=== PATIENT | male | born 1935 | race Caucasian/White ===

== ENCOUNTER → 2023-03-21 15:40 | Outpatient (REF) | payer MEDICARE, SELFPAY | LOC: PAVMRI 15:40 | PROVIDERS: ATTENDING PHYSICIAN Family Medicine | DX: M54.41 Lumbago with sciatica, right side (principal) | CPT/HCPCS: 72148 ==

== ENCOUNTER → 2023-04-02 11:14 | Outpatient (REF) | payer MEDICARE, SELFPAY ==
[2023-04-02 11:57] LABS: % Basophils 0.5 % (0-2); % Eosinophils 6.4 % (0-6); % Immature Granulocytes 0.8 % (0-0.5); % Lymphocytes 16.5 % (20.5-51.1); % Monocytes 12.2 % (1.7-9.3); % Neutrophils 63.6 % (42.2-75.2); Absolute Eosinophils 0.3 10^3/uL (0-0.7); Absolute Lymphocytes 0.7 10^3/uL (1.2-3.4); Absolute Monocytes 0.5 10^3/uL (0.1-0.6); Absolute Neutrophils 2.5 10^3/uL (1.4-6.5); Hematocrit 33.8 % (39.0-52.0); Hemoglobin 11.3 g/dL (13.0-18.0); Mean Corp Hgb Conc. 33.4 g/dL (33.0-37.0); Mean Corpuscular Hgb 29.9 pg (27.0-31.0); Mean Corpuscular Volume 89.4 fL (80.0-94.0); Mean Platelet Volume 8.4 fL (7.4-10.4); Nucleated Red Blood Cells % 0 % (-); Platelet Count 157 10^3/uL (130-400); Red Blood Cell Count 3.78 10^6/uL (4.70-6.10); Red Cell Dist. Width 14.2 % (11.5-14.5); White Blood Cell Count 3.9 10^3/uL (4.8-10.8)
[2023-04-02 12:54] LABS: PSA, Total - Diagnostic 5.68 ng/ml (0.0-4.0)
[2023-04-02 14:26] LABS: ALT (SGPT) 13 U/L (0-50); AST (SGOT) 24 U/L (17-59); Albumin 3.9 g/dl (3.5-5.0); Alkaline Phosphatase 55 U/L (38-126); Blood Urea Nitrogen 17 mg/dl (9-20); Calcium 9.8 mg/dl (8.4-10.2); Carbon Dioxide 27 mmol/L (22-30); Chloride 102 mmol/L (98-107); Glucose 155 mg/dl (70-99); Potassium 4.4 mmol/L (3.5-5.1); Sodium 138 mmol/L (135-145); Total Bilirubin 0.6 mg/dl (0.2-1.3); Total Protein 5.9 g/dl (6.3-8.2); eGFR > 60.00
== END ==
LOC: REG 11:14
PROVIDERS: ATTENDING PHYSICIAN Internal Medicine Hematology & Oncology; FAMILY PHYSICIAN Family Medicine
DX: C61 Malignant neoplasm of prostate (principal); C79.51 Secondary malignant neoplasm of bone
CPT/HCPCS: 36415; 80053; 84153; 85025

== ENCOUNTER → 2023-04-16 13:21 | Outpatient (REF) | payer MEDICARE, SELFPAY ==
[2023-04-16 14:14] LABS: % Basophils 0.5 % (0-2); % Eosinophils 5.5 % (0-6); % Immature Granulocytes 1.2 % (0-0.5); % Lymphocytes 14.3 % (20.5-51.1); % Neutrophils 68.5 % (42.2-75.2); Absolute Eosinophils 0.2 10^3/uL (0-0.7); Absolute Immature Granulocytes 0.1 10^3/uL (0-0.05); Absolute Lymphocytes 0.6 10^3/uL (1.2-3.4); Absolute Monocytes 0.4 10^3/uL (0.1-0.6); Absolute Neutrophils 2.9 10^3/uL (1.4-6.5); Hemoglobin 11.1 g/dL (13.0-18.0); Mean Corp Hgb Conc. 33.6 g/dL (33.0-37.0); Mean Corpuscular Hgb 30.1 pg (27.0-31.0); Mean Corpuscular Volume 89.4 fL (80.0-94.0); Mean Platelet Volume 8.4 fL (7.4-10.4); Nucleated Red Blood Cells % 0 % (-); Platelet Count 183 10^3/uL (130-400); Red Blood Cell Count 3.69 10^6/uL (4.70-6.10); Red Cell Dist. Width 14.2 % (11.5-14.5); White Blood Cell Count 4.2 10^3/uL (4.8-10.8)
[2023-04-16 14:53] LABS: ALT (SGPT) 14 U/L (0-50); AST (SGOT) 24 U/L (17-59); Albumin 4.5 g/dl (3.5-5.0); Alkaline Phosphatase 64 U/L (38-126); Blood Urea Nitrogen 26 mg/dl (9-20); Calcium 9.7 mg/dl (8.4-10.2); Carbon Dioxide 26 mmol/L (22-30); Chloride 106 mmol/L (98-107); Glucose 152 mg/dl (70-99); Potassium 4.6 mmol/L (3.5-5.1); Sodium 139 mmol/L (135-145); Total Bilirubin 0.4 mg/dl (0.2-1.3); Total Protein 6.6 g/dl (6.3-8.2); eGFR > 60.00
[2023-04-16 14:57] LABS: PSA, Total - Diagnostic 4.57 ng/ml (0.0-4.0)
== END ==
LOC: RAD 13:21
PROVIDERS: ATTENDING PHYSICIAN Radiology Radiation Oncology; FAMILY PHYSICIAN Family Medicine; REFERRING PHYSICIAN Internal Medicine Hematology & Oncology
DX: C79.51 Secondary malignant neoplasm of bone (principal); C79.52 Secondary malignant neoplasm of bone marrow; C61 Malignant neoplasm of prostate
CPT/HCPCS: 36415; 72192; 80053; 84153; 85025

== ENCOUNTER → 2023-05-27 14:41 | Outpatient (REF) | payer MEDICARE, SELFPAY ==
[2023-05-27 15:16] LABS: % Basophils 0.4 % (0-2); % Eosinophils 4.6 % (0-6); % Immature Granulocytes 0.6 % (0-0.5); % Lymphocytes 14.9 % (20.5-51.1); % Monocytes 9.7 % (1.7-9.3); % Neutrophils 69.8 % (42.2-75.2); Absolute Eosinophils 0.2 10^3/uL (0-0.7); Absolute Lymphocytes 0.7 10^3/uL (1.2-3.4); Absolute Monocytes 0.5 10^3/uL (0.1-0.6); Absolute Neutrophils 3.3 10^3/uL (1.4-6.5); Hematocrit 33.2 % (39.0-52.0); Hemoglobin 11.2 g/dL (13.0-18.0); Mean Corp Hgb Conc. 33.7 g/dL (33.0-37.0); Mean Corpuscular Hgb 31.1 pg (27.0-31.0); Mean Corpuscular Volume 92.2 fL (80.0-94.0); Mean Platelet Volume 8.7 fL (7.4-10.4); Nucleated Red Blood Cells % 0 % (-); Platelet Count 181 10^3/uL (130-400); Red Cell Dist. Width 14.3 % (11.5-14.5); White Blood Cell Count 4.8 10^3/uL (4.8-10.8)
[2023-05-27 15:37] LABS: ALT (SGPT) 14 U/L (0-50); AST (SGOT) 24 U/L (17-59); Albumin 4.6 g/dl (3.5-5.0); Alkaline Phosphatase 79 U/L (38-126); Blood Urea Nitrogen 24 mg/dl (9-20); Calcium 10.4 mg/dl (8.4-10.2); Carbon Dioxide 26 mmol/L (22-30); Chloride 104 mmol/L (98-107); Glucose 131 mg/dl (70-99); Potassium 4.7 mmol/L (3.5-5.1); Sodium 138 mmol/L (135-145); Total Bilirubin 0.5 mg/dl (0.2-1.3); Total Protein 6.7 g/dl (6.3-8.2); eGFR > 60.00
[2023-05-27 16:09] LABS: PSA, Total - Diagnostic 5.41 ng/ml (0.0-4.0)
== END ==
LOC: REG 14:41
PROVIDERS: ATTENDING PHYSICIAN Internal Medicine Hematology & Oncology; FAMILY PHYSICIAN Family Medicine
DX: C61 Malignant neoplasm of prostate (principal); C79.51 Secondary malignant neoplasm of bone
CPT/HCPCS: 36415; 80053; 84153; 85025

== ENCOUNTER → 2023-07-10 11:54 | Outpatient (REF) | payer MEDICARE, SELFPAY ==
[2023-07-10 14:14] LABS: % Basophils 0.2 % (0-2); % Eosinophils 4.3 % (0-6); % Immature Granulocytes 0.7 % (0-0.5); % Lymphocytes 17.2 % (20.5-51.1); % Monocytes 9.4 % (1.7-9.3); % Neutrophils 68.2 % (42.2-75.2); Absolute Eosinophils 0.2 10^3/uL (0-0.7); Absolute Lymphocytes 0.8 10^3/uL (1.2-3.4); Absolute Monocytes 0.4 10^3/uL (0.1-0.6); Absolute Neutrophils 3.1 10^3/uL (1.4-6.5); Hematocrit 35.2 % (39.0-52.0); Hemoglobin 11.9 g/dL (13.0-18.0); Mean Corp Hgb Conc. 33.8 g/dL (33.0-37.0); Mean Corpuscular Hgb 30.5 pg (27.0-31.0); Mean Corpuscular Volume 90.3 fL (80.0-94.0); Mean Platelet Volume 8.8 fL (7.4-10.4); Nucleated Red Blood Cells % 0 % (-); Platelet Count 196 10^3/uL (130-400); Red Cell Dist. Width 14.4 % (11.5-14.5); White Blood Cell Count 4.5 10^3/uL (4.8-10.8)
[2023-07-10 16:06] LABS: ALT (SGPT) 12 U/L (0-50); AST (SGOT) 24 U/L (17-59); Albumin 4.4 g/dl (3.5-5.0); Alkaline Phosphatase 49 U/L (38-126); Blood Urea Nitrogen 18 mg/dl (9-20); Calcium 9.8 mg/dl (8.4-10.2); Carbon Dioxide 25 mmol/L (22-30); Chloride 105 mmol/L (98-107); Glucose 142 mg/dl (70-99); Potassium 4.5 mmol/L (3.5-5.1); Sodium 138 mmol/L (135-145); Total Bilirubin 0.5 mg/dl (0.2-1.3); Total Protein 6.5 g/dl (6.3-8.2); eGFR > 60.00
[2023-07-10 16:31] LABS: PSA, Total - Diagnostic 9.18 ng/ml (0.0-4.0)
== END ==
LOC: REG 11:54
PROVIDERS: ATTENDING PHYSICIAN Internal Medicine Hematology & Oncology; FAMILY PHYSICIAN Family Medicine
DX: C61 Malignant neoplasm of prostate (principal); C79.51 Secondary malignant neoplasm of bone
CPT/HCPCS: 36415; 80053; 84153; 85025

== ENCOUNTER → 2023-08-16 12:49 | Outpatient (REF) | payer MEDICARE, SELFPAY ==
[2023-08-16 14:34] LABS: ALT (SGPT) 13 U/L (0-50); AST (SGOT) 25 U/L (17-59); Albumin 4.7 g/dl (3.5-5.0); Alkaline Phosphatase 59 U/L (38-126); Blood Urea Nitrogen 23 mg/dl (9-20); Calcium 9.8 mg/dl (8.4-10.2); Carbon Dioxide 27 mmol/L (22-30); Chloride 105 mmol/L (98-107); Glucose 144 mg/dl (70-99); Potassium 4.3 mmol/L (3.5-5.1); Sodium 139 mmol/L (135-145); Total Bilirubin 0.6 mg/dl (0.2-1.3); Total Protein 6.6 g/dl (6.3-8.2); eGFR > 60.00
== END ==
LOC: REG 12:49
PROVIDERS: ATTENDING PHYSICIAN Internal Medicine Hematology & Oncology; FAMILY PHYSICIAN Family Medicine
DX: C61 Malignant neoplasm of prostate (principal); C79.51 Secondary malignant neoplasm of bone
CPT/HCPCS: 36415; 80053; 84153

== ENCOUNTER → 2023-09-16 11:09 | Outpatient (REF) | payer MEDICARE, SELFPAY ==
[2023-09-16 13:56] LABS: ALT (SGPT) 11 U/L (0-50); AST (SGOT) 24 U/L (17-59); Albumin 4.4 g/dl (3.5-5.0); Alkaline Phosphatase 55 U/L (38-126); Blood Urea Nitrogen 15 mg/dl (9-20); Calcium 9.8 mg/dl (8.4-10.2); Carbon Dioxide 26 mmol/L (22-30); Chloride 106 mmol/L (98-107); Glucose 142 mg/dl (70-99); Potassium 4.2 mmol/L (3.5-5.1); Sodium 139 mmol/L (135-145); Total Bilirubin 0.5 mg/dl (0.2-1.3); Total Protein 6.2 g/dl (6.3-8.2); eGFR > 60.00
[2023-09-18 21:36] LABS: PSA Total 16.2 ng/mL (0.0-4.0)
== END ==
LOC: REG 11:09
PROVIDERS: ATTENDING PHYSICIAN Internal Medicine Hematology & Oncology
DX: C61 Malignant neoplasm of prostate (principal); C79.51 Secondary malignant neoplasm of bone
CPT/HCPCS: 36415; 80053; 84153; 84154

== ENCOUNTER → 2023-11-05 14:59 | Outpatient (REF) | payer MEDICARE, SELFPAY ==
[2023-11-05 17:01] LABS: ALT (SGPT) 12 U/L (0-50); AST (SGOT) 21 U/L (17-59); Albumin 4.4 g/dl (3.5-5.0); Alkaline Phosphatase 71 U/L (38-126); Blood Urea Nitrogen 25 mg/dl (9-20); Calcium 10.7 mg/dl (8.4-10.2); Carbon Dioxide 28 mmol/L (22-30); Chloride 101 mmol/L (98-107); Glucose 144 mg/dl (70-99); Potassium 4.4 mmol/L (3.5-5.1); Sodium 144 mmol/L (135-145); Total Bilirubin 0.4 mg/dl (0.2-1.3); Total Protein 6.2 g/dl (6.3-8.2); eGFR > 60.00
[2023-11-08 03:35] LABS: PSA Total 25.4 ng/mL (0.0-4.0)
== END ==
LOC: REG 14:59
PROVIDERS: ATTENDING PHYSICIAN Internal Medicine Hematology & Oncology; FAMILY PHYSICIAN Family Medicine
DX: C61 Malignant neoplasm of prostate (principal); C79.51 Secondary malignant neoplasm of bone
CPT/HCPCS: 36415; 80053; 84153; 84154

== ENCOUNTER → 2023-11-07 20:06 | Outpatient (REF) | payer MEDICARE, SELFPAY | LOC: MRI 3T 20:06 | PROVIDERS: ATTENDING PHYSICIAN Radiology Radiation Oncology; FAMILY PHYSICIAN Family Medicine | DX: C79.51 Secondary malignant neoplasm of bone (principal); C79.52 Secondary malignant neoplasm of bone marrow | CPT/HCPCS: 72158 ==

== ENCOUNTER 2023-11-26 15:32 | Inpatient (IN) | payer MEDICARE, SELFPAY ==
[2023-11-26] VITALS (13 sets, daily range): BP systolic 152–175; BP diastolic 69–93; BMI 24.2; BMI 24.4
[2023-11-26 11:13] LABS: % Basophils 0.4 % (0-2); % Eosinophils 1.1 % (0-6); % Immature Granulocytes 0.7 % (0-0.5); % Lymphocytes 8.5 % (20.5-51.1); % Monocytes 11.2 % (1.7-9.3); % Neutrophils 78.1 % (42.2-75.2); Absolute Eosinophils 0.1 10^3/uL (0-0.7); Absolute Lymphocytes 0.5 10^3/uL (1.2-3.4); Absolute Monocytes 0.6 10^3/uL (0.1-0.6); Absolute Neutrophils 4.3 10^3/uL (1.4-6.5); Hematocrit 29.3 % (39.0-52.0); Hemoglobin 10.5 g/dL (13.0-18.0); Mean Corp Hgb Conc. 35.8 g/dL (33.0-37.0); Mean Corpuscular Hgb 31.5 pg (27.0-31.0); Mean Platelet Volume 9.1 fL (7.4-10.4); Nucleated Red Blood Cells % 0 % (-); Platelet Count 164 10^3/uL (130-400); Red Blood Cell Count 3.33 10^6/uL (4.70-6.10); Red Cell Dist. Width 12.9 % (11.5-14.5); White Blood Cell Count 5.6 10^3/uL (4.8-10.8)
[2023-11-26 11:28] LABS: ALT (SGPT) 15 U/L (0-50); AST (SGOT) 34 U/L (17-59); Alkaline Phosphatase 96 U/L (38-126); Blood Urea Nitrogen 35 mg/dl (9-20); Carbon Dioxide 38 mmol/L (22-30); Chloride 96 mmol/L (98-107); Estimated Creatinine Clearance 21 ml/min; Glucose 157 mg/dl (70-99); Potassium 3.1 mmol/L (3.5-5.1); Sodium 142 mmol/L (135-145); Total Bilirubin 0.6 mg/dl (0.2-1.3); eGFR 23.29
[2023-11-26 11:35] LABS: Urine Albumin Negative (Neg - Trace); Urine Bilirubin Negative (Negative); Urine Character Clear (Clear); Urine Color Yellow; Urine Glucose Negative (Negative); Urine Ketone Negative (Negative); Urine Leukocyte Negative (Negative); Urine Nitrite Negative (Negative); Urine Occult Blood 2+ (Negative); Urine Urobilinogen Negative (Neg - 1+)
[2023-11-26 11:51] LABS: Urine Red Blood Cell 30-40 /HPF (0-2); Urine White Cell 16-20 /HPF (0-5)
[2023-11-26 11:52] LABS: Urine Bacteria Moderate (Negative)
[2023-11-26 11:54] LABS: Urine Hyaline Cast 0-2 /LPF (0-2)
--- NOTE | 2023-11-26 11:54 | ED.GENMED ---
History of Present Illness
General
Chief Complaint: Change in Mental Status
Source: patient
Exam Limitations: none
Time Seen by Provider: 11/26/23 10:50
History of Present Illness
History of Present Illness:
88-year-old male presents from home with family who states the patient has not been himself over the past 2 weeks. He has been very weak and confused. Just prior to this 2 weeks he was constipated and took magnesium citrate. This helped his
constipation. However he has been disoriented and confused and very weak since then. Family notes decreased intake both solids and liquids. He has been urinating. Patient denies any headache chest pain or shortness of breath but at this time
patient is not the best historian.
Phy Exam
Physical Exam
Physical Exam:
General: Well-appearing male no acute respiratory distress
HEENT: Normocephalic mucosa dry neck is supple
Heart: Regular rate and rhythm
Lungs: Clear no wheeze
Abdomen is soft nontender nondistended no guarding rebound normal bowel
Extremities: No cyanosis or edema
Course
Orders/Labs/Results
Orders:
Orders
11/26/23 11:03
Complete Blood Count/With Diff Urgent
Comprehensive Metabolic Panel Urgent
Urinalysis Urgent
Date Specimen was Collected: 11/26/23
Time Specimen was Collected: 10:58
Urine Microscopic Urgent
Date Specimen was Collected: 11/26/23
Time Specimen was Collected: 10:58
11/26/23 11:10
CT Head W/o Iv Contrast Urgent
Comment:
Reason For Exam: confusion
CR Chest - 2 Views Urgent
Comment:
Reason For Exam: confusion
11/26/23 14:03
CefTRIAXone [Rocephin] 1,000 mg IV NOW STA
Abnormal Lab Results
11/26/23
11:03
RBC 3.33 L 10^6/uL
(4.70-6.10)
Hgb 10.5 L g/dL
(13.0-18.0)
Hct 29.3 L %
(39.0-52.0)
MCH 31.5 H pg
(27.0-31.0)
Absolute Lymphs (auto) 0.5 L 10^3/uL
(1.2-3.4)
Immature Gran % 0.7 H %
(0-0.5)
Neutrophils % 78.1 H %
(42.2-75.2)
Lymphocytes % 8.5 L %
(20.5-51.1)
Monocytes % 11.2 H %
(1.7-9.3)
Potassium 3.1 L mmol/L
(3.5-5.1)
Chloride 96 L mmol/L
(98-107)
Carbon Dioxide 38 H mmol/L
(22-30)
BUN 35 H mg/dl
(9-20)
Creatinine 2.6 H mg/dL
(0.7-1.3)
Glucose 157 H mg/dl
(70-99)
Calcium 16.7 H* mg/dl
(8.4-10.2)
Total Protein 6.0 L g/dl
(6.3-8.2)
Urine Occult Blood 2+ A
(Negative)
Urine RBC 30-40 A /HPF
(0-2)
Urine WBC 16-20 A /HPF
(0-5)
Urine Bacteria Moderate A
(Negative)
11/26/23 11:03
11/26/23 11:03
Vital Signs
Initial and Last Documented VS:
Initial Vital Signs
Temp Pulse Resp BP Pulse Ox
97.8 F 76 20 175/72 97
11/26/23 10:48 11/26/23 10:48 11/26/23 10:48 11/26/23 10:48 11/26/23 10:48
Last Documented Vital Signs
Temp Pulse Resp BP Pulse Ox
97.8 F 72 16 175/72 96
11/26/23 10:57 11/26/23 10:57 11/26/23 10:57 11/26/23 10:57 11/26/23 10:57
MDM/Problems Addressed
Differential Diagnosis Includes:
Patient with history of prostate cancer presents weak and confused for 2 weeks and getting worse. This was followed by a dose of magnesium citrate. Question electrolyte abnormality versus kidney injury versus dehydration. Will order CT of head to
evaluate for any abnormalities. Chest x-ray and urine pending as well to evaluate for infectious source of weakness. There is no unilateral finding on exam to suggest stroke
Fluids ordered
*Critical Care Note
Total Time (30-74mins, 75-104mins- exclusive of procedures): Not Applicable
Update Note
Update Note:
CT head negative. Chest x-ray shows no obvious acute finding. There is mild cardiomegaly on the x-ray. Patient found to have acute kidney injury with a creatinine of 2.6 consistent with likely prerenal source given his recent dehydration and lack
of p.o. intake. Patient also has hypercalcemia with a value of 16.7. Fluids ordered will cover for UTI with Rocephin and admit to hospital
ED Attending Note
-
Portions of this chart may have been created with voice recognition software.� Occasional wrong word or��sound alike� substitutions may have occurred due to the inherent limitations of voice recognition software.
Discharge Plan
Departure
Patient Disposition: Admit
Date of Disposition: 11/26/23
Time of Disposition: 14:18
Admit to: Telemetry
Presentation/result/management discussed w/ accepting MD/DO: Hospitalist
Discharge Problem:
Hypercalcemia, KAVEH (acute kidney injury), Acute UTI
Prescriptions:
No Action
tramadol 50 mg tablet
50 mg PO TID
meloxicam [Mobic] 15 mg Tablet
15 mg PO DAILY
tamsulosin [Flomax] 0.4 mg Capsule
0.4 mg PO DAILY
Xtandi 40 mg Capsule
160 mg PO .DAILY-ON HOLD
Patient Comments:
ON HOLD UNTIL 12/11/2023 FAMILY STATED PATIENT MIGHT DO CHEMO IN DECEMBER OF 2023
Referrals:
UNKNOWN,NO INTERVIEW [Family Provider] -
Interventions
Interventions:
*General Assessment Last Done: 11/26/23 11:25
*Neglect/Abuse Screening Last Done: 11/26/23 11:00
*ED COVID-19 Vaccine History Last Done: 11/26/23 11:23
ED- Neurological Assessment Last Done: 11/26/23 13:39
Discharge Date and Time
Print Language: SAMMARINESE
[2023-11-26 12:12] LABS: Calcium 16.7 mg/dl (8.4-10.2)
--- NOTE | 2023-11-26 14:22 | HPS.HSE ---
Family Physician
-
Family Physician: NO INTERVIEW UNKNOWN
Chief Complaint
-
confusion
History of Present Illness
88 year old with PMH for HTN, prostate ca lalito to spine presented to us with change in Mental status for past two weeks. he was treated with antibiotics for upper respiratory infection beginning of last month. patient was noted constipated
afterwards. he took mag citrate with relief in his constipation. For past 2 weeks he was noted to be confused, sleeping more than usual. He was noted declined in his oral intake. he is usually physically very active at home. History obtained from
son. Review of system limited as patient is very confused.
Upon arrival he was noted in acute kidney injury as well as hypercalcemia likely from dehydration. Patient received ceftriaxone in ER for UTI. Patient also received pamidronate for hypercalcemia. Admitting for further management
Medical History
Past Medical History
Past Medical History: Reports Other
Additional Past Medical History:
prosate ca
htn
Past Surgical History: Reports Other
Additional Past Surgical History:
left shoulder surgery
right knee surgery
appendectomy
tonsillecotm
colon resection
Social History
Tobacco: Former Smoker
Alcohol: Occasional
Drug: None
Personal:
Living: With Family
Family History
Family History: Not pertinent
Allergies / Home Medications
Allergies reflects when Allergies were last updated in [employer].
Home Medications with original date entered in [employer]
Allergy/Medication List:
Allergies
Allergy/AdvReac Type Severity Reaction Status Date / Time
Sulfa (Sulfonamide Allergy Unknown Verified 12/07/22 13:24
Antibiotics)
lisinopril Allergy Unknown Uncoded 12/07/22 13:24
Home Medications
tramadol 50 mg tablet 50 mg PO TID Pain 05/31/22
enzalutamide 40 mg capsule (Xtandi) 160 mg PO .DAILY-ON HOLD 11/26/23
meloxicam 15 mg tablet 15 mg PO DAILY 11/26/23
tamsulosin 0.4 mg capsule (Flomax) 0.4 mg PO DAILY 11/26/23
Review of Systems
-
Unable to obtain full review of systems at this time due to: Other (Confusion)
Physical Exam
Vital Signs
Vital Signs
Temp Pulse Resp BP Pulse Ox
97.8 F 72 16 175/72 96
11/26/23 10:57 11/26/23 10:57 11/26/23 10:57 11/26/23 10:57 11/26/23 10:57
Physical Exam
General: Well Developed, Well Nourished and No Apparent Distress
HEENT: NormoCephalic, Moist mucous membranes and Atraumatic
Respiratory: Clear
Cardiac: S1/S2 and Regular Rhythm; No Murmur or Rub
GI: Soft, Non Tender, Non Distended and Normal Bowel Sounds; No Organomegaly
Rectal: Deferred by Provider
Musculoskeletal: No Clubbing, No Cyanosis and No Edema
Skin: No Rash
Neuro: Nonfocal/grossly intact
Psych: Confused
Laboratory Results
-
11/26/23 11:03
11/26/23 11:03
Laboratory Results
Total Bilirubin 0.6 mg/dl (0.2-1.3) 11/26/23 11:03
AST 34 U/L (17-59) 11/26/23 11:03
ALT 15 U/L (0-50) 11/26/23 11:03
Alkaline Phosphatase 96 U/L (38-126) 11/26/23 11:03
Data Reviewed
-
CT Scan: Report Reviewed by me
Lab Data: Labs Reviewed by me
Impression/Plan
-
#metabolic encephalopathy likely from hypercalcemia
-CT head negative
-chest x ray pending
-Ceftriaxone once dose in ER
-defer abx at this time.
#acute kidney injury/ profound symptomatic hypercalcemia possible dehydration/bone lalito
#hypokalemia likely from poor oral intake
-K 3.1
-cr 2.6, calcium 16.7
-normal saline continued
-received IV pamidronate in ER
-oral kcl in ER
-Nephrology consulted
#anemia of chornic disease
-hgb stable at 10.5
-no active bleeding
-ctm
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
-follows [facility]
-supposed to get radiation therapy some time next month
-tramadol prn for pain
-hold Mobic
#BPH
-Flomax
DVT heparin sq
FULL CODE
--- NOTE | 2023-11-26 14:31 | W.CON.NEPH ---
Consultation
-
Date/Time Consultation Requested: 11/26/2023 2:30 PM
Date/Time Consultation Performed: 11/26/2023 2:30 PM
Requesting Provider:
Performing Provider: Dr. Arzola
Reason for Consultation: Acute renal failure/hypercalcemia
Medical History
-
Chief Complaint: KAVEH/Hypercalcemia
History of Present Illness:
The patient is an 88-year-old male presents from home with family who states the patient has not been himself over the past 2 weeks. He has been very weak and confused. Just prior to this 2 weeks he was constipated and took magnesium citrate.
This helped his constipation. However he has been disoriented and confused and very weak since then. Family notes decreased intake both solids and liquids. He has been urinating. Patient denies any headache chest pain or shortness of breath but
at this time patient is not the best historian. The patient does have a history of BPH and is maintained on Flomax therapy. He also has a history of prostate cancer (DX 2013) and has received prostatectomy and antihormonal therapy in the past. A
recent PET scan obtained in September 2023 revealed metastasis and the humerus femur ribs scapula clavicle sternum and spine and pelvis. medications are listed as Celebrex and tramadol for arthralgias. He does have a history of hypertension and
previously been on STONEY inhibitor .when he presented to the hospital he was in acute renal failure with a creatinine of 2.6 and profoundly hypercalcemic with a serum calcium level of 16.7.
Past Medical History
History of right septic knee joint
Prostate cancer
HTN
Social History
Tobacco: Non-Smoker
Alcohol: None
Family History
Family History: Not Pertinent
Allergies / Home Medications
Allergy/AdvReac Type Severity Reaction Status Date / Time
Sulfa (Sulfonamide Allergy Unknown Verified 12/07/22 13:24
Antibiotics)
lisinopril Allergy Unknown Uncoded 12/07/22 13:24
�Medication �Instructions �Recorded �Confirmed �Type
tramadol 50 mg tablet 50 mg PO TID Pain 05/31/22 11/26/23 History
enzalutamide 40 mg capsule (Xtandi) 160 mg PO .DAILY-ON HOLD 11/26/23 11/26/23 History
meloxicam 15 mg tablet 15 mg PO DAILY 11/26/23 11/26/23 History
tamsulosin 0.4 mg capsule (Flomax) 0.4 mg PO DAILY 11/26/23 11/26/23 History
Review of Systems
-
History Source: Patient and Family
All other systems: Negative unless noted
Abdomen/GI: Anorexia
Neurological: Weakness and Other (Mental status changes)
Physical Exam
Vital Signs
Vital Signs
Temp Pulse Resp BP Pulse Ox
97.8 F 72 16 175/72 96
11/26/23 10:57 11/26/23 10:57 11/26/23 10:57 11/26/23 10:57 11/26/23 10:57
Lab Results
11/26/23 11:03
11/26/23 11:03
WBC 5.6 10^3/uL (4.8-10.8) 11/26/23 11:03
RBC 3.33 10^6/uL (4.70-6.10) L 11/26/23 11:03
Hgb 10.5 g/dL (13.0-18.0) L 11/26/23 11:03
Hct 29.3 % (39.0-52.0) L 11/26/23 11:03
Plt Count 164 10^3/uL (130-400) 11/26/23 11:03
Sodium 142 mmol/L (135-145) 11/26/23 11:03
Potassium 3.1 mmol/L (3.5-5.1) L 11/26/23 11:03
Chloride 96 mmol/L (98-107) L 11/26/23 11:03
Carbon Dioxide 38 mmol/L (22-30) H 11/26/23 11:03
BUN 35 mg/dl (9-20) H 11/26/23 11:03
Creatinine 2.6 mg/dL (0.7-1.3) H 11/26/23 11:03
eGFR 23.29 11/26/23 11:03
Glucose 157 mg/dl (70-99) H 11/26/23 11:03
Calcium 16.7 mg/dl (8.4-10.2) H* 11/26/23 11:03
Albumin 4.0 g/dl (3.5-5.0) 11/26/23 11:03
Physical Exam
General: AOx1, Nontoxic , NAD, confused ,
HEENT: PERRL, EOMI, Anicteric, Conjunctivae Clear, Ear/Nose Intact, Hearing Normal, Oropharynx Clear/dry, Dentition Intact, Facial Symmetry, Neck Supple, Neck: Trachea Midline, No JVD and No Thyromegaly, no Bruits
Respiratory: Clear to auscultation bilaterally with normal lung exersion
Cardiac: S1/S2 and Regular Rate/Rhythm
Breast: Deferred by me
Abdomen: Soft, Nontender, Nondistended, Normal Bowel Sounds and No Hepatosplenomegaly
Rectal: Deferred by Provider
Genito-urinary: No Costovertebral Tenderness
Extremities: No Clubbing, No Cyanosis and No Edema
Skin: No Rash or open lesions
Neuro: Nonfocal/Grossly Intact, CN II-XII (Intact) and Strength (Musculoskeletal exam 5 out of 5 both upper and lower extremities), no myoclonic activity
Hematologic/Lymphatic: No Cervical Lymphadenopathy, No Submandibular Lymphadenopathy and No Supraclavicular Lymphadenopathy
Psych: Mood/afflect pleasant, Insight/judgement good and Appropriate
Vascular: plus 2 pedal and radial pulses
Data Reviewed
-
Radiology: Report Reviewed by me (PET scan showing osseous metastatic lesions from 10/04)
Labs: Labs Reviewed by me (BMP CBC urinalysis)
Old Records: Reviewed (Creatinine 0.9 calcium 10.7 from 11/05/2023 PSA 25)
Assessment/Plan
-
Impression:
Presents with mental status changes and weakness
KAVEH
Hypercalcemia
History of metastatic prostate cancer
History of hypertension
Anemia
History of right septic knee arthritis spring 2023
History of prostatectomy (PSA 25)
Plan:
KAVEH likely related to prerenal stimulus specifically from hypercalcemia
-IV fluids to be administered in 60 mg IV pamidronate directed
-Calcitonin provided
-Normal saline at 120 cc initiated
-Accurate I's and O's. Monitor urine output with postvoid bladder scan
-Urinalysis notable for 2+ blood
-Will check urine protein urine creatinine ratio urine sodium and urine creatinine
-Obtain kidney and bladder ultrasound
Hypercalcemia
-Check vitamin D level, intact PTH, PTH RP , SPEP ,upep, urine kappa lambda ratio
-Strong suspicion for underlying malignancy: Could be related to metastatic osseous lesions (although alkaline phosphatase is not elevated)
-Dysproteinemia process is in the differential given anemia and hypercalcemia but total protein levels were not elevated
[2023-11-26] MEDS: ROCEPHIN 1000 MG IV (14:32)
--- NOTE | 2023-11-26 15:06 | W.PN.UPDATE ---
Update Note
Progress Note Update
This note serves as an addendum to the H&P by sander hand JOSEFA Mile [facility]
HPI
86M Non smoker, HX metastatic prostate CA on Enzalutamide , HTN seen at ER for confusional state.
- associated . weakness and not himself for 2 weeks
- progressively worse and more confused
-he was constipated and took magnesium citrate and help relieved constipation.
- However he has been disoriented and confused and very weak since then.
- Family notes decreased intake both solids and liquids.
- He has been urinating.
ROS: Patient denies any headache chest pain or shortness of breath but at this time patient is not the best historian.
Vital Signs
Temp Pulse Resp BP Pulse Ox
97.8 F 72 16 175/72 96
11/26/23 10:57 11/26/23 10:57 11/26/23 10:57 11/26/23 10:57 11/26/23 10:57
PE
Gen: awake but not interactive ,incognizant, no cognitve speed
HEENT: dry lips, dry OM
Neck: supple
Lungs: symmetric AE
Cor: RRR S1 S2
Abdomen: soft abdomen
RESIDENTIAL CONSTRUCTION INSTRUCTOR: awake but not interactive ,incognizant
MS: no edema
Psych: not interactive ,incognizant
Laboratory Tests
07/10/23 11/05/23 11/26/23
12:13 15:22 11:03
Hgb 11.9 L 10.5 L
Potassium 4.4 3.1 L
Chloride 96 L
Carbon Dioxide 28 38 H
BUN 35 H
Creatinine 0.9 2.6 H
eGFR 23.29
Glucose 157 H
Calcium 10.7 H 16.7 H*
Albumin 4.0
CXR: report pending
HCT: No acute intracranial abnormality
EKG
AK 208
NORMAL SINUS RHYTHM WITH SINUS ARRHYTHMIA
LEFT AXIS DEVIATION
LEFT VENTRICULAR HYPERTROPHY WITH QRS WIDENING AND REPOLARIZATION ABNORMALITY
( R in aVL , Sokolow-Valente , [place] product )
ABNORMAL ECG
WHEN COMPARED WITH ECG OF 07-DEC-2022 13:26,
ST NOW DEPRESSED IN LATERAL LEADS
T WAVE INVERSION NOW EVIDENT IN ANTERIOR LEADS
NONSPECIFIC T WAVE ABNORMALITY HAS REPLACED INVERTED T WAVES IN LATERAL LEADS
Lx spine MRI ( 11/07/23)
Extensive metastatic disease throughout the lumbar spine and pelvis with likely new metastatic foci in the T12 and S3 vertebral bodies. There is increased extent of disease within the L3 vertebral body. There is no evidence of leptomeningeal disease
within the lumbar spine.
Multilevel degenerative changes with resultant multifocal spinal canal or neuroforaminal narrowing. There is a new right subarticular disc extrusion with caudal migration at the L2-L3 level with resultant increased right lateral recess narrowing and
contacting of the right transiting nerve roots. The additional degenerative changes are not significantly changed from prior with persistent severe canal stenosis at the L4-L5 level.
Last hospitalist admission: Date of Admission: 05/31/22 - Date of Discharge: 06/03/22
Principal Discharge diagnosis : Right knee effusion
Chronic Discharge diagnosis : hypertension, metastatic prostate cancer on hormonal therapy
ASSESSMENT & PLAN
Pending Rx reconciliation
Acute symptomatic profound hypercalcemia : multifactorial such metastatic spine bone dz of prostate plus dehydration
Metabolic encephalopathy due to hypercalcemia with progressive acute confusional state with weakness , anorexia
KAVEH suspect prerenal from dehydration complicated with volume contraction
Contraction alkalosis
Constipation due to hypercalcemia
- @ ER received 1 L NS then- IV NS at 120/Hrs
- Normal Alkaline Phos thus check GGT
- check iPTH, MARIANELA (SPEP)
- agree with IV pamidronate @ ER and added IM calcitonin 100 units
- Check Calcium q6H
- BMI in AM
- EKG in AM to observe AK interval ( [facility] AK interval is 208)
- Hold off Enzalutamide
- BW regime
- Renal consulted
Hypokalemia :
- PO KCL 40
DVT Px: SQH
Code: Full cod
IMU to close monitoring hypercalcemia
[2023-11-26] MEDS: AREDIA 270 MG IV (15:56)
[2023-11-26 17:02] LABS: GGTP 16 U/L (15-73)
[2023-11-26] MEDS: KCL ELIXIR 40 MEQ PO (17:10)
--- NOTE | 2023-11-26 18:44 | PTCARENOTE ---
Pt received from ED via stretcher. Placed on hard wire monitoring. Condom cath #30 applied. Skin C/D/I. Son at bedside. Report to electrical prospecting observer RN.
[2023-11-26] MEDS: NSS 1000 IV (19:38)
[2023-11-26] MEDS: CALCIMAR/CALCITONIN 400 UNITS/ 2 ML 300 UNITS IM (19:39)
[2023-11-26] MEDS: ULTRAM 50 MG PO (19:45)
[2023-11-26] MEDS: HEPARIN 5000 UNITS SC (19:46)
[2023-11-26 20:37] LABS: Blood Urea Nitrogen 37 mg/dl (9-20); Carbon Dioxide 30 mmol/L (22-30); Chloride 101 mmol/L (98-107); Estimated Creatinine Clearance 21 ml/min; Glucose 131 mg/dl (70-99); Potassium 3.5 mmol/L (3.5-5.1); Sodium 142 mmol/L (135-145); eGFR 24.41
[2023-11-26 20:47] LABS: Calcium 16.2 mg/dl (8.4-10.2)
[2023-11-26 20:49] LABS: Calcium 16.2 mg/dl (8.4-10.2); Intact PTH 9.4 pg/ml (13.6-85.8)
--- NOTE | 2023-11-26 21:53 | PTCARENOTE ---
Rec'd pt from previous RN. Pt resting in bed, disoriented, confused. Pt with one episode of small amount yellow emesis, no pills visible in emesis. Hygiene care performed. Pt removed condom cath and had episode of incontinence, this RN replaced. SR
to sinus arrhythmia on cardiac nurse. IVF running through L AC, soft arm immobilizer in place to prevent occlusion of IVF.
[2023-11-27] VITALS (14 sets, daily range): BP systolic 149–187; BP diastolic 66–92; PULSE 77; O2SAT 95; BMI 24.7
[2023-11-27] MEDS: NSS 1000 IV ×4 (04:01→21:34)
[2023-11-27 04:04] LABS: Blood Urea Nitrogen 38 mg/dl (9-20); Carbon Dioxide 29 mmol/L (22-30); Chloride 102 mmol/L (98-107); Estimated Creatinine Clearance 21 ml/min; Glucose 159 mg/dl (70-99); Potassium 3.4 mmol/L (3.5-5.1); Sodium 144 mmol/L (135-145); eGFR 24.41
--- NOTE | 2023-11-27 04:06 | DOWNTIME ---
There was a [employer] E Learning Designer Downtime on 11/27/2023 from 0100 to 11/27/2023 at 0355. Downtime documentation of patient's care, including medication administrations, has been reconciled in the electronic record per guidelines. Refer to the
patient's paper chart under the miscellaneous tab to see printed paper medication records and downtime forms.
[2023-11-27 04:16] LABS: Calcium 15.6 mg/dl (8.4-10.2)
[2023-11-27] MEDS: ULTRAM 50 MG PO (05:26)
[2023-11-27 05:38] LABS: Hematocrit 28.6 % (39.0-52.0); Hemoglobin 9.8 g/dL (13.0-18.0); Mean Corp Hgb Conc. 34.3 g/dL (33.0-37.0); Mean Corpuscular Hgb 29.4 pg (27.0-31.0); Mean Corpuscular Volume 85.9 fL (80.0-94.0); Mean Platelet Volume 8.8 fL (7.4-10.4); Platelet Count 172 10^3/uL (130-400); Red Blood Cell Count 3.33 10^6/uL (4.70-6.10); Red Cell Dist. Width 13.2 % (11.5-14.5); White Blood Cell Count 5.4 10^3/uL (4.8-10.8)
--- NOTE | 2023-11-27 07:55 | W.PN.HOSP.TC ---
Addendum entered and electronically signed by Jordan Rhoades MD 11/27/23 11:39:
I saw and evaluated the patient. I reviewed the resident�s note and agree with findings and plan as documented in the resident�s note.
Patient currently confused and unable to answer questions.
Gen: NAD, NCAT
Eyes: EOMI, PERRLA, no scleral icterus.
Neck: supple.
CV: tachy, reg rhythm with frequent premature beats, +S1/S2, no m/r/g.
Resp: CTAB, no rales, wheezes, or rhonchi.
Abd: +BS, soft, NT, ND
Skin: No rashes.
Neuro: arousable but falls back asleep quickly, CN 2-12 intact, non-focal.
Psych: calm
CT brain: No acute intracranial abnormality
Acute metabolic encephalopathy due to hypercalcemia of malignancy:
-h/o metastatic prostate CA
-s/p IV pamidronate
-increase IVFs to 200cc/hr
-renal and onc following
Original Note:
Today's Communication/Plan
-
Recheck BMP, continue IVF
Speech eval
hypercalemic labs pending
Assessment / Plan
Assessment / Plan
Impression: This is a 88 year old male with PMH of HTN and prostate cancer with mets to spine on Enzalutamide who presented to the ED with altered mental status for the past two weeks according to family. In ED, found to be hypercalcemic at 16.7.
Assessment:
HTN
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
BPH
Anemia of Chronic Disease
Plan:
#Toxic Metabolic Encephalopathy likely from hypercalcemia
-CT head 11/25: No acute intracranial abnormality.
-CXR on 11/25: Mild cardiomegaly without associated pulmonary edema
-Ceftriaxone 1x in ER
-Speech eval ordered
#KAVEH/Symptomatic hypercalcemia possible dehydration/bone mets
-hypokalemia likely from poor oral intake
-K 3.2 today, repleted
-Recheck BMP: cr increasing to 2.6, calcium decreased to 14.9
-Repeat BMP
-Continue IVF
-Received IV pamidronate in ER
-Nephrology consulted
-Hypercalemia lab workup pending (monoclonal protein, PTH, urine studies, MARIANELA/SPEP)
#Anemia of chronic disease
-Hb decreased to 9.8, monitor
#Prostate Ca metastasis to the spine
-follows [facility] with
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
- Continue tramadol prn for pain
#BPH
-Continue Flomax
DVT ppx: heparin sq
Full Code
Anticipated Discharge: > 48 hours
Subjective/Interval History
-
Date of Service: November 27, 2023
Patient is unable to answer questions or follow commands.
Objective Data
-
Labs:
Laboratory Results
11/26/23 11/26/23 11/27/23
20:05 20:05 00:54
WBC
Hgb
Hct
Plt Count
Sodium 142 144
Potassium 3.5 3.4 L
Chloride 101 102
Carbon Dioxide 30 29
BUN 37 H 38 H
Creatinine 2.5 H 2.5 H
Glucose 131 H 159 H
Calcium 16.2 H* 16.2 H* 15.6 H*
11/27/23 11/27/23
05:10 06:18
WBC 5.4
Hgb 9.8 L
Hct 28.6 L
Plt Count 172
Sodium 144 Cancelled
Potassium 3.2 L Cancelled
Chloride 103 Cancelled
Carbon Dioxide 30 Cancelled
BUN 39 H Cancelled
Creatinine 2.6 H Cancelled
Glucose 163 H Cancelled
Calcium 14.9 H* Cancelled
Vital Signs:
Vital Signs
Temp Pulse Resp BP Pulse Ox
97.9 F 75 16 158/79 93
11/27/23 04:23 11/27/23 06:00 11/27/23 06:00 11/27/23 06:00 11/26/23 22:00
I&O
11/26/23 11/27/23 11/28/23
06:59 06:59 06:59
Intake Total 1440 / 1440
Output Total 500 / 500
Balance -500 / -500 1440 / 1440
Review of Systems
-
Unable to obtain full review of systems at this time due to: Other (not oriented)
Physical Exam
-
General: No Apparent Distress
HEENT: Normocephalic
Respiratory: Clear to Auscultation
Cardiac: Regular Rhythm and S1/S2
GI: Soft, Nontender and Nondistended
Musculoskeletal: No Cyanosis and No Edema
Skin: Warm and Dry
Neuro: Awake and Alert; Negative Oriented
[2023-11-27] MEDS: KLOR-CON 40 MEQ PO (09:13)
[2023-11-27] MEDS: HEPARIN 5000 UNITS SC ×2 (09:13→19:23)
[2023-11-27] MEDS: FLOMAX 0.4 MG PO (09:13)
--- NOTE | 2023-11-27 09:45 | CON.ONC ---
Impression
Impression
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
KAVEH
Severe hypercalcemia of malignancy
TME
Plan
Plan
KAVEH likely related to hypercalcemia from known met prostate Ca
Getting NSS IV fluids + 60 mg IV pamidronate + Calcitonin.
Overall prognosis guarded but we should await improvement of TME after Tx of hypercalcemia to see if might be eligible for salvage Tx of CRPC using systemic therapy with modified Taxotere or Falguni 177.
Will follow
Patient History
History of Present Illness
CC: Confusion
HPI: 88-year-old male with Met Prostate Ca follows w Dr. Rios presents from home with family who states the patient has been very weak and confused. Most recent PSA gilbert from 3 > 25 and PET scan obtained in September 2023 revealed POD with widespread
bone metastasis. Admitted yesterday with acute renal failure with a creatinine of 2.6 and severe hypercalcemic with a serum calcium level of 16.7.
Past-Medical/Surgical History
PMH:
Met Prostate cancer
HTN
Social History
Tobacco: Non-Smoker
Alcohol: None
Family History
Family History: Not Pertinent
Allergies / Home Medications
Patient Medication
�Medication �Instructions �Recorded �Confirmed �Last Taken �Type
tramadol 50 mg tablet 50 mg PO TID Pain 05/31/22 11/26/23 11/25/23 History
enzalutamide 40 mg capsule (Xtandi) 160 mg PO .DAILY-ON HOLD 11/26/23 11/26/23 11/24/23 History
Antineoplastic Agent
meloxicam 15 mg tablet 15 mg PO DAILY Pain 11/26/23 11/26/23 11/25/23 History
tamsulosin 0.4 mg capsule (Flomax) 0.4 mg PO DAILY Urinary Issue 11/26/23 11/26/23 11/25/23 History
Active Medications
Generic Name Dose Route Start Last Admin
Trade Name Freq PRN Reason Stop Dose Admin
Acetaminophen 650 mg 11/26/23 18:18
Acetaminophen 325 Mg Tablet PO 12/24/23 18:17
Q4HPRN PRN
mild pain/ZAVALA/temp> 100.4F
Bisacodyl 10 mg 11/26/23 18:18
Bisacodyl 10 Mg Rectal Suppository RECTAL 12/24/23 18:17
[id number] PRN
constipation
Heparin Sodium 5,000 units 11/26/23 20:00 11/27/23 09:13
Heparin 5,000 Units/Ml 1 Ml Vial SC 12/24/23 19:59 5,000 units
Q12 TIARA Administration
Sodium Chloride 1,000 mls @ 200 mls/hr 11/26/23 18:18 11/27/23 04:01
Nss IV 11/27/23 12:00 1,000 mls
.Q5H TIARA Administration
Sodium Chloride 1,000 mls @ 100 mls/hr 11/27/23 12:00
Nss IV
.Q10H TIARA
Polyethylene Glycol 17 grams 11/26/23 18:18
Polyethylene Glycol Powder 17 Grams Packet PO 12/24/23 18:17
DAILYPRN PRN
constipation
Senna/Docusate Sodium 1 tablet 11/26/23 18:18
Docusate W/Senna (Heather-Colace) Tablet PO 12/24/23 18:17
BIDPRN PRN
constipation
Sodium Chloride 0 flush 11/26/23 18:00
Sodium Chloride 0.9% (Flush) Syringe IV 12/24/23 17:59
PER PROTOCOL TIARA
Tamsulosin HCl 0.4 mg 11/27/23 08:00 11/27/23 09:13
Tamsulosin 0.4 Mg Capsule PO 12/25/23 07:59 0.4 mg
DAILY TIARA Administration
Tramadol HCl 50 mg 11/26/23 18:00 11/27/23 05:26
Tramadol Hcl 50 Mg Tablet PO 12/24/23 17:59 50 mg
Q12H TIARA Administration
Physical Exam
-
General: Other (confused and mostly non verbal)
Cardiology: S1 and S2
Pulmonary: Clear
GI: Soft
Extremities: No C/C/E
Labs
Lab Results
WBC 5.4 10^3/uL (4.8-10.8) 11/27/23 05:10
RBC 3.33 10^6/uL (4.70-6.10) L 11/27/23 05:10
Hgb 9.8 g/dL (13.0-18.0) L 11/27/23 05:10
Hct 28.6 % (39.0-52.0) L 11/27/23 05:10
MCV 85.9 fL (80.0-94.0) 11/27/23 05:10
MCH 29.4 pg (27.0-31.0) 11/27/23 05:10
MCHC 34.3 g/dL (33.0-37.0) 11/27/23 05:10
RDW 13.2 % (11.5-14.5) 11/27/23 05:10
Plt Count 172 10^3/uL (130-400) 11/27/23 05:10
MPV 8.8 fL (7.4-10.4) 11/27/23 05:10
Abs Immat Gran (auto) 0.0 10^3/uL (0-0.05) 11/26/23 11:03
Absolute Neuts (auto) 4.3 10^3/uL (1.4-6.5) 11/26/23 11:03
Absolute Lymphs (auto) 0.5 10^3/uL (1.2-3.4) L 11/26/23 11:03
Absolute Monos (auto) 0.6 10^3/uL (0.1-0.6) 11/26/23 11:03
Absolute Eos (auto) 0.1 10^3/uL (0-0.7) 11/26/23 11:03
Absolute Basos (auto) 0.0 10^3/uL (0-0.2) 11/26/23 11:03
Immature Gran % 0.7 % (0-0.5) H 11/26/23 11:03
Neutrophils % 78.1 % (42.2-75.2) H 11/26/23 11:03
Lymphocytes % 8.5 % (20.5-51.1) L 11/26/23 11:03
Monocytes % 11.2 % (1.7-9.3) H 11/26/23 11:03
Eosinophils % 1.1 % (0-6) 11/26/23 11:03
Basophils % 0.4 % (0-2) 11/26/23 11:03
Creatinine Cancelled 11/27/23 06:18
Vital Signs
Vital Signs
Temp Pulse Resp BP Pulse Ox
98.2 F 75 16 158/79 93
11/27/23 07:35 11/27/23 06:00 11/27/23 06:00 11/27/23 06:00 11/26/23 22:00
--- NOTE | 2023-11-27 10:48 | W.PN.NEPH.PH ---
Today's Communication / Plan
-
IVF
Assessment/Plan
-
Impression:
Presents with mental status changes and weakness
KAVEH
Hypercalcemia
History of metastatic prostate cancer
History of hypertension
Anemia
History of right septic knee arthritis spring 2023
History of prostatectomy (PSA 25)
Plan:
continue IVF
follow BMP
no more calcitonin
no more aredia
await Calcium w/u, though likely due to HHM (Prostate CA)
hopefully MS will improve as Calcium goes < 13
-
-
Date of Service: November 27, 2023
CC / HPI / ROS
-
Chief Complaint:
hypercalcemia
History of Present Illness:
calcium down to 14.9
K low 3.2
BP stable
nonoliguric on IVF
Review of Systems:
lethargic
poorly interactive
responds to voice
Labs
-
Labs:
WBC 5.4 10^3/uL (4.8-10.8) 11/27/23 05:10
RBC 3.33 10^6/uL (4.70-6.10) L 11/27/23 05:10
Hgb 9.8 g/dL (13.0-18.0) L 11/27/23 05:10
Hct 28.6 % (39.0-52.0) L 11/27/23 05:10
Plt Count 172 10^3/uL (130-400) 11/27/23 05:10
Sodium Cancelled 11/27/23 06:18
Potassium Cancelled 11/27/23 06:18
Chloride Cancelled 11/27/23 06:18
Carbon Dioxide Cancelled 11/27/23 06:18
BUN Cancelled 11/27/23 06:18
Creatinine Cancelled 11/27/23 06:18
eGFR Cancelled 11/27/23 06:18
Glucose Cancelled 11/27/23 06:18
Calcium Cancelled 11/27/23 06:18
Albumin 4.0 g/dl (3.5-5.0) 11/26/23 11:03
Physical Exam
-
Vital Signs:
Vital Signs
Temp Pulse Resp BP Pulse Ox
98.2 F 75 16 158/79 93
11/27/23 07:35 11/27/23 06:00 11/27/23 06:00 11/27/23 06:00 11/26/23 22:00
Cardiovascular:: Regular rate and rhythm
Respiratory:: Bilateral: Coarse
Lung Excursion:: Normal
Abdomen:: Nontender and Soft
Bowel Sounds:: Normal
Extremity Edema:: None: Bilateral:
[2023-11-27 11:08] LABS: Phosphorus 4.4 mg/dl (2.5-4.5)
--- NOTE | 2023-11-27 12:25 | PTOTSP ---
Speech Therapy Dysphagia Evaluation Consult
BOILERMAKER PIPE FITTER reviewed pt's chart and discussed pt status with RN prior to evaluation. Upon BOILERMAKER PIPE FITTER arrival, pt received sleeping in bed. Pt very lethargic with brief eye opening to tactile, auditory, verbal, and visual stimulation. BOILERMAKER PIPE FITTER provided cold sensation to
pt's lips, in which he had no response to. Pt unable to maintain arousal for safe swallowing. BOILERMAKER PIPE FITTER discussed recommendations with RN and MD.
Recommend:
1. Strict NPO
2. Medications via non oral route
3. Oral care 3x daily
4. ST follow-up to assess pt's oropharyngeal swallow function.
[2023-11-27 12:43] LABS: Vitamin D, 25-OH*** 60.8 ng/mL (30-80)
[2023-11-27] MEDS: ULTRAM PO (13:20)
--- NOTE | 2023-11-27 16:17 | CM ---
CM spoke with spouse as confusion noted
Pt and spouse [place]
Pt is typically independent with his ADls
Utilizes a WW PRN, drives+
AxO 3x at baseline per spouse
No financial insecurities
Pt is under care of [facility], on oral hormone therapy and planned for 1 session of radiatio at [facility] end of month
Likely plan to start chemo after radiation per
PCP- Shukri Che
[facility]
SNF recs by therapy
Spouse deferred all dc planning to son
Call with son/Rocky
In agreement with SNF- PAC left bedside and he will review
Discharge Disposition- SNF
--- NOTE | 2023-11-27 18:17 | PTCARENOTE ---
Rec'd pt this AM. lethargic, minimally responsive, NPO per speech due to level of consciousness. restless in bed, vital signs stable.
[2023-11-27] MEDS: DILAUDID 0.5 MG IV (21:34)
[2023-11-28] VITALS (16 sets, daily range): BP systolic 143–187; BP diastolic 60–110
[2023-11-28] MEDS: APRESOLINE 10 MG IV ×3 (00:03→22:56)
[2023-11-28] MEDS: ULTRAM PO ×2 (01:05→17:10)
[2023-11-28] MEDS: NSS 1000 IV ×2 (02:47→08:18)
[2023-11-28] MEDS: DILAUDID 0.5 MG IV ×3 (04:30→23:45)
[2023-11-28 04:38] LABS: Hematocrit 27.9 % (39.0-52.0); Hemoglobin 9.6 g/dL (13.0-18.0); Mean Corp Hgb Conc. 34.4 g/dL (33.0-37.0); Mean Corpuscular Hgb 30.8 pg (27.0-31.0); Mean Corpuscular Volume 89.4 fL (80.0-94.0); Mean Platelet Volume 8.8 fL (7.4-10.4); Platelet Count 135 10^3/uL (130-400); Red Blood Cell Count 3.12 10^6/uL (4.70-6.10); Red Cell Dist. Width 13.3 % (11.5-14.5); White Blood Cell Count 6.1 10^3/uL (4.8-10.8)
--- NOTE | 2023-11-28 04:42 | PTCARENOTE ---
Patient remained lethargic overnight. Responds to pain and verbal stimuli at times. NS running at 200 ml/hr. PRN dilaudid given x2 for pain.
[2023-11-28 05:19] LABS: Blood Urea Nitrogen 41 mg/dl (9-20); Carbon Dioxide 26 mmol/L (22-30); Chloride 110 mmol/L (98-107); Estimated Creatinine Clearance 20 ml/min; Glucose 122 mg/dl (70-99); Sodium 146 mmol/L (135-145); eGFR 23.29
--- NOTE | 2023-11-28 05:47 | PTCARENOTE ---
NIKA k 3.0. call or contact centre operator provider made aware and ordered IV repletion.
--- NOTE | 2023-11-28 05:48 | W.PN.UPDATE ---
Update Note
Progress Note Update
K 3.1, will replete KCL 40meq IV x 1, patient asymptomatic, no new concerns.
[2023-11-28] MEDS: KCL 270 MEQ IV ×2 (06:02→10:09)
--- NOTE | 2023-11-28 08:15 | W.PN.HOSP.TC ---
Today's Communication/Plan
-
see plan
Assessment / Plan
Assessment / Plan
Gen: NAD, awake and alert but not oriented, NCAT
Eyes: EOMI, PERRLA, no scleral icterus.
Neck: supple.
CV: tachy, reg rhythm with frequent premature beats, +S1/S2, no m/r/g.
Resp: CTAB, no rales, wheezes, or rhonchi.
Abd: +BS, soft, NT, ND
Skin: No rashes.
Neuro: arousable but falls back asleep quickly, CN 2-12 intact, non-focal.
Psych: calm
CT brain: No acute intracranial abnormality
Acute metabolic encephalopathy and KAVEH due to hypercalcemia of malignancy:
-h/o metastatic prostate CA
-s/p IV pamidronate
-cont IVFs at 200cc/hr
-calcium improving
-renal and onc following
Other problems:
Hypokalemia: IV K, check Mg
Essential HTN: IV Hydralazine PRN
BPH: cont Flomax
Anemia of Chronic Disease: Trend Hb
FULL/heparin sq
Anticipated Discharge: > 48 hours
Subjective/Interval History
-
Date of Service: November 28, 2023
Patient states he is 'okay' but is unable to answer further questions.
Objective Data
-
Labs:
Laboratory Results
11/28/23
04:17
WBC 6.1
Hgb 9.6 L
Hct 27.9 L
Plt Count 135 D
Sodium 146 H
Potassium 3.0 L
Chloride 110 H
Carbon Dioxide 26
BUN 41 H
Creatinine 2.6 H
Glucose 122 H
Calcium 13.0 H D
Vital Signs:
Vital Signs
Temp Pulse Resp BP Pulse Ox
99.1 F 74 15 155/64 92
11/28/23 04:38 11/28/23 06:04 11/28/23 06:04 11/28/23 06:04 11/28/23 06:04
I&O
11/27/23 11/28/23 11/29/23
06:59 06:59 06:59
Intake Total 6240 / 6240
Output Total 500 / 500 1500 / 1500
Balance -500 / -500 4740 / 4740
[2023-11-28] MEDS: HEPARIN 5000 UNITS SC ×2 (08:18→20:53)
[2023-11-28] MEDS: FLOMAX PO (08:24)
--- NOTE | 2023-11-28 10:10 | PTCARENOTE ---
Pt received with K rider infusing ordered by night CENTRAL SUPPLY TECHNICIAN. Additional K rider ordered by hospitalist. D/W Dr. Rhoades, advised to give additional infusion. Infusing as ordered- see APR.
--- NOTE | 2023-11-28 10:11 | W.PN.ONC ---
Today's Communication / Plan
-
KAVEH likely related to hypercalcemia from known met prostate Ca slightly improved to 13.0
Management of hypercalcemia as per renal
Overall prognosis guarded but we should await improvement of TME after Tx of hypercalcemia to see if might be eligible for salvage Tx of CRPC using systemic therapy with modified Taxotere or Falguni 177.
Will follow
Impression
Impression
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
KAVEH
Severe hypercalcemia of malignancy
TME
Subjective/Objective
Subjective/Objective
Patient continues to be lethargic. He does recognize me and shook my hand.
Vital Signs:
Vital Signs
Temp Pulse Resp BP Pulse Ox
98.1 F 74 15 155/64 92
11/28/23 07:27 11/28/23 06:04 11/28/23 06:04 11/28/23 06:04 11/28/23 06:04
General: Other (confused and mostly non verbal)
Cardiology: S1 and S2
Pulmonary: Clear
GI: Soft
Extremities: No C/C/E
Lab Results:
Laboratory Data
WBC 6.1 10^3/uL (4.8-10.8) 11/28/23 04:17
Hgb 9.6 g/dL (13.0-18.0) L 11/28/23 04:17
Plt Count 135 10^3/uL (130-400) D 11/28/23 04:17
eGFR 23.29 11/28/23 04:17
--- NOTE | 2023-11-28 11:10 | PTCARENOTE ---
Pt hypertensive, PRN Hydralazine administered- see MAR.
--- NOTE | 2023-11-28 11:40 | W.PN.NEPH.PH ---
Today's Communication / Plan
-
IVF
Assessment/Plan
-
Impression:
Presents with mental status changes and weakness
KAVEH
Hypercalcemia
History of metastatic prostate cancer
History of hypertension
Anemia
History of right septic knee arthritis spring 2023
History of prostatectomy (PSA 25)
Plan:
continue IVF use 1/2NS
follow BMP
replete K
await Calcium w/u, though likely due to HHM (Prostate CA)
hopefully MS will improve as Calcium goes < 13
-
-
Date of Service: November 28, 2023
CC / HPI / ROS
-
Chief Complaint:
hypercalcemia
History of Present Illness:
calcium down to 13
K low 3.0
Na up to 146
BP stable
nonoliguric on IVF
Review of Systems:
lethargic
poorly interactive
responds to voice
Labs
-
Labs:
WBC 6.1 10^3/uL (4.8-10.8) 11/28/23 04:17
RBC 3.12 10^6/uL (4.70-6.10) L 11/28/23 04:17
Hgb 9.6 g/dL (13.0-18.0) L 11/28/23 04:17
Hct 27.9 % (39.0-52.0) L 11/28/23 04:17
Plt Count 135 10^3/uL (130-400) D 11/28/23 04:17
Sodium 146 mmol/L (135-145) H 11/28/23 04:17
Potassium 3.0 mmol/L (3.5-5.1) L 11/28/23 04:17
Chloride 110 mmol/L (98-107) H 11/28/23 04:17
Carbon Dioxide 26 mmol/L (22-30) 11/28/23 04:17
BUN 41 mg/dl (9-20) H 11/28/23 04:17
Creatinine 2.6 mg/dL (0.7-1.3) H 11/28/23 04:17
eGFR 23.29 11/28/23 04:17
Glucose 122 mg/dl (70-99) H 11/28/23 04:17
Calcium 13.0 mg/dl (8.4-10.2) H D 11/28/23 04:17
Phosphorus Cancelled 11/27/23 05:10
Albumin 4.0 g/dl (3.5-5.0) 11/26/23 11:03
Physical Exam
-
Vital Signs:
Vital Signs
Temp Pulse Resp BP Pulse Ox
98.1 F 74 15 176/78 92
11/28/23 07:27 11/28/23 06:04 11/28/23 06:04 11/28/23 10:13 11/28/23 06:04
Cardiovascular:: Regular rate and rhythm
Respiratory:: Bilateral: Coarse
Lung Excursion:: Normal
Abdomen:: Nontender and Soft
Bowel Sounds:: Normal
Extremity Edema:: None: Bilateral:
--- NOTE | 2023-11-28 11:57 | PTOTSP ---
ST Acute Care Evaluation
Pt currently presents with clinical signs of moderately-severe oropharyngeal dysphagia 2/2 acute metabolic encephalopathy characterized by disorganized acceptance of bolus from tsp and straw, significant bolus holding with solids, anterior spillage
of liquids from R labial seal, lack of anterior to posterior transport of pureed solids, and lack of swallow initiations for both liquid trials and pureed solids.
Recommendations:
- Continue NPO status, including medications.
- Initiate ARHP - ice chips PRN, with supervision.
- Consider placement of short-term entec (dobhoff).
- GYNECOLOGICAL ASSISTANT to f/u re: re-assessing pt's candidacy for PO diet initiation and to monitor cognitive linguistic status to determine if further assessment is warranted.
[2023-11-28] MEDS: 0.45%NACL 1000 IV ×2 (13:36→20:53)
[2023-11-28 14:31] LABS: Magnesium 1.8 mg/dl (1.6-2.3)
--- NOTE | 2023-11-28 15:59 | PTCARENOTE ---
Addendum entered by Kassie Padilla 11/28/23 17:51:
Pt's HR now sustaining in 120-130's. BP 180's systolic. EKG obtained. Dr. Rhoades notified via TT. Orders received for IV Lopressor, administered as ordered, see APR. HR recovered to 90's. O2 sat dropping to high 80's; placed on 2L NC and sats
recovered to mi 90's. Son at bedside and updated on plan of care.
Original Note:
Pt with bursts of sinus tach up to 160's, sustaining around 110. Restless, attempting to climb OOB and remove monitor equipment. Pt requiring frequent reorientation. Dr. Rhoades notified of tachycardia, no further orders received at this time.
--- NOTE | 2023-11-28 17:00 | CM ---
Patient with Hx metastatic prostate CA with Dx Acute metabolic encephalopathy and KAVEH due to hypercalcemia of malignancy, s/p IV pamidronate. Room air. Receiving IVF, IV Kcl. ST Eval - NPO. PT recommends skilled rehab.
Spoke with patient's son Rocky, due to prior CM notes/discussion with son; son expressed concerns re; his father's current mental status and condition, and wants to wait and see how the patient progresses before deciding on d/c plans, and CM agrees.
Rocky will parts picker the SNF list left for him and review this weekend. He plans to follow up with CM on Sat re; possible SNF choices as needed.
Request to Dr Rhoades for OT Eval.
CM continuing to follow for d/c needs.
Plan TBD.
[2023-11-28] MEDS: LOPRESSOR 5 MG IV (17:09)
[2023-11-29] VITALS (14 sets, daily range): BP systolic 137–171; BP diastolic 80–132; PULSE 103; O2SAT 95; BMI 24.7
[2023-11-29] MEDS: LOPRESSOR 2.5 MG IV (00:22)
[2023-11-29 02:53] LABS: Vitamin D 1,25 Dihydroxy 11.3 pg/mL (19.9-79.3)
[2023-11-29] MEDS: 0.45%NACL 1000 IV ×2 (03:32→10:09)
[2023-11-29] MEDS: ULTRAM PO ×2 (04:56→18:00)
[2023-11-29 05:13] LABS: Hematocrit 26.7 % (39.0-52.0); Hemoglobin 9.4 g/dL (13.0-18.0); Mean Corp Hgb Conc. 35.2 g/dL (33.0-37.0); Mean Corpuscular Hgb 30.1 pg (27.0-31.0); Mean Corpuscular Volume 85.6 fL (80.0-94.0); Mean Platelet Volume 9.1 fL (7.4-10.4); Platelet Count 158 10^3/uL (130-400); Red Blood Cell Count 3.12 10^6/uL (4.70-6.10); Red Cell Dist. Width 13.9 % (11.5-14.5); White Blood Cell Count 10.2 10^3/uL (4.8-10.8)
[2023-11-29 05:40] LABS: Blood Urea Nitrogen 44 mg/dl (9-20); Calcium 12.4 mg/dl (8.4-10.2); Carbon Dioxide 14 mmol/L (22-30); Chloride 114 mmol/L (98-107); Estimated Creatinine Clearance 20 ml/min; Glucose 139 mg/dl (70-99); Potassium 3.3 mmol/L (3.5-5.1); Sodium 147 mmol/L (135-145); eGFR 23.29
[2023-11-29] MEDS: FLOMAX PO (08:01)
[2023-11-29] MEDS: HEPARIN 5000 UNITS SC ×2 (08:05→20:59)
--- NOTE | 2023-11-29 08:07 | W.PN.HOSP.TC ---
Addendum entered and electronically signed by Jordan Rhoades MD 11/29/23 13:05:
I saw and evaluated the patient. I reviewed the resident�s note and agree with findings and plan as documented in the resident�s note.
Gen: Appears moderately short of breath with accessory muscle use, awake and alert but not oriented, NCAT
Eyes: EOMI, PERRLA, no scleral icterus.
Neck: supple.
CV: tachy, reg rhythm, +S1/S2, no m/r/g.
Resp: Rales in the bases bilaterally
Abd: +BS, soft, NT, ND
Skin: No rashes.
Neuro: CN 2-12 intact, non-focal.
Psych: Calm
CT brain: No acute intracranial abnormality
Acute metabolic encephalopathy and KAVEH due to hypercalcemia of malignancy:
-h/o metastatic prostate CA
-s/p IV pamidronate
-Patient has been receiving aggressive IV fluids and his calcium is improved. Today's chest x-ray with bilateral pulmonary edema and pt with acute hypoxemic respiratory failure (accessory muscle use). Case discussed with Dr. Arzola. Will stop
IVFs and give Lasix 40mg IV x 1.
Other problems:
Hypokalemia: IV K, check Mg
Essential HTN: IV Hydralazine PRN
BPH: cont Flomax
Anemia of Chronic Disease: Trend Hb
Total time spent on today's encounter was 50 minutes which included time spent in counseling the patient/family regarding diagnosis and treatment plan as listed above, goals of care, and symptom management. Case was discussed with nursing staff,
specialists, and care coordinators/case management. All labs and imaging personally reviewed by me. Remainder the time spent in detailed review of previous records, lab data, imaging, and other medical provider documentation.
Original Note:
Today's Communication/Plan
-
Continue IVF
CXR
repeat BMP
Assessment / Plan
Assessment / Plan
Impression: This is a 88 year old male with PMH of HTN and prostate cancer with mets to spine on Enzalutamide who presented to the ED with altered mental status for the past two weeks according to family. In ED, found to be hypercalcemic at 16.7.
Assessment:
HTN
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
BPH
Anemia of Chronic Disease
Plan:
#Toxic Metabolic Encephalopathy likely from hypercalcemia
-CT head 11/25: No acute intracranial abnormality.
-CXR on 11/25: Mild cardiomegaly without associated pulmonary edema
-Ceftriaxone 1x in ER
-Continue NPO as per speech, might consider short term dobhoff
#Tachycardia
- likely due to hydralazine
- wbc within normal limits
#KAVEH/Symptomatic hypercalcemia possible dehydration/bone mets
-hypokalemia likely from poor oral intake
-Received IV pamidronate in ER
-K 3.3 today, repleted
-cr 2.6, calcium decreased to 12.4, recheck mag tomorrow
-Continue 1/2NS due to hypernatremia
-Received IV pamidronate in ER
-Nephrology consulted
-Hypercalemia lab workup pending (monoclonal protein, PTH, urine studies, MARIANELA/SPEP)
-CO dropped to 14, RR >30, ordered CXR
#Anemia of chronic disease
-Hb decreased to 9.4, monitor
#Prostate Ca metastasis to the spine
-follows [facility] with
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
- Continue tramadol prn for pain
#BPH
-Continue Flomax
DVT ppx: heparin sq
Full Code
Anticipated Discharge: > 48 hours
Subjective/Interval History
-
Date of Service: November 29, 2023
Patient not very oriented and is very restless.
Objective Data
-
Labs:
Laboratory Results
11/29/23
04:24
WBC 10.2
Hgb 9.4 L
Hct 26.7 L
Plt Count 158
Sodium 147 H
Potassium 3.3 L
Chloride 114 H
Carbon Dioxide 14 L*
BUN 44 H
Creatinine 2.6 H
Glucose 139 H
Calcium 12.4 H
Vital Signs:
Vital Signs
Temp Pulse Resp BP Pulse Ox
98.3 F 117 31 157/96 94
11/29/23 04:33 11/29/23 06:10 11/29/23 04:00 11/29/23 06:00 11/29/23 05:42
I&O
11/28/23 11/29/23 11/30/23
06:59 06:59 06:59
Intake Total 6240 / 6240 2640 / 2640
Output Total 1500 / 1500
Balance 4740 / 4740 2640 / 2640
Review of Systems
-
Unable to obtain full review of systems at this time due to: Other (Not oriented)
Physical Exam
-
General: No Apparent Distress
HEENT: Normocephalic
Respiratory: Clear to Auscultation
Cardiac: Regular Rhythm and S1/S2
GI: Soft and Nondistended
Musculoskeletal: No Cyanosis and No Edema
Skin: Warm and Dry
Neuro: Awake and Alert; Negative Oriented
[2023-11-29 09:28] LABS: Albumin 3.6 g/dl (3.5-5.0)
[2023-11-29] MEDS: KCL 270 MEQ IV (09:46)
--- NOTE | 2023-11-29 10:19 | W.PN.NEPH.PH ---
Today's Communication / Plan
-
Maintain IV fluid
Recheck BMP this afternoon given sudden drop in bicarb
Replete potassium
Assessment/Plan
-
Impression:
Presents with mental status changes and weakness
KAVEH
Hypercalcemia
History of metastatic prostate cancer
History of hypertension
Anemia
History of right septic knee arthritis spring 2023
History of prostatectomy (PSA 25)
Plan:
continue IVF use 1/2NS
calcium slowly dropping to 12.4
uop not even recorded : check postvoid bladder scan with low threshold for Del Valle catheter placed, weights not recorded
Creatinine unchanged at 2.6 since admission
follow BMP
replete K
await Calcium w/u, though likely due to HHM (Prostate CA)
hopefully MS will improve as Calcium goes < 13
-
-
Date of Service: November 29, 2023
CC / HPI / ROS
-
Chief Complaint:
hypercalcemia
History of Present Illness:
calcium down to 12.4
K low 3.3
Na up to 147
BP stable
Creatinine unchanged to 2.6
Review of Systems:
Urine output not even recorded
No weights record
lethargic
poorly interactive
responds to voice
Labs
-
Labs:
WBC 10.2 10^3/uL (4.8-10.8) 11/29/23 04:24
RBC 3.12 10^6/uL (4.70-6.10) L 11/29/23 04:24
Hgb 9.4 g/dL (13.0-18.0) L 11/29/23 04:24
Hct 26.7 % (39.0-52.0) L 11/29/23 04:24
Plt Count 158 10^3/uL (130-400) 11/29/23 04:24
Sodium 147 mmol/L (135-145) H 11/29/23 04:24
Potassium 3.3 mmol/L (3.5-5.1) L 11/29/23 04:24
Chloride 114 mmol/L (98-107) H 11/29/23 04:24
Carbon Dioxide 14 mmol/L (22-30) L* 11/29/23 04:24
BUN 44 mg/dl (9-20) H 11/29/23 04:24
Creatinine 2.6 mg/dL (0.7-1.3) H 11/29/23 04:24
eGFR 23.29 11/29/23 04:24
Glucose 139 mg/dl (70-99) H 11/29/23 04:24
Calcium 12.4 mg/dl (8.4-10.2) H 11/29/23 04:24
Phosphorus Cancelled 11/27/23 05:10
Albumin 3.6 g/dl (3.5-5.0) 11/29/23 04:24
Physical Exam
-
Vital Signs:
Vital Signs
Temp Pulse Resp BP Pulse Ox
98.5 F 117 31 157/96 94
11/29/23 07:16 11/29/23 06:10 11/29/23 04:00 11/29/23 06:00 11/29/23 05:42
Cardiovascular:: Regular rate and rhythm
Respiratory:: Bilateral: Coarse
Lung Excursion:: Normal
Abdomen:: Nontender and Soft
Bowel Sounds:: Normal
Extremity Edema:: None: Bilateral:
Del Valle Catheter: No
[2023-11-29] MEDS: DILAUDID 0.5 MG IV ×2 (11:19→21:00)
[2023-11-29] MEDS: 0.45% NACL with KCL 20 MEQ 1000 IV (11:43)
[2023-11-29] MEDS: LASIX 40 MG IV (13:39)
[2023-11-29] MEDS: DULCOLAX 10 MG RECTAL (14:06)
[2023-11-29 14:44] LABS: B.E. -8.6 mmol/L; PCO2 23 mmHg (35-48); PO2 68 mmHg (83-108); pH 7.41 (7.35-7.45)
[2023-11-29 14:49] LABS: HCO3 14.6 mmol/L (21-28)
[2023-11-29 16:00] LABS: Carbon Dioxide 15 mmol/L (22-30); Chloride 113 mmol/L (98-107); Potassium 3.6 mmol/L (3.5-5.1); Sodium 147 mmol/L (135-145)
--- NOTE | 2023-11-29 16:35 | PTCARENOTE ---
Patient restless on and off throughout the day. Tachycardic and tachypneic. MD aware. 94% on 2L NC. Pain medicine when necessary. Suppository given for constipation. Consistently reoriented patient throughout the shift. Comfort maintained. Son
currently at bedside. Continuing to closely monitor.
--- NOTE | 2023-11-29 16:58 | CM ---
Patient with Hx metastatic prostate CA with Dx Acute metabolic encephalopathy and KAVEH due to hypercalcemia of malignancy, s/p IV pamidronate. O2 2L. Calcium improving. ST for PO trials - NPO. PT recommends skilled rehab.
Patient will need OT Eval for d/c planning---> message to resident Denisha Waite.
CM continuing to follow for d/c needs.
Plan TBD.
[2023-11-29 18:48] LABS: 24 Hour Urine Total Volume Random mL; Urine Collection Length Random hr; Urine Free Kappa Light Chains 26.19 mg/L (0.00-32.90)
[2023-11-30] VITALS (14 sets, daily range): BP systolic 127–163; BP diastolic 77–132; BMI 23.6
[2023-11-30] MEDS: DILAUDID 0.5 MG IV ×4 (01:12→20:43)
--- NOTE | 2023-11-30 01:46 | PTCARENOTE ---
Addendum entered and electronically signed by DESTINY Rai 12/01/23 04:25:
Reported by the assigned nurse on 11/29 at 05:04 am that lung sound with coarse and expiatory wheeze. This provider went to assess, patient in bed, NAD, denied SOB or chest pain. No wheezing or crackle was noted on lung exam currently.
Order placed for Xopenex PRN if the patient needed. Morning lab reviewed, K repleted and Na level trended up from 147-153 asymptomatic nephrology is following the case and the nurse was advised to reach to nephrology for update and further
recommendation.
Original Note:
Pt able to answer some questions with yes or head nod. Pt appearing to be in discomfort at times pain assessment done along with asking Pt (see MAR). Emotional support given. Pt showing relief with pain medication and able to roll on side and rest.
Pt respiration even and unlabored when at rest. SPO2 96% on 2L. Bed alarm on and call castro within reach.
[2023-11-30] MEDS: ULTRAM PO ×2 (04:32→17:52)
[2023-11-30 04:38] LABS: Hematocrit 24.5 % (39.0-52.0); Hemoglobin 8.5 g/dL (13.0-18.0); Mean Corp Hgb Conc. 34.7 g/dL (33.0-37.0); Mean Corpuscular Hgb 30.2 pg (27.0-31.0); Mean Corpuscular Volume 87.2 fL (80.0-94.0); Mean Platelet Volume 9.2 fL (7.4-10.4); Platelet Count 143 10^3/uL (130-400); Red Blood Cell Count 2.81 10^6/uL (4.70-6.10); Red Cell Dist. Width 14.1 % (11.5-14.5); White Blood Cell Count 6.6 10^3/uL (4.8-10.8)
[2023-11-30 05:21] LABS: Blood Urea Nitrogen 53 mg/dl (9-20); Calcium 11.7 mg/dl (8.4-10.2); Carbon Dioxide 18 mmol/L (22-30); Chloride 115 mmol/L (98-107); Estimated Creatinine Clearance 19 ml/min; Glucose 133 mg/dl (70-99); Potassium 3.1 mmol/L (3.5-5.1); Sodium 153 mmol/L (135-145); eGFR 21.31
--- NOTE | 2023-11-30 05:45 | W.PN.UPDATE ---
Update Note
Progress Note Update
Reported by the nursing staff that the patient has Coarse with expiatory wheeze. Went to the patient`s room to assess.
Patient looks comfortable in bed, denied SOB or chest pain. No crackle or wheezing noted during the exam.
--- NOTE | 2023-11-30 05:54 | PTCARENOTE ---
Addendum entered by Paula Lora RN 11/30/23 06:27:
TT on-call nephrology, message read awaiting reply.
Original Note:
PT spo2 dropping into the 80's on 2L. Pt spo2 now at 94% one 4L. Pt having scattered expiratory wheeze and coarse crackles. Pt morning labs coming back K 3.1, Na 153. Night [employer] made aware of changes orders placed. Reached out to Nephrology about Na
jump from 147-153.
[2023-11-30] MEDS: KCL 270 MEQ IV (06:04)
--- NOTE | 2023-11-30 08:22 | W.PN.HOSP.TC ---
Addendum entered and electronically signed by Joradn Rhaodes MD 11/30/23 11:02:
I saw and evaluated the patient. I reviewed the resident�s note and agree with findings and plan as documented in the resident�s note.
Gen: NAD, AAOx1, NCAT
Eyes: EOMI, PERRLA, no scleral icterus.
Neck: supple.
CV: tachy, irreg/irreg, +S1/S2, no m/r/g.
Resp: CTAB anteriorly
Abd: +BS, soft, NT, ND
Skin: No rashes.
Neuro: CN 2-12 intact, non-focal.
Psych: Calm
CT brain: No acute intracranial abnormality
Acute metabolic encephalopathy and KAVEH due to hypercalcemia of malignancy:
-h/o metastatic prostate CA
-s/p IV pamidronate
-Patient had received aggressive IV fluids and his calcium has improved. CXR 11/29/23 with bilateral pulmonary edema and pt with acute hypoxemic respiratory failure (accessory muscle use). Case discussed with Dr. Arzola and IVFs were stopped. IV
Lasix given 11/29/23 and again today, 11/30/23. With hypernatremia starting hypotonic IVFs.
-check echo
Other problems:
Hypokalemia: IV K
Essential HTN: IV Hydralazine PRN
BPH: cont Flomax
Anemia of Chronic Disease: Trend Hb
Total time spent on today's encounter was 51 minutes which included time spent in counseling the patient/family regarding diagnosis and treatment plan as listed above, goals of care, and symptom management. Case was discussed with nursing staff,
specialists, and care coordinators/case management. All labs and imaging personally reviewed by me. Remainder the time spent in detailed review of previous records, lab data, imaging, and other medical provider documentation.
Original Note:
Today's Communication/Plan
-
Continue hypotonic IVF
Echo ordered
Assessment / Plan
Assessment / Plan
Impression: This is a 88 year old male with PMH of HTN and prostate cancer with mets to spine on Enzalutamide who presented to the ED with altered mental status for the past two weeks according to family. In ED, found to be hypercalcemic at 16.7.
Assessment:
HTN
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
BPH
Anemia of Chronic Disease
Plan:
#Toxic Metabolic Encephalopathy likely from hypercalcemia
-CT head 11/25: No acute intracranial abnormality.
-CXR on 11/25: Mild cardiomegaly without associated pulmonary edema
-Ceftriaxone 1x in ER
-Continue NPO, pending speech reassessment, might consider short term dobhoff
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
- Echo 2022: Left ventricular ejection fraction is 40-45%. Mild mitral regurgitation. Mild aortic stenosis. Mild aortic regurgitation. Dilated aortic root.
-Repeat echo
-IV lasix 80 Mg today- once
#KAVEH/Symptomatic hypercalcemia possible dehydration/bone mets
-hypokalemia likely from poor oral intake
-Received IV pamidronate in ER
-Nephrology consulted
-CXR 11/28: Interval development of diffuse interstitial opacities with more confluent left perihilar airspace disease, suggestive of acute pulmonary edema versus pneumonia. No significant pleural effusion. Cardiomegaly. Interval widening of the
superior mediastinum is likely related to patient rotation.
-K 3.1 today, repleted
-cr 2.8 increased, calcium decreased to 11.7
-hypernatremia 157, IVF D5w started
-Urine hypercalemia w/u: MARIANELA neg, U free alcira light chain increased (5.6)
-Other Hypercalemia lab workup pending (monoclonal protein, PTH, SPEP)
#Anemia of chronic disease
-Hb decreased to 9.4, monitor
#Prostate Ca metastasis to the spine
-follows [facility] with
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
- Continue tramadol prn for pain
#BPH
-Continue Flomax
-bladder scan: 165ml on 11/28
DVT ppx: heparin sq
Full Code
Anticipated Discharge: > 48 hours
Subjective/Interval History
-
Date of Service: November 30, 2023
Patient continues to be disoriented. Asked how he was feeling and he replied 'okay'. Unable to answer other questions.
Objective Data
-
Labs:
Laboratory Results
11/30/23
04:22
WBC 6.6
Hgb 8.5 L
Hct 24.5 L
Plt Count 143
Sodium 153 H
Potassium 3.1 L
Chloride 115 H
Carbon Dioxide 18 L
BUN 53 H
Creatinine 2.8 H
Glucose 133 H
Calcium 11.7 H
Vital Signs:
Vital Signs
Temp Pulse Resp BP Pulse Ox
97.4 F 88 19 140/80 95
11/30/23 04:26 11/30/23 06:00 11/30/23 06:00 11/30/23 06:00 11/30/23 06:00
I&O
11/29/23 11/30/23 12/01/23
06:59 06:59 06:59
Intake Total 2640 / 2640 0 / 0
Output Total 400 / 400
Balance 2640 / 2640 -400 / -400
Review of Systems
-
Unable to obtain full review of systems at this time due to: Other (Not oriented)
Physical Exam
-
General: No Apparent Distress
HEENT: Normocephalic
Respiratory: Clear to Auscultation
Cardiac: Regular Rhythm and S1/S2
GI: Soft and Nondistended
Musculoskeletal: No Cyanosis and No Edema
Skin: Warm and Dry
Neuro: Awake and Alert; Negative Oriented
--- NOTE | 2023-11-30 08:28 | W.PN.NEPH.PH ---
Today's Communication / Plan
-
IV Lasix
Hypotonic IV fluid
Replete potassium
Check bladder scan
Assessment/Plan
-
Impression:
Presents with mental status changes and weakness
KAVEH
Hypercalcemia
History of metastatic prostate cancer
History of hypertension
Anemia
History of right septic knee arthritis spring 2023
History of prostatectomy (PSA 25)
Plan:
Hyponatremia evolving
Will add D5W at 70 cc/h
Will provide Lasix 80 mg IV twice daily in setting of decompensated congestive heart failure
KAVEH worsening with creatinine up to 2.8,uop only 400cc
Replete potassium
calcium slowly dropping to 11.7
Chest x-ray personally reviewed
check postvoid bladder scan with low threshold for Del Valle catheter placed, weights not recorded
Creatinine unchanged at 2.6 since admission
follow BMP
Patient at high clinical risk with decompensated congestive heart failure and renal failure
await Calcium w/u, though likely due to HHM (Prostate CA)
-
-
Date of Service: November 30, 2023
CC / HPI / ROS
-
Chief Complaint:
hypercalcemia
History of Present Illness:
calcium down to 11.7
K low 3.1
Na up to 153
BP stable
Creatinine worse to 2.8
Hypoxic with congestive heart failure features on chest x-ray
Review of Systems:
Urine output questionable 400 cc record
Weights down
lethargic
poorly interactive
responds to voice
Labs
-
Labs:
WBC 6.6 10^3/uL (4.8-10.8) 11/30/23 04:22
RBC 2.81 10^6/uL (4.70-6.10) L 11/30/23 04:22
Hgb 8.5 g/dL (13.0-18.0) L 11/30/23 04:22
Hct 24.5 % (39.0-52.0) L 11/30/23 04:22
Plt Count 143 10^3/uL (130-400) 11/30/23 04:22
Sodium 153 mmol/L (135-145) H 11/30/23 04:22
Potassium 3.1 mmol/L (3.5-5.1) L 11/30/23 04:22
Chloride 115 mmol/L (98-107) H 11/30/23 04:22
Carbon Dioxide 18 mmol/L (22-30) L 11/30/23 04:22
BUN 53 mg/dl (9-20) H 11/30/23 04:22
Creatinine 2.8 mg/dL (0.7-1.3) H 11/30/23 04:22
eGFR 21.31 11/30/23 04:22
Glucose 133 mg/dl (70-99) H 11/30/23 04:22
Calcium 11.7 mg/dl (8.4-10.2) H 11/30/23 04:22
Phosphorus Cancelled 11/27/23 05:10
Albumin 3.6 g/dl (3.5-5.0) 11/29/23 04:24
Physical Exam
-
Vital Signs:
Vital Signs
Temp Pulse Resp BP Pulse Ox
97.4 F 88 19 140/80 95
11/30/23 04:26 11/30/23 06:00 11/30/23 06:00 11/30/23 06:00 11/30/23 06:00
Cardiovascular:: Regular rate and rhythm
Respiratory:: Bilateral: Coarse
Lung Excursion:: Normal
Abdomen:: Nontender and Soft
Bowel Sounds:: Normal
Extremity Edema:: None: Bilateral:
Del Valle Catheter: No
[2023-11-30] MEDS: LASIX 80 MG IV (08:58)
[2023-11-30] MEDS: FLOMAX PO (08:59)
[2023-11-30] MEDS: HEPARIN 5000 UNITS SC ×2 (08:59→20:43)
[2023-11-30] MEDS: D5W with KCL 20 MEQ 1000 IV ×2 (09:29→23:26)
[2023-12-01] VITALS (11 sets, daily range): BP systolic 133–166; BP diastolic 63–97; BMI 24.3
[2023-12-01] MEDS: DILAUDID 0.5 MG IV ×3 (02:23→22:20)
--- NOTE | 2023-12-01 04:27 | PTCARENOTE ---
Pt mentation wax and wanes. Early this morning Pt said ' I am Willy, Im not in [place], where am I' Simple answers given Pt does not believe he is in . Pt able to answer yes and no to pain in different body parts. Assessment care and vitals as
charted.
[2023-12-01 05:23] LABS: Hematocrit 23.3 % (39.0-52.0); Hemoglobin 8.1 g/dL (13.0-18.0); Mean Corp Hgb Conc. 34.8 g/dL (33.0-37.0); Mean Corpuscular Volume 86.3 fL (80.0-94.0); Mean Platelet Volume 9.1 fL (7.4-10.4); Platelet Count 144 10^3/uL (130-400); Red Cell Dist. Width 13.9 % (11.5-14.5); White Blood Cell Count 4.8 10^3/uL (4.8-10.8)
[2023-12-01] MEDS: ULTRAM PO ×2 (06:06→17:59)
[2023-12-01 07:02] LABS: NT-proBNP > 27000 pg/ml
[2023-12-01 07:14] LABS: Blood Urea Nitrogen 54 mg/dl (9-20); Calcium 11.4 mg/dl (8.4-10.2); Carbon Dioxide 21 mmol/L (22-30); Chloride 117 mmol/L (98-107); Estimated Creatinine Clearance 22 ml/min; Glucose 153 mg/dl (70-99); Potassium 3.2 mmol/L (3.5-5.1); Sodium 151 mmol/L (135-145); eGFR 25.63
--- NOTE | 2023-12-01 08:16 | W.PN.HOSP.TC ---
Addendum entered and electronically signed by Jordan Rhoades MD 12/01/23 14:26:
I saw and evaluated the patient. I reviewed the resident�s note and agree with findings and plan as documented in the resident�s note.
Gen: NAD, AAOx2, NCAT
Eyes: EOMI, PERRLA, no scleral icterus.
Neck: supple.
CV: tachy, RRR, +S1/S2, no m/r/g.
Resp: CTAB anteriorly
Abd: +BS, soft, NT, ND
Skin: No rashes.
Neuro: CN 2-12 intact, non-focal.
Psych: Calm
CT brain: No acute intracranial abnormality
Acute metabolic encephalopathy and KAVEH due to hypercalcemia of malignancy:
-h/o metastatic prostate CA
-s/p IV pamidronate
-Patient had received aggressive IV fluids and his calcium has improved. CXR 11/29/23 with bilateral pulmonary edema and pt had acute hypoxemic respiratory failure (accessory muscle use) on that date. Case discussed with Dr. Arzola and IVFs were
stopped at that time. IV Lasix given 11/29/23 and 11/30/23. With hypernatremia hypotonic IVFs were started 11/30/23 and continue.
-check echo 12/02/23. Cardiology consulted today. Case discussed with Dr. Celaya. Bedside echo with EF 35% (worse than prior).
Other problems:
Hypokalemia: IV K
Essential HTN: IV Hydralazine PRN
BPH: cont Flomax
Anemia of Chronic Disease: Trend Hb
Considering the overwhelming burden of pathology it is reasonable to consult palliative care.
Total time spent on today's encounter was 50 minutes which included time spent in counseling the patient/family regarding diagnosis and treatment plan as listed above, goals of care, and symptom management. Case was discussed with nursing staff,
specialists, and care coordinators/case management. All labs and imaging personally reviewed by me. Remainder the time spent in detailed review of previous records, lab data, imaging, and other medical provider documentation.
Addendum entered and electronically signed by Denisha Waite MD, Resident 12/01/23 14:05:
Called patient's son and updated him on patient's progress. Discussed about Dobhoff placement due to prolonged npo/nutrition needs and son is agreeable.
GI and dietary consult placed for Dobhoff. Discussed with nurse.
Original Note:
Today's Communication/Plan
-
Continue hyponatremic IVF
Recheck potassium in p.m.
Echo
Assessment / Plan
Assessment / Plan
Impression: This is a 88 year old male with PMH of HTN and prostate cancer with mets to spine on Enzalutamide who presented to the ED with altered mental status for the past two weeks according to family. In ED, found to be hypercalcemic at 16.7.
Assessment:
HTN
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
BPH
Anemia of Chronic Disease
Plan:
#Toxic Metabolic Encephalopathy likely from hypercalcemia
-CT head 11/25: No acute intracranial abnormality.
-CXR on 11/25: Mild cardiomegaly without associated pulmonary edema
-Ceftriaxone 1x in ER
-Discontinued nystatin, very unlikely oral thrush
-Continue NPO, pending speech reassessment for possible oral intake
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
- Echo 2022: Left ventricular ejection fraction is 40-45%. Mild mitral regurgitation. Mild aortic stenosis. Mild aortic regurgitation. Dilated aortic root.
-Repeat echo pending
-IV lasix 40 Mg today- once
-Cardiology consulted
#KAVEH/Symptomatic hypercalcemia possible dehydration/bone mets
-hypokalemia likely from poor oral intake
-Received IV pamidronate in ER
-Nephrology consulted
-CXR 11/28: Interval development of diffuse interstitial opacities with more confluent left perihilar airspace disease, suggestive of acute pulmonary edema versus pneumonia. No significant pleural effusion. Cardiomegaly. Interval widening of the
superior mediastinum is likely related to patient rotation.
-K 3.2 today, recheck in afternoon
-cr 2.4, calcium decreased to 11.4
-hypernatremia 151, continue IVF D5w
-Urine hypercalemia w/u: MARIANELA neg, U free alcira light chain increased (5.6)
-Other Hypercalemia lab workup pending (monoclonal protein, PTH, SPEP)
#Anemia of chronic disease
-Hb decreased to 9.4, monitor
#Prostate Ca metastasis to the spine
-follows [facility] with
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
- Continue tramadol prn for pain
#BPH
-Continue Flomax
-bladder scan: 165ml on 11/28
DVT ppx: heparin sq
Full Code
Anticipated Discharge: > 48 hours
Subjective/Interval History
-
Date of Service: December 01, 2023
Patient continues to be disoriented and was not able to answer many questions today.
Objective Data
-
Labs:
Laboratory Results
12/01/23 12/01/23 12/01/23
04:59 06:15 06:24
WBC 4.8
Hgb 8.1 L
Hct 23.3 L
Plt Count 144
Sodium Cancelled 151 H
Potassium Cancelled 3.2 L
Chloride Cancelled 117 H
Carbon Dioxide Cancelled 21 L
BUN Cancelled 54 H
Creatinine Cancelled 2.4 H
Glucose Cancelled 153 H
Calcium Cancelled 11.4 H
Total Bilirubin Cancelled
AST Cancelled
ALT Cancelled
Alkaline Phosphatase Cancelled
Vital Signs:
Vital Signs
Temp Pulse Resp BP Pulse Ox
97.9 F 88 18 166/92 97
12/01/23 03:57 12/01/23 06:00 12/01/23 06:00 12/01/23 06:00 12/01/23 06:00
I&O
11/30/23 12/01/23 12/02/23
06:59 06:59 06:59
Intake Total 0 / 0 700 / 700
Output Total 400 / 400
Balance -400 / -400 700 / 700
Review of Systems
-
Unable to obtain full review of systems at this time due to: Other (Disoriented)
Physical Exam
-
General: No Apparent Distress
HEENT: Normocephalic
Respiratory: Clear to Auscultation
Cardiac: Regular Rhythm and S1/S2
GI: Soft and Nondistended
Musculoskeletal: No Cyanosis and No Edema
Skin: Warm and Dry
Neuro: Awake and Alert; Negative Oriented
--- NOTE | 2023-12-01 09:13 | W.PN.NEPH.PH ---
Today's Communication / Plan
-
Maintain hypotonic IV fluids as patient with hypernatremia and poor p.o. intake
Lasix 40 mg IV provided for congestive heart failure
Replete potassium
Follow BMP
Assessment/Plan
-
Impression:
Presents with mental status changes and weakness
KAVEH
Hypercalcemia
History of metastatic prostate cancer
History of hypertension
Anemia
History of right septic knee arthritis spring 2023
History of prostatectomy (PSA 25)
Plan:
Maintain D5W for evolving hypernatremia
KAVEH : Creatinine down from 2.8-2.4, urine output not provided, weights up despite IV diuretics provided yesterday
As respiratory status has improved and I will give reduced dose of lasix today at 40mg IV
Replete potassium
calcium slowly dropping to 11.4
anemia worsening
checked postvoid bladder scan with low threshold for Del Valle catheter placed,
follow BMP
Patient at high clinical risk with decompensated congestive heart failure and renal failure
await Calcium w/u, though likely due to HHM (Prostate CA): pth appropriately suppressed
-
-
Date of Service: December 01, 2023
CC / HPI / ROS
-
Chief Complaint:
hypercalcemia
History of Present Illness:
calcium down to 11.4
K low 3.2
Na up to 153
BP stable
Creatinine worse to 2.8
Hypoxic with congestive heart failure features on chest x-ray
Review of Systems:
Urine output subjectively nonoliguric per review with nursing
Weights down per nursing
lethargic
poorly interactive but a little better today
Labs
-
Labs:
WBC 4.8 10^3/uL (4.8-10.8) 12/01/23 04:59
RBC 2.70 10^6/uL (4.70-6.10) L 12/01/23 04:59
Hgb 8.1 g/dL (13.0-18.0) L 12/01/23 04:59
Hct 23.3 % (39.0-52.0) L 12/01/23 04:59
Plt Count 144 10^3/uL (130-400) 12/01/23 04:59
Sodium 151 mmol/L (135-145) H 12/01/23 06:24
Potassium 3.2 mmol/L (3.5-5.1) L 12/01/23 06:24
Chloride 117 mmol/L (98-107) H 12/01/23 06:24
Carbon Dioxide 21 mmol/L (22-30) L 12/01/23 06:24
BUN 54 mg/dl (9-20) H 12/01/23 06:24
Creatinine 2.4 mg/dL (0.7-1.3) H 12/01/23 06:24
eGFR 25.63 12/01/23 06:24
Glucose 153 mg/dl (70-99) H 12/01/23 06:24
Calcium 11.4 mg/dl (8.4-10.2) H 12/01/23 06:24
Phosphorus Cancelled 11/27/23 05:10
Cdr-P-Vtwojtyjhfg Pept > 96177 pg/ml 12/01/23 06:24
Albumin Cancelled 12/01/23 06:15
Physical Exam
-
Vital Signs:
Vital Signs
Temp Pulse Resp BP Pulse Ox
97.6 F 88 18 166/92 97
12/01/23 07:55 12/01/23 06:00 12/01/23 06:00 12/01/23 06:00 12/01/23 06:00
Cardiovascular:: Regular rate and rhythm
Respiratory:: Bilateral: Coarse
Lung Excursion:: Normal
Abdomen:: Nontender and Soft
Bowel Sounds:: Normal
Extremity Edema:: None: Bilateral:
Del Valle Catheter: No
[2023-12-01] MEDS: FLOMAX PO (09:36)
[2023-12-01] MEDS: HEPARIN 5000 UNITS SC ×2 (09:51→22:16)
[2023-12-01] MEDS: KCL 270 MEQ IV ×2 (10:30→23:56)
--- NOTE | 2023-12-01 10:30 | PTOTSP ---
Speech Therapy
Presentation: Patient was seen positioned upright in his bed. MEDIA SENIOR RECRUITER performed oral care (dentures not in place) with oral suctioning in which MEDIA SENIOR RECRUITER removed several red/dark tinged debris from the oral cavity. Patient's oral cavity does appear to be in
better presentation than 11/29; however continued to have a film on his tongue, BOT, back of throat, and inner buccal.
Patient was oriented to self but thought he was in [place] (of note, patient's primary language is Telugu).
Swallowing Function: MEDIA SENIOR RECRUITER presented patient with several individual presentations of ice chips in which patient initially appeared to tolerate and then he began to show delayed and immediate s/sx of aspiration (throat clearing, coughing, wet vocal
quality). Patient's alertness began to decline as well as he became lethargic, unable to follow commands, and right sided facial weakness which improved back to baseline after ~1 minute. RN made aware and MEDIA SENIOR RECRUITER TT MD with findings.
Given patient's wax/ wane mentation and current presentation, may consider neurologic imaging as patient received a Head CT on 11/26/23. In addition, given patient's clinical presentation and overt s/sx of aspiration, consider alternative means of
nutrition and/ or a VSE; pending clinical presentation.
Recommend: continuation of NPO with ice chips after oral care with supervision.
Plan: MEDIA SENIOR RECRUITER will continue to follow; pending hospitalization.
[2023-12-01] MEDS: APRESOLINE 10 MG IV (10:31)
[2023-12-01 12:46] LABS: Albumin 3.56 g/dL (3.75-5.01); Alpha 1 Globulin 0.35 g/dL (0.19-0.46); Alpha 2 Globulin 0.74 g/dL (0.48-1.05); SPEP IFE Reflex IFE Done; Total Protein-Electrophoresis 5.7 g/dL (6.3-8.2)
--- NOTE | 2023-12-01 12:55 | CON.CAR ---
Consultation
Consultation Request
Date/Time Consultation Requested: 12/01/2023
Date/Time Consultation Performed: 12/01/2023
Reason for Consultation: CHF
Medical History
-
Chief Complaint: Altered mental status
History of Present Illness:
88 year old with PMH for HTN, prostate ca lalito to spine presented to us with change in Mental status for past two weeks. he was treated with antibiotics for upper respiratory infection beginning of last month. patient was noted constipated
afterwards. he took mag citrate with relief in his constipation. For past 2 weeks he was noted to be confused, sleeping more than usual. He was noted declined in his oral intake. he is usually physically very active at home. History obtained from
son. Review of system limited as patient is very confused.
Upon arrival he was noted in acute kidney injury as well as hypercalcemia likely from dehydration. Patient received ceftriaxone in ER for UTI. Patient also received pamidronate for hypercalcemia. Admitting for further management
Patient was started on saline and diuresis for forced diuresis. Patient's calcium level has slightly coming down. Patient saline has been changed to hypotonic saline with continue diuresis. Cardiology was consulted for systolic dysfunction noted
previously.
Echo 10/09/2022: Moderately reduced with LVEF of 40%. Mild MR and mild .
Echo on 05/01/2022; LVEF 55%
Past Medical History
Past Medical History: HTN and Other (Metastatic prostate cancer, hypertension, history of septic knee)
Social History
Tobacco: Non-Smoker
Drug: None
Family History
Family History: Unable to Obtain
Allergies / Home Medications
Allergy/AdvReac Type Severity Reaction Status Date / Time
lisinopril Allergy Unknown Verified 11/26/23 17:08
Sulfa (Sulfonamide Allergy Unknown Verified 12/07/22 13:24
Antibiotics)
�Medication �Instructions �Recorded �Confirmed �Type
tramadol 50 mg tablet 50 mg PO TID Pain 05/31/22 11/26/23 History
enzalutamide 40 mg capsule (Xtandi) 160 mg PO .DAILY-ON HOLD 11/26/23 11/26/23 History
Antineoplastic Agent
meloxicam 15 mg tablet 15 mg PO DAILY Pain 11/26/23 11/26/23 History
tamsulosin 0.4 mg capsule (Flomax) 0.4 mg PO DAILY Urinary Issue 11/26/23 11/26/23 History
Review of Systems
-
Unable to obtain full review of systems at this time due to: Dementia
All other systems: Negative unless noted
Physical Exam
Vital Signs
Temp Pulse Resp BP Pulse Ox
97.6 F 103 18 161/95 97
12/01/23 07:55 12/01/23 10:31 12/01/23 06:00 12/01/23 10:31 12/01/23 06:00
Lab Results
12/01/23 04:59
Gfq-B-Ovdnlwaboaj Pept > 39667 pg/ml 12/01/23 06:24
Physical Exam
General: Well Developed, Well Nourished and Other (Confused)
HEENT: Normocephalic and Anicteric
Respiratory: Crackles and Non Labored Respirations
Cardiac: S1/S2, Regular Rhythm, Murmur and Peripheral Edema
GI: Soft, Non Tender, Non Distended and Normal Bowel Sounds
Musculoskeletal: No Clubbing, No Cyanosis and No Edema
Skin: Warm and Dry
Neuro: Awake, Alert, Tremors and Other (Confused.)
Impression / Plan
-
88 years old gentleman with a history of moderately reduced systolic function with metastatic prostate cancer and hypertension is admitted with acute renal failure and severe hypercalcemia along with dehydration.
Heart failure with reduced ejection fraction
-Patient had normal systolic functions a year ago and has gradually been dropping and LVEF from 55% to 40% earlier this year.
-Bedside echo was done that showed LVEF is around 35%
-Currently patient is in acute confusional state and not able to follow commands very well.
-Will obtain full echo and continue to monitor.
-No sign of pericardial effusion noted.
-EKG shows IVCD with borderline left bundle branch block
Hypercalcemia
-Nephrology is following
-Forced diuresis with hypertonic saline and Lasix.
-Calcium is slowly coming down.
-Continue forced diuresis
Data Reviewed
-
EKG: Tracing Personally Visualized and interpreted
Radiology: Report Reviewed by me
Labs: Labs Reviewed by me
Old Records: Reviewed
[2023-12-01] MEDS: LASIX 40 MG IV (14:23)
--- NOTE | 2023-12-01 18:27 | PTCARENOTE ---
spoke w/ Dr. Rhoades regarding pt receiving dobhoff and tube feedings. Explained that IMU RNs are unable to place dobhoff tube and GI or other provider would need to place as ICU is unable. Pt family updated on plan of care.
[2023-12-01] MEDS: D5W with KCL 20 MEQ 1000 IV ×2 (19:50→22:34)
[2023-12-01] MEDS: LASIX 80 MG IV (22:17)
[2023-12-01 23:10] LABS: Potassium 3.3 mmol/L (3.5-5.1)
[2023-12-02] VITALS (14 sets, daily range): BP systolic 116–152; BP diastolic 70–106; PULSE 102; O2SAT 99; BMI 23.4
[2023-12-02] MEDS: ULTRAM PO (05:06)
--- NOTE | 2023-12-02 05:11 | PTCARENOTE ---
Pt having more cognitive brief conversations.
--- NOTE | 2023-12-02 05:12 | PTCARENOTE ---
Pt having more but brief clarity moments. Emotional support given. Pt able to answer yes and no to having pain. Pt ordered IV Lasix with positive results. Pt on RA spo2 98%. RR now 16-20's, improvement from high 20's past few days. Bed alarm motion picture projectionist apprentice
castro with in reach. Assessment care and vitals as charted.
[2023-12-02 07:09] LABS: Blood Urea Nitrogen 52 mg/dl (9-20); Calcium 11.5 mg/dl (8.4-10.2); Carbon Dioxide 27 mmol/L (22-30); Chloride 115 mmol/L (98-107); Estimated Creatinine Clearance 21 ml/min; Glucose 154 mg/dl (70-99); Potassium 3.5 mmol/L (3.5-5.1); Sodium 154 mmol/L (135-145); eGFR 24.41
[2023-12-02 07:30] LABS: IgA 65 mg/dL (68-408); IgG 368 mg/dL (768-1632); IgM 29 mg/dL (35-263)
--- NOTE | 2023-12-02 08:25 | W.PN.CD ---
Today's Communication / Plan
-
echo
Manangement of KAVEH, hypercalcemia, hypernatremaiaper nephrology
Anemia - Hb trending down - 8.1. Tx per primary team. may need PRBC
continue to monitor resp status and weights
Impression / Plan
-
88 years old gentleman with a history of moderately reduced systolic function with metastatic prostate cancer and hypertension is admitted with acute renal failure and severe hypercalcemia along with dehydration.
Heart failure with reduced ejection fraction
-Patient had normal systolic functions a year ago and has gradually been dropping and LVEF from 55% to 40% earlier this year.
-Limited bedside echo was done that showed LVEF is around 35%. Full echo to be done 12/02/23
-resp status stable
- continue to monitor with volume and diuretic given by nephrology for management of electrolyte abnormalities
Hypercalcemia
-Nephrology is following
- calcium 11.5
KAVEH - Creatinine 2.5 Hypernatremia 154 and hypokalemia - tx per nephrolgy and primary team
\\
Anemia- Hb continues to trend down to 8.- managment including decisions regarding PRBC per primary team
mental status- sleeping this maorning arousable. orient to DH but some confusion . Could not tell me why he is here.
-
Physical Exam
Vital Signs/Labs
Vital Signs
Temp Pulse Resp BP Pulse Ox
97.6 F 92 16 143/86 98
12/02/23 03:15 12/02/23 08:00 12/02/23 08:00 12/02/23 06:00 12/02/23 06:00
12/01/23 12/02/23 12/03/23
06:59 06:59 06:59
Actual Weight 74.5 kg 71.8 kg
12/01/23 04:59
12/02/23 06:33
Magnesium 1.8 mg/dl (1.6-2.3) 11/28/23 04:17
12/01/23 12/01/23
04:59 06:24
Lqp-C-Vlkeojsmtes Pept Cancelled > 18376
Physical Exam
Constitutional: No acute distress and Confusion
EENT: Anicteric
Cardiovascular: Rhythm & rate is regular
Respiratory: Lungs clear to auscul. and Wheeze Absent
GI: Soft, Non tender and Normal bowel sounds
Neuro/Psych: Alert
Data Reviewed
-
Date of Service: December 02, 2023
Medical Decision Making: Reviewed Test Results
EKG: Report Reviewed by me
Echo: Other (ordered. await result)
X-Ray/CT/US/MRI/NUC/PET: Report Reviewed by me
Labs: Labs Reviewed by me
[2023-12-02] MEDS: HEPARIN 5000 UNITS SC ×2 (09:04→19:43)
[2023-12-02] MEDS: FLOMAX PO (09:04)
--- NOTE | 2023-12-02 11:48 | PTCARENOTE ---
Assumed care of patient this morning. He is only oriented to himself, speaking in mostly what seems to be Bengali. He does answer some questions appropriately in Maldivian. His voice is also soft. Pt is strict NPO. Mouth care provided but was difficult
as patient not fully responding to commands to open mouth, stick out tongue, ect. Awaiting to sent to [facility]. Pt's and son at the bedside this morning and updated per RN's ability. Assessment, care and VS as charted.
--- NOTE | 2023-12-02 11:54 | W.CON.PAL ---
Consultation
-
Date/Time Consultation Requested: 11/30
Date/Time Consultation Performed: 12/01
Requesting Provider: Dr. Rhoades
Performing Provider: Dr. Munoz
Reason for Consult: Goals of Care Discussion
Primary Diagnosis: Stage IV Prostate Cancer
Related Diagnosis: Hypercalcemia of Malignancy
Consult Requested By: Patient's Physician
Family Physician: Dr. Shukri Che
Reason for Admission
Illness Course/HPI
Carmelina is a 88 y/o male with hx of Stage IV prostate cancer with known bony mets, was hospitalized for confusion secondary to hypercalcemia of malignancy and KAVEH from dehydration. Apparently in the weeks prior hospitalization developed
constipation from antibiotics for URI, and then became dehydrated from constipation treatment.
Hospital course has been complicated by agitation and confusion, improving with treatment of hypercalcemia. Developed pulmonary edema from hydration, echo planned. breathing stable at present.
Functional Status
At patient's baseline he is independent of his care needs. He lives in a 1 level ranch home with 3 steps to enter. Lives with his Tana in [place], [place]. His son Rocky lives nearby. Another son lives in [place]. Rocky is the medical POA. Patient did
not require any assitive device or in home help previously.
Today patient is seated in a chair, awake, and attempts to answer questions. responses are not clear, however, his overall behavior today is an improvement from previous. Calcium levels have improved. son reports plan for swallowing assessment
today.
Goals of Care Discussion
-
Individuals Present for Discussion & Relationship to Patient:
, Son Rocky, Patient
Patient able to participate in discussion at time of visit: No
Patient Goals
Per wanda Hidalgojune has a LW/POA but he needs to find the form and will bring a copy when found.
Rocky is the medical poa
Goals are currently treatment oriented, but if his condition were to get worse, would likely transition to comfort and at that time would change to DNR status (remains full code for now)
Interested in outpatient palliative care follow up - contact information given.
Objective Data
-
Objective Data:
Vital Signs
Temp Pulse Resp BP Pulse Ox
96.8 F L 103 18 150/106 98
12/02/23 07:40 12/02/23 10:43 12/02/23 10:43 12/02/23 10:43 12/02/23 09:00
Laboratory Results
12/01/23 04:59
12/02/23 06:33
Total Protein Cancelled 12/01/23 06:15
Albumin Cancelled 12/01/23 06:15
Urine Color Yellow 11/26/23 11:03
Urine Clarity Clear (Clear) 11/26/23 11:03
Urine pH 6.0 (5.0-9.0) 11/26/23 11:03
Ur Specific [place] 1.020 (<1.030) 11/26/23 11:03
Urine Ketones Negative (Negative) 11/26/23 11:03
Urine Occult Blood 2+ (Negative) A 11/26/23 11:03
Urine Nitrite Negative (Negative) 11/26/23 11:03
Urine Bilirubin Negative (Negative) 11/26/23 11:03
Ur Leukocyte Esterase Negative (Negative) 11/26/23 11:03
Urine Albumin Negative (Neg - Trace) 11/26/23 11:03
Palliative Performance Scale
Palliative Performance Scale:
PPS Level Ambulation Activity & Evidence of Disease Self Care Intake Conscious Level
100% Full Normal Activity & Work; Full Intake Full
No Evidence of Disease
90% Full Normal Activity & Work; Full Normal Full
Some Evidence of Disease
80% Full Normal Activity with Effort Full Normal or Full
Some Evidence of Disease Reduced
70% Reduced Unable Normal Job/Work Full Normal or Full
Significant Disease Reduced
60% Reduced Unable Hobby/Housework Occasional Normal or Full or Confusion
Significant Disease Assistance Reduced
50% Mainly Sit/Lie Unable to do Any Work Considerable Normal or Full or Confusion
Extensive Disease Assistance Req'd Reduced
40% Mainly in Bed Unable to do Most Activity Mainly Assistance Normal or Full or Drowsy;
Extensive Disease Reduced +/- Confusion
30% Totally Bed Unable to do Any Activity Total Care Normal or Full or Drowsy;
Bound Extensive Disease Reduced +/- Confusion
20% Totally Bed Bound Unable to do Any Activity Total Care Minimal to Full or Drowsy;
Extensive Disease Sips +/- Confusion
10% Totally Bed Bound Unable to do Any Activity Total Care Mouth Care Drowsy or Coma;
Extensive Disease Only +/- Confusion
0%
PPS Score Level:
Palliative Performance Score Response
Palliative Performance Score Response: 50%
Physical Exam
-
General: Well Developed, Well Nourished and No Apparent Distress
HEENT: Moist Mucous Membranes
Assessment / Plan
-
Assessment/Plan:
Goals are treatment oriented,
Mentation and agitation improving with improvement in hypercalcemia
For swallowing eval soon.
Family open to outpatient palliative care services
Son will track down copy of LW/Medical POA for chart
[2023-12-02] MEDS: D5W with KCL 20 MEQ 1000 IV (13:53)
--- NOTE | 2023-12-02 14:16 | W.PN.NEPH.PH ---
Today's Communication / Plan
-
recheck labs later today
Assessment/Plan
-
Impression:
Presents with mental status changes and weakness
KAVEH
Hypercalcemia
History of metastatic prostate cancer
History of hypertension
Anemia
History of right septic knee arthritis spring 2023
History of prostatectomy (PSA 25)
Plan:
Maintain D5W for evolving hypernatremia
KAVEH : Creatinine no change at 2.5, non oliguric , follow bladder scan
resp status better on RA
echo shows EF 20-25%, concern of Takirisubo, mod
wt is down, hold lasix today
recheck labs and adjust D5W a needed
Replete potassium
calcium no change at 11.5 s/p Aredia 11/25, PTH suppressed and mild high PTHrP, neg paraprotein w/u
hypercalcemia felt to be from met prostate ca
monitor h/h
speech eval today
d/w
-
-
Date of Service: December 02, 2023
CC / HPI / ROS
-
Chief Complaint:
hypercalcemia
History of Present Illness:
calcium no change at 11.5
K low but better at 3.5
Na up to 154
BP stable
Creatinine no change at 2.5
wt down post lasix
Review of Systems:
Urine output subjectively nonoliguric per review with nursing
poorly interactive
at bedside
on RA, no pain
just came back from ba swallow test
Labs
-
Labs:
WBC 4.8 10^3/uL (4.8-10.8) 12/01/23 04:59
RBC 2.70 10^6/uL (4.70-6.10) L 12/01/23 04:59
Hgb 8.1 g/dL (13.0-18.0) L 12/01/23 04:59
Hct 23.3 % (39.0-52.0) L 12/01/23 04:59
Plt Count 144 10^3/uL (130-400) 12/01/23 04:59
Sodium 154 mmol/L (135-145) H 12/02/23 06:33
Potassium 3.5 mmol/L (3.5-5.1) 12/02/23 06:33
Chloride 115 mmol/L (98-107) H 12/02/23 06:33
Carbon Dioxide 27 mmol/L (22-30) 12/02/23 06:33
BUN 52 mg/dl (9-20) H 12/02/23 06:33
Creatinine 2.5 mg/dL (0.7-1.3) H 12/02/23 06:33
eGFR 24.41 12/02/23 06:33
Glucose 154 mg/dl (70-99) H 12/02/23 06:33
Calcium 11.5 mg/dl (8.4-10.2) H 12/02/23 06:33
Phosphorus Cancelled 11/27/23 05:10
Kfd-D-Qxosezipzyz Pept > 05592 pg/ml 12/01/23 06:24
Albumin Cancelled 12/01/23 06:15
Physical Exam
-
Vital Signs:
Vital Signs
Temp Pulse Resp BP Pulse Ox
96.8 F L 96 17 122/87 100
12/02/23 07:40 12/02/23 12:38 12/02/23 12:38 12/02/23 12:38 12/02/23 12:57
Cardiovascular:: Regular rate and rhythm
Respiratory:: Bilateral: CTA (decreased)
Lung Excursion:: Normal
Abdomen:: Nontender and Soft
Extremity Edema:: None: Bilateral:
Del Valle Catheter: No
--- NOTE | 2023-12-02 14:55 | W.PN.HOSP.TC ---
Today's Communication/Plan
-
Assessment / Plan
Assessment / Plan
Physical Exam
NAD, sitting in bedside chair, speaking in romanian
Scleral anicteric
MMM
No JVD
CTA bilateral
Normal S1-S2 no murmurs
Soft nontender nondistended bowel sounds active
No peripheral pitting edema
Moves extremities spontaneously
AAOx3
Assessment and Plan
Toxic metabolic encephalopathy could likely be secondary to electrolyte abnormalities as he has worsening hyponatremia but improving hypercalcemia
-Discussed hyponatremia findings with nephrology recommended to continue D5 water. Will repeat BMP in the afternoon
-S/p IV bisphosphonate
-N.p.o., s/p video swallow, cleared for diet of hide IDDSI 4, ordered
Hypercalcemia
-Related to malignancy
-IV fluid
-S/p IV bisphosphonate
-If still high on repeat BMP and not improving will provide IV calcitonin x 6 dose
Hypernatremia
-Continue IV fluids
-Repeat BMP in the afternoon
-Can check urine electrolytes
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
-Will need to discuss with cardiology if he should go for cardiac catheterization
-Hold Lasix today
Prostates CA with bony mets
-Outpatient oncology follow up
Anticipated Discharge: > 48 hours
Subjective/Interval History
-
Date of Service: December 02, 2023
seen and examined
no new complaitns
no acute overnight events
Objective Data
-
Labs:
Laboratory Results
12/02/23 12/02/23
06:33 16:00
Sodium 154 H Pending
Potassium 3.5 Pending
Chloride 115 H Pending
Carbon Dioxide 27 Pending
BUN 52 H Pending
Creatinine 2.5 H Pending
Glucose 154 H Pending
Calcium 11.5 H Pending
Vital Signs:
Vital Signs
Temp Pulse Resp BP Pulse Ox
96.8 F L 96 17 122/87 100
12/02/23 07:40 12/02/23 12:38 12/02/23 12:38 12/02/23 12:38 12/02/23 12:57
I&O
12/01/23 12/02/23 12/03/23
06:59 06:59 06:59
Intake Total 1670 / 1670 1630 / 1630
Output Total 800 / 800 550 / 550
Balance 1670 / 1670 830 / 830 -550 / -550
--- NOTE | 2023-12-02 15:39 | W.PN.ONC2 ---
Today's Communication / Plan
-
follow BMP
OP follow up with Dr. Rios will be arranged upon discharge
Impression
Impression
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
KAVEH
hypercalcemia of malignancy. SPEP/MARIANELA/UPEP no Mspike, suspect elevation due to prostate ca
hypernatremia
TME
HFrEF
Plan
Plan
KAVEH/hypernatremia apprec nephrology assist
Getting NSS IV fluids + 60 mg IV pamidronate + Calcitonin.
Overall prognosis guarded. If performance status improves t/c salvage Tx of CRPC using systemic therapy with modified Taxotere or Falguni 177.
Subjective/Objective
Chief Complaint
no new complaints
Subjective
afebrile, no hypotension or hypoxia
Hgb drifting down during hospitalization from 10.5g/dL to >8.1g/dL yesterday, denies overt bleeding
at bedside
Vital Signs:
Vital Signs
Temp Pulse Resp BP Pulse Ox
96.8 F L 92 20 135/99 100
12/02/23 07:40 12/02/23 14:00 12/02/23 14:00 12/02/23 14:00 12/02/23 12:57
Lab Results:
Laboratory Data
WBC 4.8 10^3/uL (4.8-10.8) 12/01/23 04:59
Hgb 8.1 g/dL (13.0-18.0) L 12/01/23 04:59
Plt Count 144 10^3/uL (130-400) 12/01/23 04:59
eGFR 24.41 12/02/23 06:33
Physical Exam
HEENT: No Jaundice
Cardiology: S1 and S2
Pulmonary: Clear
GI: Soft
Extremities: No Edema
Neuro: Other (confusion, speaking more persian than estonian)
Review of Systems
Review of Systems
ROS notable for subjective, otherwise negative
--- NOTE | 2023-12-02 15:48 | CM ---
Patient with Hx metastatic prostate CA with Dx TME, hypercalcemia, hypernatremia. Room air. Receiving IVF. VSE today - started on dysphagia pureed diet. Seen by Palliative Care MD - GOC discussion. PT/OT recommend skilled rehab.
Met with patient and and spoke with son GALE Hidalgo by phone; son says patient & family would like patient to go to [facility] at d/c.
Referral to [facility] SN[facility].
--- NOTE | 2023-12-02 15:51 | PTOTSP ---
Video Swallow Examination
Disorganized oral phase with repetitive lingual motion prior to AP transfer. Delayed laryngeal vestibular closure resulted in fairly consistent trace laryngeal penetration of thin liquid and one instance of transient laryngeal penetration of mildly
thick liquid. No aspiration across trials, but risk is elevated. Solids deferred due to patient's cognitive and edentulous status.
Recommend
1. IDDSI 4 puree diet and mildly thick liquids (nectar).
2. Allow unlimited sips of water with supervision, in between meals after oral care per [facility].
3. Meds crushed in applesauce.
4. Aspiration precautions.
5. ST to follow and determine ability to advance diet level.
[2023-12-02 16:45] LABS: Blood Urea Nitrogen 53 mg/dl (9-20); Calcium 11.4 mg/dl (8.4-10.2); Carbon Dioxide 27 mmol/L (22-30); Chloride 112 mmol/L (98-107); Estimated Creatinine Clearance 21 ml/min; Glucose 238 mg/dl (70-99); Potassium 3.4 mmol/L (3.5-5.1); Sodium 151 mmol/L (135-145); eGFR 24.41
[2023-12-02] MEDS: ULTRAM 50 MG PO (17:11)
[2023-12-02] MEDS: KCL 270 MEQ IV (18:35)
[2023-12-03] VITALS (14 sets, daily range): BP systolic 104–150; BP diastolic 62–96; PULSE 80–87
[2023-12-03] MEDS: D5W with KCL 20 MEQ 1000 IV ×2 (04:44→14:45)
[2023-12-03 05:09] LABS: Hematocrit 26.6 % (39.0-52.0); Hemoglobin 9.2 g/dL (13.0-18.0); Mean Corp Hgb Conc. 34.6 g/dL (33.0-37.0); Mean Corpuscular Hgb 30.8 pg (27.0-31.0); Mean Platelet Volume 9.1 fL (7.4-10.4); Platelet Count 164 10^3/uL (130-400); Red Blood Cell Count 2.99 10^6/uL (4.70-6.10); Red Cell Dist. Width 13.6 % (11.5-14.5); White Blood Cell Count 4.5 10^3/uL (4.8-10.8)
[2023-12-03 05:32] LABS: Blood Urea Nitrogen 56 mg/dl (9-20); Carbon Dioxide 23 mmol/L (22-30); Chloride 114 mmol/L (98-107); Estimated Creatinine Clearance 22 ml/min; Glucose 191 mg/dl (70-99); Potassium 3.7 mmol/L (3.5-5.1); Sodium 149 mmol/L (135-145); eGFR 25.63
[2023-12-03] MEDS: ULTRAM 50 MG PO ×2 (05:45→17:16)
--- NOTE | 2023-12-03 06:30 | PTCARENOTE ---
No acute events overnight. Remains confused and restless.
--- NOTE | 2023-12-03 08:21 | W.PN.ONC2 ---
Today's Communication / Plan
-
daily CBC, BMP
with persistently hypercalcemia of malignancy s/p Aredia & calcitonin x 1 dose 11/25, would consider additional doses of calcitonin.
Impression
Impression
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
KAVEH
hypercalcemia of malignancy with low PTH, elevated PTHrP. SPEP/MARIANELA/UPEP no Mspike, suspect elevation due to prostate ca. s/p aredia 60mg and calcitonin 300units 11/25
hypernatremia improved
TME
HFrEF 20-25% possible Takutsubo
Plan
Plan
KAVEH/hypernatremia apprec nephrology assist
s/p IVF, 60 mg IV pamidronate + Calcitonin.
Overall prognosis guarded. If performance status improves t/c salvage Tx of CRPC using systemic therapy with modified Taxotere or Falguni 177.
Subjective/Objective
Chief Complaint
poor historian, opens eyes to verbal
Subjective
afebrile, no hypoxia, 2L NC
using tramadol prn pain
Calcium 11
Creatinine 2.4
Hgb 9.2
Vital Signs:
Vital Signs
Temp Pulse Resp BP Pulse Ox
98.1 F 87 18 150/84 100
12/03/23 07:08 12/03/23 06:00 12/03/23 06:00 12/03/23 06:00 12/02/23 19:54
Lab Results:
Laboratory Data
WBC 4.5 10^3/uL (4.8-10.8) L 12/03/23 04:50
Hgb 9.2 g/dL (13.0-18.0) L 12/03/23 04:50
Plt Count 164 10^3/uL (130-400) 12/03/23 04:50
eGFR 25.63 12/03/23 04:50
Physical Exam
HEENT: No Jaundice
Cardiology: S1 and S2
Pulmonary: Clear
GI: Soft
Extremities: No Edema
Neuro: able to state name, unable to state place or time. able to follow simple commands
Review of Systems
Review of Systems
ROS notable for subjective, otherwise negative
--- NOTE | 2023-12-03 08:44 | W.PN.CD ---
Today's Communication / Plan
-
Respiratory status is currently stable. Continue to monitor volume status closely in this patient who has severe cardiomyopathy with ejection fraction 20 to 25%
GDMT currently limited by KAVEH.
Continue treatment of hypercalcemia and KAVEH directed by nephrology
Impression / Plan
-
88 years old gentleman with a history of moderately reduced systolic function with metastatic prostate cancer and hypertension is admitted with acute renal failure and severe hypercalcemia along with dehydration.
Heart failure with reduced ejection fraction
-Patient had normal systolic functions a year ago and has gradually been dropping and LVEF from 55% to 40% earlier this year.
-Echocardiogram 12/02/2023 with severely reduced low ventricular function ejection fraction 20 to 25% basal segments appear to be less hypokinetic raising suspicion for Takotsubo cardiomyopathy. Moderate mitral regurgitation and moderate aortic
stenosis/low-flow, low gradient with mean gradient of 10 mmHg. Mild to moderate aortic regurgitation
-resp status stable
- continue to monitor with volume and diuretic given by nephrology for management of electrolyte abnormalities
-GDMT limited by KAVEH.
.
Aortic stenosis and aortic regurgitation. Low-flow low gradient suspected moderate aortic stenosis and mild to moderate aortic regurgitation on most recent echo
Hypercalcemia
- calcium 11.0 down from 11.5 continued management as directed by nephrology
KAVEH - Creatinine 2.5 Hypernatremia 154 and hypokalemia - tx per nephrolgy and primary team
\\
Anemia- Hb improved from 8.1-9.2. Managment per primary team
mental status-arousable but confused. Not appropriately oriented. Treatment directed by primary team
-
Physical Exam
Vital Signs/Labs
Vital Signs
Temp Pulse Resp BP Pulse Ox
98.1 F 87 18 150/84 100
12/03/23 07:08 12/03/23 06:00 12/03/23 06:00 12/03/23 06:00 12/02/23 19:54
12/02/23 12/03/23 12/04/23
06:59 06:59 06:59
Actual Weight 71.8 kg
12/03/23 04:50
12/03/23 04:50
Magnesium 1.8 mg/dl (1.6-2.3) 11/28/23 04:17
12/01/23 12/01/23
04:59 06:24
Jic-I-Chtygvskccy Pept Cancelled > 99168
Physical Exam
Constitutional: No acute distress
Cardiovascular: Rhythm & rate is regular
Respiratory: Lungs clear to auscul.
GI: Soft
Neuro/Psych: Alert and Oriented
Data Reviewed
-
Date of Service: December 03, 2023
Medical Decision Making: Reviewed Test Results
EKG: Report Reviewed by me
Echo: Report Reviewed by me
X-Ray/CT/US/MRI/NUC/PET: Report Reviewed by me
Medical Tests (PFT, Pathology etc): Report Reviewed by me
Labs: Labs Reviewed by me
[2023-12-03] MEDS: FLOMAX 0.4 MG PO (08:56)
[2023-12-03] MEDS: HEPARIN 5000 UNITS SC ×2 (08:56→19:41)
[2023-12-03] MEDS: TOPROL XL 12.5 MG PO (10:17)
--- NOTE | 2023-12-03 10:50 | PTCARENOTE ---
Assumed care of patient this morning. He is oriented to himself. He is speaking some Serbian this morning, answering yes/no questions at times. Pt took medications in applesauce but declined to eat breakfast. Pt did verbalize he needed to urinate
while RN was in the room. Pt advised he had a condom catheter and he was able to urinate. He appears drowsy this morning, wanting to go back to sleep after waking him up. Assessment, care and VS as charted.
--- NOTE | 2023-12-03 11:17 | W.PN.PAL2 ---
Today's Communication
-
Patient seen at bedside. He is less conversant today, appears more confused. Did receive tramadol this morning - unclear if this is contributing. Cr and Ca slight improvement from yesterday. No family at bedside. Chart reviewed.
Assessment / Plan
-
Assessment/Plan:
Goals are treatment oriented,
Family open to outpatient palliative care services
Son will track down copy of LW/Medical POA for chart
Objective Data
-
Objective Data:
Vital Signs
Temp Pulse Resp BP Pulse Ox
98.1 F 75 15 129/95 98
12/03/23 07:08 12/03/23 10:17 12/03/23 10:00 12/03/23 10:17 12/03/23 10:37
Laboratory Results
12/03/23 04:50
12/03/23 04:50
Total Protein Cancelled 12/01/23 06:15
Albumin Cancelled 12/01/23 06:15
Urine Color Yellow 11/26/23 11:03
Urine Clarity Clear (Clear) 11/26/23 11:03
Urine pH 6.0 (5.0-9.0) 11/26/23 11:03
Ur Specific [place] 1.020 (<1.030) 11/26/23 11:03
Urine Ketones Negative (Negative) 11/26/23 11:03
Urine Occult Blood 2+ (Negative) A 11/26/23 11:03
Urine Nitrite Negative (Negative) 11/26/23 11:03
Urine Bilirubin Negative (Negative) 11/26/23 11:03
Ur Leukocyte Esterase Negative (Negative) 11/26/23 11:03
Urine Albumin Negative (Neg - Trace) 11/26/23 11:03
Palliative Performance Scale
Palliative Performance Scale:
PPS Level Ambulation Activity & Evidence of Disease Self Care Intake Conscious Level
100% Full Normal Activity & Work; Full Intake Full
No Evidence of Disease
90% Full Normal Activity & Work; Full Normal Full
Some Evidence of Disease
80% Full Normal Activity with Effort Full Normal or Full
Some Evidence of Disease Reduced
70% Reduced Unable Normal Job/Work Full Normal or Full
Significant Disease Reduced
60% Reduced Unable Hobby/Housework Occasional Normal or Full or Confusion
Significant Disease Assistance Reduced
50% Mainly Sit/Lie Unable to do Any Work Considerable Normal or Full or Confusion
Extensive Disease Assistance Req'd Reduced
40% Mainly in Bed Unable to do Most Activity Mainly Assistance Normal or Full or Drowsy;
Extensive Disease Reduced +/- Confusion
30% Totally Bed Unable to do Any Activity Total Care Normal or Full or Drowsy;
Bound Extensive Disease Reduced +/- Confusion
20% Totally Bed Bound Unable to do Any Activity Total Care Minimal to Full or Drowsy;
Extensive Disease Sips +/- Confusion
10% Totally Bed Bound Unable to do Any Activity Total Care Mouth Care Drowsy or Coma;
Extensive Disease Only +/- Confusion
0%
PPS Score Level:
--- NOTE | 2023-12-03 12:38 | W.PN.NEPH.PH ---
Today's Communication / Plan
-
cont D5w for hypernatremia
dose Aredia 30mg x1
Assessment/Plan
-
Impression:
Presents with mental status changes and weakness
KAVEH
Hypercalcemia
History of metastatic prostate cancer
History of hypertension
Anemia
History of right septic knee arthritis spring 2023
History of prostatectomy (PSA 25)
Plan:
Maintain D5W for hypernatremia, sodium improving
KAVEH : Creatinine slightly better at 2.4, non oliguric , follow bladder scan
resp status stable on RA
echo shows EF 20-25%, concern of Takutsubo, mod
cont to hold lasix
monitor po intake on dysphagia diet
recheck labs later and adjust D5W a needed
calcium still at 11 range s/p Aredia 11/25, PTH suppressed and mild high PTHrP, neg paraprotein w/u
hypercalcemia felt to be from met prostate ca, redose Aredia 30mg, d/w heme
monitor h/h-stable
-
-
Date of Service: December 03, 2023
CC / HPI / ROS
-
Chief Complaint:
hypercalcemia
History of Present Illness:
calcium very slow to improve to 11
K low but better at 3.7
Na better at 149
BP stable
Creatinine no change at 2.4
no wts today
Review of Systems:
Urine output nonoliguric
poorly interactive
on RA, no pain
Labs
-
Labs:
WBC 4.5 10^3/uL (4.8-10.8) L 12/03/23 04:50
RBC 2.99 10^6/uL (4.70-6.10) L 12/03/23 04:50
Hgb 9.2 g/dL (13.0-18.0) L 12/03/23 04:50
Hct 26.6 % (39.0-52.0) L 12/03/23 04:50
Plt Count 164 10^3/uL (130-400) 12/03/23 04:50
Sodium 149 mmol/L (135-145) H 12/03/23 04:50
Potassium 3.7 mmol/L (3.5-5.1) 12/03/23 04:50
Chloride 114 mmol/L (98-107) H 12/03/23 04:50
Carbon Dioxide 23 mmol/L (22-30) 12/03/23 04:50
BUN 56 mg/dl (9-20) H 12/03/23 04:50
Creatinine 2.4 mg/dL (0.7-1.3) H 12/03/23 04:50
eGFR 25.63 12/03/23 04:50
Glucose 191 mg/dl (70-99) H 12/03/23 04:50
Calcium 11.0 mg/dl (8.4-10.2) H 12/03/23 04:50
Phosphorus Cancelled 11/27/23 05:10
Dvi-Z-Yuyrgwuzxka Pept > 98649 pg/ml 12/01/23 06:24
Albumin Cancelled 12/01/23 06:15
Physical Exam
-
Vital Signs:
Vital Signs
Temp Pulse Resp BP Pulse Ox
98.5 F 95 17 136/90 98
12/03/23 11:58 12/03/23 12:00 12/03/23 12:00 12/03/23 12:00 12/03/23 10:37
Cardiovascular:: Regular rate and rhythm
Respiratory:: Bilateral: CTA
Lung Excursion:: Normal
Abdomen:: Nontender and Soft
Extremity Edema:: None: Bilateral:
Del Valle Catheter: No
--- NOTE | 2023-12-03 14:33 | W.PN.HOSP.TC ---
Today's Communication/Plan
-
Assessment / Plan
Assessment / Plan
Physical Exam
NAD, sitting in bedside chair, speaking in trinidadian
Scleral anicteric
MMM
No JVD
CTA bilateral
Normal S1-S2 no murmurs
Soft nontender nondistended bowel sounds active
No peripheral pitting edema
Moves extremities spontaneously
AAOx3
Assessment and Plan
Toxic metabolic encephalopathy could likely be secondary to electrolyte abnormalities as he has worsening hyponatremia but improving hypercalcemia
-Discussed hyponatremia findings with nephrology recommended to continue D5 water. Will repeat BMP in the afternoon
-S/p IV bisphosphonate
-N.p.o., s/p video swallow, cleared for diet of hide IDDSI 4, ordered
Hypercalcemia
-Related to malignancy
-IV fluid
-S/p IV bisphosphonate
-If still high on repeat BMP and not improving will provide IV calcitonin x 6 dose
Hypernatremia
-Continue IV fluids
-Repeat BMP in the afternoon
-Can check urine electrolytes
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
-Will need to discuss with cardiology if he should go for cardiac catheterization
-Hold Lasix today
Prostates CA with bony mets
-Outpatient oncology follow up
Anticipated Discharge: Within 24 hours
Subjective/Interval History
-
Date of Service: December 03, 2023
Seen and examined. No acute overnight events.
Per nursing when family was here yesterday stated that there was some improvement in his mental status.
When I spoke with him yesterday he was just '. Today he was at least answering yes and no to some questions
Objective Data
-
Labs:
Laboratory Results
12/03/23 12/03/23
04:50 16:00
WBC 4.5 L
Hgb 9.2 L
Hct 26.6 L
Plt Count 164
Sodium 149 H Pending
Potassium 3.7 Pending
Chloride 114 H Pending
Carbon Dioxide 23 Pending
BUN 56 H Pending
Creatinine 2.4 H Pending
Glucose 191 H Pending
Calcium 11.0 H Pending
Vital Signs:
Vital Signs
Temp Pulse Resp BP Pulse Ox
98.5 F 89 22 104/92 98
12/03/23 11:58 12/03/23 14:00 12/03/23 14:00 12/03/23 14:00 12/03/23 10:37
I&O
12/02/23 12/03/23 12/04/23
06:59 06:59 06:59
Intake Total 1630 / 1630 1440 / 1440
Output Total 800 / 800 1400 / 1400
Balance 830 / 830 40 / 40
[2023-12-03 17:18] LABS: Blood Urea Nitrogen 53 mg/dl (9-20); Calcium 10.5 mg/dl (8.4-10.2); Carbon Dioxide 24 mmol/L (22-30); Chloride 111 mmol/L (98-107); Estimated Creatinine Clearance 23 ml/min; Glucose 207 mg/dl (70-99); Sodium 147 mmol/L (135-145); eGFR 26.98
--- NOTE | 2023-12-03 21:35 | PTCARENOTE ---
Assumed care of patient from previous RN. Patient is Aox1 and drowsy. Patient is on room air and sating at 98%. Patient is on puree diet but has poor appetite. Patient has a right wrist IV with D5 and 20 potassium running at 100 ml/hr. Patient is
resting in bed with call castro in reach, bed alarm on, care ongoing.
[2023-12-03] MEDS: D5W with KCL 20 MEQ IV (21:42)
[2023-12-04] VITALS (12 sets, daily range): BP systolic 109–141; BP diastolic 57–103
[2023-12-04] MEDS: D5W with KCL 20 MEQ 1000 IV (01:57)
[2023-12-04 04:30] LABS: Hematocrit 26.9 % (39.0-52.0); Hemoglobin 9.3 g/dL (13.0-18.0); Mean Corp Hgb Conc. 34.6 g/dL (33.0-37.0); Mean Corpuscular Hgb 30.9 pg (27.0-31.0); Mean Corpuscular Volume 89.4 fL (80.0-94.0); Mean Platelet Volume 8.9 fL (7.4-10.4); Platelet Count 160 10^3/uL (130-400); Red Blood Cell Count 3.01 10^6/uL (4.70-6.10); Red Cell Dist. Width 13.5 % (11.5-14.5); White Blood Cell Count 5.2 10^3/uL (4.8-10.8)
[2023-12-04 04:53] LABS: Blood Urea Nitrogen 51 mg/dl (9-20); Calcium 10.7 mg/dl (8.4-10.2); Carbon Dioxide 24 mmol/L (22-30); Chloride 110 mmol/L (98-107); Estimated Creatinine Clearance 23 ml/min; Glucose 163 mg/dl (70-99); Potassium 3.8 mmol/L (3.5-5.1); Sodium 146 mmol/L (135-145); eGFR 26.98
[2023-12-04] MEDS: ULTRAM 50 MG PO ×2 (05:31→17:17)
--- NOTE | 2023-12-04 06:39 | W.PN.ONC2 ---
Today's Communication / Plan
-
OP follow up with Dr. Rios will be arranged upon discharge if PS improves. Appreciate palliative care follow up. Hospice could be a consideration if his status fails to improve.
Oncology Will F/U intermittently only.
Impression
Impression
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
KAVEH
hypercalcemia of malignancy with low PTH, elevated PTHrP. SPEP/MARIANELA/UPEP no Mspike, suspect elevation due to prostate ca. s/p aredia 60mg and calcitonin 300units 11/25
hypernatremia improved
TME
HFrEF 20-25% possible Takutsubo
Plan
Plan
KAVEH/hypernatremia apprec nephrology assist
s/p IVF, 60 mg IV pamidronate + Calcitonin.
Overall prognosis guarded. Salvage treatment only if PS improves (modified Taxotere or Falguni 177).
Subjective/Objective
Chief Complaint
ACS Heme Onc
Subjective
Awake but not conversant.
Vital Signs:
Vital Signs
Temp Pulse Resp BP Pulse Ox
97.7 F 78 11 141/103 98
12/04/23 04:47 12/04/23 06:00 12/04/23 06:00 12/04/23 04:00 12/03/23 20:52
Lab Results:
Laboratory Data
WBC 5.2 10^3/uL (4.8-10.8) 12/04/23 04:13
Hgb 9.3 g/dL (13.0-18.0) L 12/04/23 04:13
Plt Count 160 10^3/uL (130-400) 12/04/23 04:13
eGFR 26.98 12/04/23 04:12
Physical Exam
Cardiology: S1 and S2
Pulmonary: Clear
[2023-12-04] MEDS: TOPROL XL 12.5 MG PO (09:29)
[2023-12-04] MEDS: HEPARIN 5000 UNITS SC ×2 (09:29→19:32)
[2023-12-04] MEDS: FLOMAX 0.4 MG PO (09:29)
--- NOTE | 2023-12-04 09:49 | W.PN.CD ---
Today's Communication / Plan
-
Continue to hold diuresis
Continue metoprolol
Workup drop in EF once KAVEH resolved
Impression / Plan
-
88 years old gentleman with a history of moderately reduced systolic function with metastatic prostate cancer and hypertension is admitted with acute renal failure and severe hypercalcemia along with dehydration, found to have severely decreased
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
Heart failure with reduced ejection fraction
-Patient had normal systolic function a year ago and has gradually been dropping. LVEF from 55% to 40% earlier this year.
-Echocardiogram 12/02/2023 with severely reduced low ventricular function ejection fraction 20 to 25% basal segments appear to be less hypokinetic raising suspicion for Takotsubo cardiomyopathy. Moderate mitral regurgitation and moderate aortic
stenosis/low-flow, low gradient with mean gradient of 10 mmHg. Mild to moderate aortic regurgitation
-He does not seem to be in clinical heart failure at this time, despite his cardiomyopathy (last diuresed 11/30)
-Trend weights and exam daily
-Continue metoprolol
-GDMT otherwise limited by KAVEH
-Normal stress test in September 2022. May need left heart cath nonurgently to workup drop in EF
Aortic stenosis and aortic regurgitation.
-Low-flow low gradient suspected moderate aortic stenosis and mild to moderate aortic regurgitation on most recent echo
Hypercalcemia, improving
-Management per nephrology
KAVEH, improving
Hyponatremia
-Tx per nephrolgy and primary team
Anemia
-Managment per primary team
Subjective: Patient has some back pain this morning. No other complaints. He does not seem to be fully oriented. Telemetry with no alarms.
Physical Exam
Vital Signs/Labs
Vital Signs
Temp Pulse Resp BP Pulse Ox
98.4 F 77 11 140/88 98
12/04/23 07:14 12/04/23 09:29 12/04/23 06:00 12/04/23 09:29 12/03/23 20:52
12/04/23 04:13
12/04/23 04:12
Magnesium 1.8 mg/dl (1.6-2.3) 11/28/23 04:17
12/01/23 12/01/23
04:59 06:24
Qjy-E-Vtgimcuxkbq Pept Cancelled > 22768
Physical Exam
Constitutional: No acute distress and Comfortable
Cardiovascular: Rhythm & rate is regular, Pedal edema is absent and JVD pressure is normal
Respiratory: Respiratory effort normal and Lungs clear to auscul.
Data Reviewed
-
Date of Service: December 04, 2023
Medical Decision Making: Reviewed Test Results, Independent Historian Assessment, Test Interpretation and Review of Case with other Provider
EKG: Tracing Personally Visualized and interpreted
Echo: Report Reviewed by me
Labs: Labs Reviewed by me
Total Time Spent with Patient (in minutes): 35
--- NOTE | 2023-12-04 10:11 | W.PN.NEPH.PH ---
Today's Communication / Plan
-
maintain hypotonic IVfs
Will patient be placed on a feeding tube for hydration?
Creatinine unchanged
Endpoints unclear
Assessment/Plan
-
Impression:
Presents with mental status changes and weakness
KAVEH
Hypercalcemia
History of metastatic prostate cancer
History of hypertension
Anemia
History of right septic knee arthritis spring 2023
History of prostatectomy (PSA 25)
Plan:
Maintain D5W for hypernatremia, sodium at 146
KAVEH : Creatinine unchanged at 2.3, non oliguric , follow bladder scan
resp status stable on RA
echo shows EF 20-25%, concern of Takutsubo, mod
need daily weights
monitor po intake on dysphagia diet
calcium still at 10.7 range s/p Aredia 11/25, PTH suppressed and mild high PTHrP, neg paraprotein w/u
hypercalcemia felt to be from met prostate ca, redose Aredia 30mg, d/w heme
monitor h/h-stable
-
-
Date of Service: December 04, 2023
CC / HPI / ROS
-
Chief Complaint:
hypercalcemia
History of Present Illness:
calcium very slow to improve to 10.7
K better at 3.8
Na better at 146
BP stable
Creatinine no change at 2.4
no wts today
Review of Systems:
Urine output nonoliguric
Weights not reported
poorly interactive
on RA, no pain
Labs
-
Labs:
WBC 5.2 10^3/uL (4.8-10.8) 12/04/23 04:13
RBC 3.01 10^6/uL (4.70-6.10) L 12/04/23 04:13
Hgb 9.3 g/dL (13.0-18.0) L 12/04/23 04:13
Hct 26.9 % (39.0-52.0) L 12/04/23 04:13
Plt Count 160 10^3/uL (130-400) 12/04/23 04:13
Sodium 146 mmol/L (135-145) H 12/04/23 04:12
Potassium 3.8 mmol/L (3.5-5.1) 12/04/23 04:12
Chloride 110 mmol/L (98-107) H 12/04/23 04:12
Carbon Dioxide 24 mmol/L (22-30) 12/04/23 04:12
BUN 51 mg/dl (9-20) H 12/04/23 04:12
Creatinine 2.3 mg/dL (0.7-1.3) H 12/04/23 04:12
eGFR 26.98 12/04/23 04:12
Glucose 163 mg/dl (70-99) H 12/04/23 04:12
Calcium 10.7 mg/dl (8.4-10.2) H 12/04/23 04:12
Phosphorus Cancelled 11/27/23 05:10
Uml-G-Clfjnbcuobp Pept > 99999 pg/ml 12/01/23 06:24
Albumin Cancelled 12/01/23 06:15
Physical Exam
-
Vital Signs:
Vital Signs
Temp Pulse Resp BP Pulse Ox
98.4 F 77 11 140/88 98
12/04/23 07:14 12/04/23 09:29 12/04/23 06:00 12/04/23 09:29 12/03/23 20:52
Cardiovascular:: Regular rate and rhythm
Respiratory:: Bilateral: CTA
Lung Excursion:: Normal
Abdomen:: Nontender and Soft
Extremity Edema:: None: Bilateral:
Del Valle Catheter: No
--- NOTE | 2023-12-04 11:25 | PTCARENOTE ---
Assumed care of patient at beginning of this shift from previous RN. Patient Ox1, pleasantly confused; drowsy but easily arousable. Incontinent of urine with #30 condom cath in use. and son in to see patient; remains at bedside. Patient
ate only approx 25% of breakfast. Bed alarm in use for patient safety. See worklist for full assessment and vital signs.
--- NOTE | 2023-12-04 13:59 | PTCARENOTE ---
Quinn text sent to Dr Arzola that patient's IVF order had not be renewed/ordered and IVF are completed.
--- NOTE | 2023-12-04 16:16 | W.PN.HOSP.TC ---
Today's Communication/Plan
-
Assessment / Plan
Assessment / Plan
Physical Exam
NAD, sitting in bedside chair, speaking in lao and answering yes/no
Scleral anicteric
MMM
No JVD
CTA bilateral
Normal S1-S2 no murmurs
Soft nontender nondistended bowel sounds active
No peripheral pitting edema
Moves extremities spontaneously
Assessment and Plan
Toxic metabolic encephalopathy could likely be secondary to electrolyte abnormalities as he has worsening hyponatremia but improving hypercalcemia
-Discussed hyponatremia findings with nephrology recommended to continue D5 water. Will repeat BMP in the afternoon
-S/p IV bisphosphonate, redosed by Neph today
-cleared for diet of hide IDDSI 4, ordered, but try is barely touched
Hypercalcemia
-Related to malignancy
-IV fluid
-S/p IV bisphosphonate, redosed
-If still high on repeat BMP and not improving will provide IV calcitonin x 6 dose
Hypernatremia
-Continue IV fluids
-Repeat BMP in the afternoon
-Can check urine electrolytes
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
-Will need to discuss with cardiology if he should go for cardiac catheterization
-Hold Lasix today
Prostates CA with bony mets
-Outpatient oncology follow up
At this time meaningful recovery. Will begin discussions with palliative care along with oncology. He does not have nutritional support right now as he is barely touching his trays. Even if able to discharge from hospital with help for his
nutritional status is I do not believe he would be able to tolerate chemotherapy based off of his performance status. If objective at the time of discharge is chemotherapy then I do believe he will would likely require a feeding tube/PEG tube.
Follow-up began having discussions with family and palliative care.
I spoke with Rocky his son, he wants his father to have a feeding tube. Therefore, GI consult placed.
-Rocky has requested that he is called for consent.
-52mins
-discussing with family, pallitative care/oncology on [facility], reviewing chart details
Anticipated Discharge: > 48 hours
Subjective/Interval History
-
Date of Service: December 04, 2023
Seen and examined.
was at bedside today. States that he might have made some improvement.
Barely eating any food. Less than 5% of his breakfast tray was eaten
Objective Data
-
Labs:
Laboratory Results
12/04/23 12/04/23
04:12 04:13
WBC 5.2
Hgb 9.3 L
Hct 26.9 L
Plt Count 160
Sodium 146 H
Potassium 3.8
Chloride 110 H
Carbon Dioxide 24
BUN 51 H
Creatinine 2.3 H
Glucose 163 H
Calcium 10.7 H
Vital Signs:
Vital Signs
Temp Pulse Resp BP Pulse Ox
98.5 F 75 16 128/73 96
12/04/23 11:44 12/04/23 12:00 12/04/23 12:00 12/04/23 12:00 12/04/23 12:13
I&O
12/03/23 12/04/23 12/05/23
06:59 06:59 06:59
Intake Total 1440 / 1440 1200 / 1200
Output Total 1400 / 1400 450 / 450
Balance 40 / 40 750 / 750
[2023-12-04] MEDS: SODIUM BICARBONATE 1075 MEQ IV (17:17)
[2023-12-04 22:25] LABS: Glucose - Point of Care 144 mg/dl (70-99)
[2023-12-05] VITALS (15 sets, daily range): BP systolic 105–141; BP diastolic 54–102; PULSE 80–82; O2SAT 99
[2023-12-05 04:17] LABS: Hematocrit 25.6 % (39.0-52.0); Hemoglobin 8.9 g/dL (13.0-18.0); Mean Corp Hgb Conc. 34.8 g/dL (33.0-37.0); Mean Corpuscular Hgb 30.7 pg (27.0-31.0); Mean Corpuscular Volume 88.3 fL (80.0-94.0); Platelet Count 141 10^3/uL (130-400); Red Cell Dist. Width 13.4 % (11.5-14.5); White Blood Cell Count 4.6 10^3/uL (4.8-10.8)
[2023-12-05 04:45] LABS: Blood Urea Nitrogen 48 mg/dl (9-20); Calcium 10.3 mg/dl (8.4-10.2); Carbon Dioxide 24 mmol/L (22-30); Chloride 108 mmol/L (98-107); Estimated Creatinine Clearance 23 ml/min; Glucose 152 mg/dl (70-99); Potassium 3.6 mmol/L (3.5-5.1); Sodium 145 mmol/L (135-145); eGFR 26.98
[2023-12-05] MEDS: ULTRAM 50 MG PO ×2 (05:20→17:28)
[2023-12-05] MEDS: SODIUM BICARBONATE 1075 MEQ IV (05:53)
--- NOTE | 2023-12-05 06:39 | PTCARENOTE ---
No acute events overnight. Patient more oriented and states he wants to go home. Emotional support provided.
[2023-12-05] MEDS: HEPARIN 5000 UNITS SC ×2 (09:07→20:10)
[2023-12-05] MEDS: TOPROL XL 12.5 MG PO (09:07)
[2023-12-05] MEDS: FLOMAX 0.4 MG PO (09:07)
[2023-12-05 09:11] LABS: Glucose - Point of Care 187 mg/dl (70-99)
--- NOTE | 2023-12-05 09:47 | W.PN.CD ---
Today's Communication / Plan
-
No new recommendations.
Continue to monitor volume status
Impression / Plan
-
88 years old gentleman with a history of moderately reduced systolic function with metastatic prostate cancer and hypertension is admitted with acute renal failure and severe hypercalcemia along with dehydration, found to have severely decreased
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
Heart failure with reduced ejection fraction
-Patient had normal systolic function a year ago and has gradually been dropping. LVEF from 55% to 40% earlier this year.
-Echocardiogram 12/02/2023 with severely reduced low ventricular function ejection fraction 20 to 25% basal segments appear to be less hypokinetic raising suspicion for Takotsubo cardiomyopathy. Moderate mitral regurgitation and moderate aortic
stenosis/low-flow, low gradient with mean gradient of 10 mmHg. Mild to moderate aortic regurgitation
-Respiratory status currently stable. Appears euvolemic.
-Trend weights and exam daily
-Continue metoprolol
-GDMT otherwise limited by KAVEH
-Repeat echocardiogram in 3 months
-May consider additional assessment but degree of testing depends on overall treatment plan related to patient's other medical conditions.
Aortic stenosis and aortic regurgitation.
-Low-flow low gradient suspected moderate aortic stenosis and mild to moderate aortic regurgitation on most recent echo
Hypercalcemia, improving
-Management per nephrology
KAVEH, improving
Hyponatremia
-Tx per nephrolgy and primary team
Anemia
-Managment per primary team
Mental status continued assessment as hypercalcemia treated
Subjective: Oriented to [place]. Currently being assessed by palliative care physician
Physical Exam
Vital Signs/Labs
Vital Signs
Temp Pulse Resp BP Pulse Ox
97.7 F 81 15 125/72 97
12/05/23 03:50 12/05/23 06:00 12/05/23 04:00 12/05/23 04:00 12/04/23 19:36
12/05/23 03:54
12/05/23 03:54
Magnesium 1.8 mg/dl (1.6-2.3) 11/28/23 04:17
12/01/23 12/01/23
04:59 06:24
Gbi-J-Kikqfqfvwro Pept Cancelled > 03209
Physical Exam
Constitutional: No acute distress
Cardiovascular: Rhythm & rate is regular
Respiratory: Wheeze Absent and Rhonchi Absent
GI: Soft and Non tender
Neuro/Psych: Alert
Data Reviewed
-
Date of Service: December 05, 2023
Medical Decision Making: Reviewed Test Results
Echo: Report Reviewed by me
Medical Tests (PFT, Pathology etc): Report Reviewed by me
--- NOTE | 2023-12-05 09:59 | W.PN.PAL2 ---
Today's Communication
-
Saw patient at bedside. He was sitting in bed, eating breakfast. He is conversant today in icelandic, confused, but answering questions. He has limited recollection of last few days. He states he does want to eat. He states 'if you have to guess the
food, hard to eat'. Encourged patient to eat with prompting at bedside. Patient denied any symptoms at my visit.
Spoke with son regarding improvement in mentation and discussion yesterday about peg tube. Recommended that we give him more time, re-evaulate swallow and potentially upgrade diet. 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
important to him. Son will be bringing in dentures. Son would like to avoid peg tube if needed as well, but if not able to meet nutritional needs would want.
Ca levels improving. Cr 2.3.
Assessment / Plan
-
Assessment/Plan:
Recommend re-assessment of swallow and dietary recommendations
Encourage intake, patient eating more this morning
If able to maintain nutritional needs/hydration need, would recommend avoiding peg tube.
Family goals are treatment oriented at this time
Reason for Admission
Illness Course/HPI
Carmelina is a 88 y/o male with hx of Stage IV prostate cancer with known bony mets, was hospitalized for confusion secondary to hypercalcemia of malignancy and KAVEH from dehydration. Apparently in the weeks prior hospitalization developed
constipation from antibiotics for URI, and then became dehydrated from constipation treatment.
Hospital course has been complicated by agitation and confusion, improving with treatment of hypercalcemia. Developed pulmonary edema from hydration, echo planned. breathing stable at present.
Functional Status
At patient's baseline he is independent of his care needs. He lives in a 1 level ranch home with 3 steps to enter. Lives with his Tana in [place], [place]. His son Rocky lives nearby. Another son lives in [place]. Rocky is the medical POA. Patient did
not require any assitive device or in home help previously.
Today patient is seated in a chair, awake, and attempts to answer questions. responses are not clear, however, his overall behavior today is an improvement from previous. Calcium levels have improved. son reports plan for swallowing assessment
today.
Goals of Care Discussion
-
Patient able to participate in discussion at time of visit: No
Pain & Symptom Assessment
-
denies symptoms
Objective Data
-
Objective Data:
Vital Signs
Temp Pulse Resp BP Pulse Ox
97.7 F 81 15 125/72 97
12/05/23 03:50 12/05/23 06:00 12/05/23 04:00 12/05/23 04:00 12/04/23 19:36
Laboratory Results
12/05/23 03:54
12/05/23 03:54
Total Protein Cancelled 12/01/23 06:15
Albumin Cancelled 12/01/23 06:15
Urine Color Yellow 11/26/23 11:03
Urine Clarity Clear (Clear) 11/26/23 11:03
Urine pH 6.0 (5.0-9.0) 11/26/23 11:03
Ur Specific [place] 1.020 (<1.030) 11/26/23 11:03
Urine Ketones Negative (Negative) 11/26/23 11:03
Urine Occult Blood 2+ (Negative) A 11/26/23 11:03
Urine Nitrite Negative (Negative) 11/26/23 11:03
Urine Bilirubin Negative (Negative) 11/26/23 11:03
Ur Leukocyte Esterase Negative (Negative) 11/26/23 11:03
Urine Albumin Negative (Neg - Trace) 11/26/23 11:03
Palliative Performance Scale
Palliative Performance Scale:
PPS Level Ambulation Activity & Evidence of Disease Self Care Intake Conscious Level
100% Full Normal Activity & Work; Full Intake Full
No Evidence of Disease
90% Full Normal Activity & Work; Full Normal Full
Some Evidence of Disease
80% Full Normal Activity with Effort Full Normal or Full
Some Evidence of Disease Reduced
70% Reduced Unable Normal Job/Work Full Normal or Full
Significant Disease Reduced
60% Reduced Unable Hobby/Housework Occasional Normal or Full or Confusion
Significant Disease Assistance Reduced
50% Mainly Sit/Lie Unable to do Any Work Considerable Normal or Full or Confusion
Extensive Disease Assistance Req'd Reduced
40% Mainly in Bed Unable to do Most Activity Mainly Assistance Normal or Full or Drowsy;
Extensive Disease Reduced +/- Confusion
30% Totally Bed Unable to do Any Activity Total Care Normal or Full or Drowsy;
Bound Extensive Disease Reduced +/- Confusion
20% Totally Bed Bound Unable to do Any Activity Total Care Minimal to Full or Drowsy;
Extensive Disease Sips +/- Confusion
10% Totally Bed Bound Unable to do Any Activity Total Care Mouth Care Drowsy or Coma;
Extensive Disease Only +/- Confusion
0%
PPS Score Level:
Palliative Performance Score Response
Palliative Performance Score Response: 40%
Physical Exam
-
General: Well Developed, Well Nourished and No Apparent Distress
Neuro: Awake and Alert
Psych: Calm, Confused and Other (answering questions today in icelandic, confused)
--- NOTE | 2023-12-05 10:26 | W.PN.NEPH.PH ---
Today's Communication / Plan
-
d/c IVFs
Check daily weights
Check random bladder scan
Assessment/Plan
-
Impression:
Presents with mental status changes and weakness
KAVEH
Hypercalcemia
History of metastatic prostate cancer
History of hypertension
Anemia
History of right septic knee arthritis spring 2023
History of prostatectomy (PSA 25)
Plan:
d/c IVfs as patient diet advanced
KAVEH : Creatinine unchanged at 2.3, urine output only 200 cc
resp status stable on RA
echo shows EF 20-25%, concern of Takutsubo, mod
need daily weights , need once again to check postvoid bladder
calcium at 10.3 range s/p Aredia 15, PTH suppressed and mild high PTHrP, neg paraprotein w/u
hypercalcemia felt to be from met prostate ca, may redose Aredia 30mg if needed
monitor h/h-stable
-
-
Date of Service: December 05, 2023
CC / HPI / ROS
-
Chief Complaint:
hypercalcemia
History of Present Illness:
calcium very slow to improve to 10.3
Na better at 145
BP stable
Creatinine no change at 2.3
Review of Systems:
Urine output unknown
Weights not reported
Patient more alert and awake eating and drinking
no reported chest pain or sob
Labs
-
Labs:
WBC 4.6 10^3/uL (4.8-10.8) L 12/05/23 03:54
RBC 2.90 10^6/uL (4.70-6.10) L 12/05/23 03:54
Hgb 8.9 g/dL (13.0-18.0) L 12/05/23 03:54
Hct 25.6 % (39.0-52.0) L 12/05/23 03:54
Plt Count 141 10^3/uL (130-400) 12/05/23 03:54
Sodium 145 mmol/L (135-145) 12/05/23 03:54
Potassium 3.6 mmol/L (3.5-5.1) 12/05/23 03:54
Chloride 108 mmol/L (98-107) H 12/05/23 03:54
Carbon Dioxide 24 mmol/L (22-30) 12/05/23 03:54
BUN 48 mg/dl (9-20) H 12/05/23 03:54
Creatinine 2.3 mg/dL (0.7-1.3) H 12/05/23 03:54
eGFR 26.98 12/05/23 03:54
Glucose 152 mg/dl (70-99) H 12/05/23 03:54
Calcium 10.3 mg/dl (8.4-10.2) H 12/05/23 03:54
Phosphorus Cancelled 11/27/23 05:10
Cuh-K-Xfcdivxxniq Pept > 08409 pg/ml 12/01/23 06:24
Albumin Cancelled 12/01/23 06:15
Physical Exam
-
Vital Signs:
Vital Signs
Temp Pulse Resp BP Pulse Ox
97.9 F 76 15 121/54 97
12/05/23 07:06 12/05/23 10:00 12/05/23 10:00 12/05/23 10:00 12/04/23 19:36
Cardiovascular:: Regular rate and rhythm
Respiratory:: Bilateral: Coarse
Lung Excursion:: Normal
Abdomen:: Nontender and Soft
Bowel Sounds:: Normal
Extremity Edema:: None: Bilateral:
Del Valle Catheter: No
--- NOTE | 2023-12-05 10:27 | W.PN.ONC ---
Today's Communication / Plan
-
Prognosis has worsened significantly
Prostate carcinoma causing PTH like hormone certainly more aggressive than his baseline disease
Hormone refractory
Options limited
Would not encourage feeding tube
Will discuss with son
Impression
Impression
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
KAVEH
Hypercalcemia of malignancy with low PTH, elevated PTHrP
TME
Nutritional insufficiency
Subjective/Objective
Subjective/Objective
Mental status improved over last week however still with significant gaps in reasoning. Certainly not at his baseline.
Vital Signs:
Vital Signs
Temp Pulse Resp BP Pulse Ox
97.9 F 76 15 121/54 97
12/05/23 07:06 12/05/23 10:00 12/05/23 10:00 12/05/23 10:00 12/04/23 19:36
PE: Unchanged
Lab Results:
Laboratory Data
WBC 4.6 10^3/uL (4.8-10.8) L 12/05/23 03:54
Hgb 8.9 g/dL (13.0-18.0) L 12/05/23 03:54
Plt Count 141 10^3/uL (130-400) 12/05/23 03:54
eGFR 26.98 12/05/23 03:54
--- NOTE | 2023-12-05 10:48 | W.PN.UPDATE ---
Update Note
Progress Note Update
Reviewed current circumstances with son Rocky who is accompanying him and everyone of his outpatient visits. Reviewed the worsening prognosis associated with malignancy capable of producing hypercalcemia. Patient is hormone refractory with limited
options. Options for therapy would require significant improvement in performance status. Agree with discharge to rehab but he and the family understand that if his condition again relapses hospice would be the appropriate course.
--- NOTE | 2023-12-05 11:11 | CM ---
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 Room air. Dysphagia diet. ST trials. Receiving IVF w/ Bicarb. Seen by Palliative Care MD. PT/OT
recommend skilled rehab. Per nurse assessment; forgetful, weak.
[facility]; she expressed interest in accepting the patient for short term rehab when medically ready for d/c. Provided clinical update.
Estrella asks for confirmation as to whether Xtandi would be restarted at d/c, and if so patient would need to supply---> message to Dr Rios who confims Xtandi would be held.
Spoke with son GALE Hidalgo by phone; and son visited patient today and son thinks patient seemed improved. He brought in his dentures and was told patient was able to feed himself. He is hopeful patient's diet will be advanced. He had
communication from palliative care MD and oncologist and says he understands that his father may relapse. He discussed that [facility] considering [facility] for [facility] term rehab. Son confirms that the LTC plan is home with family.
CM continuing to follow for d/c needs.
Plan follow up with [facility] for acceptance.
--- NOTE | 2023-12-05 11:18 | PTCARENOTE ---
Bladder scan initially 363. Patient had attempted to void prior without success. PT/OT in room and assisted OOB to stand. Patient then able to void 275ml. Returned to bed to bladder scan: 0 noted. [place] text sent to Dr Arzola.
--- NOTE | 2023-12-05 11:59 | PTCARENOTE ---
Patient's son informed this nurse that he brought patient's dentures back to hospital and patient able to put them in himself. Patient more alert today: he knows he is in the hospital, but unsure it is [place]. He knows the year, but thought it
was December. Still continues with intermittent confusion. Speech therapist, Dori Virgen, contacted via [place] text regarding patient now more lucid and wearing dentures and requesting 'real food.' She texted that patient will be seen by Julisa
ST.
[2023-12-05 12:48] LABS: Glucose - Point of Care 222 mg/dl (70-99)
--- NOTE | 2023-12-05 14:17 | W.PN.HOSP.TC ---
Today's Communication/Plan
-
Assessment / Plan
Assessment / Plan
Physical Exam
NAD, sitting in bedside chair, able to answe queation, knows he at , knows th year, at bedside
-Per , he ate more food then he has been
Scleral anicteric
MMM
No JVD
CTA bilateral
Normal S1-S2 no murmurs
Soft nontender nondistended bowel sounds active
No peripheral pitting edema
Moves extremities spontaneously
Assessment and Plan
Toxic metabolic encephalopathy could likely be secondary to electrolyte abnormalities as he has worsening hyponatremia but improving hypercalcemia
-Discussed hyponatremia findings with nephrology recommended to continue D5 water. Will repeat BMP in the afternoon
-S/p IV bisphosphonate, redosed by Neph today
-cleared for diet of hide IDDSI 4, ordered, but try is barely touched
--Will ask speech therapy to reassess
Hypercalcemia
-Related to malignancy
-IV fluid
-S/p IV bisphosphonate
Hypernatremia, resolved
-Continue IV fluids
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
-Will need to discuss with cardiology if he should go for cardiac catheterization
-Hold Lasix today
-Recs to repeat 2d echo in 3months
Prostates CA with bony mets
-Outpatient oncology follow up
Continue goal of care, monitor po intake, goal to eat ?50% of meal, if not may need tgo consider TF for which son already agreed to
Anticipated Discharge: 24 - 48 hours
Subjective/Interval History
-
Date of Service: December 05, 2023
seen an dexamined. no new compaints. no acute overnight events
Objective Data
-
Labs:
Laboratory Results
12/05/23
03:54
WBC 4.6 L
Hgb 8.9 L
Hct 25.6 L
Plt Count 141
Sodium 145
Potassium 3.6
Chloride 108 H
Carbon Dioxide 24
BUN 48 H
Creatinine 2.3 H
Glucose 152 H
Calcium 10.3 H
Vital Signs:
Vital Signs
Temp Pulse Resp BP Pulse Ox
97.7 F 82 18 133/70 97
12/05/23 11:05 12/05/23 10:58 12/05/23 10:58 12/05/23 10:58 12/04/23 19:36
I&O
12/04/23 12/05/23 12/06/23
06:59 06:59 06:59
Intake Total 1200 / 1200 1000 / 1000
Output Total 450 / 450 200 / 200 275 / 275
Balance 750 / 750 800 / 800 -275 / -275
--- NOTE | 2023-12-05 16:19 | PTOTSP ---
ST Follow-Up
Pt continues to present with clinical signs indicative of mild to moderate oropharyngeal dysphagia.
Recommendations:
- UPGRADE diet to SOFT BITE SIZED SOLIDS and continue with MILDLY THICK LIQUIDS as well as meds whole in puree.
- Consider repeat VFSS tomorrow to determine if liquid consistencies can be upgraded.
- Aspiration precautions: Fully awake, alert, and upright with dentures in oral cavity for PO intake; check for oral clearance; monitor for impulsivity.
- DIVISION LEADER to f/u re: tolerance and airway protection with newly advanced diet as well as to determine if pt would be appropriate for a repeat VFSS.
[2023-12-05] MEDS: SODIUM BICARBONATE IV (16:31)
[2023-12-05 16:54] LABS: Glucose - Point of Care 215 mg/dl (70-99)
--- NOTE | 2023-12-05 20:00 | PTCARENOTE ---
resumed care of pt laying in bed sleeping. Pt easily arousable to voice. PT AAOx1. Reality orientation provided. Pt currently with confused conversation. HR in the 80's in NSR with PAC's, prolonged QT. POX 96% on RA. Pt keeps taking POX off, spot
checking provided. Lungs dec t/o. + bowel, round abd. Pt inc of urine, #30 CC applied. Palpable peripheral pules present. Right arm int capped at this time. Pt repositioning self in bed without difficulty. Bed alarm in place. No issues to report at
this time. Will continue to monitor.
[2023-12-05 21:56] LABS: Glucose - Point of Care 142 mg/dl (70-99)
[2023-12-06] VITALS (12 sets, daily range): BP systolic 114–145; BP diastolic 50–106; PULSE 74; O2SAT 96; BMI 23.5
[2023-12-06 06:40] LABS: Hematocrit 25.1 % (39.0-52.0); Hemoglobin 8.9 g/dL (13.0-18.0); Mean Corp Hgb Conc. 35.5 g/dL (33.0-37.0); Mean Corpuscular Hgb 31.2 pg (27.0-31.0); Mean Corpuscular Volume 88.1 fL (80.0-94.0); Mean Platelet Volume 8.7 fL (7.4-10.4); Platelet Count 128 10^3/uL (130-400); Red Blood Cell Count 2.85 10^6/uL (4.70-6.10); Red Cell Dist. Width 13.2 % (11.5-14.5)
[2023-12-06 07:16] LABS: Blood Urea Nitrogen 45 mg/dl (9-20); Calcium 10.2 mg/dl (8.4-10.2); Carbon Dioxide 28 mmol/L (22-30); Chloride 106 mmol/L (98-107); Estimated Creatinine Clearance 24 ml/min; Glucose 142 mg/dl (70-99); Potassium 3.4 mmol/L (3.5-5.1); Sodium 144 mmol/L (135-145); eGFR 28.46
--- NOTE | 2023-12-06 08:43 | W.PN.CD ---
Today's Communication / Plan
-
Cont metoprolol, he appears euvolemic and overall stable from cardiac perspective
Lasix PRN for 3-5 lbs weight gain in day/week
We will sign off; please call with questions/concerns.
Impression / Plan
-
88 years old gentleman with a history of moderately reduced systolic function with metastatic prostate cancer and hypertension is admitted with acute renal failure and severe hypercalcemia along with dehydration, found to have severely decreased
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
Heart failure with reduced ejection fraction
-Patient had normal systolic function a year ago and has gradually been dropping. LVEF from 55% to 40% earlier this year.
-Echocardiogram 12/02/2023 with severely reduced low ventricular function ejection fraction 20 to 25% basal segments appear to be less hypokinetic raising suspicion for Takotsubo cardiomyopathy. Moderate mitral regurgitation and moderate aortic
stenosis/low-flow, low gradient with mean gradient of 10 mmHg. Mild to moderate aortic regurgitation
-Appears Euvolemic, would send home on 40 mg Lasix to be used PRN for weight gain 3-5 lbs in a day/week
-Trend weights and exam daily
-Continue metoprolol
-GDMT otherwise limited by KAVEH, and Cr of 2.2 previously normal
-Repeat echocardiogram in 3 months
-May consider additional assessment but degree of testing depends on overall treatment plan related to patient's other medical conditions.
Aortic stenosis and aortic regurgitation.
-Low-flow low gradient suspected moderate aortic stenosis and mild to moderate aortic regurgitation on most recent echo
Hypercalcemia, improving
-Management per nephrology
KAVEH, improving slowly previously normal Cr today 2.2
Hyponatremia
-Tx per nephrolgy and primary team
Anemia
-Managment per primary team
Mental status continued assessment as hypercalcemia treated
Subjective: NAEO patient is minimally interactive at time of interview
Physical Exam
Vital Signs/Labs
Vital Signs
Temp Pulse Resp BP Pulse Ox
97.7 F 80 13 132/81 96
12/06/23 04:57 12/06/23 06:23 12/06/23 06:23 12/06/23 06:00 12/06/23 00:10
12/05/23 12/06/23 12/07/23
06:59 06:59 06:59
Actual Weight 159 lb 2.78 oz
12/06/23 06:32
12/06/23 06:32
Magnesium 1.8 mg/dl (1.6-2.3) 11/28/23 04:17
12/01/23 12/01/23
04:59 06:24
Tsi-V-Fffpvnvrvaa Pept Cancelled > [id number]
Physical Exam
Constitutional: No acute distress and Comfortable
EENT: Anicteric
Cardiovascular: Rhythm & rate is regular and Pedal edema is absent
Respiratory: Respiratory effort normal and Lungs clear to auscul.
GI: Soft
Neuro/Psych: Alert
Data Reviewed
-
Date of Service: December 06, 2023
EKG: Tracing Personally Visualized and interpreted ( pac)
Echo: Report Reviewed by me
Labs: Labs Reviewed by me
[2023-12-06 10:06] LABS: Glucose - Point of Care 158 mg/dl (70-99)
--- NOTE | 2023-12-06 11:22 | W.PN.NEPH.PH ---
Today's Communication / Plan
-
monitor and prn lasix
Assessment/Plan
-
Impression:
Presents with mental status changes and weakness
KAVEH
Hypercalcemia
History of metastatic prostate cancer
History of hypertension
Anemia
History of right septic knee arthritis spring 2023
History of prostatectomy (PSA 25)
Plan:
KAVEH : Creatinine unchanged at 2.2, urine output not well documented off jalloh
wt slightly up today, dose lasix 20mg if wt up again
resp status stable on RA
echo shows EF 20-25%, concern of Corin mod
check daily weights , last bladder scan 275cc
calcium at 10.2 range s/p Aredia 11/25, PTH suppressed and mild high PTHrP, neg paraprotein w/u
hypercalcemia felt to be from met prostate ca
monitor h/h-stable
replace k
prn lasix for wt gains
-
-
Date of Service: December 06, 2023
CC / HPI / ROS
-
Chief Complaint:
hypercalcemia
History of Present Illness:
calcium very slow to improve to 10.2
Na better at 144
BP stable
Creatinine no change at 2.2
k low 3.4
hb low at 8.9
Review of Systems:
Urine output unknown
Weights up
Patient more alert and awake eating and drinking
no reported chest pain or sob
Labs
-
Labs:
WBC 5.0 10^3/uL (4.8-10.8) 12/06/23 06:32
RBC 2.85 10^6/uL (4.70-6.10) L 12/06/23 06:32
Hgb 8.9 g/dL (13.0-18.0) L 12/06/23 06:32
Hct 25.1 % (39.0-52.0) L 12/06/23 06:32
Plt Count 128 10^3/uL (130-400) L 12/06/23 06:32
Sodium 144 mmol/L (135-145) 12/06/23 06:32
Potassium 3.4 mmol/L (3.5-5.1) L 12/06/23 06:32
Chloride 106 mmol/L (98-107) 12/06/23 06:32
Carbon Dioxide 28 mmol/L (22-30) 12/06/23 06:32
BUN 45 mg/dl (9-20) H 12/06/23 06:32
Creatinine 2.2 mg/dL (0.7-1.3) H 12/06/23 06:32
eGFR 28.46 12/06/23 06:32
Glucose 142 mg/dl (70-99) H 12/06/23 06:32
Calcium 10.2 mg/dl (8.4-10.2) 12/06/23 06:32
Phosphorus Cancelled 11/27/23 05:10
Cbs-Q-Akizctoneyq Pept > 25198 pg/ml 12/01/23 06:24
Albumin Cancelled 12/01/23 06:15
Physical Exam
-
Vital Signs:
Vital Signs
Temp Pulse Resp BP Pulse Ox
97.7 F 80 13 132/81 96
12/06/23 04:57 12/06/23 06:23 12/06/23 06:23 12/06/23 06:00 12/06/23 00:10
Cardiovascular:: Regular rate and rhythm
Respiratory:: Bilateral: CTA
Lung Excursion:: Normal
Abdomen:: Nontender and Soft
Extremity Edema:: None: Bilateral:
Jalloh Catheter: No
[2023-12-06] MEDS: ULTRAM PO (11:29)
[2023-12-06] MEDS: HEPARIN 5000 UNITS SC ×2 (11:30→19:57)
[2023-12-06] MEDS: TOPROL XL 12.5 MG PO (11:30)
[2023-12-06] MEDS: FLOMAX 0.4 MG PO (11:30)
[2023-12-06] MEDS: KCL 40 MEQ PO (14:27)
--- NOTE | 2023-12-06 14:42 | PTCARENOTE ---
Received pt from nightshift RN. Pt was quite lethargic this AM, waking to voice but only for short periods. Soon after, at 1030, pt was wide awake and ready for breakfast. Upper and lower dentures in place. NSR on tele. + pulses, no edema. Breath
sounds clear on RA, 95% sat. Using urinal in the bed but still inc at times. Eating 50% of meals but not happy with pureed diet. Call castro within reach.
--- NOTE | 2023-12-06 15:23 | CM ---
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 Room air. Dysphagia diet. ST for PO trials. PT/OT recommends skilled rehab.
[facility] doesn't have a bed for him this weekend and will reassess on Saturday.
Spoke with son GALE Hidalgo by phone; provided update that his father may be ready for d/c on Saturday and [facility] check on Saturday to see if they have a bed for him.
Plan follow up with [facility] 12/08 for acceptance.
--- NOTE | 2023-12-06 17:17 | W.PN.HOSP.TC ---
Today's Communication/Plan
-
Assessment / Plan
Assessment / Plan
Physical Exam
NAD, laying in beds, tray of food partially eaten
-Per , he ate more food then he has been
Scleral anicteric
MMM
No JVD
CTA bilateral
Normal S1-S2 no murmurs
Soft nontender nondistended bowel sounds active
No peripheral pitting edema
Moves extremities spontaneously
Assessment and Plan
Toxic metabolic encephalopathy could likely be secondary to electrolyte abnormalities as he has worsening hyponatremia but improving hypercalcemia
-Discussed hyponatremia findings with nephrology recommended to continue D5 water. Will repeat BMP in the afternoon
-S/p IV bisphosphonate, redosed by Neph today
-cleared for diet of IDDSI 6, ordered
Hypercalcemia
-Related to malignancy
-IV fluid
-S/p IV bisphosphonate
Hypernatremia, resolved
-Continue IV fluids
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
-Will need to discuss with cardiology if he should go for cardiac catheterization
-Hold Lasix today
-Recs to repeat 2d echo in 3months
Prostates CA with bony mets
-Outpatient oncology follow up
Continue goal of care, monitor po intake, goal to eat ?50% of meal, if not may need tgo consider TF for which son already agreed to
Anticipated Discharge: 24 - 48 hours
Subjective/Interval History
-
Date of Service: December 06, 2023
seen and examined. no new comlaints. no acute overnight events
verbalizing more in [place] today, but still confused.
Objective Data
-
Labs:
Laboratory Results
12/06/23
06:32
WBC 5.0
Hgb 8.9 L
Hct 25.1 L
Plt Count 128 L
Sodium 144
Potassium 3.4 L
Chloride 106
Carbon Dioxide 28
BUN 45 H
Creatinine 2.2 H
Glucose 142 H
Calcium 10.2
Vital Signs:
Vital Signs
Temp Pulse Resp BP Pulse Ox
98.3 F 76 11 134/84 95
12/06/23 12:01 12/06/23 15:41 12/06/23 15:41 12/06/23 15:41 12/06/23 13:33
I&O
12/05/23 12/06/23 12/07/23
06:59 06:59 06:59
Intake Total 1000 / 1000 120 / 120 625 / 625
Output Total 200 / 200 425 / 425 120 / 120
Balance 800 / 800 -305 / -305 505 / 505
[2023-12-06] MEDS: ULTRAM 50 MG PO (18:26)
[2023-12-06 21:55] LABS: Glucose - Point of Care 140 mg/dl (70-99)
[2023-12-07] VITALS (16 sets, daily range): BP systolic 98–150; BP diastolic 48–88; PULSE 76; BMI 23.9
--- NOTE | 2023-12-07 03:27 | PTCARENOTE ---
periods of confusion and agitation with ability to calm after support- afebrile bp wnl room air
[2023-12-07 04:51] LABS: Hematocrit 25.2 % (39.0-52.0); Hemoglobin 8.6 g/dL (13.0-18.0); Mean Corp Hgb Conc. 34.1 g/dL (33.0-37.0); Mean Corpuscular Hgb 29.4 pg (27.0-31.0); Platelet Count 140 10^3/uL (130-400); Red Blood Cell Count 2.93 10^6/uL (4.70-6.10); Red Cell Dist. Width 13.5 % (11.5-14.5); White Blood Cell Count 4.4 10^3/uL (4.8-10.8)
[2023-12-07 05:13] LABS: Blood Urea Nitrogen 42 mg/dl (9-20); Calcium 10.3 mg/dl (8.4-10.2); Carbon Dioxide 31 mmol/L (22-30); Chloride 107 mmol/L (98-107); Estimated Creatinine Clearance 24 ml/min; Glucose 142 mg/dl (70-99); Potassium 3.8 mmol/L (3.5-5.1); Sodium 146 mmol/L (135-145); eGFR 28.46
[2023-12-07] MEDS: ULTRAM 50 MG PO ×2 (05:54→17:28)
[2023-12-07] MEDS: FLOMAX 0.4 MG PO (08:22)
[2023-12-07] MEDS: HEPARIN 5000 UNITS SC ×2 (08:22→20:49)
[2023-12-07] MEDS: TOPROL XL 12.5 MG PO (08:23)
[2023-12-07 09:15] LABS: Glucose - Point of Care 138 mg/dl (70-99)
[2023-12-07] MEDS: SENOKOT-S 1 TABLET PO (12:32)
[2023-12-07] MEDS: MIRALAX 17 GRAMS PO (12:32)
[2023-12-07 12:58] LABS: Glucose - Point of Care 208 mg/dl (70-99)
--- NOTE | 2023-12-07 12:59 | W.PN.NEPH.PH ---
Today's Communication / Plan
-
prn lasix 20mg
encourage free water intake
Assessment/Plan
-
Impression:
Presents with mental status changes and weakness
KAVEH
Hypercalcemia
History of metastatic prostate cancer
History of hypertension
Anemia
History of right septic knee arthritis spring 2023
History of prostatectomy (PSA 25)
Plan:
KAVEH : Creatinine unchanged at 2.2, urine output not well documented off jalloh
wt slightly up today, prn lasix 20mg
resp status stable on RA
mild hypernatremia-encourage po intake
echo shows EF 20-25%, concern of Takutsubo, mod
check daily weights , last bladder scan 275cc 12/04
calcium at 10.3 s/p Aredia 11/25, PTH suppressed and mild high PTHrP, neg paraprotein w/u
hypercalcemia felt to be from met prostate ca
monitor h/h-stable
labs in am
-
-
Date of Service: December 07, 2023
CC / HPI / ROS
-
Chief Complaint:
hypercalcemia
History of Present Illness:
calcium very slow to improve to 10.2
Na up again at 146
BP stable
Creatinine no change at 2.2
k better at 3.8
hb low at 8.6
Review of Systems:
Urine output not accurate
Weights up
no reported chest pain or sob
Labs
-
Labs:
WBC 4.4 10^3/uL (4.8-10.8) L 12/07/23 04:30
RBC 2.93 10^6/uL (4.70-6.10) L 12/07/23 04:30
Hgb 8.6 g/dL (13.0-18.0) L 12/07/23 04:30
Hct 25.2 % (39.0-52.0) L 12/07/23 04:30
Plt Count 140 10^3/uL (130-400) 12/07/23 04:30
Sodium 146 mmol/L (135-145) H 12/07/23 04:30
Potassium 3.8 mmol/L (3.5-5.1) 12/07/23 04:30
Chloride 107 mmol/L (98-107) 12/07/23 04:30
Carbon Dioxide 31 mmol/L (22-30) H 12/07/23 04:30
BUN 42 mg/dl (9-20) H 12/07/23 04:30
Creatinine 2.2 mg/dL (0.7-1.3) H 12/07/23 04:30
eGFR 28.46 12/07/23 04:30
Glucose 142 mg/dl (70-99) H 12/07/23 04:30
Calcium 10.3 mg/dl (8.4-10.2) H 12/07/23 04:30
Phosphorus Cancelled 11/27/23 05:10
Cit-C-Mqnhfenocit Pept > 98677 pg/ml 12/01/23 06:24
Albumin Cancelled 12/01/23 06:15
Physical Exam
-
Vital Signs:
Vital Signs
Temp Pulse Resp BP Pulse Ox
98.0 F 80 16 109/82 95
12/07/23 07:55 12/07/23 12:00 12/07/23 12:00 12/07/23 12:00 12/07/23 12:09
Cardiovascular:: Regular rate and rhythm
Respiratory:: Bilateral: CTA
Lung Excursion:: Normal
Abdomen:: Nontender and Soft
Extremity Edema:: None: Bilateral:
Jalloh Catheter: No
--- NOTE | 2023-12-07 14:46 | W.PN.HOSP.TC ---
Today's Communication/Plan
-
calorie counts
for snf
Assessment / Plan
Assessment / Plan
Physical Exam
NAD, laying in beds, tray of food partially eaten
Scleral anicteric
MMM
No JVD
CTA bilateral
Normal S1-S2 no murmurs
Soft nontender nondistended bowel sounds active
No peripheral pitting edema
Moves extremities spontaneously
Assessment and Plan
Toxic metabolic encephalopathy could likely be secondary to electrolyte abnormalities as he has worsening hyponatremia but improving hypercalcemia
-Discussed hyponatremia findings with nephrology recommended to continue D5 water. Will repeat BMP in the afternoon
-S/p IV bisphosphonate, redosed by Neph today
-cleared for diet of IDDSI 6, ordered
-calorie counts
Hypercalcemia
-Related to malignancy
-IV fluid
-S/p IV bisphosphonate
-slight up, neph provide iv diuretics as weight is up
Hypernatremia, resolved
-Continue IV fluids
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
-Will need to discuss with cardiology if he should go for cardiac catheterization
-Hold Lasix today
-Recs to repeat 2d echo in 3months
Prostates CA with bony mets
-Outpatient oncology follow up
Continue goal of care, monitor po intake, goal to eat ?50% of meal, if not may need tgo consider TF for which son already agreed to
Anticipated Discharge: > 48 hours
Subjective/Interval History
-
Date of Service: December 07, 2023
anjum carter
verablizing more today
Objective Data
-
Labs:
Laboratory Results
12/07/23
04:30
WBC 4.4 L
Hgb 8.6 L
Hct 25.2 L
Plt Count 140
Sodium 146 H
Potassium 3.8
Chloride 107
Carbon Dioxide 31 H
BUN 42 H
Creatinine 2.2 H
Glucose 142 H
Calcium 10.3 H
Vital Signs:
Vital Signs
Temp Pulse Resp BP Pulse Ox
98.0 F 80 16 109/82 95
12/07/23 07:55 12/07/23 12:00 12/07/23 12:00 12/07/23 12:00 12/07/23 12:09
I&O
12/06/23 12/07/23 12/08/23
06:59 06:59 06:59
Intake Total 120 / 120 1300 / 1300
Output Total 425 / 425 570 / 570
Balance -305 / -305 730 / 730
[2023-12-07 17:56] LABS: Glucose - Point of Care 155 mg/dl (70-99)
[2023-12-07 22:29] LABS: Glucose - Point of Care 161 mg/dl (70-99)
[2023-12-08] VITALS (9 sets, daily range): BP systolic 89–143; BP diastolic 52–110; BMI 22.9
[2023-12-08] MEDS: ULTRAM 50 MG PO ×2 (05:08→17:10)
[2023-12-08 05:43] LABS: Hematocrit 26.8 % (39.0-52.0); Hemoglobin 9.3 g/dL (13.0-18.0); Mean Corp Hgb Conc. 34.7 g/dL (33.0-37.0); Mean Corpuscular Volume 89.3 fL (80.0-94.0); Mean Platelet Volume 9.1 fL (7.4-10.4); Platelet Count 146 10^3/uL (130-400); Red Cell Dist. Width 13.6 % (11.5-14.5); White Blood Cell Count 5.5 10^3/uL (4.8-10.8)
[2023-12-08 05:59] LABS: Blood Urea Nitrogen 37 mg/dl (9-20); Calcium 10.5 mg/dl (8.4-10.2); Carbon Dioxide 31 mmol/L (22-30); Chloride 105 mmol/L (98-107); Estimated Creatinine Clearance 27 ml/min; Glucose 136 mg/dl (70-99); Potassium 3.8 mmol/L (3.5-5.1); Sodium 145 mmol/L (135-145)
[2023-12-08] MEDS: TOPROL XL 12.5 MG PO (09:03)
[2023-12-08] MEDS: HEPARIN 5000 UNITS SC ×2 (09:06→20:11)
[2023-12-08] MEDS: FLOMAX 0.4 MG PO (09:06)
[2023-12-08 09:43] LABS: Glucose - Point of Care 152 mg/dl (70-99)
--- NOTE | 2023-12-08 11:01 | PTCARENOTE ---
breakfast was at bedside. pt observed eating breakfast. dietary disposed of breakfast. no receipt found. unable to count calories for breakfast.
--- NOTE | 2023-12-08 11:51 | W.PN.NEPH.PH ---
Today's Communication / Plan
-
follow labs
Assessment/Plan
-
Impression:
Presents with mental status changes and weakness
KAVEH
Hypercalcemia
History of metastatic prostate cancer
History of hypertension
Anemia
History of right septic knee arthritis spring 2023
History of prostatectomy (PSA 25)
Plan:
KAVEH : Creatinine slightly better at 2, urine output not well documented off jalloh
wt decreasing, prn lasix 20mg
resp status stable on RA
mild hypernatremia improving-encourage po intake
echo shows EF 20-25%, concern of Takutsubo, mod
check daily weights , last bladder scan 275cc 12/04
calcium at 10.5 s/p Aredia 11/25, PTH suppressed and mild high PTHrP, neg paraprotein w/u
hypercalcemia felt to be from met prostate ca
monitor h/h-stable
labs in am
-
-
Date of Service: December 08, 2023
CC / HPI / ROS
-
Chief Complaint:
hypercalcemia
History of Present Illness:
calcium very slow to improve to 10.5
Na better at 145
BP stable
Creatinine better at 2
hb better at 9.3
Review of Systems:
Urine output not accurate
Weights low
no reported chest pain or sob
Labs
-
Labs:
WBC 5.5 10^3/uL (4.8-10.8) 12/08/23 05:15
RBC 3.00 10^6/uL (4.70-6.10) L 12/08/23 05:15
Hgb 9.3 g/dL (13.0-18.0) L 12/08/23 05:15
Hct 26.8 % (39.0-52.0) L 12/08/23 05:15
Plt Count 146 10^3/uL (130-400) 12/08/23 05:15
Sodium 145 mmol/L (135-145) 12/08/23 05:15
Potassium 3.8 mmol/L (3.5-5.1) 12/08/23 05:15
Chloride 105 mmol/L (98-107) 12/08/23 05:15
Carbon Dioxide 31 mmol/L (22-30) H 12/08/23 05:15
BUN 37 mg/dl (9-20) H 12/08/23 05:15
Creatinine 2.0 mg/dL (0.7-1.3) H 12/08/23 05:15
eGFR 31.90 12/08/23 05:15
Glucose 136 mg/dl (70-99) H 12/08/23 05:15
Calcium 10.5 mg/dl (8.4-10.2) H 12/08/23 05:15
Phosphorus Cancelled 11/27/23 05:10
Ctm-O-Oocrragmxxq Pept > 32418 pg/ml 12/01/23 06:24
Albumin Cancelled 12/01/23 06:15
Physical Exam
-
Vital Signs:
Vital Signs
Temp Pulse Resp BP Pulse Ox
97.9 F 75 13 124/67 95
12/08/23 07:40 12/08/23 10:00 12/08/23 10:00 12/08/23 10:00 12/07/23 19:54
Cardiovascular:: Regular rate and rhythm
Respiratory:: Bilateral: CTA
Lung Excursion:: Normal
Abdomen:: Nontender and Soft
Extremity Edema:: None: Bilateral:
Jalloh Catheter: No
--- NOTE | 2023-12-08 13:51 | W.PN.HOSP.TC ---
Today's Communication/Plan
-
Calorie counts
Assessment / Plan
Assessment / Plan
Physical Exam
NAD, laying in beds
Scleral anicteric
MMM
No JVD
CTA bilateral
Normal S1-S2 no murmurs
Soft nontender nondistended bowel sounds active
No peripheral pitting edema
Moves extremities spontaneously
Mental status: sarcastic expressions, does not know that he is in the hospital
Assessment and Plan
Toxic metabolic encephalopathy could likely be secondary to electrolyte abnormalities as he has worsening hyponatremia but improving hypercalcemia
-Discussed hyponatremia findings with nephrology recommended to continue D5 water. Will repeat BMP in the afternoon
-S/p IV bisphosphonate, redosed by Neph today
-cleared for diet of IDDSI 6, ordered
-calorie counts
Hypercalcemia
-Related to malignancy
-IV fluid
-S/p IV bisphosphonate
-slight up, neph provide iv diuretics as weight is up
Hypernatremia, resolved
-Continue IV fluids
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
-Will need to discuss with cardiology if he should go for cardiac catheterization
-Hold Lasix today
-Recs to repeat 2d echo in 3months
Prostates CA with bony mets
-Outpatient oncology follow up
Continue goal of care, monitor po intake, goal to eat ?50% of meal, if not may need tgo consider TF for which son already agreed to
Calorie counts
Anticipated Discharge: 24 - 48 hours
Subjective/Interval History
-
Date of Service: December 08, 2023
seen and examined. no new comaplitns. no acute overniggt events
Objective Data
-
Labs:
Laboratory Results
12/08/23
05:15
WBC 5.5
Hgb 9.3 L
Hct 26.8 L
Plt Count 146
Sodium 145
Potassium 3.8
Chloride 105
Carbon Dioxide 31 H
BUN 37 H
Creatinine 2.0 H
Glucose 136 H
Calcium 10.5 H
Vital Signs:
Vital Signs
Temp Pulse Resp BP Pulse Ox
97.9 F 75 13 124/67 95
12/08/23 07:40 12/08/23 10:00 12/08/23 10:00 12/08/23 10:00 12/07/23 19:54
I&O
12/07/23 12/08/23 12/09/23
06:59 06:59 06:59
Intake Total 1300 / 1300 720 / 720
Output Total 570 / 570 425 / 425 100 / 100
Balance 730 / 730 295 / 295 -100 / -100
[2023-12-08 14:01] LABS: Glucose - Point of Care 194 mg/dl (70-99)
[2023-12-08 17:53] LABS: Glucose - Point of Care 157 mg/dl (70-99)
[2023-12-08 21:47] LABS: Glucose - Point of Care 137 mg/dl (70-99)
--- NOTE | 2023-12-08 22:38 | PTCARENOTE ---
ax1- confused, pleasant- bed alarm in place- sinus with frequent pac's, afebrile- bp wnl
[2023-12-09] VITALS (10 sets, daily range): BP systolic 124–153; BP diastolic 71–103; BMI 22.9
[2023-12-09] MEDS: ULTRAM 50 MG PO ×2 (05:03→18:37)
[2023-12-09 05:25] LABS: Hematocrit 26.4 % (39.0-52.0); Hemoglobin 9.1 g/dL (13.0-18.0); Mean Corp Hgb Conc. 34.5 g/dL (33.0-37.0); Mean Corpuscular Hgb 30.7 pg (27.0-31.0); Mean Corpuscular Volume 89.2 fL (80.0-94.0); Mean Platelet Volume 8.8 fL (7.4-10.4); Platelet Count 126 10^3/uL (130-400); Red Blood Cell Count 2.96 10^6/uL (4.70-6.10); Red Cell Dist. Width 13.7 % (11.5-14.5); White Blood Cell Count 4.9 10^3/uL (4.8-10.8)
[2023-12-09 05:48] LABS: Blood Urea Nitrogen 33 mg/dl (9-20); Calcium 10.4 mg/dl (8.4-10.2); Carbon Dioxide 30 mmol/L (22-30); Chloride 106 mmol/L (98-107); Estimated Creatinine Clearance 28 ml/min; Glucose 136 mg/dl (70-99); Potassium 3.6 mmol/L (3.5-5.1); Sodium 145 mmol/L (135-145); eGFR 33.93
[2023-12-09 10:26] LABS: Glucose - Point of Care 134 mg/dl (70-99)
[2023-12-09] MEDS: HEPARIN 5000 UNITS SC ×2 (10:26→20:34)
[2023-12-09] MEDS: FLOMAX 0.4 MG PO (10:26)
[2023-12-09] MEDS: TOPROL XL 12.5 MG PO (10:26)
--- NOTE | 2023-12-09 10:58 | W.PN.NEPH.PH ---
Today's Communication / Plan
-
follow BMP
Assessment/Plan
-
Impression:
Presents with mental status changes and weakness
KAVEH
Hypercalcemia
History of metastatic prostate cancer
History of hypertension
Anemia
History of right septic knee arthritis spring 2023
History of prostatectomy (PSA 25)
Plan:
follow BMP
no lasix/IVF for now
will let oncology decide on if zometa would be helpful
encourage po intake
-
-
Date of Service: December 09, 2023
CC / HPI / ROS
-
Chief Complaint:
hypercalcemia
History of Present Illness:
calcium remains slightly high
Na stable at 145
BP stable
Creatinine better at 1.9
Review of Systems:
Urine output not accurate
no reported chest pain or sob
reports malaise
Labs
-
Labs:
WBC 4.9 10^3/uL (4.8-10.8) 12/09/23 05:10
RBC 2.96 10^6/uL (4.70-6.10) L 12/09/23 05:10
Hgb 9.1 g/dL (13.0-18.0) L 12/09/23 05:10
Hct 26.4 % (39.0-52.0) L 12/09/23 05:10
Plt Count 126 10^3/uL (130-400) L 12/09/23 05:10
Sodium 145 mmol/L (135-145) 12/09/23 05:10
Potassium 3.6 mmol/L (3.5-5.1) 12/09/23 05:10
Chloride 106 mmol/L (98-107) 12/09/23 05:10
Carbon Dioxide 30 mmol/L (22-30) 12/09/23 05:10
BUN 33 mg/dl (9-20) H 12/09/23 05:10
Creatinine 1.9 mg/dL (0.7-1.3) H 12/09/23 05:10
eGFR 33.93 12/09/23 05:10
Glucose 136 mg/dl (70-99) H 12/09/23 05:10
Calcium 10.4 mg/dl (8.4-10.2) H 12/09/23 05:10
Phosphorus Cancelled 11/27/23 05:10
Rxp-M-Bfleimbyzpo Pept > 98715 pg/ml 12/01/23 06:24
Albumin Cancelled 12/01/23 06:15
Physical Exam
-
Vital Signs:
Vital Signs
Temp Pulse Resp BP Pulse Ox
98.3 F 79 22 135/91 95
12/09/23 08:05 12/09/23 10:00 12/09/23 08:00 12/09/23 10:00 12/08/23 19:52
Cardiovascular:: Regular rate and rhythm
Respiratory:: Bilateral: Coarse
Lung Excursion:: Normal
Abdomen:: Nontender and Soft
Bowel Sounds:: Normal
Extremity Edema:: None: Bilateral:
--- NOTE | 2023-12-09 12:10 | W.PN.HOSP.TC ---
Addendum entered and electronically signed by Real Valencia MD 12/09/23 13:24:
speech would like a video swallow. this has been ordered
Original Note:
Today's Communication/Plan
-
Calorie count
Should finish tomorrow
If low will require PEG tube for which son has agreed to
Assessment / Plan
Assessment / Plan
Physical Exam
NAD, laying in beds
Scleral anicteric
MMM
No JVD
CTA bilateral
Normal S1-S2 no murmurs
Soft nontender nondistended bowel sounds active
No peripheral pitting edema
Moves extremities spontaneously
Mental status: sarcastic expressions, knowns that he is at [facility]. Watching the news understands this election season however when I asked him who is evaluating for he states for me
Assessment and Plan
Toxic metabolic encephalopathy could likely be secondary to electrolyte abnormalities as he has worsening hyponatremia but improving hypercalcemia
-Discussed hyponatremia findings with nephrology recommended to continue D5 water. Will repeat BMP in the afternoon
-S/p IV bisphosphonate, redosed by Neph today
-cleared for diet of IDDSI 6, ordered
-calorie counts
Hypercalcemia
-Related to malignancy
-IV fluid
-S/p IV bisphosphonate
-slight up, neph provide iv diuretics as weight is up
Hypernatremia, resolved
-Continue IV fluids
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
-Will need to discuss with cardiology if he should go for cardiac catheterization
-Hold Lasix today
-Recs to repeat 2d echo in 3months
Prostates CA with bony mets
-Outpatient oncology follow up
Continue goal of care, monitor po intake, goal to eat ?50% of meal, if not may need tgo consider TF for which son already agreed to
Calorie counts
Anticipated Discharge: 24 - 48 hours
Subjective/Interval History
-
Date of Service: December 09, 2023
Seen and examined. No new complaints. No acute overnight events.
Objective Data
-
Labs:
Laboratory Results
12/09/23
05:10
WBC 4.9
Hgb 9.1 L
Hct 26.4 L
Plt Count 126 L
Sodium 145
Potassium 3.6
Chloride 106
Carbon Dioxide 30
BUN 33 H
Creatinine 1.9 H
Glucose 136 H
Calcium 10.4 H
Vital Signs:
Vital Signs
Temp Pulse Resp BP Pulse Ox
98.3 F 79 22 135/91 95
12/09/23 08:05 12/09/23 10:00 12/09/23 08:00 12/09/23 10:00 12/08/23 19:52
I&O
12/08/23 12/09/23 12/10/23
06:59 06:59 06:59
Intake Total 720 / 720 480 / 480
Output Total 425 / 425 1900 / 1900
Balance 295 / 295 -1420 / -1420
--- NOTE | 2023-12-09 12:58 | W.PN.PAL2 ---
Today's Communication
-
awaiting rehab, PO intake improved
Assessment / Plan
-
Assessment/Plan:
88 year old with metastatic prostate cancer to bone admitted with AMS due to hyperCa of malignancy, now improved.
- planned for rehab at [facility], family hoping for today or tomorrow
- at bedside, awake and alert and back to baseline. PO intake improved greatly. Calorie count to finish tomorrow. Would hold off on PEG as poor intake likely a combo of AMS, hospital food and anticipate would improve once he returns home again
- son agreeable to outpatient palliative follow up after rehab
Reason for Admission
Illness Course/HPI
Carmelina is a 88 y/o male with hx of Stage IV prostate cancer with known bony mets, was hospitalized for confusion secondary to hypercalcemia of malignancy and KAVEH from dehydration. Apparently in the weeks prior hospitalization developed
constipation from antibiotics for URI, and then became dehydrated from constipation treatment.
Hospital course has been complicated by agitation and confusion, improving with treatment of hypercalcemia. Developed pulmonary edema from hydration, echo planned. breathing stable at present.
Pain & Symptom Assessment
Bird In Hand Symptom Scale 0=none, 10=worst
Pain: 0
Drowsy: 0
Nausea: 0
Appetite: 3
Shortness of Breath: 0
Objective Data
-
Objective Data:
Vital Signs
Temp Pulse Resp BP Pulse Ox
98.3 F 79 22 135/91 95
12/09/23 08:05 12/09/23 10:00 12/09/23 08:00 12/09/23 10:00 12/08/23 19:52
Laboratory Results
12/09/23 05:10
12/09/23 05:10
Total Protein Cancelled 12/01/23 06:15
Albumin Cancelled 12/01/23 06:15
Urine Color Yellow 11/26/23 11:03
Urine Clarity Clear (Clear) 11/26/23 11:03
Urine pH 6.0 (5.0-9.0) 11/26/23 11:03
Ur Specific Manning 1.020 (<1.030) 11/26/23 11:03
Urine Ketones Negative (Negative) 11/26/23 11:03
Urine Occult Blood 2+ (Negative) A 11/26/23 11:03
Urine Nitrite Negative (Negative) 11/26/23 11:03
Urine Bilirubin Negative (Negative) 11/26/23 11:03
Ur Leukocyte Esterase Negative (Negative) 11/26/23 11:03
Urine Albumin Negative (Neg - Trace) 11/26/23 11:03
Palliative Performance Scale
Palliative Performance Scale:
PPS Level Ambulation Activity & Evidence of Disease Self Care Intake Conscious Level
100% Full Normal Activity & Work; Full Intake Full
No Evidence of Disease
90% Full Normal Activity & Work; Full Normal Full
Some Evidence of Disease
80% Full Normal Activity with Effort Full Normal or Full
Some Evidence of Disease Reduced
70% Reduced Unable Normal Job/Work Full Normal or Full
Significant Disease Reduced
60% Reduced Unable Hobby/Housework Occasional Normal or Full or Confusion
Significant Disease Assistance Reduced
50% Mainly Sit/Lie Unable to do Any Work Considerable Normal or Full or Confusion
Extensive Disease Assistance Req'd Reduced
40% Mainly in Bed Unable to do Most Activity Mainly Assistance Normal or Full or Drowsy;
Extensive Disease Reduced +/- Confusion
30% Totally Bed Unable to do Any Activity Total Care Normal or Full or Drowsy;
Bound Extensive Disease Reduced +/- Confusion
20% Totally Bed Bound Unable to do Any Activity Total Care Minimal to Full or Drowsy;
Extensive Disease Sips +/- Confusion
10% Totally Bed Bound Unable to do Any Activity Total Care Mouth Care Drowsy or Coma;
Extensive Disease Only +/- Confusion
0%
PPS Score Level:
Palliative Performance Score Response
Palliative Performance Score Response: 60%
Physical Exam
-
General: No Apparent Distress and Appears Chronically Ill
HEENT: Normocephalic
Respiratory: Clear to Auscultation
Cardiac: Regular Rhythm
Peripheral Vascular: No Edema
GI: Soft
Skin: Warm
Neuro: AO x 3
Psych: Calm
Care Reviewed
Data Reviewed
Medical Tests: I reviewed
Reviewed with: Patient and Family
--- NOTE | 2023-12-09 13:21 | W.PN.ONC2 ---
Today's Communication / Plan
-
Patient with castrate resistant metastatic prostate cancer, reportedly with few treatment options left.
Recent disease progression complicated by hypercalcemia of malignancy.
Patient is status post Aredia and calcitonin on November 25. His calcium has been stable in the low tens.
Plan for discharge soon is noted. Would consider giving a second dose of retia prior to discharge to help ensure that the hypercalcemia does not recur while he is at [facility].
If hypercalcemia of malignancy continues to be a problem, he could start Xgeva subcu weekly for up to 3 doses and then every 4 weeks beginning 2 weeks after the third dose of Xgeva. He had been on Xgeva previously, last given in April, held
effective July for dental surgery.
Could consider oral clodronate to maintain normal calcium but this may be problematic with renal insufficiency.
Plan is noted for [facility] to [facility], patient and family state that he is getting better every day.
Impression
Impression
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
KAVEH
Hypercalcemia of malignancy with low PTH, elevated PTHrP
TME
Nutritional insufficiency
Plan
Plan
KAVEH/hypernatremia apprec nephrology assist
s/p IVF, 60 mg IV pamidronate + Calcitonin on 11/25
Overall prognosis guarded. Salvage treatment only if PS improves (modified Taxotere or Falguni 177).
Subjective/Objective
Chief Complaint
Heme/Onc follow up hypercalcemia of malignancy
Subjective
Vital Signs:
Vital Signs
Temp Pulse Resp BP Pulse Ox
97.7 F 79 22 135/91 95
12/09/23 11:05 12/09/23 10:00 12/09/23 08:00 12/09/23 10:00 12/08/23 19:52
Lab Results:
Laboratory Data
WBC 4.9 10^3/uL (4.8-10.8) 12/09/23 05:10
Hgb 9.1 g/dL (13.0-18.0) L 12/09/23 05:10
Plt Count 126 10^3/uL (130-400) L 12/09/23 05:10
eGFR 33.93 12/09/23 05:10
--- NOTE | 2023-12-09 14:40 | PTOTSP ---
Speech Language Pathology
VIDEOFLUOROSCOPIC SWALLOWING EXAMINATION (VSE) completed. Mild oropharyngeal dysphagia noted Transient laryngeal penetration (PAS 2) noted with consecutive straw sips of thin liquids. With 1/2 trials of thin liquid via tsp, penetration noted,
which did not clear. However, pt appeared confused on whether he was supposed to orally hold bolus or swallow, so suspect incoordination caused difficulty. No other penetration or any aspiration noted.
Recommend:
(1) Upgrade to regular solids/thin liquids
(2) Aspiration precautions: ensure oral cavity clear post P.O. intake, sit upright
(3) Meds as tolerated
(4) PICKER BOX OPERATOR to continue to follow
--- NOTE | 2023-12-09 15:38 | PTCARENOTE ---
Patient out of bed to chair with assistance x1. Bed alarm and chair alarm in use. Patient AAO X 1-2. Patient had repeat video swallow today and diet changed to regular diet with thin liquids. Vital signs stable. SR with frequent PVC's.
--- NOTE | 2023-12-09 16:40 | CM ---
Welsh/Kyrgyz speaking patient with Hx metastatic prostate CA with Dx TME, hypercalcemia, HF, concern for Takotsubo's cardiomyopathy. Room air. Dysphagia diet. Calorie count. VSE today. Seen by Palliative Care. PT/OT recommends skilled rehab.
Message from [facility]; they are able to accept. CM will need to call for bed availability.
Spoke with son GALE Hidalgo by phone; provided updated that [facility] accept for rehab when patient is medically ready for d/c.
Plan [facility].
[2023-12-09 17:14] LABS: Glucose - Point of Care 162 mg/dl (70-99)
--- NOTE | 2023-12-09 19:28 | PTCARENOTE ---
Patient only ate about 5% of lunch and 5% of dinner because he did not like the food.
--- NOTE | 2023-12-09 23:03 | PTCARENOTE ---
Received patient from previous RN. Patient is Aox1, did not know place or time. Patient is forgetful. Patient is NSR with PVCs. Patient is on room air with diminished lung sounds. Patient has a poor appetite and on regular diet. Patient uses urinal
with assistance but also incontinent at times. Patient is resting in bed with call castro in reach.
[2023-12-10] VITALS (8 sets, daily range): BP systolic 110–149; BP diastolic 58–91; PULSE 76–84; O2SAT 96–97; BMI 22.9
[2023-12-10 04:41] LABS: Hemoglobin 8.7 g/dL (13.0-18.0); Mean Corp Hgb Conc. 34.8 g/dL (33.0-37.0); Mean Corpuscular Hgb 31.1 pg (27.0-31.0); Mean Corpuscular Volume 89.3 fL (80.0-94.0); Mean Platelet Volume 8.7 fL (7.4-10.4); Platelet Count 115 10^3/uL (130-400); Red Cell Dist. Width 13.8 % (11.5-14.5); White Blood Cell Count 4.3 10^3/uL (4.8-10.8)
[2023-12-10 05:12] LABS: Blood Urea Nitrogen 30 mg/dl (9-20); Calcium 10.1 mg/dl (8.4-10.2); Carbon Dioxide 27 mmol/L (22-30); Chloride 104 mmol/L (98-107); Estimated Creatinine Clearance 29 ml/min; Glucose 126 mg/dl (70-99); Potassium 3.3 mmol/L (3.5-5.1); Sodium 144 mmol/L (135-145); eGFR 36.21
[2023-12-10] MEDS: ULTRAM 50 MG PO (05:42)
[2023-12-10] MEDS: KCL 40 MEQ PO (05:42)
[2023-12-10] MEDS: TOPROL XL 12.5 MG PO (09:38)
[2023-12-10] MEDS: HEPARIN 5000 UNITS SC (09:38)
[2023-12-10] MEDS: FLOMAX 0.4 MG PO (09:38)
--- NOTE | 2023-12-10 10:09 | W.PN.NEPH.PH ---
Today's Communication / Plan
-
follow BMP
Assessment/Plan
-
Impression:
Presents with mental status changes and weakness
KAVEH
Hypercalcemia
History of metastatic prostate cancer
History of hypertension
Anemia
History of right septic knee arthritis spring 2023
History of prostatectomy (PSA 25)
Plan:
follow BMP
no lasix/IVF for now
encourage po intake
If Calcium rises, can dose aredia again
-
-
Date of Service: December 10, 2023
CC / HPI / ROS
-
Chief Complaint:
hypercalcemia
History of Present Illness:
calcium remains slightly high
Na stable at 144
BP stable
Creatinine better at 1.8
Calcium down to 10.2
K low 3.3
Review of Systems:
no reported chest pain or sob
Labs
-
Labs:
WBC 4.3 10^3/uL (4.8-10.8) L 12/10/23 04:33
RBC 2.80 10^6/uL (4.70-6.10) L 12/10/23 04:33
Hgb 8.7 g/dL (13.0-18.0) L 12/10/23 04:33
Hct 25.0 % (39.0-52.0) L 12/10/23 04:33
Plt Count 115 10^3/uL (130-400) L 12/10/23 04:33
Sodium 144 mmol/L (135-145) 12/10/23 04:33
Potassium 3.3 mmol/L (3.5-5.1) L 12/10/23 04:33
Chloride 104 mmol/L (98-107) 12/10/23 04:33
Carbon Dioxide 27 mmol/L (22-30) 12/10/23 04:33
BUN 30 mg/dl (9-20) H 12/10/23 04:33
Creatinine 1.8 mg/dL (0.7-1.3) H 12/10/23 04:33
eGFR 36.21 12/10/23 04:33
Glucose 126 mg/dl (70-99) H 12/10/23 04:33
Calcium 10.1 mg/dl (8.4-10.2) 12/10/23 04:33
Phosphorus Cancelled 11/27/23 05:10
Tjd-J-Ioujkmfuooo Pept > 87123 pg/ml 12/01/23 06:24
Albumin Cancelled 12/01/23 06:15
Physical Exam
-
Vital Signs:
Vital Signs
Temp Pulse Resp BP Pulse Ox
98.3 F 63 7 149/69 98
12/10/23 07:05 12/10/23 06:00 12/10/23 06:00 12/10/23 06:00 12/10/23 06:00
Cardiovascular:: Regular rate and rhythm
Respiratory:: Bilateral: Coarse
Lung Excursion:: Normal
Abdomen:: Nontender and Soft
Bowel Sounds:: Normal
Extremity Edema:: None: Bilateral:
--- NOTE | 2023-12-10 11:58 | CM ---
Spanish/French speaking patient with Hx metastatic prostate CA with Dx TME, hypercalcemia, HF, concern for Takotsubo's cardiomyopathy. Room air. Now on regular diet. Seen by Palliative Care. PT/OT recommends skilled rehab.
Spoke with [facility]; they are able to accept the patient today. The ph for report to 4th floor [phone], fax [phone]. Patient will be placed in Room 406.
Met with patient and spoke with son GALE Hidalgo by phone; both agree with d/c today to [facility]. IMM completed.
Plan [facility] today by ambulance.
[2023-12-10] MEDS: MIRALAX 17 GRAMS PO (14:39)
--- NOTE | 2023-12-10 16:19 | W.PN.HOSP.TC ---
Today's Communication/Plan
-
d/c rehab
Assessment / Plan
Assessment / Plan
Toxic metabolic encephalopathy could likely be secondary to electrolyte abnormalities as he has worsening hyponatremia but improving hypercalcemia
-Discussed hyponatremia findings with nephrology recommended to continue D5 water. Will repeat BMP in the afternoon
-S/p IV bisphosphonate, redosed by Neph today
-Speech therapy cleared for regular diet after VSE
Hypercalcemia
-Related to malignancy
-S/p IV bisphosphonate
-Follow BMP prescription provided postdischarge
-Patient will follow-up with oncology in office
Hypernatremia, resolved
-Continue IV fluids
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
-Will need to discuss with cardiology if he should go for cardiac catheterization
-off of lasix at this point, no signs of fluid overload
-Cardiology has signed off
Prostates CA with bony mets
-Outpatient oncology follow up
Full code
Discharge to snf/rehab
Anticipated Discharge: Today
Subjective/Interval History
-
Date of Service: December 10, 2023
no issues overnight
Objective Data
-
Labs:
Laboratory Results
12/10/23
04:33
WBC 4.3 L
Hgb 8.7 L
Hct 25.0 L
Plt Count 115 L
Sodium 144
Potassium 3.3 L
Chloride 104
Carbon Dioxide 27
BUN 30 H
Creatinine 1.8 H
Glucose 126 H
Calcium 10.1
Vital Signs:
Vital Signs
Temp Pulse Resp BP Pulse Ox
97.8 F 71 10 110/68 96
12/10/23 15:05 12/10/23 10:00 12/10/23 10:00 12/10/23 10:00 12/10/23 10:16
I&O
12/09/23 12/10/23 12/11/23
06:59 06:59 06:59
Intake Total 480 / 480 875 / 875 720 / 720
Output Total 1900 / 1900 930 / 930 150 / 150
Balance -1420 / -1420 -55 / -55 570 / 570
Review of Systems
-
Respiratory: Reports No Symptoms
Cardiac: Reports No Symptoms
Abdomen/GI: Reports No Symptoms
Physical Exam
-
General: No Apparent Distress and Comfortable
HEENT: Negative Oxygen
Respiratory: Clear to Auscultation
Cardiac: Regular Rhythm and S1/S2; Negative Murmur or Rub
GI: Soft, Nontender and Nondistended
Musculoskeletal: No Edema
Neuro: Awake, Alert, Oriented, No Motor Deficits and Nonfocal/Grossly Intact
Psych: Calm
--- NOTE | 2023-12-10 17:17 | W.DCSUMMARY ---
Discharge Summary
Discharge Data
Date of Admission: 11/26/23
Date of Discharge: 12/10/23
-
Pending Results: No
Hospital Course
Discharging Physician : Dr Layton Valencia
Disposition : [facility]
Primary care physician : Unknown
Principal Discharge diagnosis :
Hypercalcemia from malignancy
Acute metabolic encephalopathy
Hyponatremia
Acute on chronic systolic congestive heart failure
Takotsubo cardiomyopathy
Decreased oral intake
Protein calorie malnutrition
Chronic Discharge diagnosis :
Prostate cancer with bony metastatic disease
Hospital Course :
Patient is 88-year-old male with mentioned past medical history came to ER for having new onset of confusion. Patient also was noted to having decreased oral intake of food and liquid.
In ER patient was noted to be hypocalcemic with admission calcium level of 16.7. Patient have history of metastatic prostate cancer and there was concern of patient having hypercalcemia from malignancy. Patient was started on normal saline and was
given IV pamidronate in ER. Nephrology was consulted for further help. PTH was suppressed, PTH RP level were minimally elevated and paraproteinemia workup was negative. At discharge patient calcium came back to 10.3. Patient to follow-up with
oncology in office and patient is planned to have repeat blood work for calcium check after discharge.
Patient had metabolic encephalopathy at admission this was felt to be related to hypercalcemia. Patient had a second episode of confusion at which point was likely related to hyponatremia from decreased oral intake. Patient mentation improved and
was back to normal at discharge
Patient hyponatremia was felt to be due to decreased oral intake and was corrected with hypotonic IV fluid infusion.
Patient also have history of chronic heart failure and echocardiogram showing worsening EF of 20 to 25% with evidence of Takotsubo cardiomyopathy. Cardiology provided IV Lasix for volume optimization and was taken off of oral Lasix. Patient need
to follow-up with cardiology in office postdischarge.
Post medical stabilization patient continued to have decreased oral intake of food/liquid. Potential need of PEG tube was discussed although patient have overall poor prognosis. Oncology recommended possible evaluation for hospice and thus
palliative care team was involved in care. Patient is planned to be followed up by palliative care team outpatient basis and transition to hospice care if patient clinically does not improve. [facility] at this point.
Important imaging findings :
None
Procedure findings :
None
Discharge Plan
-
Patient Disposition: Retirement/SNF
Discharge Diagnosis/Procedures: Hypercalcemia of malignancy, metabolic encephalopathy, Poor oral intake
Condition: Fair
Diet: Regular
Activity: As tolerated
Driving Restrictions: No driving
Bathing Restrictions: OK to Shower
Blood Work: BMP in 1 week
Activity Restrictions/Additional Instructions:
Palliative care team to follow in SNF rehab.
Referrals:
Rik Rios DO [Active] - in one week
Kandi Massey CRNP [Specified Professional Personl] - 12/25/23 4:20 pm
Monica Munoz MD [Active] -
UNKNOWN,NO INTERVIEW [Family Provider] -
Prescriptions:
New
acetaminophen 325 mg Tablet
650 mg PO Q4HPRN PRN (Reason: mild pain/ZAVALA/temp> 100.4F) Qty: 30 0RF
polyethylene glycol 3350 [HealthyLax] 17 gram Powder In Packet
17 g PO DAILYPRN PRN (Reason: constipation) Qty: 30 0RF
metoprolol succinate 25 mg Tablet Extended Release 24 Hr
12.5 mg PO DAILY Qty: 30 0RF
tramadol 50 mg tablet
50 mg PO Q8H PRN (Reason: Mod sev pain) Qty: 14 0RF
Continued
tamsulosin [Flomax] 0.4 mg Capsule
0.4 mg PO DAILY
Held
Xtandi 40 mg Capsule
160 mg PO .DAILY-ON HOLD
Hold Instructions: Resume on 12/16/23. Hold until seen by oncology in office
Patient Comments:
ON HOLD UNTIL 12/11/2023 FAMILY STATED PATIENT MIGHT DO CHEMO IN DECEMBER OF 2023
Discontinued
tramadol 50 mg tablet
50 mg PO TID
meloxicam [Mobic] 15 mg Tablet
15 mg PO DAILY
Discharge Orders:
Discharge Patient (As Directed); Ordered 12/10/23
Ordered By: Layton Valencia
Discharge Date and Time
Discharge Date/Time: 12/10/23 15:47
Print Language: [place]
== END 2023-12-10 15:47 | DRG 722 ==
LOC: IMU 15:32
PROVIDERS: Hospitalist; Internal Medicine; Physician Assistant; Registered Nurse; Specialist; Student in an Organized Health Care Education/Training Program; ADMITTING PHYSICIAN Internal Medicine; ATTENDING PHYSICIAN Hospitalist; CONSULT PHYSICIAN Internal Medicine Cardiovascular Disease; CONSULT PHYSICIAN Internal Medicine Hematology & Oncology; CONSULT PHYSICIAN Internal Medicine Hospice and Palliative Medicine; CONSULT PHYSICIAN Specialist; EMERGENCY PHYSICIAN Emergency Medicine
DX: C61 Malignant neoplasm of prostate (principal); G92.8 Other toxic encephalopathy; G93.41 Metabolic encephalopathy; I50.23 Acute on chronic systolic (congestive) heart failure; C79.51 Secondary malignant neoplasm of bone; N17.9 Acute kidney failure, unspecified; Z66 Do not resuscitate; Z51.5 Encounter for palliative care; E87.0 Hyperosmolality and hypernatremia; I51.81 Takotsubo syndrome; E46 Unspecified protein-calorie malnutrition; E87.1 Hypo-osmolality and hyponatremia; I11.0 Hypertensive heart disease with heart failure; E83.52 Hypercalcemia; E87.6 Hypokalemia; N40.0 Benign prostatic hyperplasia without lower urinary tract symptoms; E86.0 Dehydration; K59.00 Constipation, unspecified; D63.0 Anemia in neoplastic disease; R00.0 Tachycardia, unspecified; T46.5X5A Adverse effect of other antihypertensive drugs, initial encounter; Z68.22 Body mass index [BMI] 22.0-22.9, adult; Z90.79 Acquired absence of other genital organ(s); Z88.8 Allergy status to other drugs, medicaments and biological substances; Z88.2 Allergy status to sulfonamides; Z87.891 Personal history of nicotine dependence; Z85.46 Personal history of malignant neoplasm of prostate; Z79.899 Other long term (current) drug therapy
CPT/HCPCS: 93308; 36600; 70450; 71045; 71046; 74230; 76770; 80048; 80051; 80053; 81003; 81015; 82040; 82306; 82652; 82784; 82805; 82962; 82977; 83519; 83521; 83735; 83880; 83970; 84100; 84132; 84155; 84156; 84165; 85025; 85027; 86334; 86335; 92526; 92610; 92611; 93005; 93321; 93325; 96374; 97116; 97163; 97167; 97530; 97535; 99285; J0630; J2430; J3480

== ENCOUNTER → 2023-12-13 10:50 | Outpatient (REF) | payer OTHER, MEDICARE, SELFPAY ==
[2023-12-13 11:23] LABS: Hematocrit 21.8 % (39.0-52.0); Hemoglobin 7.4 g/dL (13.0-18.0); Mean Corp Hgb Conc. 33.9 g/dL (33.0-37.0); Mean Corpuscular Hgb 29.4 pg (27.0-31.0); Mean Corpuscular Volume 86.5 fL (80.0-94.0); Mean Platelet Volume 9.1 fL (7.4-10.4); Platelet Count 151 10^3/uL (130-400); Red Blood Cell Count 2.52 10^6/uL (4.70-6.10); Red Cell Dist. Width 14.2 % (11.5-14.5); White Blood Cell Count 2.9 10^3/uL (4.8-10.8)
[2023-12-13 11:26] LABS: Blood Urea Nitrogen 26 mg/dl (9-20); Calcium 9.6 mg/dl (8.4-10.2); Carbon Dioxide 24 mmol/L (22-30); Chloride 105 mmol/L (98-107); Glucose 107 mg/dl (70-99); Potassium 3.2 mmol/L (3.5-5.1); Sodium 141 mmol/L (135-145)
== END ==
LOC: OLABP 10:50
PROVIDERS: ATTENDING PHYSICIAN Family Medicine
DX: G93.41 Metabolic encephalopathy (principal); E83.42 Hypomagnesemia; E87.1 Hypo-osmolality and hyponatremia; M62.81 Muscle weakness (generalized); I50.22 Chronic systolic (congestive) heart failure; I51.81 Takotsubo syndrome; C61 Malignant neoplasm of prostate; C79.51 Secondary malignant neoplasm of bone
CPT/HCPCS: 36415; 80048; 85027

== ENCOUNTER → 2023-12-16 10:26 | Outpatient (REF) | payer OTHER, MEDICARE, SELFPAY ==
[2023-12-16 11:02] LABS: % Eosinophils 6.2 % (0-6); % Immature Granulocytes 0.7 % (0-0.5); % Lymphocytes 20.3 % (20.5-51.1); % Monocytes 11.5 % (1.7-9.3); % Neutrophils 60.3 % (42.2-75.2); Absolute Eosinophils 0.2 10^3/uL (0-0.7); Absolute Lymphocytes 0.6 10^3/uL (1.2-3.4); Absolute Monocytes 0.4 10^3/uL (0.1-0.6); Absolute Neutrophils 1.8 10^3/uL (1.4-6.5); Hematocrit 21.3 % (39.0-52.0); Hemoglobin 7.2 g/dL (13.0-18.0); Mean Corp Hgb Conc. 33.8 g/dL (33.0-37.0); Mean Corpuscular Hgb 29.4 pg (27.0-31.0); Mean Corpuscular Volume 86.9 fL (80.0-94.0); Mean Platelet Volume 8.9 fL (7.4-10.4); Nucleated Red Blood Cells % 0 % (-); Platelet Count 164 10^3/uL (130-400); Red Blood Cell Count 2.45 10^6/uL (4.70-6.10); Red Cell Dist. Width 14.5 % (11.5-14.5); White Blood Cell Count 3.1 10^3/uL (4.8-10.8)
[2023-12-16 11:18] LABS: Blood Urea Nitrogen 21 mg/dl (9-20); Calcium 9.9 mg/dl (8.4-10.2); Carbon Dioxide 27 mmol/L (22-30); Chloride 105 mmol/L (98-107); Glucose 110 mg/dl (70-99); Potassium 4.4 mmol/L (3.5-5.1); Sodium 139 mmol/L (135-145); eGFR 38.78
== END ==
LOC: OLABP 10:26
PROVIDERS: ATTENDING PHYSICIAN Family Medicine
DX: G93.41 Metabolic encephalopathy (principal); E83.42 Hypomagnesemia; E87.1 Hypo-osmolality and hyponatremia; M62.81 Muscle weakness (generalized); I50.22 Chronic systolic (congestive) heart failure; I51.81 Takotsubo syndrome; C61 Malignant neoplasm of prostate; C79.51 Secondary malignant neoplasm of bone; I10 Essential (primary) hypertension; N40.0 Benign prostatic hyperplasia without lower urinary tract symptoms
CPT/HCPCS: 36415; 80048; 85025

== ENCOUNTER → 2023-12-17 09:10 | Outpatient (REF) | payer OTHER, MEDICARE, SELFPAY ==
[2023-12-17 10:56] LABS: % Basophils 0.5 % (0-2); % Eosinophils 4.9 % (0-6); % Immature Granulocytes 0.5 % (0-0.5); % Lymphocytes 13.9 % (20.5-51.1); % Monocytes 10.4 % (1.7-9.3); % Neutrophils 69.8 % (42.2-75.2); Absolute Eosinophils 0.2 10^3/uL (0-0.7); Absolute Lymphocytes 0.6 10^3/uL (1.2-3.4); Absolute Monocytes 0.5 10^3/uL (0.1-0.6); Hematocrit 20.7 % (39.0-52.0); Hemoglobin 7.3 g/dL (13.0-18.0); Mean Corp Hgb Conc. 35.3 g/dL (33.0-37.0); Mean Corpuscular Hgb 30.3 pg (27.0-31.0); Mean Corpuscular Volume 85.9 fL (80.0-94.0); Nucleated Red Blood Cells % 0 % (-); Platelet Count 169 10^3/uL (130-400); Red Blood Cell Count 2.41 10^6/uL (4.70-6.10); Red Cell Dist. Width 14.5 % (11.5-14.5); White Blood Cell Count 4.3 10^3/uL (4.8-10.8)
== END ==
LOC: OLABP 09:10
PROVIDERS: ATTENDING PHYSICIAN Family Medicine
DX: G93.41 Metabolic encephalopathy (principal); E83.42 Hypomagnesemia; E87.1 Hypo-osmolality and hyponatremia; M62.81 Muscle weakness (generalized); I50.22 Chronic systolic (congestive) heart failure; I51.81 Takotsubo syndrome; C61 Malignant neoplasm of prostate; C79.51 Secondary malignant neoplasm of bone; I10 Essential (primary) hypertension; N40.0 Benign prostatic hyperplasia without lower urinary tract symptoms
CPT/HCPCS: 36415; 85025

== ENCOUNTER 2023-12-19 09:47 | Outpatient (RCR) | payer MEDICARE, SELFPAY ==
[2023-12-18 11:05] LABS: % Basophils 0.6 % (0-2); % Eosinophils 6.4 % (0-6); % Immature Granulocytes 0.6 % (0-0.5); % Lymphocytes 17.4 % (20.5-51.1); % Monocytes 11.3 % (1.7-9.3); % Neutrophils 63.7 % (42.2-75.2); Absolute Eosinophils 0.2 10^3/uL (0-0.7); Absolute Lymphocytes 0.6 10^3/uL (1.2-3.4); Absolute Monocytes 0.4 10^3/uL (0.1-0.6); Absolute Neutrophils 2.1 10^3/uL (1.4-6.5); Hematocrit 21.3 % (39.0-52.0); Hemoglobin 7.4 g/dL (13.0-18.0); Mean Corp Hgb Conc. 34.7 g/dL (33.0-37.0); Mean Corpuscular Hgb 29.5 pg (27.0-31.0); Mean Corpuscular Volume 84.9 fL (80.0-94.0); Nucleated Red Blood Cells % 0 % (-); Platelet Count 168 10^3/uL (130-400); Red Blood Cell Count 2.51 10^6/uL (4.70-6.10); Red Cell Dist. Width 14.7 % (11.5-14.5); White Blood Cell Count 3.3 10^3/uL (4.8-10.8)
[2023-12-18 11:44] LABS: ALT (SGPT) 13 U/L (0-50); AST (SGOT) 19 U/L (17-59); Albumin 3.3 g/dl (3.5-5.0); Alkaline Phosphatase 99 U/L (38-126); Blood Urea Nitrogen 23 mg/dl (9-20); Calcium 9.9 mg/dl (8.4-10.2); Carbon Dioxide 24 mmol/L (22-30); Chloride 106 mmol/L (98-107); Glucose 109 mg/dl (70-99); Potassium 4.3 mmol/L (3.5-5.1); Sodium 139 mmol/L (135-145); Total Bilirubin 0.2 mg/dl (0.2-1.3); Total Protein 5.2 g/dl (6.3-8.2); eGFR 45.06
[2023-12-19] MEDS: TYLENOL 650 MG PO (10:10)
[2023-12-19 10:16] VITALS: BP 133/55
[2023-12-19 10:35] VITALS: BP 121/51
[2023-12-19 12:37] VITALS: BP 125/57
== END 2024-01-11 23:59 | disposition home or self-care (01) ==
LOC: OID 09:47
PROVIDERS: ATTENDING PHYSICIAN Family Medicine; FAMILY PHYSICIAN Family Medicine; OTHER PHYSICIAN Internal Medicine Hematology & Oncology
DX: G93.41 Metabolic encephalopathy (principal); D64.9 Anemia, unspecified
CPT/HCPCS: 36415; 36430; 80053; 85025; 86850; 86900; 86901; 86920; P9016

== ENCOUNTER → 2023-12-30 12:29 | Outpatient (REF) | payer MEDICARE, SELFPAY ==
[2023-12-30 13:07] LABS: % Basophils 0.4 % (0-2); % Eosinophils 7.2 % (0-6); % Immature Granulocytes 0.7 % (0-0.5); % Lymphocytes 11.6 % (20.5-51.1); % Monocytes 10.1 % (1.7-9.3); Absolute Eosinophils 0.2 10^3/uL (0-0.7); Absolute Lymphocytes 0.3 10^3/uL (1.2-3.4); Absolute Monocytes 0.3 10^3/uL (0.1-0.6); Absolute Neutrophils 1.9 10^3/uL (1.4-6.5); Hemoglobin 8.7 g/dL (13.0-18.0); Mean Corp Hgb Conc. 33.5 g/dL (33.0-37.0); Mean Corpuscular Hgb 30.9 pg (27.0-31.0); Mean Corpuscular Volume 92.2 fL (80.0-94.0); Mean Platelet Volume 8.1 fL (7.4-10.4); Nucleated Red Blood Cells % 0 % (-); Platelet Count 126 10^3/uL (130-400); Red Blood Cell Count 2.82 10^6/uL (4.70-6.10); Red Cell Dist. Width 14.2 % (11.5-14.5); White Blood Cell Count 2.8 10^3/uL (4.8-10.8)
[2023-12-30 14:13] LABS: ALT (SGPT) < 10 U/L (0-50); AST (SGOT) 20 U/L (17-59); Albumin 3.9 g/dl (3.5-5.0); Alkaline Phosphatase 104 U/L (38-126); Blood Urea Nitrogen 27 mg/dl (9-20); Calcium 10.7 mg/dl (8.4-10.2); Carbon Dioxide 28 mmol/L (22-30); Chloride 100 mmol/L (98-107); Glucose 144 mg/dl (70-99); Potassium 4.2 mmol/L (3.5-5.1); Sodium 139 mmol/L (135-145); Total Bilirubin 0.3 mg/dl (0.2-1.3); Total Protein 5.9 g/dl (6.3-8.2); eGFR 45.06
[2023-12-30 14:44] LABS: TSH 0.66 uIU/ml (0.47-4.68)
== END ==
LOC: REG 12:29
PROVIDERS: ATTENDING PHYSICIAN Family Medicine
DX: G92.8 Other toxic encephalopathy (principal); D64.9 Anemia, unspecified; R63.4 Abnormal weight loss
CPT/HCPCS: 36415; 80053; 84443; 85025

== ENCOUNTER → 2024-01-06 13:12 | Outpatient (REF) | payer MEDICARE, SELFPAY ==
[2024-01-06 13:53] LABS: % Basophils 0.5 % (0-2); % Eosinophils 5.5 % (0-6); % Immature Granulocytes 0.8 % (0-0.5); % Lymphocytes 13.5 % (20.5-51.1); % Monocytes 10.8 % (1.7-9.3); % Neutrophils 68.9 % (42.2-75.2); Absolute Eosinophils 0.2 10^3/uL (0-0.7); Absolute Lymphocytes 0.5 10^3/uL (1.2-3.4); Absolute Monocytes 0.4 10^3/uL (0.1-0.6); Absolute Neutrophils 2.6 10^3/uL (1.4-6.5); Hemoglobin 8.3 g/dL (13.0-18.0); Mean Corp Hgb Conc. 33.2 g/dL (33.0-37.0); Mean Corpuscular Hgb 31.2 pg (27.0-31.0); Mean Platelet Volume 8.5 fL (7.4-10.4); Nucleated Red Blood Cells % 0 % (-); Platelet Count 117 10^3/uL (130-400); Red Blood Cell Count 2.66 10^6/uL (4.70-6.10); Red Cell Dist. Width 14.5 % (11.5-14.5); White Blood Cell Count 3.8 10^3/uL (4.8-10.8)
== END ==
LOC: REG 13:12
PROVIDERS: ATTENDING PHYSICIAN Family Medicine
DX: C61 Malignant neoplasm of prostate (principal); C79.51 Secondary malignant neoplasm of bone; E83.52 Hypercalcemia; E87.1 Hypo-osmolality and hyponatremia; N18.32 Chronic kidney disease, stage 3b; R94.30 Abnormal result of cardiovascular function study, unspecified
CPT/HCPCS: 36415; 85025

== ENCOUNTER → 2024-01-20 12:10 | Outpatient (REF) | payer MEDICARE, SELFPAY ==
[2024-01-20 13:26] LABS: % Basophils 0.2 % (0-2); % Eosinophils 1.3 % (0-6); % Lymphocytes 6.6 % (20.5-51.1); % Monocytes 4.8 % (1.7-9.3); % Neutrophils 85.1 % (42.2-75.2); Absolute Eosinophils 0.1 10^3/uL (0-0.7); Absolute Immature Granulocytes 0.1 10^3/uL (0-0.05); Absolute Lymphocytes 0.4 10^3/uL (1.2-3.4); Absolute Monocytes 0.3 10^3/uL (0.1-0.6); Absolute Neutrophils 4.7 10^3/uL (1.4-6.5); Hematocrit 23.6 % (39.0-52.0); Hemoglobin 7.7 g/dL (13.0-18.0); Mean Corp Hgb Conc. 32.6 g/dL (33.0-37.0); Mean Corpuscular Hgb 30.8 pg (27.0-31.0); Mean Corpuscular Volume 94.4 fL (80.0-94.0); Mean Platelet Volume 8.9 fL (7.4-10.4); Nucleated Red Blood Cells % 0 % (-); Platelet Count 154 10^3/uL (130-400); Red Cell Dist. Width 15.3 % (11.5-14.5); White Blood Cell Count 5.5 10^3/uL (4.8-10.8)
== END ==
LOC: REG 12:10
PROVIDERS: ATTENDING PHYSICIAN Family Medicine
DX: C61 Malignant neoplasm of prostate (principal); C79.51 Secondary malignant neoplasm of bone; E83.52 Hypercalcemia; E87.1 Hypo-osmolality and hyponatremia; N18.32 Chronic kidney disease, stage 3b; R94.30 Abnormal result of cardiovascular function study, unspecified
CPT/HCPCS: 36415; 85025

== ENCOUNTER 2024-05-18 09:37 | Emergency (ER) | payer MEDICARE, SELFPAY ==
[2024-05-18] VITALS (19 sets, daily range): BP systolic 120–133; BP diastolic 57–76
[2024-05-18 11:08] LABS: Hematocrit 20.6 % (39.0-52.0); Hemoglobin 6.7 g/dL (13.0-18.0); Mean Corp Hgb Conc. 32.5 g/dL (33.0-37.0); Mean Corpuscular Hgb 30.6 pg (27.0-31.0); Mean Corpuscular Volume 94.1 fL (80.0-94.0); Mean Platelet Volume 8.9 fL (7.4-10.4); Platelet Count 105 10^3/uL (130-400); Red Blood Cell Count 2.19 10^6/uL (4.70-6.10); Red Cell Dist. Width 16.2 % (11.5-14.5); White Blood Cell Count 3.4 10^3/uL (4.8-10.8)
[2024-05-18 11:09] LABS: ALT (SGPT) 14 U/L (0-50); AST (SGOT) 24 U/L (17-59); Albumin 3.7 g/dl (3.5-5.0); Alkaline Phosphatase 71 U/L (38-126); Blood Urea Nitrogen 27 mg/dl (9-20); Calcium 12.2 mg/dl (8.4-10.2); Carbon Dioxide 29 mmol/L (22-30); Chloride 104 mmol/L (98-107); Glucose 137 mg/dl (70-99); Potassium 4.3 mmol/L (3.5-5.1); Sodium 138 mmol/L (135-145); Total Bilirubin 0.6 mg/dl (0.2-1.3); Total Protein 5.5 g/dl (6.3-8.2); eGFR 58.89
[2024-05-18 12:16] LABS: Absolute Neutrophils -Man Diff 2.5 10^3/uL (1.4-6.5); Anisocytosis 1+; Band Neutrophils 2 % (0-3); Eosinophils 7 % (0-6); Hypochromasia 1+; Lymphocytes 12 % (20-51); Monocytes 6 % (2-9); Myelocytes 1 % (-); Normal RBC Morphology No; Platelets Checked Yes; Segmented Neutrophils 72 % (42-75); Total Cells Counted 100
--- NOTE | 2024-05-18 15:05 | ED.GENMED ---
History of Present Illness
General
Chief Complaint: Abnormal Lab Value
Source: patient and family
Exam Limitations: none
Time Seen by Provider: 05/18/24 10:07
Nursing documentation reviewed up to this point in time: agreed with
History of Present Illness
History of Present Illness:
88-year-old male past medical history of CHF hypertension, prostate cancer presenting to the emergency department with concerns of a hemoglobin of 6.5. This was from blood work last week. Has had some generalized weakness and fatigue. Denies
chest pain shortness of breath no changes in bowel movements or bleeding.
Review of Systems
Review of Systems
Allergies reviewed?: Yes
All Other Systems: ROS reviewed and negative except as documented in HPI and ROS
Phy Exam
Physical Exam
Physical Exam:
GENERAL: Alert , in no apparent distress
EYE: pupils equal and reactive
NECK: Supple, no significant adenopathy.
ENT: o/p clr, mmm.
CARDIAC: Regular rate and rhythm .
LUNGS: Clear breath sounds bilaterally, no acute respiratory distress, no wheezes/rales/rhonchi
ABDOMEN: Soft, without focal tenderness, no r/g, no cvat
NEUROLOGICAL: Alert and oriented, no focal neuro deficits
SKIN: Warm and dry, skin intact.
MUSCULOSKELETAL: No edema, well perfused.
PSYCH: Normal and appropriate interaction.
Rectal examination with dark brown stool guaiac negative
Course
Orders/Labs/Results
Orders:
Orders
05/18/24 10:23
Urinalysis Reflex To Culture Urgent
05/18/24 10:35
Type+Screen Urgent
CBC/With Diff [Complete Blood Count/With Diff] Urgent
CMP [Comprehensive Metabolic Panel] Urgent
Manual Differential Urgent
05/18/24 11:12
* Blood Bank Products Urgent
Blood Bank Products: *Packed RBC Leuko(PRBC's)
Quantity: 1
Transfuse Today: Yes
Reason: Anemia
Abnormal Lab Results
05/18/24
10:35
WBC 3.4 L 10^3/uL
(4.8-10.8)
RBC 2.19 L 10^6/uL
(4.70-6.10)
Hgb 6.7 L* g/dL
(13.0-18.0)
Hct 20.6 L* %
(39.0-52.0)
MCV 94.1 H fL
(80.0-94.0)
MCHC 32.5 L g/dL
(33.0-37.0)
RDW 16.2 H %
(11.5-14.5)
Plt Count 105 L 10^3/uL
(130-400)
Lymphocytes (Manual) 12 L %
(20-51)
Eosinophils (Manual) 7 H %
(0-6)
BUN 27 H mg/dl
(9-20)
Glucose 137 H mg/dl
(70-99)
Calcium 12.2 H mg/dl
(8.4-10.2)
Total Protein 5.5 L g/dl
(6.3-8.2)
Crossmatch IS Only See Detail
05/18/24 10:35
05/18/24 10:35
Vital Signs
Initial and Last Documented VS:
Initial Vital Signs
Temp Pulse Resp BP Pulse Ox
98.7 F 72 16 126/59 96
05/18/24 09:42 05/18/24 09:42 05/18/24 09:42 05/18/24 09:42 05/18/24 09:42
Last Documented Vital Signs
Temp Pulse Resp BP Pulse Ox
98.6 F 76 18 132/69 98
05/18/24 15:00 05/18/24 15:00 05/18/24 15:00 05/18/24 15:00 05/18/24 15:00
MDM/Problems Addressed
MDM/Problems Addressed:
88-year-old male presenting with concerns of low hemoglobin. Hemoglobin 6.7 here slightly better than in his outpatient number. Vital signs normal patient no distress asymptomatic at rest. Rectal examination without evidence of ongoing bleeding.
Patient was given a unit of blood had improvement of symptoms stable throughout ER stay stable for outpatient close follow-up. Return precautions given.
*Critical Care Note
Total Time (30-74mins, 75-104mins- exclusive of procedures): Not Applicable
ED Attending Note
-
Portions of this chart may have been created with voice recognition software.� Occasional wrong word or��sound alike� substitutions may have occurred due to the inherent limitations of voice recognition software.
Discharge Plan
Departure
Patient Disposition: Home (Routine Discharge)
Date of Disposition: 05/18/24
Time of Disposition: 15:10
Patient with high blood pressure during this ER visit?: No
Condition: Good
Covid-19: Not Applicable
Discharge Problem:
Anemia
Instructions: Normocytic Normochromic Anemia (DC)
Prescriptions:
No Action
tamsulosin [Flomax] 0.4 mg Capsule
0.4 mg PO DAILY
Xtandi 40 mg Capsule
160 mg PO .DAILY-ON HOLD
Patient Comments:
ON HOLD UNTIL 12/11/2023 FAMILY STATED PATIENT MIGHT DO CHEMO IN DECEMBER OF 2023
acetaminophen 325 mg Tablet
650 mg PO Q4HPRN PRN (Reason: mild pain/ZAVALA/temp> 100.4F) Qty: 30 0RF
polyethylene glycol 3350 [HealthyLax] 17 gram Powder In Packet
17 g PO DAILYPRN PRN (Reason: constipation) Qty: 30 0RF
metoprolol succinate 25 mg Tablet Extended Release 24 Hr
12.5 mg PO DAILY Qty: 30 0RF
tramadol 50 mg tablet
50 mg PO Q8H PRN (Reason: Mod sev pain) Qty: 14 0RF
ferrous sulfate 325 mg (65 mg iron) Tablet
325 mg PO DAILY
potassium chloride 20 mEq Tablet Extended Release
20 meq PO DAILY
Referrals:
Shukri Che MD [Family Provider] -
Activity Restrictions/Additional Instructions:
You came to the emergency department today with concerns of anemia. You were given blood here. Please follow-up closely for repeated testing. Return for any worsening, new or concerning symptoms.
Interventions
Interventions:
*Risk Screen - Suicide Last Done: 05/18/24 10:38
*General Assessment Last Done: 05/18/24 14:12
*Neglect/Abuse Screening Last Done: 05/18/24 10:38
*ED- Fall Risk Assessment Last Done: 05/18/24 14:12
*ED COVID-19 Vaccine History Last Done: 05/18/24 10:38
Discharge Date and Time
Print Language: GERMAN
== END 2024-05-18 15:25 | disposition home or self-care (01) ==
LOC: EMR 09:37
PROVIDERS: Physician Assistant; EMERGENCY PHYSICIAN Emergency Medicine; FAMILY PHYSICIAN Family Medicine
DX: D64.9 Anemia, unspecified (principal); I11.0 Hypertensive heart disease with heart failure; I50.9 Heart failure, unspecified; Z85.46 Personal history of malignant neoplasm of prostate; Z85.89 Personal history of malignant neoplasm of other organs and systems; Z88.2 Allergy status to sulfonamides; Z88.8 Allergy status to other drugs, medicaments and biological substances; Z98.0 Intestinal bypass and anastomosis status
CPT/HCPCS: 99285; 36430; 80053; 85025; 86850; 86900; 86901; 86920; P9016

== ENCOUNTER 2024-05-22 15:23 | Inpatient (IN) | payer MEDICARE, SELFPAY ==
[2024-05-22] VITALS (36 sets, daily range): BP systolic 128–175; BP diastolic 57–77; BMI 22.4; BMI 22.2
[2024-05-22 12:23] LABS: Hematocrit 23.2 % (39.0-52.0); Hemoglobin 7.6 g/dL (13.0-18.0); Mean Corp Hgb Conc. 32.8 g/dL (33.0-37.0); Mean Corpuscular Hgb 30.3 pg (27.0-31.0); Mean Corpuscular Volume 92.4 fL (80.0-94.0); Red Blood Cell Count 2.51 10^6/uL (4.70-6.10); Red Cell Dist. Width 16.2 % (11.5-14.5); White Blood Cell Count 3.9 10^3/uL (4.8-10.8)
[2024-05-22 12:24] LABS: ALT (SGPT) 21 U/L (0-50); AST (SGOT) 35 U/L (17-59); Albumin 4.2 g/dl (3.5-5.0); Alkaline Phosphatase 93 U/L (38-126); Blood Urea Nitrogen 33 mg/dl (9-20); Carbon Dioxide 28 mmol/L (22-30); Chloride 102 mmol/L (98-107); Glucose 146 mg/dl (70-99); Potassium 4.3 mmol/L (3.5-5.1); Sodium 139 mmol/L (135-145); Total Bilirubin 0.8 mg/dl (0.2-1.3); eGFR 38.78
[2024-05-22 12:41] LABS: Calcium 14.9 mg/dl (8.4-10.2)
[2024-05-22 12:53] LABS: % Basophils 0.5 % (0-2); % Eosinophils 3.6 % (0-6); % Immature Granulocytes 5.8 % (0-0.5); % Lymphocytes 9.4 % (20.5-51.1); % Monocytes 11.4 % (1.7-9.3); % Neutrophils 69.3 % (42.2-75.2); Absolute Eosinophils 0.1 10^3/uL (0-0.7); Absolute Immature Granulocytes 0.2 10^3/uL (0-0.05); Absolute Lymphocytes 0.4 10^3/uL (1.2-3.4); Absolute Monocytes 0.5 10^3/uL (0.1-0.6); Absolute Neutrophils 2.7 10^3/uL (1.4-6.5); Mean Platelet Volume 9.1 fL (7.4-10.4); Nucleated Red Blood Cells % 0.5 % (-); Platelet Count 91 10^3/uL (130-400)
--- NOTE | 2024-05-22 13:40 | ED.GENMED ---
History of Present Illness
General
Chief Complaint: Abnormal Lab Value
Time Seen by Provider: 05/22/24 13:27
History of Present Illness
History of Present Illness:
Patient is a 88-year-old male with history of metastatic prostate cancer, CHF, hypertension, anemia presenting to the emergency department with concerns for elevated calcium levels and anemia. Per chart review patient was seen here earlier in the
week for symptomatic anemia and was transfused with 1 unit of blood. Patient son states that since then he has been more weak. Patient states that he is more short of breath and tired and sleeps all day long. They were also concerned his calcium
level was elevated when he was here few days ago but not that elevated. Per chart review patient was seen here in November for hypercalcemia. He did have a workup completed and it was thought to be secondary to malignancy. He was treated with
fluids and discharged.
Phy Exam
Physical Exam
Physical Exam:
GENERAL: in no acute distress, pale
HEENT: normocephalic, extraocular movements intact, moist oral mucosa
NECK: normal inspection
RESPIRATORY: no respiratory distress, clear to auscultation bilaterally
CARDIOVASCULAR: regular rate and rhythm
ABDOMEN/: soft, non-distended, non-tender to palpation, no rebound or guarding
EXTREMITIES: non-tender, no edema/swelling
NEUROLOGIC: awake and alert, moves all extremities
SKIN: warm
Course
Orders/Labs/Results
Orders:
Orders
05/22/24 11:48
Type+Screen Urgent
Complete Blood Count/With Diff Urgent
Comprehensive Metabolic Panel Urgent
05/22/24 13:40
* Blood Bank Products Urgent
Blood Bank Products: *Packed RBC Leuko(PRBC's)
Quantity: 1
Transfuse Today: Yes
Reason: Anemia
0.9% Sodium Chloride 1000 ml [Nss] 1,000 ml IV BOLUS
Abnormal Lab Results
05/22/24
11:48
WBC 3.9 L 10^3/uL
(4.8-10.8)
RBC 2.51 L 10^6/uL
(4.70-6.10)
Hgb 7.6 L g/dL
(13.0-18.0)
Hct 23.2 L %
(39.0-52.0)
MCHC 32.8 L g/dL
(33.0-37.0)
RDW 16.2 H %
(11.5-14.5)
Plt Count 91 L 10^3/uL
(130-400)
Abs Immat Gran (auto) 0.2 H 10^3/uL
(0-0.05)
Absolute Lymphs (auto) 0.4 L 10^3/uL
(1.2-3.4)
Immature Gran % 5.8 H %
(0-0.5)
Lymphocytes % 9.4 L %
(20.5-51.1)
Monocytes % 11.4 H %
(1.7-9.3)
BUN 33 H mg/dl
(9-20)
Creatinine 1.7 H mg/dL
(0.7-1.3)
Glucose 146 H mg/dl
(70-99)
Calcium 14.9 H* mg/dl
(8.4-10.2)
Total Protein 6.0 L g/dl
(6.3-8.2)
05/22/24 11:48
05/22/24 11:48
Vital Signs
Initial and Last Documented VS:
Initial Vital Signs
Temp Pulse Resp BP Pulse Ox
98.7 F 73 18 128/57 96
05/22/24 11:40 05/22/24 11:40 05/22/24 11:40 05/22/24 11:40 05/22/24 11:40
Last Documented Vital Signs
Temp Pulse Resp BP Pulse Ox
98.7 F 71 15 136/59 94
05/22/24 11:40 05/22/24 13:30 05/22/24 13:30 05/22/24 13:18 05/22/24 13:30
MDM/Problems Addressed
Differential Diagnosis Includes:
Patient is a 88-year-old male with history of metastatic prostate cancer, anemia, hypercalcemia presenting to the emergency department with weakness fatigue and concerns for elevated calcium. Vitals unremarkable exam does show a pale appearing man.
Concern for anemia versus hypercalcemia versus metabolic derangement or multiple myeloma given his constellation of derangements. Blood work obtained prior to evaluation does show hemoglobin of 7.6. Given his history of cancer/CHF and symptoms
will transfuse for goal greater than 8. His calcium level is 14.9 here today. Will start with IV normal saline. He does have elevated creatinine which is similar to prior. Patient will need admission for further management. Discussed with
hospitalist who excepted patient to their service
*Critical Care Note
Total Time (30-74mins, 75-104mins- exclusive of procedures): Not Applicable
ED Attending Note
-
Portions of this chart may have been created with voice recognition software.� Occasional wrong word or��sound alike� substitutions may have occurred due to the inherent limitations of voice recognition software.
Discharge Plan
Departure
Patient Disposition: Admit
Date of Disposition: 05/22/24
Time of Disposition: 13:45
Presentation/result/management discussed w/ accepting MD/DO: Hospitalist
Discharge Problem:
Anemia, Hypercalcemia
Prescriptions:
No Action
tamsulosin [Flomax] 0.4 mg Capsule
0.4 mg PO DAILY
Xtandi 40 mg Capsule
160 mg PO .DAILY-ON HOLD
Patient Comments:
ON HOLD UNTIL 12/11/2023 FAMILY STATED PATIENT MIGHT DO CHEMO IN DECEMBER OF 2023
acetaminophen 325 mg Tablet
650 mg PO Q4HPRN PRN (Reason: mild pain/ZAVALA/temp> 100.4F) Qty: 30 0RF
polyethylene glycol 3350 [HealthyLax] 17 gram Powder In Packet
17 g PO DAILYPRN PRN (Reason: constipation) Qty: 30 0RF
metoprolol succinate 25 mg Tablet Extended Release 24 Hr
12.5 mg PO DAILY Qty: 30 0RF
tramadol 50 mg tablet
50 mg PO Q8H PRN (Reason: Mod sev pain) Qty: 14 0RF
ferrous sulfate 325 mg (65 mg iron) Tablet
325 mg PO DAILY
potassium chloride 20 mEq Tablet Extended Release
20 meq PO DAILY
Referrals:
Shukri Che MD [Family Provider] -
Interventions
Interventions:
*Risk Screen - Suicide Last Done: 05/22/24 11:40
*General Assessment Last Done: 05/22/24 11:40
*ED- Fall Risk Assessment Last Done: 05/22/24 13:26
*ED COVID-19 Vaccine History Last Done: 05/22/24 11:40
Discharge Date and Time
Print Language: KHMER
[2024-05-22] MEDS: NSS 1000 IV ×2 (13:45→19:46)
--- NOTE | 2024-05-22 14:11 | HPS.HSE ---
Family Physician
<DESTINY Hull - Last Filed: 05/22/24 16:36>
-
Family Physician: Shukri Che
Chief Complaint
<DESTINY Hull - Last Filed: 05/22/24 16:36>
-
generalized weakness
History of Present Illness
Patient is a 88-year-old male with past medical history significant for metastatic prostate cancer, essential hypertension, hyperlipidemia , CKD III, HFrEF and Hx hypercalcemia who presented to [facility] ED for evaluation of generalized weakness. Patient
is poor historian. Son at bedside that assisted with HPI. Son states that he noticed patient become increasingly pale with increased fatigue last week, he had appointment with primary care that had labs drawn, labs resulted early this week and they
recommended that patient go to ED for evaluation and treatment of anemia. Patient received 1 unit PRBCs in ED on Saturday and was discharged home. Son reports patient improved some but continues to be pale and increased fatigue than baseline. Son
stated calcium elevated from baseline on labs last week, and then post transfusion on Saturday he has seen intermittent confusion and abnormal gait, these are similar to what patient experienced last fall with hypercalcemia so he brought him to ED for
evaluation and treatment.
Medical History
<DESTINY Hull - Last Filed: 05/22/24 16:36>
Past Medical History
Past Medical History: Reports Other
Additional Past Medical History:
metastatic prostate cancer
essential hypertension
hyperlipidemia
CKD III
HFrEF
Hx hypercalcemia
Past Surgical History: Reports Other
Additional Past Surgical History:
left shoulder surgery
right knee surgery
appendectomy
tonsillecotm
colon resection
Social History
Tobacco: Former Smoker
Alcohol: Occasional
Drug: None
Personal:
Living: With Family
Family History
Family History: Not pertinent
Allergies / Home Medications
Allergies reflects when Allergies were last updated in [employer].
Home Medications with original date entered in [employer]
Allergy/Medication List:
Allergies
Allergy/AdvReac Type Severity Reaction Status Date / Time
lisinopril Allergy Unknown Verified 05/22/24 11:43
Sulfa (Sulfonamide Allergy Unknown Verified 05/22/24 11:43
Antibiotics)
Home Medications
polyethylene glycol 3350 17 gram oral powder packet (HealthyLax) 17 g PO DAILYPRN PRN constipation #30 ea 12/10/23
ferrous sulfate 325 mg (65 mg iron) tablet 325 mg PO DAILY 12/19/23
meloxicam 15 mg tablet 15 mg PO DAILY 05/22/24
oxycodone 15 mg tablet 15 mg PO Q6H 05/22/24
prednisone 5 mg tablet 5 mg PO DAILY 05/22/24
Review of Systems
<DESTINY Hull - Last Filed: 05/22/24 16:36>
-
History Source: Family
Constitutional: Reports Fatigue and Other (pale )
Musculoskeletal: Reports Other (abnormal gait and generalized weakness )
Physical Exam
<DESTINY Hull - Last Filed: 05/22/24 16:36>
Vital Signs
Vital Signs
Temp Pulse Resp BP Pulse Ox
98.7 F 71 17 134/59 94
05/22/24 11:40 05/22/24 14:00 05/22/24 14:00 05/22/24 14:00 05/22/24 14:00
Physical Exam
General: Well Developed, Well Nourished, No Apparent Distress, Comfortable and Appears Chronically Ill
HEENT: NormoCephalic, Moist mucous membranes, Atraumatic, Nose Appears Normal, Ears Appear Normal and Hearing Impaired
Respiratory: Clear
Cardiac: S1/S2 and Regular Rhythm; No Murmur or Rub
GI: Soft, Non Tender, Non Distended and Normal Bowel Sounds; No Organomegaly
Rectal: Deferred by Provider
Genito-urinary: Deferred by me
Musculoskeletal: No Clubbing, No Cyanosis and No Edema
Skin: IV/Catheter Site
Neuro: Awake, Alert and Nonfocal/grossly intact
Psych: Calm
Laboratory Results
<DESTINY Hull - Last Filed: 05/22/24 16:36>
-
05/22/24 11:48
05/22/24 11:48
Laboratory Results
Total Bilirubin 0.8 mg/dl (0.2-1.3) 05/22/24 11:48
AST 35 U/L (17-59) 05/22/24 11:48
ALT 21 U/L (0-50) 05/22/24 11:48
Alkaline Phosphatase 93 U/L (38-126) 05/22/24 11:48
Data Reviewed
<DESTINY Hull - Last Filed: 05/22/24 16:36>
-
Lab Data: Labs Reviewed by me (WBC 3.9, hg 7.6, hct 23.2, Plt 91, BUN 33, Creat 1.7, Ca 14.9)
Impression/Plan
<DESTINY Hull - Last Filed: 05/22/24 16:36>
-
IMPRESSION/PLAN:
#Hx hypercalcemia
Ca 14.9
EKG: pending
- Admit to telemetry
- IVF
- Calcitonin q12 for 6 doses
- Consult Nephrology
#symptomatic anemia
WBC 3.9, hg 7.6, hct 23.2, Plt 91
- transfuse 1 unit PRBCs
- monitor h/h
#CKD III
BUN 33, Creat 1.7
- Consult nephrology
#metastatic prostate cancer
- Consult Oncology
#HFrEF
ECHO (12/02/2023): Severely reduced left ventricular systolic function. Left ventricular ejection fraction is 20-25%.
In some views, the basal segments appear to be less hypokinetic, raising suspicion for Takutsubo.
Stage I diastolic dysfunction suggestive of abnormal relaxation.
Moderate mitral regurgitation.
Moderate aortic stenosis (low flow, low gradient). Peak/mean gradients are 19/10mmHg. The valve area by continuity equation is 1.1 cmsq, using a LVOT of
2.0cm. SVI 23 ml/m2. Mild/moderate aortic regurgitation.
#essential hypertension
#hyperlipidemia
Code status: full code
DVT Prophylaxis: heparin sq
<Real Valencia MD - Last Filed: 05/22/24 16:22>
-
IMPRESSION/PLAN:
#Hx hypercalcemia
Ca 14.9
EKG: pending
- Admit to telemetry
- IVF
- Calcitonin q12 for 6 doses
- Consult Nephrology
#symptomatic anemia
WBC 3.9, hg 7.6, hct 23.2, Plt 91
- transfuse 1 unit PRBCs
- monitor h/h
#CKD III
BUN 33, Creat 1.7
- Consult nephrology
#metastatic prostate cancer
- Consult Oncology
#HFrEF
ECHO (12/02/2023): Severely reduced left ventricular systolic function. Left ventricular ejection fraction is 20-25%.
In some views, the basal segments appear to be less hypokinetic, raising suspicion for Takutsubo.
Stage I diastolic dysfunction suggestive of abnormal relaxation.
Moderate mitral regurgitation.
Moderate aortic stenosis (low flow, low gradient). Peak/mean gradients are 19/10mmHg. The valve area by continuity equation is 1.1 cmsq, using a LVOT of
2.0cm. SVI 23 ml/m2. Mild/moderate aortic regurgitation.
#essential hypertension
#hyperlipidemia
Code status: full code
DVT Prophylaxis: heparin sq
Attending attestation
88 male history of metastatic prostate cancer to the bone s/p prostatectomy and on antihormonal therapy
Presents for weakness and paleness. Poor p.o. intake over the last 2-3 days.
Found to have a hemoglobin of 7.6 with a calcium of 14
Anemia�symptomatic
Provide 1 unit PRBC
Repeat CBC in the a.m.
Consult hematology
Without evidence of acute blood loss
Hypercalcemia likely related to metastatic disease
IV fluids
IV bisphosphonates
Vitamin D PTH ionized calcium
Check EKG
Repeat BMP
If still high then will need to consider calcitonin
TME
Likely related to hyperCa
-Expect to improve with improvement in Ca
Prostate cancer
Outpatient oncology/urology follow-up
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
Hypovolemic
Med rec does not show diuretics/gdmet
--- NOTE | 2024-05-22 15:48 | W.CON.NEPH ---
Consultation
-
Date/Time Consultation Requested: 05/22/2024 2 PM
Date/Time Consultation Performed: 05/22/2024 3:50 PM
Requesting Provider: Dr. Valencia
Performing Provider: Dr. Regalado
Reason for Consultation: Hypercalcemia
Medical History
-
Chief Complaint: KAVEH/Hypercalcemia
History of Present Illness:
The patient is an 88-year-old gentleman who has metastatic prostate cancer status post prostatectomy and antihormonal therapy. The disease is metastatic to bone. He also has significant anemia and received a blood transfusion just last week for a
hemoglobin of 6.7. He continues to remain quite fatigued. Recent blood work has shown worsening calcium level and he was sent to the emergency room where he was noted to have a calcium of 14.9. His creatinine is also elevated from his baseline at
1.7 representing acute kidney injury. He reports multiple nonspecific symptoms, including confusion difficulty concentrating, word finding issues, speech issues, gait issues. He denies any issues with oral intake. He does take both meloxicam and
prednisone daily
Past Medical History
History of right septic knee joint
Prostate cancer metastatic to bone
HTN
Colonic polyps
Colonic resection
Left shoulder surgery
Right knee surgery
Appendectomy
Tonsillectomy
Social History
Tobacco: Non-Smoker
Alcohol: None
Family History
Family History: Not Pertinent
Allergies / Home Medications
Allergy/AdvReac Type Severity Reaction Status Date / Time
lisinopril Allergy Unknown Verified 05/22/24 11:43
Sulfa (Sulfonamide Allergy Unknown Verified 05/22/24 11:43
Antibiotics)
�Medication �Instructions �Recorded �Confirmed �Type
polyethylene glycol 3350 17 gram 17 g PO DAILYPRN PRN constipation 12/10/23 05/22/24 Rx
oral powder packet (HealthyLax) #30 ea
ferrous sulfate 325 mg (65 mg 325 mg PO DAILY 12/19/23 05/22/24 History
iron) tablet
meloxicam 15 mg tablet 15 mg PO DAILY 05/22/24 05/22/24 History
oxycodone 15 mg tablet 15 mg PO Q6H 05/22/24 05/22/24 History
prednisone 5 mg tablet 5 mg PO DAILY 05/22/24 05/22/24 History
Review of Systems
-
All other systems: Negative unless noted
Physical Exam
Vital Signs
Vital Signs
Temp Pulse Resp BP Pulse Ox
98.4 F 72 15 139/63 95
05/22/24 15:08 05/22/24 15:45 05/22/24 15:45 05/22/24 15:30 05/22/24 15:45
Lab Results
WBC 3.9 10^3/uL (4.8-10.8) L 05/22/24 11:48
RBC 2.51 10^6/uL (4.70-6.10) L 05/22/24 11:48
Hgb 7.6 g/dL (13.0-18.0) L 05/22/24 11:48
Hct 23.2 % (39.0-52.0) L 05/22/24 11:48
Plt Count 91 10^3/uL (130-400) L 05/22/24 11:48
Sodium 139 mmol/L (135-145) 05/22/24 11:48
Potassium 4.3 mmol/L (3.5-5.1) 05/22/24 11:48
Chloride 102 mmol/L (98-107) 05/22/24 11:48
Carbon Dioxide 28 mmol/L (22-30) 05/22/24 11:48
BUN 33 mg/dl (9-20) H 05/22/24 11:48
Creatinine 1.7 mg/dL (0.7-1.3) H 05/22/24 11:48
eGFR 38.78 05/22/24 11:48
Glucose 146 mg/dl (70-99) H 05/22/24 11:48
Calcium 14.9 mg/dl (8.4-10.2) H* 05/22/24 11:48
Albumin 4.2 g/dl (3.5-5.0) 05/22/24 11:48
Physical Exam
Patient is awake alert oriented and in no distress. Mood and affect were pleasant, insight and judgment were good. Pupils are equal round and reactive to light, extraocular movements are intact, sclera were anicteric. Hearing was normal, ears and
nose are intact. Oropharynx was clear. Neck was supple with trachea midline and no thyromegaly. Heart was regular rate and rhythm without rubs. Lower extremities without edema. Lungs were clear to auscultation bilaterally and with normal
excursion. Abdomen was soft, nontender, with normal active bowel sounds, and no hepatosplenomegaly. Skin was without rash and with normal turgor.
Data Reviewed
-
Medical Tests (Nuc Med, Echo etc): Image Personally Visualized and interpreted (EKG 05/22/2024 by my reading shows sinus rhythm first-degree block septal Q, LVH)
Labs: Labs Reviewed by me
Old Records: Reviewed
Assessment/Plan
-
Impression:
Presents with mental status changes and weakness
KAVEH
Hypercalcemia
metastatic prostate cancer
Hypertension
Anemia
Plan:
follow BMP
Transfuse PRBC
Aredia
IV fluids saline
[2024-05-22] MEDS: ROXICODONE 15 MG PO ×2 (16:27→22:07)
[2024-05-22] MEDS: AREDIA 270 MG IV (17:20)
[2024-05-22] MEDS: HEPARIN 5000 UNITS SC ×2 (19:36→23:26)
[2024-05-22 19:37] LABS: Calcium 14.2 mg/dl (8.4-10.2)
--- NOTE | 2024-05-22 20:19 | EDRN ---
this RN called the receiving IMU nurse and gave verbal report, paper report was also tubed up to the receiving unit
--- NOTE | 2024-05-22 22:00 | PTCARENOTE ---
Pt received from ED on stretcher to IMU. AAOx2. Did not know where he was. Able to reorient pt to his surroundings. Denies pain while at rest but admits to chronic back pain. IVF's infusing as ordered from ED. VSS. Afebrile. SR on CM. Rate 70's. POX
RA 96%. Using urinal when needed but can be incontinent. Received CHG bath on arrival to floor. Skin intact. Rest of assessment as documented. Call castro within reach. Will continue to monitor.
[2024-05-23] VITALS (18 sets, daily range): BP systolic 121–164; BP diastolic 58–92; BMI 22.3
[2024-05-23] MEDS: ROXICODONE 15 MG PO ×4 (04:00→21:39)
[2024-05-23 04:50] LABS: Hematocrit 23.1 % (39.0-52.0); Hemoglobin 7.7 g/dL (13.0-18.0); Mean Corp Hgb Conc. 33.3 g/dL (33.0-37.0); Mean Corpuscular Hgb 30.2 pg (27.0-31.0); Mean Corpuscular Volume 90.6 fL (80.0-94.0); Platelet Count 76 10^3/uL (130-400); Red Blood Cell Count 2.55 10^6/uL (4.70-6.10); Red Cell Dist. Width 16.7 % (11.5-14.5); White Blood Cell Count 3.7 10^3/uL (4.8-10.8)
[2024-05-23 04:58] LABS: ALT (SGPT) 16 U/L (0-50); AST (SGOT) 30 U/L (17-59); Albumin 3.4 g/dl (3.5-5.0); Alkaline Phosphatase 78 U/L (38-126); Blood Urea Nitrogen 33 mg/dl (9-20); Carbon Dioxide 25 mmol/L (22-30); Chloride 108 mmol/L (98-107); Estimated Creatinine Clearance 35 ml/min; Glucose 117 mg/dl (70-99); Potassium 3.8 mmol/L (3.5-5.1); Sodium 140 mmol/L (135-145); Total Bilirubin 0.8 mg/dl (0.2-1.3); Total Protein 5.2 g/dl (6.3-8.2); eGFR 45.06
[2024-05-23] MEDS: NSS 1000 IV ×4 (05:10→23:54)
[2024-05-23 05:19] LABS: Calcium 14.4 mg/dl (8.4-10.2)
[2024-05-23] MEDS: HEPARIN 5000 UNITS SC ×3 (08:35→23:58)
[2024-05-23] MEDS: DELTASONE 5 MG PO (08:35)
[2024-05-23] MEDS: FEOSOL 325 MG PO (08:35)
[2024-05-23 10:27] LABS: Intact PTH 5.7 pg/ml (13.6-85.8)
--- NOTE | 2024-05-23 11:43 | W.PN.NEPH.PH ---
Today's Communication / Plan
-
Follow BMP
Assessment/Plan
-
Impression:
Presents with mental status changes and weakness
KAVEH
Hypercalcemia
metastatic prostate cancer
Hypertension
Anemia
Plan:
follow BMP
Transfuse PRBC
Calcitonin
Increase IV fluids
-
-
Date of Service: May 23, 2024
CC / HPI / ROS
-
Chief Complaint:
Hypercalcemia
History of Present Illness:
Calcium remains elevated at 14.4
Status post pamidronate 05/22/2024
Blood pressure high but stable
Creatinine down to 1.5
Hemoglobin stable below 7.7
Platelets lower at 76
Review of Systems:
No chest pain or shortness of breath
Feels confused
Labs
-
Labs:
WBC 3.7 10^3/uL (4.8-10.8) L 05/23/24 03:59
RBC 2.55 10^6/uL (4.70-6.10) L 05/23/24 03:59
Hgb 7.7 g/dL (13.0-18.0) L 05/23/24 03:59
Hct 23.1 % (39.0-52.0) L 05/23/24 03:59
Plt Count 76 10^3/uL (130-400) L 05/23/24 03:59
Sodium 140 mmol/L (135-145) 05/23/24 03:59
Potassium 3.8 mmol/L (3.5-5.1) 05/23/24 03:59
Chloride 108 mmol/L (98-107) H 05/23/24 03:59
Carbon Dioxide 25 mmol/L (22-30) 05/23/24 03:59
BUN 33 mg/dl (9-20) H 05/23/24 03:59
Creatinine 1.5 mg/dL (0.7-1.3) H 05/23/24 03:59
eGFR 45.06 05/23/24 03:59
Glucose 117 mg/dl (70-99) H 05/23/24 03:59
Calcium 14.4 mg/dl (8.4-10.2) H* 05/23/24 03:59
Albumin 3.4 g/dl (3.5-5.0) L 05/23/24 03:59
Physical Exam
-
Vital Signs:
Vital Signs
Temp Pulse Resp BP Pulse Ox
98.3 F 74 16 147/64 95
05/23/24 08:47 05/23/24 08:47 05/23/24 08:47 05/23/24 08:47 05/23/24 09:46
Cardiovascular:: Regular rate and rhythm
Respiratory:: Bilateral: Coarse
Lung Excursion:: Normal
Abdomen:: Nontender and Soft
Bowel Sounds:: Normal
Extremity Edema:: None: Bilateral:
--- NOTE | 2024-05-23 14:31 | PTCARENOTE ---
Responded to Pt's castro and found Pt with blood on gown and R arm, holding two IV's he apparently removed from arm. Pt known to have intermittent confusion and appeared to have recently awoken confused to his surroundings. Cleaned up Pt, oriented
to room and situation. Assisted Pt with calling son to help orientation. VAT notified to place new IV. Will continue to monitor and assess.
--- NOTE | 2024-05-23 15:40 | W.PN.HOSP.TC ---
Today's Communication/Plan
-
Assessment / Plan
Assessment / Plan
NAD, resting in bed comfortably
Scleral Anicteric, senile arcus
DMM
No JVD
CTABL
RRR, S1/S2
Soft, NT, ND, BS+
Warm, Dry
Anemia�symptomatic
Provide 1 unit PRBC
- Without Hgb change after 1 unit therefore second unit was provided by overnight team
Repeat CBC in the a.m.
Consult hematology
Without evidence of acute blood loss
Hypercalcemia likely related to metastatic disease
IV fluids increase fluid administration
IV bisphosphonates�s/p
Begin calcitonin twice daily up to 6 doses however had not decreased the number of doses depending on calcium
Vitamin D PTH ionized calcium
Check EKG
Repeat BMP
If still high then will need to consider calcitonin
TME
Likely related to hyperCa
-Expect to improve with improvement in Ca
Prostate cancer
Outpatient oncology/urology follow-up
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
Hypovolemic
Med rec does not show diuretics/gdmt
Anticipated Discharge: > 48 hours
Subjective/Interval History
-
Date of Service: May 23, 2024
Seen and examined. No new complaints. No acute overnight events.
Objective Data
-
Labs:
Laboratory Results
05/23/24
03:59
WBC 3.7 L
Hgb 7.7 L
Hct 23.1 L
Plt Count 76 L
Sodium 140
Potassium 3.8
Chloride 108 H
Carbon Dioxide 25
BUN 33 H
Creatinine 1.5 H
Glucose 117 H
Calcium 14.4 H*
Total Bilirubin 0.8
AST 30
ALT 16
Alkaline Phosphatase 78
Vital Signs:
Vital Signs
Temp Pulse Resp BP Pulse Ox
98.3 F 76 15 145/60 93
05/23/24 15:00 05/23/24 12:00 05/23/24 12:00 05/23/24 12:00 05/23/24 12:02
I&O
05/22/24 05/23/24 05/24/24
06:59 06:59 06:59
Intake Total 1250 / 1250 250 / 250
Output Total 325 / 325 400 / 400
Balance 925 / 925 -150 / -150
[2024-05-23] MEDS: MIRALAX 17 GRAMS PO (16:30)
[2024-05-23] MEDS: CALCIMAR/CALCITONIN 400 UNITS/ 2 ML 100 UNITS IM (19:21)
--- NOTE | 2024-05-23 20:15 | PTCARENOTE ---
Bed alarm alarming. Upon assessment pt sitting up side of bed beyond side rail. Pt unable to state where he is when asked. Pt reoriented to surroundings. Asked if he could pee. Pt assisted back to bed and urinal placed with good output. Currently
resting comfortable. Re-educated pt on using call castro for all assistance oob. Call castro within reach. Will continue to monitor.
--- NOTE | 2024-05-23 21:39 | CON.ONC ---
Impression
Impression
Metastatic prostate cancer, hormone refractory
Poor PS precluding cytotoxic chemotherapy
Malignant hypecalcemia
Plan
Plan
Start zoledronic acid, can be given weekly if needed to get the calcium under control.
Needs goals of care discussion. Ideally he would be able to come to the office for Xgeva. Otherwise he will continue to require hospital admission for recurrent hypercalcemia.
Will d/w son.
Thank you for consult, will follow along with you.
Patient History
History of Present Illness
88-year-old man with metastatic prostate cancer, patient of Dr. Rios'delia. Patient has known involvement of liver and lung. He was last seen in the office in late December at which time he had just been discharged from the hospital following an
admission for sepsis and hypercalcemia. He has progressed through available hormonal options and was not felt to have the performance status to undergo chemotherapy. Plan was to continue Xgeva to prevent recurrent hypercalcemia and to continue
palliative measures. Patient last got Xgeva on January 13, canceled subsequent visit due to being in rehab and housebound. Patient now presents with confusion, pallor, fatigue. He had been seen in the ER earlier in the week, got 1 unit of packed
red blood cells and was discharged home. Since symptoms persisted and since they were similar to patient's previous presentation with hypercalcemia, son brought the patient back to the ED for evaluation and treatment. Patient was also found to be
in acute renal failure. Since admission, he has been treated with blood transfusion, calcitonin and IV fluids. Today, his calcium is 14.4, ionized calcium 2.0. Creatinine is 1.5 which is his usual baseline. Patient is confused and unable to give
much history.
Past-Medical/Surgical History
Past Medical History:
metastatic prostate cancer
essential hypertension
hyperlipidemia
CKD III
HFrEF
Hx hypercalcemia
Past Surgical History:
left shoulder surgery
right knee surgery
appendectomy
tonsillectomy
colon resection
Social History:
Tobacco: Former Smoker
Alcohol: Occasional
Drug: None
Personal:
Living: With Family
Family History:
Family History: Not pertinent
Patient Medication
�Medication �Instructions �Recorded �Confirmed �Last Taken �Type
polyethylene glycol 3350 17 gram 17 g PO DAILYPRN PRN constipation 12/10/23 05/22/24 Unknown Rx
oral powder packet ([employer]) #30 ea
ferrous sulfate 325 mg (65 mg 325 mg PO DAILY 12/19/23 05/22/24 05/22/24 History
iron) tablet
meloxicam 15 mg tablet 15 mg PO DAILY 05/22/24 05/22/24 05/22/24 History
oxycodone 15 mg tablet 15 mg PO Q6H 05/22/24 05/22/24 05/22/24 08:00 History
prednisone 5 mg tablet 5 mg PO DAILY 05/22/24 05/22/24 05/22/24 History
Active Medications
Generic Name Dose Route Start Last Admin
Trade Name Freq PRN Reason Stop Dose Admin
Acetaminophen 650 mg 05/22/24 18:01
Acetaminophen 325 Mg Tablet PO 06/19/24 18:00
Q4HPRN PRN
mild pain/ZAVALA/temp> 100.4F
Calcitonin 100 units 05/23/24 20:00 05/23/24 19:21
Calcitonin ([place]) Synthetic 400 Units/2 Ml Vial IM 05/26/24 08:01 100 units
BID TIARA Administration
Ferrous Sulfate 325 mg 05/23/24 08:00 05/23/24 08:35
Ferrous Sulfate 325 Mg Tablet PO 06/20/24 07:59 325 mg
DAILY TIARA Administration
Heparin Sodium 5,000 units 05/22/24 18:01 05/23/24 16:27
Heparin 5,000 Units/Ml 1 Ml Vial SC 06/19/24 18:00 5,000 units
Q8 TIARA Administration
Sodium Chloride 1,000 mls @ 150 mls/hr 05/23/24 11:46 05/23/24 16:17
Nss IV 1,000 mls
.Q6H40M TIARA Administration
Zoledronic Acid 3.5 mg/ Sodium 104.375 mls @ 208.75 mls/hr 05/24/24 08:00
Chloride IV 05/24/24 08:29
ONCE ONE
Oxycodone HCl 15 mg 05/22/24 22:00 05/23/24 16:27
Oxycodone 15 Mg Regular Release Tablet PO 06/05/24 21:59 15 mg
Q6H TIARA Administration
Polyethylene Glycol 17 grams 05/22/24 18:01 05/23/24 16:30
Polyethylene Glycol Powder 17 Grams Packet PO 06/19/24 18:00 17 grams
DAILYPRN PRN Administration
constipation
Prednisone 5 mg 05/23/24 08:00 05/23/24 08:35
Prednisone 5 Mg Tablet PO 06/20/24 07:59 5 mg
DAILY TIARA Administration
Sodium Chloride 0 flush 05/22/24 16:00
Sodium Chloride 0.9% (Flush) Syringe IV 06/19/24 15:59
PER PROTOCOL TIARA
Review of Systems
-
Unable to obtain full review of systems at this time due to: Other (Obtunded)
Physical Exam
-
General: Well Developed, Well Nourished and Other (Awake but confused)
HEENT: Moist Mucous Membranes; Negative Jaundice
Cardiology: Normal Sinus Rhythm, S1 and S2
Pulmonary: Clear
GI: Soft
Extremities: No C/C/E
Neurology: Other (mild confusion)
Skin: Warm and Dry
Hematologic / Lymphatic: No Lymphadenopathy
Psych: Calm and Confused
Labs
Lab Results
WBC 3.7 10^3/uL (4.8-10.8) L 05/23/24 03:59
RBC 2.55 10^6/uL (4.70-6.10) L 05/23/24 03:59
Hgb 7.7 g/dL (13.0-18.0) L 05/23/24 03:59
Hct 23.1 % (39.0-52.0) L 05/23/24 03:59
MCV 90.6 fL (80.0-94.0) 05/23/24 03:59
MCH 30.2 pg (27.0-31.0) 05/23/24 03:59
MCHC 33.3 g/dL (33.0-37.0) 05/23/24 03:59
RDW 16.7 % (11.5-14.5) H 05/23/24 03:59
Plt Count 76 10^3/uL (130-400) L 05/23/24 03:59
MPV 9.0 fL (7.4-10.4) 05/23/24 03:59
Abs Immat Gran (auto) 0.2 10^3/uL (0-0.05) H 05/22/24 11:48
Absolute Neuts (auto) 2.7 10^3/uL (1.4-6.5) 05/22/24 11:48
Absolute Lymphs (auto) 0.4 10^3/uL (1.2-3.4) L 05/22/24 11:48
Absolute Monos (auto) 0.5 10^3/uL (0.1-0.6) 05/22/24 11:48
Absolute Eos (auto) 0.1 10^3/uL (0-0.7) 05/22/24 11:48
Absolute Basos (auto) 0.0 10^3/uL (0-0.2) 05/22/24 11:48
Immature Gran % 5.8 % (0-0.5) H 05/22/24 11:48
Neutrophils % 69.3 % (42.2-75.2) 05/22/24 11:48
Lymphocytes % 9.4 % (20.5-51.1) L 05/22/24 11:48
Monocytes % 11.4 % (1.7-9.3) H 05/22/24 11:48
Eosinophils % 3.6 % (0-6) 05/22/24 11:48
Basophils % 0.5 % (0-2) 05/22/24 11:48
Creatinine 1.5 mg/dL (0.7-1.3) H 05/23/24 03:59
Vital Signs
Vital Signs
Temp Pulse Resp BP Pulse Ox
98.4 F 94 19 158/92 95
05/23/24 19:00 05/23/24 20:01 05/23/24 20:01 05/23/24 20:01 05/23/24 19:30
--- NOTE | 2024-05-23 21:50 | PTCARENOTE ---
Pt with increased confusion. Disconnecting wires. Does not know where he is and thinks we are lying to him that he is in the hospital. Stated he wanted to leave. This RN asked pt if he would like to speak to his son Rocky and pt stated yes. Call
placed to Rocky over speaker and pt was able to speak with his son. After discussion with son pt was more calm and agreeable to take his scheduled pain med. Son appreciative for care provided to pt. Pt received pain med as scheduled and per son's
request will offer Tylenol to pt in about 2-3hrs. Currently pt resting comfortably. Call castro remains within reach. Bed alarm remains on and working. Will continue to monitor.
[2024-05-23] MEDS: TYLENOL 650 MG PO (23:57)
[2024-05-24] VITALS (14 sets, daily range): BP systolic 132–172; BP diastolic 55–89; BMI 22.9
--- NOTE | 2024-05-24 02:10 | PTCARENOTE ---
Pt grossly incontinent urine. CHG bath given and all linens changed. Skin remains intact. Currently resting comfortably. Bed alarm remains on and working. Call castro remains within reach. Will continue to monitor.
[2024-05-24] MEDS: ROXICODONE 15 MG PO ×4 (03:03→20:51)
[2024-05-24 03:56] LABS: Hematocrit 23.4 % (39.0-52.0); Mean Corp Hgb Conc. 34.2 g/dL (33.0-37.0); Mean Corpuscular Hgb 30.3 pg (27.0-31.0); Mean Corpuscular Volume 88.6 fL (80.0-94.0); Mean Platelet Volume 9.1 fL (7.4-10.4); Platelet Count 68 10^3/uL (130-400); Red Blood Cell Count 2.64 10^6/uL (4.70-6.10); Red Cell Dist. Width 17.2 % (11.5-14.5); White Blood Cell Count 3.9 10^3/uL (4.8-10.8)
[2024-05-24 04:17] LABS: Blood Urea Nitrogen 33 mg/dl (9-20); Calcium 12.6 mg/dl (8.4-10.2); Carbon Dioxide 24 mmol/L (22-30); Chloride 109 mmol/L (98-107); Estimated Creatinine Clearance 36 ml/min; Glucose 189 mg/dl (70-99); Potassium 3.8 mmol/L (3.5-5.1); Sodium 140 mmol/L (135-145); eGFR 45.06
[2024-05-24] MEDS: TYLENOL 650 MG PO (07:40)
[2024-05-24] MEDS: FEOSOL 325 MG PO (07:40)
[2024-05-24] MEDS: DELTASONE 5 MG PO (07:40)
[2024-05-24] MEDS: HEPARIN 5000 UNITS SC ×2 (07:40→16:05)
[2024-05-24] MEDS: NSS 1000 IV ×3 (07:43→22:15)
--- NOTE | 2024-05-24 08:25 | CM ---
Initial assessment completed with son via phone. DC planning discussions are requested to go through son, Rocky.
Pt is an 88yr old admitted with Anemia, hypercalcemia.
Pt was previously admitted in Nov 2023 and discharged to [facility]. Per son, he was discharged to home and returned to his prior independent level.
Pt and his live in a ranch style home with 2 steps to enter and a 1st floor living set up.
Pt is indep with ADLs and Mobility using a cane. Pts aides with IADLs and med management, and their son visits daily to support.
Pt does have a Rw and grab bars in the shower and around the toilet.
Pt is seen by [facility] and [facility] for PT/OT.
SNF hx; [facility], and would want to return if SNF appropriate
VN; [facility], [facility]
PCP; Shukri Che
Pharm; [facility]ck[facility] Taylor
PLAN; Plan is pending Hospital Course. If SNF, would prefer [facility]
[2024-05-24] MEDS: CALCIMAR/CALCITONIN 400 UNITS/ 2 ML 100 UNITS IM ×2 (08:43→19:29)
--- NOTE | 2024-05-24 09:50 | W.PN.NEPH.PH ---
Today's Communication / Plan
-
lasix
Assessment/Plan
-
Impression:
Presents with mental status changes and weakness
KAVEH
Hypercalcemia
metastatic prostate cancer
Hypertension
Anemia
Plan:
follow BMP
Calcitonin
IVF
lasix today
-
-
Date of Service: May 24, 2024
CC / HPI / ROS
-
Chief Complaint:
Hypercalcemia
History of Present Illness:
Calcium down to 12.6
Status post pamidronate 05/22/2024, now on calcitonin as well
Blood pressure high but stable
Creatinine stable at 1.5
Hemoglobin stable 8.0
Platelets lower at 68
Review of Systems:
No chest pain or shortness of breath
less confused
Labs
-
Labs:
WBC 3.9 10^3/uL (4.8-10.8) L 05/24/24 03:20
RBC 2.64 10^6/uL (4.70-6.10) L 05/24/24 03:20
Hgb 8.0 g/dL (13.0-18.0) L 05/24/24 03:20
Hct 23.4 % (39.0-52.0) L 05/24/24 03:20
Plt Count 68 10^3/uL (130-400) L 05/24/24 03:20
Sodium 140 mmol/L (135-145) 05/24/24 03:20
Potassium 3.8 mmol/L (3.5-5.1) 05/24/24 03:20
Chloride 109 mmol/L (98-107) H 05/24/24 03:20
Carbon Dioxide 24 mmol/L (22-30) 05/24/24 03:20
BUN 33 mg/dl (9-20) H 05/24/24 03:20
Creatinine 1.5 mg/dL (0.7-1.3) H 05/24/24 03:20
eGFR 45.06 05/24/24 03:20
Glucose 189 mg/dl (70-99) H 05/24/24 03:20
Calcium 12.6 mg/dl (8.4-10.2) H 05/24/24 03:20
Albumin 3.4 g/dl (3.5-5.0) L 05/23/24 03:59
Physical Exam
-
Vital Signs:
Vital Signs
Temp Pulse Resp BP Pulse Ox
97.8 F 75 13 151/76 95
05/24/24 07:30 05/24/24 07:00 05/24/24 07:00 05/24/24 06:00 05/23/24 19:30
Cardiovascular:: Regular rate and rhythm
Respiratory:: Bilateral: CTA
Lung Excursion:: Normal
Abdomen:: Nontender and Soft
Bowel Sounds:: Normal
Extremity Edema:: None: Bilateral:
[2024-05-24] MEDS: LASIX 40 MG IV (10:57)
--- NOTE | 2024-05-24 11:41 | PTCARENOTE ---
Pt had vomited small amount of emesis following breakfast; Pt reported it came abruptly and the nausea subsided shortly after. Assisted Pt with clean up. No further issues. Will continue to monitor and assess.
--- NOTE | 2024-05-24 12:06 | W.PN.HOSP.TC ---
Today's Communication/Plan
-
Assessment / Plan
Assessment / Plan
NAD, ambulating the halls with a walker
Scleral Anicteric, senile arcus
DMM
No JVD
CTABL
RRR, S1/S2
Soft, NT, ND, BS+
Warm, Dry
Anemia�symptomatic
Provide 1 unit PRBC
- Without Hgb change after 1 unit therefore second unit was provided by overnight team
Repeat CBC in the a.m.
Consult hematology
Without evidence of acute blood loss
Hypercalcemia likely related to metastatic disease
IV fluids increase fluid administration
Nephrology ordered 1 dose of IV Lasix to be provide
IV bisphosphonates�s/p
Vitamin D PTH ionized calcium
Repeat BMP in the a.m.
Started on calcitonin x 6 doses can discontinue sooner if rapid improvement
TME
Likely related to hyperCa
-Expect to improve with improvement in Ca
Prostate cancer
Outpatient oncology/urology follow-up
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
Hypovolemic
Med rec does not show diuretics/gdmt
Anticipated Discharge: > 48 hours
Subjective/Interval History
-
Date of Service: May 24, 2024
Seen and examined. No new complaints. No acute overnight events.
Ambulating in the halls with little walker.
Objective Data
-
Labs:
Laboratory Results
05/24/24
03:20
WBC 3.9 L
Hgb 8.0 L
Hct 23.4 L
Plt Count 68 L
Sodium 140
Potassium 3.8
Chloride 109 H
Carbon Dioxide 24
BUN 33 H
Creatinine 1.5 H
Glucose 189 H
Calcium 12.6 H
Vital Signs:
Vital Signs
Temp Pulse Resp BP Pulse Ox
97.8 F 80 13 151/74 95
05/24/24 07:30 05/24/24 10:57 05/24/24 07:00 05/24/24 10:57 05/23/24 19:30
I&O
05/23/24 05/24/24 05/25/24
06:59 06:59 06:59
Intake Total 1250 / 1250 2350 / 2350
Output Total 325 / 325 705 / 705
Balance 925 / 925 1645 / 1645
[2024-05-25] VITALS (14 sets, daily range): BP systolic 122–179; BP diastolic 61–88; PULSE 81; BMI 23.3
[2024-05-25] MEDS: HEPARIN 5000 UNITS SC ×4 (02:04→23:47)
[2024-05-25 02:31] LABS: Vitamin D 1,25 Dihydroxy 12.9 pg/mL (19.9-79.3)
[2024-05-25] MEDS: ROXICODONE 15 MG PO ×4 (04:56→20:14)
[2024-05-25] MEDS: NSS 1000 IV ×2 (04:56→13:09)
[2024-05-25 05:10] LABS: Hematocrit 23.3 % (39.0-52.0); Hemoglobin 7.8 g/dL (13.0-18.0); Mean Corp Hgb Conc. 33.5 g/dL (33.0-37.0); Mean Corpuscular Hgb 29.7 pg (27.0-31.0); Mean Corpuscular Volume 88.6 fL (80.0-94.0); Mean Platelet Volume 9.1 fL (7.4-10.4); Platelet Count 63 10^3/uL (130-400); Red Blood Cell Count 2.63 10^6/uL (4.70-6.10); Red Cell Dist. Width 17.2 % (11.5-14.5); White Blood Cell Count 4.4 10^3/uL (4.8-10.8)
[2024-05-25 05:49] LABS: Blood Urea Nitrogen 29 mg/dl (9-20); Calcium 10.6 mg/dl (8.4-10.2); Carbon Dioxide 24 mmol/L (22-30); Chloride 108 mmol/L (98-107); Estimated Creatinine Clearance 39 ml/min; Glucose 130 mg/dl (70-99); Potassium 3.3 mmol/L (3.5-5.1); Sodium 140 mmol/L (135-145); eGFR 48.95
--- NOTE | 2024-05-25 06:06 | PTCARENOTE ---
Caring for pt overnight. aaox3 but confused & forgetful. BA on. IVF running. NO bm's. Incontinent & using urinal. Standing at bedside with RW & using BSC. Pt moving well throughout the shift but seemed very weak this morning and c/o dizziness when
standing. LEAD BUSINESS ANALYST aware of K. ca10.6 hgb 7.8. NO sign so of bleeding. Will continue monitoring.
[2024-05-25] MEDS: KCL 40 MEQ PO (06:24)
--- NOTE | 2024-05-25 07:50 | W.PN.HOSP.TC ---
Addendum entered and electronically signed by Maliha Frazier MD 05/25/24 11:15:
discussed with renal, will give additional Lasix today
Original Note:
Today's Communication/Plan
-
lower fluid rate, likely stop later today
appreciate consultants
PT eval
AM labs - if stable, likely ready for DC tomorrow
Assessment / Plan
Assessment / Plan
NAD, ambulating the halls with a walker
Scleral Anicteric, senile arcus
DMM
No JVD
CTABL
RRR, S1/S2
Soft, NT, ND, BS+
Warm, Dry
Mr. Carmelina Engel is a 88 yo man with hx metastatic prostate CA, essential HTN, HLD, CKD III, HFrEF, hypercalcemia, anemia s/p recent transfusion in the ER who presents to the ER for generalized weakness found to have Ca 14.9.
Anemia�symptomatic
-s/p 2 units PRBC without significant rise but also receiving significant IVF
-appreciate Hematology consult
Hypercalcemia likely related to metastatic disease
-IVF with lasix given. Ca down to 10.6 this AM and patient with 1+ b/l edema - will lower fluid rate and likely stop later today.
-IM Calcitonin - OK to stop after morning dose
-s/p Pamidronate on admission
-appreciate Oncology consult
Hypokalemia
-repleted this AM
TME
Likely related to hyperCa
-seems resolved this AM
Prostate cancer
Outpatient oncology/urology follow-up - appreciate Oncology consult
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
Hypovolemic
Med rec does not show diuretics/gdmt
DVT PPx hep subQ
FULL CODE
Anticipated Discharge: 24 - 48 hours
Subjective/Interval History
-
Date of Service: May 25, 2024
feeling well this AM, slept well
reports feeling mildly bloated
Objective Data
-
Labs:
Laboratory Results
05/25/24
04:47
WBC 4.4 L
Hgb 7.8 L
Hct 23.3 L
Plt Count 63 L
Sodium 140
Potassium 3.3 L
Chloride 108 H
Carbon Dioxide 24
BUN 29 H
Creatinine 1.4 H
Glucose 130 H
Calcium 10.6 H D
Vital Signs:
Vital Signs
Temp Pulse Resp BP Pulse Ox
98.1 F 72 13 129/67 97
05/25/24 03:42 05/25/24 04:00 05/25/24 04:00 05/25/24 04:00 05/24/24 21:53
I&O
05/24/24 05/25/24 05/26/24
06:59 06:59 06:59
Intake Total 2350 / 2350
Output Total 705 / 705 500 / 500
Balance 1645 / 1645 -500 / -500
Review of Systems
-
History Source: Patient
All other systems: Reviewed and negative
Physical Exam
-
General: No Apparent Distress and Comfortable
HEENT: Negative Oxygen
Respiratory: Clear to Auscultation
Cardiac: Regular Rhythm and S1/S2; Negative Murmur or Rub
GI: Soft, Nontender and Nondistended
Musculoskeletal: Edema, Right Lower Extrem and Edema, Left Lower Extrem
Neuro: Awake, Alert, Oriented, No Motor Deficits and Nonfocal/Grossly Intact
Psych: Calm
Data Reviewed
-
Diagnostic Radiology: Report Reviewed by me
Labs: Labs Reviewed by me
[2024-05-25] MEDS: DELTASONE 5 MG PO (08:07)
[2024-05-25] MEDS: FEOSOL 325 MG PO (08:07)
[2024-05-25 08:47] LABS: Magnesium 1.7 mg/dl (1.6-2.3); Phosphorus 2.7 mg/dl (2.5-4.5)
[2024-05-25] MEDS: CALCIMAR/CALCITONIN 400 UNITS/ 2 ML 100 UNITS IM (10:30)
--- NOTE | 2024-05-25 10:36 | W.PN.NEPH.PH ---
Today's Communication / Plan
-
Continue IV fluid
Assessment/Plan
-
Impression:
Presents with mental status changes and weakness
KAVEH
Hypercalcemia
metastatic prostate cancer
Hypertension
Anemia
Plan:
follow BMP
Calcitonin
IVF
Electrolytes improving
-
-
Date of Service: May 25, 2024
CC / HPI / ROS
-
Chief Complaint:
Hypercalcemia
History of Present Illness:
Calcium down to 12.6
Status post pamidronate 05/22/2024, now on calcitonin as well
Blood pressure high but stable
Creatinine stable at 1.5
Hemoglobin stable 8.0
Platelets lower at 68
Review of Systems:
No chest pain or shortness of breath
less confused
Labs
-
Labs:
WBC 4.4 10^3/uL (4.8-10.8) L 05/25/24 04:47
RBC 2.63 10^6/uL (4.70-6.10) L 05/25/24 04:47
Hgb 7.8 g/dL (13.0-18.0) L 05/25/24 04:47
Hct 23.3 % (39.0-52.0) L 05/25/24 04:47
Plt Count 63 10^3/uL (130-400) L 05/25/24 04:47
Sodium 140 mmol/L (135-145) 05/25/24 04:47
Potassium 3.3 mmol/L (3.5-5.1) L 05/25/24 04:47
Chloride 108 mmol/L (98-107) H 05/25/24 04:47
Carbon Dioxide 24 mmol/L (22-30) 05/25/24 04:47
BUN 29 mg/dl (9-20) H 05/25/24 04:47
Creatinine 1.4 mg/dL (0.7-1.3) H 05/25/24 04:47
eGFR 48.95 05/25/24 04:47
Glucose 130 mg/dl (70-99) H 05/25/24 04:47
Calcium 10.6 mg/dl (8.4-10.2) H D 05/25/24 04:47
Phosphorus 2.7 mg/dl (2.5-4.5) 05/25/24 04:47
Albumin 3.4 g/dl (3.5-5.0) L 05/23/24 03:59
Physical Exam
-
Vital Signs:
Vital Signs
Temp Pulse Resp BP Pulse Ox
97.6 F 73 15 127/71 97
05/25/24 07:56 05/25/24 08:06 05/25/24 08:06 05/25/24 08:06 05/24/24 21:53
Cardiovascular:: Regular rate and rhythm
Respiratory:: Bilateral: CTA
Lung Excursion:: Normal
Abdomen:: Nontender and Soft
Bowel Sounds:: Normal
Extremity Edema:: None: Bilateral:
--- NOTE | 2024-05-25 11:27 | W.PN.ONC2 ---
Today's Communication / Plan
-
.
Impression
Impression
Metastatic prostate cancer, hormone refractory
Poor PS precluding cytotoxic chemotherapy
Malignant hypecalcemia -improving s/p zoldronic acid, IVF, calcitonin
Plan
Plan
Ideally OP follow up for Xgeva to manage hypercalcemia of malignancy. Otherwise he will continue to require hospital admission for recurrent hypercalcemia.
will follow along with you.
Subjective/Objective
Subjective
no new complaints
Vital Signs:
Vital Signs
Temp Pulse Resp BP Pulse Ox
97.6 F 90 21 179/77 95
05/25/24 07:56 05/25/24 10:00 05/25/24 10:00 05/25/24 10:00 05/25/24 08:47
Lab Results:
Laboratory Data
WBC 4.4 10^3/uL (4.8-10.8) L 05/25/24 04:47
Hgb 7.8 g/dL (13.0-18.0) L 05/25/24 04:47
Plt Count 63 10^3/uL (130-400) L 05/25/24 04:47
eGFR 48.95 05/25/24 04:47
[2024-05-25] MEDS: LASIX 40 MG IV (12:33)
[2024-05-25] MEDS: COLACE 100 MG PO ×2 (12:34→20:14)
--- NOTE | 2024-05-25 12:35 | PN.CDI ---
CDI
- -
CDI:
Physician Documentation Request
Admit Date: 05/22/24 15:23
Dear Doctor Freddie,
Please review the following and provide your response in the progress notes.
Clinical Indicators:
- 4/14 PN 'anemia'
- 2 units PRBC given
- WBC, RBC, Hgb, Plt labs:
Laboratory Tests
05/22/24 05/23/24 05/24/24
11:48 03:59 03:20
WBC 3.9 L 3.7 L 3.9 L
RBC 2.51 L 2.55 L 2.64 L
Hgb 7.6 L 7.7 L 8.0 L
Plt Count 91 L 76 L 68 L
Please provide a diagnosis for the above lab values that were monitored and treatment rendered:
Pancytopenia
Clinically insignificant abnormal lab values
Other (please specify)
Use of terms such as suspected, likely, concern for, or probable (associated with a specific diagnosis that is being evaluated, monitored, or treated as if it exists) are acceptable and can be coded in the inpatient setting, when documented at the
time of discharge.
Thank you,
Cristiane Andrews RN
CDI Specialist
Please use your independent medical judgment in providing your response.
--- NOTE | 2024-05-25 12:41 | PN.CDI ---
CDI
- -
CDI:
Physician Documentation Request
Admit Date: 05/22/24 15:23
Dear Doctor Freddie,
Please review the following and provide your response in the progress notes.
Clinical Indicators:
The diagnosis of bone metastasis was included in the signed 11/07/23 CT Lumbar Spine MRI
- 05/23 Oncology consult indicates prostate cancer with 'involvement of liver and lung'
- 11/07/23 CT Lumbar Spine MRI 'Extensive metastatic disease throughout the lumbar spine and pelvis'
- 'with likely new metastatic foci in the T12 and S3 vertebral bodies'
- 'increased extent of disease within the L3 vertebral body'
Please indicate in your progress notes if you are in agreement that the above diagnosis is valid for this patient:
____ - Bone metastasis is a valid diagnosis (Please include it in your progress notes)
____ - Bone metastasis is not a valid diagnosis for this patient
____ - Bone metastasis is not yet confirmed but remains a suspected condition
____ - Other
Use of terms such as suspected, likely, concern for, or probable are acceptable for a diagnosis that is being evaluated, monitored or treated as if it exists and can be coded in the inpatient setting, when documented at the time of discharge.
Thank you,
Cristiane Andrews RN
CDI Specialist
Please use your independent medical judgment in providing your response.
[2024-05-25] MEDS: KCL 20 MEQ PO (13:10)
--- NOTE | 2024-05-25 22:44 | PTCARENOTE ---
Caring for pt overnight. aaox2, very confused & forgetful. VSS. NSR PAC. remains RA. Bed alarm on. Continue IVF. Monitor labs. Routine ermelinda for back pain. No other issues. Will monitor.
[2024-05-26] VITALS (8 sets, daily range): BP systolic 125–151; BP diastolic 58–74; BMI 23.1
[2024-05-26] MEDS: NSS 1000 IV (02:15)
[2024-05-26] MEDS: ROXICODONE 15 MG PO ×2 (03:45→09:22)
[2024-05-26 04:12] LABS: Hematocrit 23.7 % (39.0-52.0); Hemoglobin 7.8 g/dL (13.0-18.0); Mean Corp Hgb Conc. 32.9 g/dL (33.0-37.0); Mean Corpuscular Hgb 29.4 pg (27.0-31.0); Mean Corpuscular Volume 89.4 fL (80.0-94.0); Platelet Count 65 10^3/uL (130-400); Red Blood Cell Count 2.65 10^6/uL (4.70-6.10); Red Cell Dist. Width 16.9 % (11.5-14.5); White Blood Cell Count 4.9 10^3/uL (4.8-10.8)
[2024-05-26 04:31] LABS: Blood Urea Nitrogen 26 mg/dl (9-20); Calcium 10.1 mg/dl (8.4-10.2); Carbon Dioxide 22 mmol/L (22-30); Chloride 108 mmol/L (98-107); Estimated Creatinine Clearance 42 ml/min; Glucose 101 mg/dl (70-99); Potassium 3.3 mmol/L (3.5-5.1); Sodium 140 mmol/L (135-145)
[2024-05-26] MEDS: KCL 40 MEQ PO (05:25)
--- NOTE | 2024-05-26 07:09 | W.PN.HOSP.TC ---
Today's Communication/Plan
-
treat constipation
stop fluids
F/U further Nephrology recommendations
likely DC today
Assessment / Plan
Assessment / Plan
Mr. Carmelina Engel is a 88 yo man with hx metastatic prostate CA, essential HTN, HLD, CKD III, HFrEF, hypercalcemia, anemia s/p recent transfusion in the ER who presents to the ER for generalized weakness found to have Ca 14.9.
Anemia�symptomatic
-s/p 2 units PRBC without significant rise but also received significant IVF
-appreciate Hematology consult
Pancytopenia in setting of prostate CA with bone metastatic disease
Hypercalcemia likely related to metastatic disease
-IVF with lasix given. Ca down to 10.1
-stop IVF
-s/p IM Calcitonin
-s/p Pamidronate on admission
-appreciate Oncology consult - outpatient follow up with Dr. Rios
Hypokalemia
-repleted this AM
TME
Likely related to hyperCa
-now resolved
constipation
-bowel regimen, will order enema PRN
Prostate cancer with bone metastases
Outpatient oncology/urology follow-up - appreciate Oncology consult
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
Hypovolemic
Med rec does not show diuretics/gdmt - confirmed on ECW
DVT PPx hep subQ
FULL CODE
Anticipated Discharge: Within 24 hours
Subjective/Interval History
-
Date of Service: May 26, 2024
feeling well
anxious to leave the hospital
urinating a lot
Objective Data
-
Labs:
Laboratory Results
05/26/24
03:48
WBC 4.9
Hgb 7.8 L
Hct 23.7 L
Plt Count 65 L
Sodium 140
Potassium 3.3 L
Chloride 108 H
Carbon Dioxide 22
BUN 26 H
Creatinine 1.3
Glucose 101 H
Calcium 10.1
Vital Signs:
Vital Signs
Temp Pulse Resp BP Pulse Ox
98.1 F 75 14 146/70 96
05/26/24 03:00 05/26/24 06:00 05/26/24 06:00 05/26/24 06:00 05/25/24 21:05
I&O
05/25/24 05/26/24 05/27/24
06:59 06:59 06:59
Intake Total 240 / 240
Output Total 1050 / 1050 1750 / 1750
Balance -1050 / -1050 -1510 / -1510
Review of Systems
-
History Source: Patient
All other systems: Reviewed and negative
Physical Exam
-
General: No Apparent Distress and Comfortable
HEENT: Negative Oxygen
Respiratory: Clear to Auscultation
Cardiac: Regular Rhythm and S1/S2; Negative Murmur or Rub
GI: Soft, Nontender and Nondistended
Musculoskeletal: Other (trace b/l LE edema )
Neuro: Awake, Alert, Oriented, No Motor Deficits and Nonfocal/Grossly Intact
Psych: Calm
Data Reviewed
-
Diagnostic Radiology: Report Reviewed by me
Labs: Labs Reviewed by me
[2024-05-26] MEDS: FEOSOL 325 MG PO (08:46)
[2024-05-26] MEDS: MIRALAX 17 GRAMS PO (08:46)
[2024-05-26] MEDS: HEPARIN 5000 UNITS SC (08:46)
[2024-05-26] MEDS: DELTASONE 5 MG PO (08:46)
[2024-05-26] MEDS: COLACE 100 MG PO (08:46)
[2024-05-26] MEDS: DULCOLAX 10 MG RECTAL (11:02)
--- NOTE | 2024-05-26 11:22 | W.PN.NEPH.PH ---
Today's Communication / Plan
-
Okay for discharge from renal standpoint
Assessment/Plan
-
Impression:
Presents with mental status changes and weakness
KAVEH
Hypercalcemia
metastatic prostate cancer
Hypertension
Anemia
Plan:
follow BMP
Calcitonin
IVF
Electrolytes improving
Calcium normalized
Okay for discharge from renal standpoint
-
-
Date of Service: May 26, 2024
CC / HPI / ROS
-
Chief Complaint:
Hypercalcemia
History of Present Illness:
Calcium normalized
Status post pamidronate 05/22/2024, now on calcitonin as well
Blood pressure high but stable
Creatinine stable
Review of Systems:
No chest pain or shortness of breath
less confused
Labs
-
Labs:
WBC 4.9 10^3/uL (4.8-10.8) 05/26/24 03:48
RBC 2.65 10^6/uL (4.70-6.10) L 05/26/24 03:48
Hgb 7.8 g/dL (13.0-18.0) L 05/26/24 03:48
Hct 23.7 % (39.0-52.0) L 05/26/24 03:48
Plt Count 65 10^3/uL (130-400) L 05/26/24 03:48
Sodium 140 mmol/L (135-145) 05/26/24 03:48
Potassium 3.3 mmol/L (3.5-5.1) L 05/26/24 03:48
Chloride 108 mmol/L (98-107) H 05/26/24 03:48
Carbon Dioxide 22 mmol/L (22-30) 05/26/24 03:48
BUN 26 mg/dl (9-20) H 05/26/24 03:48
Creatinine 1.3 mg/dL (0.7-1.3) 05/26/24 03:48
eGFR 53.50 05/26/24 03:48
Glucose 101 mg/dl (70-99) H 05/26/24 03:48
Calcium 10.1 mg/dl (8.4-10.2) 05/26/24 03:48
Phosphorus 2.7 mg/dl (2.5-4.5) 05/25/24 04:47
Albumin 3.4 g/dl (3.5-5.0) L 05/23/24 03:59
Physical Exam
-
Vital Signs:
Vital Signs
Temp Pulse Resp BP Pulse Ox
98.2 F 75 14 146/70 96
05/26/24 07:50 05/26/24 06:00 05/26/24 06:00 05/26/24 06:00 05/25/24 21:05
Cardiovascular:: Regular rate and rhythm
Respiratory:: Bilateral: CTA
Lung Excursion:: Normal
Abdomen:: Nontender and Soft
Bowel Sounds:: Normal
Extremity Edema:: None: Bilateral:
--- NOTE | 2024-05-26 13:09 | W.DS.TRANS ---
DC Summary - Media Traffic Manager
-
Discharge Instructions:
Sleep Apnea Risk Intermediate
Discharge Diagnosis/Procedures Hypercalcemia
Diet Restrict fluids to 48 oz,2 Gram Sodium
Activity As tolerated
Driving Restrictions No driving
Bathing Restrictions None
Blood Work BMP and Albumin on Saturday05/29/24
Other Services VN,PT,OT
Specialty Instructions Weigh Daily
Instructions:
Stand-Alone Forms:
Changes to Home Medications: Yes
Discharge Medications:
DC Medications w/original date entered in [facility]
ferrous sulfate 325 mg (65 mg iron) tablet 325 mg PO DAILY Supplement 12/19/23
oxycodone 15 mg tablet 15 mg PO Q6H Pain 05/22/24
prednisone 5 mg tablet 5 mg PO DAILY INFLAMMATION 05/22/24
polyethylene glycol 3350 17 gram oral powder packet (HealthyLax) 17 g PO DAILY #30 ea 05/26/24
Home Medication Changes
Stop Meloxicam, as this can hurt the kidneys.
Take Miralax daily to help prevent constipation.
Pending Results: No
--- NOTE | 2024-05-26 13:30 | W.DCSUMMARY ---
Discharge Summary
Discharge Data
Date of Admission: 05/22/24
Date of Discharge: 05/26/24
-
Pending Results: No
Hospital Course
Discharging Physician : Dr. Maliha Frazier
Disposition : Home with VN
Primary care physician : Dr. Shukri Che
Principal Discharge diagnosis : Hypercalcemia, toxic metabolic encephalopathy secondary to hypercalemia
Hospital Course :
Mr. Carmelina Engel is a 88 yo man with hx metastatic prostate CA to bone, essential HTN, HLD, CKD III, HFrEF, hypercalcemia, anemia s/p recent transfusion in the ER who presents to the ER for generalized weakness and confusion.
Triage vitals stable. Labs with pancytopenia (WBC 3.9, Hg 7.6, PLT 91), Ca 14.9, creatinine 1.7. He was admitted to medicine with Nephrology and Oncology consulting for treatment of TME 2/2 hypercalcemia and KAVEH. He received IV Pamidronate, IVF
resuscitation and IM Calcitonin. He also received two doses of IV lasix. Calcium improved to 10.1 on day of discharge. His mentation improved. He will follow up as outpatient with Dr. Rios to discuss Xgeva therapy.
Patient was constipated during hospitalization and treated with bowel regimen.
He worked with PT, home health arranged on DC.
Time spent on discharge was 35 minutes.
Important imaging findings :
Procedure findings :
Discharge Plan
-
Patient Disposition: Home with Home Care
Discharge Diagnosis/Procedures: Hypercalcemia
Diet: 2 Gram Sodium and Restrict fluids to 48 oz
Activity: As tolerated
Driving Restrictions: No driving
Bathing Restrictions: None
Blood Work: BMP and Albumin on Saturday05/29/24
Other Services: VN, PT and OT
Specialty Instructions: Weigh Daily- Call MD for wt gain/loss 3 lbs overnight/5 lbs in 1 week
Referrals:
Rik Rios, DO [Active] - in one week
Shukri Che MD [Family Provider] - in less than 1 week
Additional Discharge Medication Instructions: Stop Meloxicam, as this can hurt the kidneys.
Take Miralax daily to help prevent constipation.
Prescriptions:
Continued
ferrous sulfate 325 mg (65 mg iron) Tablet
325 mg PO DAILY
prednisone 5 mg tablet
5 mg PO DAILY
oxycodone 15 mg tablet
15 mg PO Q6H
Changed
polyethylene glycol 3350 [HealthyLax] 17 gram Powder In Packet
17 g PO DAILY Qty: 30 0RF
Discontinued
meloxicam 15 mg tablet
15 mg PO DAILY
Discharge Orders:
Discharge Patient (As Directed); Ordered 05/26/24
Ordered By: Maliha Frazier
Discharge Date and Time
Print Language: OCCITAN
--- NOTE | 2024-05-26 15:09 | CM ---
Patient with Hx metastatic prostate CA with Dx anemia, pancytopenia, hypercalcemia. Room air. PT recommends HH.
Met with patient and spoke with son Rocky; both agree with discharge home today with resumption of [facility] for PT. Offered VN for nurse through [facility] and son declined. IMM completed. Son will provide transport home.
Spoke with [facility]; they will resume service for PT. They do not need a new order or referral.
Plan home today with resumption [facility], with family.
== END 2024-05-26 15:43 | disposition home or self-care (01) | DRG 722 ==
LOC: IMU 15:23
PROVIDERS: Emergency Medicine; Nurse Practitioner Family; ADMITTING PHYSICIAN Hospitalist; ATTENDING PHYSICIAN Student in an Organized Health Care Education/Training Program; CONSULT PHYSICIAN Internal Medicine Hematology & Oncology; CONSULT PHYSICIAN Specialist; EMERGENCY PHYSICIAN Student in an Organized Health Care Education/Training Program; FAMILY PHYSICIAN Family Medicine
PROC: 30233N1 Transfusion of Nonautologous Red Blood Cells into Peripheral Vein, Percutaneous Approach (ICD-10-PCS; 2024-05-22)
DX: C61 Malignant neoplasm of prostate (principal); G92.8 Other toxic encephalopathy; C79.51 Secondary malignant neoplasm of bone; N17.9 Acute kidney failure, unspecified; I50.22 Chronic systolic (congestive) heart failure; D61.818 Other pancytopenia; I13.0 Hypertensive heart and chronic kidney disease with heart failure and stage 1 through stage 4 chronic kidney disease, or unspecified chronic kidney disease; D64.9 Anemia, unspecified; E83.52 Hypercalcemia; N18.30 Chronic kidney disease, stage 3 unspecified; E78.5 Hyperlipidemia, unspecified; K59.00 Constipation, unspecified; E87.6 Hypokalemia; Z86.0100 Personal history of colon polyps, unspecified; Z90.49 Acquired absence of other specified parts of digestive tract; Z88.2 Allergy status to sulfonamides; Z88.8 Allergy status to other drugs, medicaments and biological substances; Z87.891 Personal history of nicotine dependence; Z90.79 Acquired absence of other genital organ(s)
CPT/HCPCS: 36430; 80048; 80053; 82308; 82330; 82652; 83735; 83970; 84100; 85025; 85027; 86850; 86900; 86901; 86920; 93005; 96360; 96361; 97162; 99285; J0630; J2430; P9016

== ENCOUNTER → 2024-05-29 15:10 | Outpatient (REF) | payer MEDICARE, SELFPAY ==
[2024-05-29 16:56] LABS: % Basophils 0.4 % (0-2); % Eosinophils 3.3 % (0-6); % Immature Granulocytes 8.1 % (0-0.5); % Lymphocytes 8.4 % (20.5-51.1); % Monocytes 8.1 % (1.7-9.3); % Neutrophils 71.7 % (42.2-75.2); Absolute Eosinophils 0.2 10^3/uL (0-0.7); Absolute Immature Granulocytes 0.4 10^3/uL (0-0.05); Absolute Lymphocytes 0.4 10^3/uL (1.2-3.4); Absolute Monocytes 0.4 10^3/uL (0.1-0.6); Absolute Neutrophils 3.3 10^3/uL (1.4-6.5); Hematocrit 23.1 % (39.0-52.0); Hemoglobin 7.7 g/dL (13.0-18.0); Mean Corp Hgb Conc. 33.3 g/dL (33.0-37.0); Mean Corpuscular Hgb 29.8 pg (27.0-31.0); Mean Corpuscular Volume 89.5 fL (80.0-94.0); Mean Platelet Volume 9.8 fL (7.4-10.4); Nucleated Red Blood Cells % 0 % (-); Platelet Count 88 10^3/uL (130-400); Red Blood Cell Count 2.58 10^6/uL (4.70-6.10); Red Cell Dist. Width 16.6 % (11.5-14.5); White Blood Cell Count 4.5 10^3/uL (4.8-10.8)
== END ==
LOC: REG 15:10
PROVIDERS: ATTENDING PHYSICIAN Family Medicine
DX: C79.51 Secondary malignant neoplasm of bone (principal); C61 Malignant neoplasm of prostate; D64.9 Anemia, unspecified
CPT/HCPCS: 36415; 85025

== ENCOUNTER → 2024-06-01 15:54 | Outpatient (REF) | payer MEDICARE, SELFPAY ==
[2024-06-01 17:10] LABS: ALT (SGPT) 51 U/L (0-50); AST (SGOT) 39 U/L (17-59); Albumin 4.1 g/dl (3.5-5.0); Alkaline Phosphatase 158 U/L (38-126); Blood Urea Nitrogen 25 mg/dl (9-20); Calcium 10.9 mg/dl (8.4-10.2); Carbon Dioxide 22 mmol/L (22-30); Chloride 101 mmol/L (98-107); Glucose 125 mg/dl (70-99); Potassium 3.9 mmol/L (3.5-5.1); Sodium 136 mmol/L (135-145); Total Bilirubin 0.8 mg/dl (0.2-1.3); Total Protein 5.8 g/dl (6.3-8.2)
[2024-06-01 17:32] LABS: Hematocrit 23.5 % (39.0-52.0); Hemoglobin 7.9 g/dL (13.0-18.0); Mean Corp Hgb Conc. 33.6 g/dL (33.0-37.0); Mean Corpuscular Hgb 29.8 pg (27.0-31.0); Mean Corpuscular Volume 88.7 fL (80.0-94.0); Mean Platelet Volume 9.4 fL (7.4-10.4); Platelet Count 121 10^3/uL (130-400); Red Blood Cell Count 2.65 10^6/uL (4.70-6.10); Red Cell Dist. Width 16.8 % (11.5-14.5); White Blood Cell Count 5.7 10^3/uL (4.8-10.8)
[2024-06-01 18:25] LABS: % Basophils 0.3 % (0-2); % Eosinophils 1.7 % (0-6); % Immature Granulocytes 11.3 % (0-0.5); % Lymphocytes 7.5 % (20.5-51.1); % Monocytes 10.1 % (1.7-9.3); % Neutrophils 69.1 % (42.2-75.2); Absolute Eosinophils 0.1 10^3/uL (0-0.7); Absolute Immature Granulocytes 0.7 10^3/uL (0-0.05); Absolute Lymphocytes 0.4 10^3/uL (1.2-3.4); Absolute Monocytes 0.6 10^3/uL (0.1-0.6); Nucleated Red Blood Cells % 0.3 % (-)
== END ==
LOC: REG 15:54
PROVIDERS: ATTENDING PHYSICIAN Family Medicine
DX: D64.9 Anemia, unspecified (principal); E83.52 Hypercalcemia
CPT/HCPCS: 36415; 80053; 85025

== ENCOUNTER 2024-06-24 19:00 | Inpatient (IN) | payer MEDICARE, SELFPAY ==
[2024-06-24] VITALS (10 sets, daily range): BP systolic 110–132; BP diastolic 54–70; BMI 23.7; BMI 23.3
[2024-06-24 14:40] LABS: % Basophils 0.4 % (0-2); % Eosinophils 1.5 % (0-6); % Immature Granulocytes 8.7 % (0-0.5); % Lymphocytes 8.3 % (20.5-51.1); % Monocytes 8.8 % (1.7-9.3); % Neutrophils 72.3 % (42.2-75.2); Absolute Eosinophils 0.1 10^3/uL (0-0.7); Absolute Immature Granulocytes 0.5 10^3/uL (0-0.05); Absolute Lymphocytes 0.5 10^3/uL (1.2-3.4); Absolute Monocytes 0.5 10^3/uL (0.1-0.6); Absolute Neutrophils 3.9 10^3/uL (1.4-6.5); Hematocrit 20.8 % (39.0-52.0); Hemoglobin 6.7 g/dL (13.0-18.0); Mean Corp Hgb Conc. 32.2 g/dL (33.0-37.0); Mean Corpuscular Hgb 30.3 pg (27.0-31.0); Mean Corpuscular Volume 94.1 fL (80.0-94.0); Mean Platelet Volume 9.1 fL (7.4-10.4); Nucleated Red Blood Cells % 0.4 % (-); Platelet Count 125 10^3/uL (130-400); Red Blood Cell Count 2.21 10^6/uL (4.70-6.10); Red Cell Dist. Width 20.1 % (11.5-14.5); White Blood Cell Count 5.4 10^3/uL (4.8-10.8)
[2024-06-24 14:51] LABS: ALT (SGPT) 24 U/L (0-50); AST (SGOT) 28 U/L (17-59); Albumin 3.8 g/dl (3.5-5.0); Alkaline Phosphatase 109 U/L (38-126); Blood Urea Nitrogen 37 mg/dl (9-20); Calcium 9.1 mg/dl (8.4-10.2); Carbon Dioxide 21 mmol/L (22-30); Chloride 109 mmol/L (98-107); Glucose 173 mg/dl (70-99); Potassium 4.6 mmol/L (3.5-5.1); Sodium 137 mmol/L (135-145); Total Bilirubin 0.7 mg/dl (0.2-1.3); Total Protein 5.6 g/dl (6.3-8.2); eGFR 58.89
[2024-06-24 15:05] LABS: NT-proBNP 25800 pg/ml; Troponin I 0.045 ng/ml
--- NOTE | 2024-06-24 15:18 | ED.GENMED ---
History of Present Illness
General
Chief Complaint: Breathing Problem
Source: patient and family
Exam Limitations: none
Time Seen by Provider: 06/24/24 14:50
History of Present Illness
History of Present Illness:
Patient is an 88-year-old male with history of hypertension, prostate cancer, anemia presenting to the emergency department w/ son for evaluation of worsening shortness of breath and lower extremity swelling. Patient states noticing worsening
shortness of breath over the past week both at rest, lying flat, and with exertion. Today he had some mild chest pressure in his mid chest. He also notices worsening swelling in his bilateral lower legs which have not seem to resolve with leg
elevation. He also reports vague abdominal pain today. Patient denies any fever, chills, or cough. No dysuria.
He denies any blood in stool however�does note dark stool which is suspected to be secondary to iron supplements
Patient follows with [facility] for prostate cancer. He is not currently undergoing treatment given ongoing anemia.
Review of Systems
Review of Systems
Allergies reviewed?: Yes
All Other Systems: ROS reviewed and negative except as documented in HPI and ROS
Phy Exam
Physical Exam
Physical Exam:
Vitals: Patient's vital signs are stable. Afebrile
General: Patient is in no acute distress.
Skin: Pale appearing.
Head: Normocephalic, atraumatic
Eyes: Sclera nonicteric. EOMs intact. No nystagmus.
Throat: Protecting airway
Neck: Normal ROM, no cervical spine tenderness, no meningismus
Cardiac: Regular rate and rhythm, no murmurs.
Pulm: No apparent respiratory distress. Decreased breath sounds at bases with rales
Abdomen: Mild distention. Diffuse tenderness without rebound tenderness or guarding. Minor ecchymosis noted to central abdomen.
Rectal: Dark brown stool in vault; guaiac negative
Extremities: 2+ pitting edema bilateral lower extremities.
Neuro: AAOx3. Grossly intact.
Psychiatric: Normal affect.
Scores
Heart Failure Risk
Heart Failure Risk Score: Yes
History of Stroke or TIA: No
History of intubation for respiratory distress: No
Heart rate on ED arrival >/= 110: No
SaO2 <90% on arrival on room air: No
HR >/=110 during 3min walk test (or too ill to perform test): No
ECG has acute ischemic changes: Yes
Urea >/=12mmol/L (BUN 33.6mg/dL): Yes
Serum CO2>/=35mmol/L: No
Troponin I or T elevated to IN Level (0.4mg/dL): No
NT-proBNP >/=5,000ng/L (5,000pg/ml): Yes
HF Risk Score: 4
Admission Status: HIGH RISK 26.1% Consider SNF treatment or admission to hospital
Course
Orders/Labs/Results
Orders:
Orders
06/24/24 Breakfast
Cholesterol Lowering
At Your Request: Full Participation
Cholesterol Lowering: Sodium, 2 Gram
06/24/24 14:19
Electrocardiogram (*1) Urgent
Reason for Study: Shortness of Breath
EKG- Treatment ONCE
CR Chest - 2 Views Urgent
Comment:
Reason For Exam: SOB
06/24/24 14:22
Complete Blood Count/With Diff Urgent
Comprehensive Metabolic Panel Urgent
NT-proBNP Urgent
Troponin I Urgent
06/24/24 15:16
Cardiac Monitoring- Treatment ONCE
06/24/24 15:32
Furosemide [Lasix] 40 mg IV NOW STA
06/24/24 15:47
CT Abd/Pel (IV only)-DH only Urgent
Comment:
Reason For Exam: Diffuse abdominal pain, ecchymosis, anemia
06/24/24 16:36
Type+Screen Urgent
06/24/24 17:25
Electrocardiogram (*1) Urgent
Reason for Study: Shortness of Breath
EKG- Treatment ONCE
Troponin I Urgent
06/24/24 18:00
Blood Bank Products [* Blood Bank Products] Routine
Blood Bank Products: *Packed RBC Leuko(PRBC's)
Quantity: 1
Transfuse Today: Yes
Reason: Anemia
06/24/24 18:20
Admit/Transfer Patient As Directed
Co-Sign Provider:
Level of Care: Inpatient admission
Assign to:: Telemetry
Physician / Group: Dipesh
Diagnosis: CHF
Reason for Telemetry: Subacute Heart Failure
Date to Stop Telemetry: 06/26/24
Time to Stop Telemetry: 11:00
Reason for Hospitalization: CHF
Expected length of stay greater than two midnights?: Yes
ELOS- Estimated Length of Stay in days: 3
I certify the patient meets the requirements for IP care: Yes
PRN Pain Medication Management As Directed
May give lesser potent ordered pain med per pt: Yes
preference::
Protocol:: Medication orders for pain may be administered in a
manner that supports deferring to patient preference
when the pt is:
- Requesting an ordered lesser potent pain medication.
Least to most potent pain medications are defined
as: acetaminophen < NSAID < tramadol < opioids
(morphine, oxycodone, hydromorphone).
- Requesting a lesser dose of the same medication IF
ORDERED.
- Requesting a less intrusive route of administration
if both routes are prescribed by the provider (PO <
IV).
06/24/24 18:21
Code Status As Directed
Resuscitation Status: Do not resuscitate
Reached after discussion with pt or family/Healthcare POA: Yes
06/24/24 18:22
DNR Bracelet Application ONCE
06/24/24 18:25
Aspirin 325 mg PO NOW STA
06/24/24 20:00
Oxycodone [Roxicodone] 15 mg PO Q5H
06/24/24 20:25
Docusate W/Senna [Senokot-S] 1 tablet PO BID
06/24/24 20:25
Echo 2D MMode Color/Doppler Routine
Reason for Study: heart failure
CARDIOLOGY CONSULT Routine
Consulting Provider: Robel Corado
Was physician already notified: Yes
Reason for consult: CHF
HF DIETARY CONSULT Routine
HF EDUCATOR CONSULT Routine
Comment:
PALLIATIVE CARE CONSULT Routine
Consulting Provider: Radha Barnes
Was physician already notified: Yes
Activity As Directed
Activity Level: Out of Bed-Early Mobility
Intake/ Output As Directed
Frequency: Per unit guidelines
Patient Education As Directed
Type: CHF folder
Comment: give on admission. Document in Interdisciplinary Education record
Pneumatic Compression Sleeves As Directed
Type: Knee high
Sleep Apnea Assessment by RN As Directed
Comment:
Physician Instructions:
Vital Signs As Directed
Frequency: Other
Additional Instructions:: Q12 or per unit guidelines if more frequent.
Weight As Directed
Frequency: Daily
Type of Scale: Standing Scale
Comment: Daily morning weight. If unable to stand, use balanced bed scale.
Weight As Directed
Frequency: Once
Type of Scale: Standing Scale
Comment: Upon Admission. If unable to stand, use balanced bed scale.
Pulse Ox/cont/shift [RESP] Routine
Quantity: 1
Special Instructions: Daily pulse oximetry at rest. If greater than 92% at rest also obtain pulse oximetry
while ambulating as tolerated.
DX Deep Vein Thrombosis Video Routine
06/24/24 22:16
Troponin I Q8H
06/25/24 06:00
Electrocardiogram (*1) IN AM
Reason for Study: Other
Other Reason for Exam: heart failure
Complete Blood Count/With Diff IN AM
Comprehensive Metabolic Panel IN AM
TSH Reflex To Free T4 IN AM
Troponin I Q8H
06/25/24 08:00
Aspirin Low Dose EC [Aspir Low (Enteric Coated)] 81 mg PO DAILY
Dexamethasone [Decadron] 2 mg PO DAILY
Ferrous Sulfate [Feosol] 325 mg PO DAILY
Furosemide [Lasix] 40 mg IV DAILY
Polyethylene Glycol Powder [Miralax] 17 grams PO DAILY
06/26/24 11:00
DC Protocol for Telemetry ONCE
Abnormal Lab Results
06/24/24 06/24/24 06/24/24
14:22 16:36 17:25
RBC 2.21 L 10^6/uL
(4.70-6.10)
Hgb 6.7 L* g/dL
(13.0-18.0)
Hct 20.8 L* %
(39.0-52.0)
MCV 94.1 H fL
(80.0-94.0)
MCHC 32.2 L g/dL
(33.0-37.0)
RDW 20.1 H %
(11.5-14.5)
Plt Count 125 L 10^3/uL
(130-400)
Abs Immat Gran (auto) 0.5 H 10^3/uL
(0-0.05)
Absolute Lymphs (auto) 0.5 L 10^3/uL
(1.2-3.4)
Immature Gran % 8.7 H %
(0-0.5)
Lymphocytes % 8.3 L %
(20.5-51.1)
Chloride 109 H mmol/L
(98-107)
Carbon Dioxide 21 L mmol/L
(22-30)
BUN 37 H mg/dl
(9-20)
Glucose 173 H mg/dl
(70-99)
Troponin I 0.045 H* ng/ml 0.048 H* ng/ml
Total Protein 5.6 L g/dl
(6.3-8.2)
Crossmatch IS Only See Detail
06/24/24 14:22
06/24/24 14:22
Vital Signs
Initial and Last Documented VS:
Initial Vital Signs
Temp Pulse Resp BP Pulse Ox
98.2 F 84 20 120/64 97
06/24/24 14:17 06/24/24 14:17 06/24/24 14:17 06/24/24 14:17 06/24/24 14:17
Last Documented Vital Signs
Temp Pulse Resp BP Pulse Ox
97.9 F 87 17 137/60 95
06/25/24 00:27 06/25/24 01:41 06/25/24 00:27 06/25/24 01:41 06/25/24 00:27
MDM/Problems Addressed
Differential Diagnosis Includes:
Not limited to: Symptomatic anemia, congestive heart failure, acute coronary syndrome, bronchitis, pneumonia, metastatic disease, etc.
MDM/Problems Addressed:
88-year-old male with history as documented presenting to the emergency department with one week of worsening shortness of breath, fatigue, and lower extremity edema. No chest pain. He does note generalized abdominal discomfort, although denies any
fevers or vomiting. Patient has stable vital signs. Physical exam as above.
Differential broad. Patient clinically fluid overloaded on exam. In conjunction with presenting symptoms � concern that this may be an acute CHF exacerbation. Will obtain lab work, cardiac enzymes, chest x-ray. Will check CT scan abdomen/pelvis
given abdominal pain.
Update: labs reviewed. Acute on chronic anemia noted with hemoglobin of 6.7. Chemistry without clinically significant abnormalities. ProBNP > 25,000 with troponin elevation likely secondary to demand ischemia. Chest x-ray shows finding suggestive of
CHF. CT scan without acute findings.
Overall impression is likely acute CHF exacerbation as well as acute on chronic anemia. Likely both contributing to patients exertional dyspnea. Signed blood consent obtained however, given clinical evidence of fluid overload on exam will hold blood
transfusion for now. Will give IV Lasix. Patient will require admission to the hospital for careful fluid balance, including diuresis as well as possible blood transfusion. Patient accepted to hospitalist service in stable condition.
Chronic conditions affecting care:
Congestive heart failure, anemia
Acute Exacerbation and/or Progression of Chronic Illness:
Acute CHF exacerbation, acute on chronic anemia
*Radiology
Radiology exam reviewed: preliminary read by ED provider (CXR reviewed by me - pulmonary edema) and radiology read reviewed
*Pulse Oximetry
Patient hypoxic: no
*EKG
Interpreted by ED Provider?: Yes
EKG Intrepretation Date: 06/24/24
Interpretation: abnormal
Comparison EKG: changes noted
Heart Rate: 81
Rate: normal
Rhythm: sinus
[place]: normal axis
Interval: normal QT interval
QRS Pattern: left vent hypertrophy
Ischemia: T-wave inversion (t wave inversions in lateral leads)
*Cafeteria Supervisor Interpretation
Rate: normal
Interpretation: normal
Heart Rate: 84
Rhythm: sinus
*Critical Care Note
Total Time (30-74mins, 75-104mins- exclusive of procedures): Not Applicable
Data Reviewed
Review of Other/Old Records Reveals: Labs (labs 06/01/24 - hgb 7.9)
Source: previous hospital records
Patient Management
Discussion with other providers: Hospitalist
Escalation/DeEscalation of care consider admission/obs:
Admit indicated for acute CHF exacerbation, acute on chronic anemia
ED Attending Note
-
Portions of this chart may have been created with voice recognition software.� Occasional wrong word or��sound alike� substitutions may have occurred due to the inherent limitations of voice recognition software.
Discharge Plan
Departure
Patient Disposition: Admit
Date of Disposition: 06/24/24
Time of Disposition: 17:19
Presentation/result/management discussed w/ accepting MD/DO: Hospitalist
Discharge Problem:
Acute on chronic anemia, Acute exacerbation of CHF (congestive heart failure), Elevated troponin I level
Interventions
Interventions:
*Risk Screen - Suicide Last Done: 06/24/24 19:54
*General Assessment Last Done: 06/24/24 14:17
*Neglect/Abuse Screening Last Done: 06/24/24 20:14
*ED- Fall Risk Assessment Last Done: 06/24/24 20:14
*ED COVID-19 Vaccine History Last Done: 06/24/24 19:54
*Nursing Disposition Last Done: 06/24/24 20:14
ED- Cardiac Assessment Last Done: 06/24/24 15:57
ED- Pulmonary Assessment Last Done: 06/24/24 15:57
Discharge Date and Time
Discharge Date/Time: 06/24/24 20:15
[2024-06-24] MEDS: LASIX 40 MG IV (16:35)
[2024-06-24 18:01] LABS: Troponin I 0.048 ng/ml
--- NOTE | 2024-06-24 18:26 | HPS.HSE ---
Family Physician
-
Family Physician: Shukri Che
Chief Complaint
-
SOB
History of Present Illness
88yo M with hormone resistant metastatic prostate CA complicated by recurrent hypercalcemia on q3m denosumab, recurent ANS, constipation, HFrEF of 20-25%, not on diuretics 2/2 Hx of hypovolemia, pancytopenia, currently with palliative care as
outpatient was brought by his son with worsening ambulatory status, orthopnea and dyspnea on excertion with b/l LE swelling that he noticed to start worsen 1 week ago. Patient at this point considered not a candidate for CA treatment due to poor
functional capacity as per son. Family goal is to focus on comfort care with non-invasive approach, however art this point he would like to try medical mgmt. As per son - he was not aware about need in Lasix PRN and diagnosis of CHF
Also complained about recurrent chest pain at rest, poorly described, not present during this assessment
Medical History
Past Medical History
Past Medical History: Reports Other
Additional Past Medical History:
See HPI
Past Surgical History: Reports Other
Additional Past Surgical History:
See HPI
Social History
Unable to obtain full social history at this time due to: Dementia
Tobacco: Former Smoker
Alcohol: None
Drug: None
Family History
Family History: Not pertinent
Allergies / Home Medications
Allergies reflects when Allergies were last updated in [employer].
Home Medications with original date entered in [employer]
Allergy/Medication List:
Allergies
Allergy/AdvReac Type Severity Reaction Status Date / Time
lisinopril Allergy Unknown Verified 06/24/24 14:17
Sulfa (Sulfonamide Allergy Unknown Verified 06/24/24 14:17
Antibiotics)
Home Medications
ferrous sulfate 325 mg (65 mg iron) tablet 325 mg PO DAILY Supplement 12/19/23
oxycodone 15 mg tablet 15 mg PO Q5H Pain 05/22/24
cyanocobalamin (vitamin B-12) 1,000 mcg tablet 1,000 mcg PO DAILY 06/24/24
dexamethasone 2 mg tablet 2 mg PO DAILY 06/24/24
folic acid 1 mg tablet 1 mg PO DAILY 06/24/24
polyethylene glycol 3350 17 gram oral powder packet (HealthyLax) 17 g PO DAILYPRN PRN constipation 06/24/24
Review of Systems
-
History Source: Patient and Family
A 12 point ROS was completed and negative except as noted: Yes
Respiratory: Reports Trouble Breathing
Cardiac: Reports Chest Pain
Physical Exam
Vital Signs
Vital Signs
Temp Pulse Resp BP Pulse Ox
98.2 F 83 19 130/60 94
06/24/24 14:17 06/24/24 18:00 06/24/24 18:00 06/24/24 18:00 06/24/24 18:00
Physical Exam
General: No Apparent Distress, Comfortable, Conversant and Cachectic
HEENT: NormoCephalic and Moist mucous membranes; No Chassell Conjunctivae
Respiratory: Crackles; No Wheezes or Rales
Cardiac: Regular Rhythm and Murmur (midsystolic)
GI: Non Tender, Normal Bowel Sounds and Distended
Genito-urinary: Clear Urine
Musculoskeletal: No Clubbing, No Cyanosis, Edema, Left Lower Extremity and Edema, Right Lower Extremity
Neuro: Awake, Alert, Oriented and AO x 3
Psych: Calm and Apparent Dementia
Laboratory Results
-
06/24/24 14:22
06/24/24 14:22
Laboratory Results
Total Bilirubin 0.7 mg/dl (0.2-1.3) 06/24/24 14:22
AST 28 U/L (17-59) 06/24/24 14:22
ALT 24 U/L (0-50) 06/24/24 14:22
Alkaline Phosphatase 109 U/L (38-126) 06/24/24 14:22
Troponin I 0.048 ng/ml H* 06/24/24 17:25
Data Reviewed
-
Diagnostic Radiology: Report Reviewed by me
CT Scan: Report Reviewed by me
Lab Data: Labs Reviewed by me
Impression/Plan
-
A/P:
#Acute on chronic HFrEF exacerbation
#Mild troponin elevation, most likely 2/2 CHF
#Chest pain, atypical
#Bilateral pleural effusions
Previous Echo with possibility of Takotsubo, moderate MR and
Not hypoxic, without current chest pain
XR with findings that favor pulmonary edema in current clinical context, no concern for infectious etiology
Lasix, daily weight, repeat Echo, follow I&O and electrolytes with kidney function
Cardio consult
EKG with 1st degree AV block, hypertrophy
#Pancytopenia
#JEFFERY
no overt bleeding
cont iron
2/2 CA
Keep Hgb>7, plt>20k
CBC and transfuse as needed
1unit PRBC ordered in ED
#Constipation
laxatives
SBFT if not resolving
#RML pulmonary nodule
#Prostate CA, metastatic with multiple bone mets
#Colonic mass
with palliative and non-invasive approach and patient with significantly limited life expectancy - son declined further workup at this time with colonoscopy
Palliative care upon d/c
cont Oxycodone, dexamethasone
#Ambulatory deficiency
PT/OT
DVT ppx on SCDs
DNR/DNI after detailed conversation with son
I have spent at least 78min reviewing chart, test results, communication with consultants and providing direct patient care
[2024-06-24] MEDS: ASPIRIN 325 MG PO (18:51)
[2024-06-24] MEDS: ROXICODONE 15 MG PO (20:39)
[2024-06-24] MEDS: SENOKOT-S 1 TABLET PO (20:39)
--- NOTE | 2024-06-24 21:13 | PTCARENOTE ---
Pt arrived from ED to [address] [facility] via stretcher. Pt able to ambulate into bed 336-2 with staff assistance. Pt oriented to unit, able to make needs known, call castro within reach. Care ongoing.
[2024-06-24 22:53] LABS: Troponin I 0.054 ng/ml
[2024-06-25] VITALS (8 sets, daily range): BP systolic 115–146; BP diastolic 47–80; PULSE 81; O2SAT 95; BMI 23.0
[2024-06-25] MEDS: ROXICODONE 15 MG PO ×5 (00:05→20:02)
--- NOTE | 2024-06-25 01:35 | PTCARENOTE ---
Pt c/o SOB, felt like he can't catch his breath. Pt stated 'this is why I came in, it feels like someone is sitting on me and breathing for me.' Lungs clear, MURRELL. BP 137/60, HR 80, 95% RA. DESTINY Kolb notified. STAT order in for lasix. Lasix
given to pt. Will continue to monitor.
[2024-06-25] MEDS: LASIX 40 MG IV ×3 (01:41→15:18)
--- NOTE | 2024-06-25 03:38 | W.PN.UPDATE ---
Update Note
Progress Note Update
~0130 RN reached out regarding pts complaints of SOB and chest tightness. He had just finished 1 unit of PRBCs roughly 1 hr prior. Lungs are clear- BP 137/80 HR 80 SPO2-95% RA. 40 mg IV Lasix ordered.
[2024-06-25 06:17] LABS: Hematocrit 22.2 % (39.0-52.0); Hemoglobin 7.3 g/dL (13.0-18.0); Mean Corp Hgb Conc. 32.9 g/dL (33.0-37.0); Mean Corpuscular Hgb 29.9 pg (27.0-31.0); Mean Platelet Volume 8.1 fL (7.4-10.4); Platelet Count 108 10^3/uL (130-400); Red Blood Cell Count 2.44 10^6/uL (4.70-6.10); Red Cell Dist. Width 19.8 % (11.5-14.5); White Blood Cell Count 5.6 10^3/uL (4.8-10.8)
[2024-06-25 06:59] LABS: Troponin I 0.061 ng/ml
[2024-06-25 07:01] LABS: Absolute Neutrophils -Man Diff 4.9 10^3/uL (1.4-6.5); Band Neutrophils 1 % (0-3); Eosinophils 1 % (0-6); Lymphocytes 6 % (20-51); Macrocytosis 1+; Metamyelocytes 1 % (-); Monocytes 0 % (2-9); Myelocytes 4 % (-); Normal RBC Morphology No; Platelets Checked Yes; Segmented Neutrophils 87 % (42-75); Total Cells Counted 100
[2024-06-25 07:13] LABS: ALT (SGPT) 21 U/L (0-50); AST (SGOT) 25 U/L (17-59); Albumin 3.3 g/dl (3.5-5.0); Alkaline Phosphatase 109 U/L (38-126); Blood Urea Nitrogen 35 mg/dl (9-20); Calcium 8.9 mg/dl (8.4-10.2); Carbon Dioxide 22 mmol/L (22-30); Chloride 108 mmol/L (98-107); Estimated Creatinine Clearance 39 ml/min; Glucose 163 mg/dl (70-99); Potassium 4.2 mmol/L (3.5-5.1); Sodium 138 mmol/L (135-145); Total Bilirubin 0.9 mg/dl (0.2-1.3); Total Protein 5.5 g/dl (6.3-8.2); eGFR 48.95
--- NOTE | 2024-06-25 07:21 | PTCARENOTE ---
Troponin result increased from 0.054 to 0.061. No complaints of chest pain. 0600 ECG to be obtained. made aware.
--- NOTE | 2024-06-25 08:04 | CON.CAR ---
Addendum entered and electronically signed by Betty Ruano MD 06/25/24 09:54:
I saw and examined the patient.
The SADDLE T[employer] STITCHER's note was reviewed and I agree with the note.
Comment: 88 y/o male with history of HFrEF, Moderate MR and , mild to moderate AR, metastatic prostate cancer, hypertension, hypercalcemia, CKD3b per OP chart, and AOCD. He presents with SOB, le edema and abd discomfort. He is a difficult
historian. He is feeling a bit better. Denies any decreased appetite except at times, he weighs often but not daily. On exam he has s1s2, 2/6 crescendo decrescendo murmur, lungs cta, tenderess in the RUQ of abdomen. LE 2+ pitting edema. CXR wtih
pulm edema and effusion, ecg nsr with IVCD and LVH with strain. He is clearly in decompensated Heart failure, reduced ejection fraction. Will continue with IV diuresis with intensive monitoring. Will update his echo. He did not follow-up in our
office. He does not take any GDMT. Will try to lay her on some, however in the past renal function has limited efforts. His valvular heart disease will be assessed with echo. Source of decompensation is noncompliance with heart failure care and
progressive anemia. Troponin elevation consistent with nonischemic myocardial injury in the setting of acute heart failure exacerbation and anemia. He also complains of right upper quadrant pain and tenderness. Will defer to hospitalist. I did
update them as to this finding on exam. Will monitor his blood pressure. We are adding beta-shaggy. Will monitor his CKD with diuresis.
Will follow.
Original Note:
Consultation
Consultation Request
Date/Time Consultation Requested: 06/24/242024
Date/Time Consultation Performed: 06/25/24817
Requesting Provider: Dr. Landon
Performing Provider: Estrella DIXON for Dr. Ruano
Reason for Consultation: CHF
Medical History
-
Chief Complaint: SOB
History of Present Illness:
88 y/o male with history of HFrEF, Moderate MR and , mild to moderate AR, metastatic prostate cancer, hypertension, hypercalcemia, CKD3b per OP chart, anemia who is here for SOB x 1 week and we are consulted for CHF. There has also been abdominal
bloating with some discomfort and LE edema. No CP. SOB worse with laying. Denies weight gain. 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 He was sent home with PRN lasix, but has
not been on that. Of note, per OP notes, palliative care has been involved as OP. Hgb 6.7 on arrival and he is s/p 1 unit PRBC. He has received IV lasix. He is feeling improved here. He is in no distress at the time of my assessment.
Past Medical History
Past Medical History: Cancer, CHF, HTN, Valvular Disease and Other (as above)
Social History
Tobacco: Former Smoker
Family History
Family History: Reviewed & Not Pertinent
Allergies / Home Medications
Allergy/AdvReac Type Severity Reaction Status Date / Time
lisinopril Allergy Unknown Verified 06/24/24 14:17
Sulfa (Sulfonamide Allergy Unknown Verified 06/24/24 14:17
Antibiotics)
�Medication �Instructions �Recorded �Confirmed �Type
ferrous sulfate 325 mg (65 mg 325 mg PO DAILY Supplement 12/19/23 06/24/24 History
iron) tablet
oxycodone 15 mg tablet 15 mg PO Q5H Pain 05/22/24 06/24/24 History
cyanocobalamin (vitamin B-12) 1,000 mcg PO DAILY 06/24/24 06/24/24 History
1,000 mcg tablet
dexamethasone 2 mg tablet 2 mg PO DAILY 06/24/24 06/24/24 History
folic acid 1 mg tablet 1 mg PO DAILY 06/24/24 06/24/24 History
polyethylene glycol 3350 17 gram 17 g PO DAILYPRN PRN constipation 06/24/24 06/24/24 History
oral powder packet (HealthyLax)
Review of Systems
-
History Source: Patient
All other systems: Negative unless noted
Respiratory: Trouble Breathing
Musculoskeletal: Edema
Physical Exam
Vital Signs
Temp Pulse Resp BP Pulse Ox
97.7 F 96 17 140/66 95
06/25/24 07:51 06/25/24 07:51 06/25/24 07:51 06/25/24 07:51 06/25/24 07:51
Lab Results
06/25/24 05:51
06/25/24 05:51
Troponin I 0.061 ng/ml H* 06/25/24 05:51
Zdr-L-Zpbatfgruht Pept 98510 pg/ml 06/24/24 14:22
Physical Exam
General: Well Developed, Well Nourished and No Apparent Distress
HEENT: Normocephalic and Anicteric
Respiratory: Crackles (mild BL bases)
Cardiac: Regular Rhythm, Murmur (III/ systolic murmur) and Peripheral Edema (BLE edema)
Skin: Warm and Dry
Neuro: Awake, Alert and Oriented
Psych: Calm
Impression / Plan
-
Otgri-nx-jjxudcu HFrEF:
-echo ordered. 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 GDMT has been limited by variable renal function with KAVEH. Will add BB- he has HR and BP room.
-agree with IV lasix, which requires intensive monitoring- increase to BID
Valvular disease:
-moderate MR, , mild to moderate AR
-updating echo
-volume plan as above
Abnormal troponin:
-denies CP
-suspect acute non-ischemic myocardial injury in setting of anemia and CHF
Anemia:
-dgule-sx-gmriidr
-s/p PRBC administration
-management per primary
Data Reviewed
-
EKG: Tracing Personally Visualized and interpreted (SR with 1st degree AVB, LVH)
Radiology: Report Reviewed by me (CAR: Diffuse interstitial opacification with right greater than left small bilateral pleural effusions and bibasilar opacities. Findings may represent pulmonary edema or multifocal pneumonia.)
Medical Tests (Nuc Med, Echo etc): Report Reviewed by me ( Echo 12/04/20: EF 20-25%. In some views, the basal segments appear to be less hypokinetic, raising suspicion for Takutsubo. Stage I DD. Moderate mitral regurgitation. Moderate aortic
stenosis (low flow, low gradient). Peak/mean gradients are 19/10mmHg. HOMAR 1.1 cmsq. Mild/moderate AR) and Other (darlene 2022: The EKG was negative for ischemia after Lexiscan administration. Myocardial perfusion imaging was normal. The calculated
LVEF was 38% with a mildly dilated LV and mild global hypokinesis. )
Labs: Labs Reviewed by me
[2024-06-25] MEDS: DECADRON 2 MG PO (08:23)
[2024-06-25] MEDS: SENOKOT-S 1 TABLET PO ×2 (08:23→20:02)
[2024-06-25] MEDS: MIRALAX 17 GRAMS PO (08:23)
[2024-06-25] MEDS: FEOSOL 325 MG PO (08:23)
[2024-06-25] MEDS: ASPIR LOW (ENTERIC COATED) 81 MG PO (08:23)
--- NOTE | 2024-06-25 10:10 | W.PN.HOSP.TC ---
Today's Communication/Plan
-
SBFT
US RUQ
cont diuresis
palliatve consult pending
PT/OT
Assessment / Plan
Assessment / Plan
88yo M with hormone resistant metastatic prostate CA complicated by recurrent hypercalcemia on q3m denosumab, recurent ANS, constipation, HFrEF of 20-25%, not on diuretics 2/2 Hx of hypovolemia, pancytopenia, currently with palliative care as
outpatient was brought by his son with worsening ambulatory status, orthopnea and dyspnea on excertion with b/l LE swelling managed for CHF
Also significant RUQ pain with heterogeneity of the inferior tip of the liver measuring roughly 9.0 x 2.1 x 4.4 cm, hepatomagally and mural mass of the probable proximal ascending colon
Palliative approach recommended
A/P:
#Acute on chronic HFrEF exacerbation
#Mild troponin elevation, most likely 2/2 CHF (non-ischemic myocardial injury as per cardiology)
#Bilateral pleural effusions
Previous Echo with possibility of Takotsubo, moderate MR and
Not hypoxic, without current chest pain
XR with findings that favor pulmonary edema in current clinical context, no concern for infectious etiology
Lasix, daily weight, repeat Echo, follow I&O and electrolytes with kidney function
Cardio consult
EKG with 1st degree AV block, hypertrophy
#RUQ pain
#Chronic Constipation
#heterogeneity of the inferior tip of the liver measuring roughly 9.0 x 2.1 x 4.4 cm,
#hepatomagally
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
pain mgmt
SBFT, laxatives
US RUQ reaonable
LFT WNL, no fever or leukocytosis - no concern for cholecystitis or choledocholitghiasis on CT
no hypronephrosis on CT
#Pancytopenia
#JEFFERY
no overt bleeding
cont iron
2/2 CA
Keep Hgb>7, plt>20k
CBC and transfuse as needed
1unit PRBC ordered in ED
#RML pulmonary nodule
#Prostate CA, metastatic with multiple bone mets
#Colonic mass
with palliative and non-invasive approach and patient with significantly limited life expectancy - son declined further workup at this time with colonoscopy
Palliative care upon d/c
cont Oxycodone, dexamethasone
#Ambulatory deficiency
PT/OT
DVT ppx on SCDs
DNR/DNI after detailed conversation with son
I have spent at least 58min reviewing chart, test results, communication with consultants and providing direct patient care
Anticipated Discharge: > 48 hours
Subjective/Interval History
-
Date of Service: June 25, 2024
Objective Data
-
Labs:
Laboratory Results
06/25/24
05:51
WBC 5.6
Hgb 7.3 L
Hct 22.2 L
Plt Count 108 L
Sodium 138
Potassium 4.2
Chloride 108 H
Carbon Dioxide 22
BUN 35 H
Creatinine 1.4 H
Glucose 163 H
Calcium 8.9
Total Bilirubin 0.9
AST 25
ALT 21
Alkaline Phosphatase 109
Vital Signs:
Vital Signs
Temp Pulse Resp BP Pulse Ox
97.7 F 96 17 140/66 95
06/25/24 07:51 06/25/24 08:23 06/25/24 07:51 06/25/24 08:23 06/25/24 07:51
I&O
06/24/24 06/25/24 06/26/24
06:59 06:59 06:59
Intake Total 250 / 250
Output Total 1300 / 1300
Balance -1050 / -1050
Review of Systems
-
History Source: Patient
All other systems: Reviewed and negative
Physical Exam
-
General: No Apparent Distress
HEENT: Normocephalic
Respiratory: Clear to Auscultation
Cardiac: Regular Rhythm
GI: Normal Bowel Sounds, Tender (RUQ) and Distended
Genito-urinary: No Costovertebral Tender
Musculoskeletal: No Clubbing, No Cyanosis, Edema, Right Lower Extrem and Edema, Left Lower Extrem
Skin: Warm
Neuro: Awake, Alert, Oriented and AO x 3
Psych: Calm
[2024-06-25] MEDS: TOPROL XL 25 MG PO (10:14)
[2024-06-25] MEDS: FLUSH (NSS) 2 FLUSH IV (15:19)
[2024-06-26] MEDS: ROXICODONE 15 MG PO ×4 (01:22→22:12)
[2024-06-26 03:00] VITALS: BP 119/65
[2024-06-26 05:44] LABS: Hematocrit 22.3 % (39.0-52.0); Hemoglobin 7.3 g/dL (13.0-18.0); Mean Corp Hgb Conc. 32.7 g/dL (33.0-37.0); Mean Corpuscular Hgb 29.9 pg (27.0-31.0); Mean Corpuscular Volume 91.4 fL (80.0-94.0); Mean Platelet Volume 8.9 fL (7.4-10.4); Platelet Count 128 10^3/uL (130-400); Red Blood Cell Count 2.44 10^6/uL (4.70-6.10); Red Cell Dist. Width 19.9 % (11.5-14.5); White Blood Cell Count 5.3 10^3/uL (4.8-10.8)
[2024-06-26 06:00] VITALS: BMI 22.6
[2024-06-26 06:01] LABS: ALT (SGPT) 20 U/L (0-50); AST (SGOT) 24 U/L (17-59); Albumin 3.5 g/dl (3.5-5.0); Alkaline Phosphatase 100 U/L (38-126); Blood Urea Nitrogen 37 mg/dl (9-20); Calcium 8.9 mg/dl (8.4-10.2); Carbon Dioxide 25 mmol/L (22-30); Chloride 107 mmol/L (98-107); Estimated Creatinine Clearance 36 ml/min; Glucose 145 mg/dl (70-99); Potassium 4.3 mmol/L (3.5-5.1); Sodium 139 mmol/L (135-145); Total Bilirubin 0.8 mg/dl (0.2-1.3); Total Protein 5.4 g/dl (6.3-8.2); eGFR 45.06
[2024-06-26 06:27] LABS: Absolute Neutrophils -Man Diff 4.2 10^3/uL (1.4-6.5); Band Neutrophils 5 % (0-3); Lymphocytes 13 % (20-51); Macrocytosis 2+; Metamyelocytes 2 % (-); Monocytes 2 % (2-9); Myelocytes 2 % (-); Normal RBC Morphology No; Platelets Checked Yes; Polychromasia 1+; Segmented Neutrophils 76 % (42-75)
[2024-06-26 06:28] LABS: Total Cells Counted 100
[2024-06-26 07:21] VITALS: BP 117/56
[2024-06-26 08:50] VITALS: BP 126/61; PULSE 82; O2SAT 96
[2024-06-26] MEDS: MIRALAX 17 GRAMS PO ×2 (08:55→16:11)
[2024-06-26] MEDS: SENOKOT-S 1 TABLET PO ×2 (08:56→16:11)
[2024-06-26] MEDS: TOPROL XL 25 MG PO (08:56)
[2024-06-26] MEDS: DECADRON 2 MG PO (08:56)
[2024-06-26] MEDS: ASPIR LOW (ENTERIC COATED) 81 MG PO (08:56)
[2024-06-26] MEDS: FEOSOL 325 MG PO (08:56)
[2024-06-26] MEDS: LASIX 40 MG IV (08:56)
--- NOTE | 2024-06-26 09:54 | W.CON.PAL ---
Consultation
-
Date/Time Consultation Requested: 06/25
Date/Time Consultation Performed: 06/26
Performing Provider: Radha DIXON
Reason for Consult: Goals of Care Discussion
Primary Diagnosis: metastatic prostate cancer, CHF exacerbation
Consult Requested By: Patient's Physician
Reason for Admission
Illness Course/HPI
88 year old M with metastatic prostate cancer, known to our team from outpatient. History of hyerCa of malignancy due to diffuse bone mets, currently maintained on zgeva. Admitted with MURRELL, found to have CHF exacerbation and admitted for diuresis
and further management. CT also with new R hepatic lobe lesion. New complaints of abdominal pain yesterday - NPO today for SBFT to r/o obstruction.
Seen at bedside this AM with no family present. Reports feeling 'so-so' and wanting to go home. Seen by PT who rec home but still receiving IV diuresis BID and NPO for SBFT today.
He is DNR/DNI but goals have always been treatment oriented with goal to manage calcium levels and get PT.
Pain & Symptom Assessment
[place] Symptom Scale 0=none, 10=worst
Pain: 4
Objective Data
-
Objective Data:
Vital Signs
Temp Pulse Resp BP Pulse Ox
98.3 F 74 16 117/56 96
06/26/24 07:21 06/26/24 08:56 06/26/24 07:21 06/26/24 08:56 06/26/24 07:21
Laboratory Results
06/26/24 05:14
06/26/24 05:14
Total Protein 5.4 g/dl (6.3-8.2) L 06/26/24 05:14
Albumin 3.5 g/dl (3.5-5.0) 06/26/24 05:14
Palliative Performance Scale
Palliative Performance Scale:
PPS Level Ambulation Activity & Evidence of Disease Self Care Intake Conscious Level
100% Full Normal Activity & Work; Full Intake Full
No Evidence of Disease
90% Full Normal Activity & Work; Full Normal Full
Some Evidence of Disease
80% Full Normal Activity with Effort Full Normal or Full
Some Evidence of Disease Reduced
70% Reduced Unable Normal Job/Work Full Normal or Full
Significant Disease Reduced
60% Reduced Unable Hobby/Housework Occasional Normal or Full or Confusion
Significant Disease Assistance Reduced
50% Mainly Sit/Lie Unable to do Any Work Considerable Normal or Full or Confusion
Extensive Disease Assistance Req'd Reduced
40% Mainly in Bed Unable to do Most Activity Mainly Assistance Normal or Full or Drowsy;
Extensive Disease Reduced +/- Confusion
30% Totally Bed Unable to do Any Activity Total Care Normal or Full or Drowsy;
Bound Extensive Disease Reduced +/- Confusion
20% Totally Bed Bound Unable to do Any Activity Total Care Minimal to Full or Drowsy;
Extensive Disease Sips +/- Confusion
10% Totally Bed Bound Unable to do Any Activity Total Care Mouth Care Drowsy or Coma;
Extensive Disease Only +/- Confusion
0%
PPS Score Level:
Palliative Performance Score Response
Palliative Performance Score Response: 50%
Physical Exam
-
General: Appears Chronically Ill
HEENT: Normocephalic
Respiratory: Decreased Breath Sounds
Cardiac: Regular Rhythm
Peripheral Vascular: Edema, Right Lower Extremity and Edema, Left Lower Extremity
GI: Soft and Tender
Neuro: Awake and Alert
Assessment / Plan
-
Assessment/Plan:
Known to team from outpatient. Will continue to follow after discharge.
- maintained on oxycodone 15mg PRN - continue
- touched base with son Rocky today- plan to get patient home with home care either today or tomorrow. Awaiting results of SBFT today.
- will continue to follow as an outpatient
Care Reviewed
Data Reviewed
Chest X ray: Image Reviewed
Echocardiogram: Image Reviewed
Radiology procedure: Image Reviewed
Reviewed with: Patient, Family and Physician
--- NOTE | 2024-06-26 10:39 | W.PN.CD ---
Today's Communication / Plan
-
Will use 71.6 kg as goal weight
Move to PO Lasix will try just 40 mg PO one time a day and follow weights
Can consider MRA/SGLT2-I especially if he follows up in the office
Will need BMP in about 1 week and HF f/u with us in 1 week
Impression / Plan
-
88 y/o male with history of HFrEF, Moderate MR and , mild to moderate AR, metastatic prostate cancer, hypertension, hypercalcemia, CKD3b per OP chart, and AOCD. He presents with SOB, le edema and abd discomfort. He is a difficult historian. He is
feeling a bit better. Denies any decreased appetite except at times, he weighs often but not daily. On exam he has s1s2, 2/6 crescendo decrescendo murmur, lungs cta, tenderess in the RUQ of abdomen. LE 2+ pitting edema. CXR wtih pulm edema and
effusion, ecg nsr with IVCD and LVH with strain. He is clearly in decompensated Heart failure, reduced ejection fraction. Will continue with IV diuresis with intensive monitoring. Will update his echo. He did not follow-up in our office. He does
not take any GDMT. Will try to lay her on some, however in the past renal function has limited efforts. His valvular heart disease will be assessed with echo. Source of decompensation is noncompliance with heart failure care and progressive
anemia. Troponin elevation consistent with nonischemic myocardial injury in the setting of acute heart failure exacerbation and anemia. He also complains of right upper quadrant pain and tenderness. Will defer to hospitalist. I did update them
as to this finding on exam. Will monitor his blood pressure. We are adding beta-shaggy. Will monitor his CKD with diuresis.
Ixcnz-xp-zhubxwk HFrEF => now HF improved EF
- He feels much better, eager for home!!
- Admit weight 75/73.6 kg and now on 06/26/2024 weight is 71.6 kg.
- Will use 71.6 kg as goal weight
- Had suspected takotsubo CM 11/2023 (EF 20-25% at that point)
- GDMT has been limited by variable renal function with KAVEH and no f.u in our office
- Has stage II diastolic dysfunction on echo
- IV Lasix 40 BID (5 doses) => move to PO Lasix will try just 40 mg PO and follow weights
- Metoprolol ER 25 a day
- Can consider MRA/SGLT2-I especially if he follows up in the office
Valvular disease: mild/moderate MR, mod , mild AR by echo 06/26/2024
Abnormal troponin form acute non-ischemic myocardial injury in setting of anemia and CHF
- Peak trop so far is 0.061, will check tomorrow
Anemia:
-dzuvt-du-evlhllc
-s/p PRBC administration
-management per primary
Subjective:
Echo 06/25/2024:
CONCLUSIONS
Left ventricle is mildly dilated. Left ventricular ejection fraction is 58% by
Glover's method.
Mild hypokinesis of the apex and mid anterolateral wall. Abnormal (paradoxical)
septal motion consistent with bundle branch block.
Stage II diastolic dysfunction suggestive of abnormal relaxation and increased
filling pressures.
Mild to moderate mitral regurgitation.
Moderate aortic stenosis. Mild aortic regurgitation.
Mild pulmonary hypertension.
Compared to the prior on 12/02/2023, systolic function has greatly improved
from 20 to 25% on the prior study to 58% on the current study. Small regional
wall motion abnormality is seen. Moderate mitral regurgitation has improved to
mild to moderate. Aortic valve findings are stable.
Physical Exam
Vital Signs/Labs
Vital Signs
Temp Pulse Resp BP Pulse Ox
98.3 F 74 16 117/56 96
06/26/24 07:21 06/26/24 08:56 06/26/24 07:21 06/26/24 08:56 06/26/24 07:21
06/25/24 06/26/2406/27/25
06:59 06:59 06:59
Actual Weight 72.847 kg 71.577 kg
06/26/24 05:14
06/26/24 05:14
06/24/24
14:22
Awu-A-Waqotgdqrii Pept 12997
LAB Results
06/24/24 06/24/24 06/24/24
14:22 17:25 22:16
Troponin I 0.045 H* 0.048 H* 0.054 H*
06/25/24
05:51
Troponin I 0.061 H*
Physical Exam
Constitutional: No acute distress
EENT: Anicteric
Cardiovascular: Rhythm & rate is regular and Pedal edema is absent
Respiratory: Respiratory effort normal and Lungs clear to auscul.
GI: Soft and Distention absent
Neuro/Psych: Alert
Data Reviewed
-
Date of Service: June 26, 2024
[2024-06-26 11:02] VITALS: BP 120/50
--- NOTE | 2024-06-26 12:41 | W.PN.HOSP.TC ---
Addendum entered and electronically signed by Orlando Landon MD 06/26/24 13:52:
Correction: contrast reaching ileocecal junction
No LBO on previous CT
Abd soft and minimally tender
Original Note:
Today's Communication/Plan
-
Feeling better
SBFT, if no obstruction - d/c
Assessment / Plan
Assessment / Plan
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
outpatient was brought by his son with worsening ambulatory status, orthopnea and dyspnea on excretion with b/l LE swelling managed for CHF
Also significant RUQ pain with heterogeneity of the inferior tip of the liver measuring roughly 9.0 x 2.1 x 4.4 cm, hepatomegaly and mural mass of the probable proximal ascending colon. That was discussed with patients Oncologist and
patients son advised to call to their office for appt to discuss mgmt. Needs more potent stool regimen due to ongoing constipation. Cardiology switched to oral LAsix and patient recommended to be d/c home as per PT/OT. Son is in agreement. Review of
SBFT images showed contrast reaching rectum.
Palliative approach recommended
A/P:
#Acute on chronic HFrEF exacerbation
#Mild troponin elevation, most likely 2/2 CHF (non-ischemic myocardial injury as per cardiology)
#Bilateral pleural effusions
Previous Echo with possibility of Takotsubo, moderate MR and
Not hypoxic, without current chest pain
XR with findings that favor pulmonary edema in current clinical context, no concern for infectious etiology
Lasix, daily weight, repeat Echo, follow I&O and electrolytes with kidney function
Cardio consult: daily lasix and outpatient follow up. BMP in 1 week upon D/C
EKG with 1st degree AV block, hypertrophy
#RUQ pain
#Chronic Constipation, most likely iatrogenic 2/2 opioids
#heterogeneity of the inferior tip of the liver measuring roughly 9.0 x 2.1 x 4.4 cm,
#hepatomegaly
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
Discussed with Oncologist - son to schedule appt next week to discuss options
pain mgmt
SBFT, laxatives
US RUQ reasonable
LFT WNL, no fever or leukocytosis - no concern for cholecystitis or choledocholithiasis on CT
no hydronephrosis on CT
#Pancytopenia
#JEFFERY
no overt bleeding
cont iron
2/2 CA
Keep Hgb>7, plt>20k
CBC and transfuse as needed
1unit PRBC ordered in ED
#RML pulmonary nodule
#Prostate CA, metastatic with multiple bone mets
#Colonic mass
with palliative and non-invasive approach and patient with significantly limited life expectancy - son declined further workup at this time with colonoscopy
Palliative care upon d/c
cont Oxycodone, dexamethasone
#Ambulatory deficiency
PT/OT
DVT ppx on SCDs
DNR/DNI after detailed conversation with son
I have spent at least 58min reviewing chart, test results, communication with consultants and providing direct patient care
Anticipated Discharge: Within 24 hours
Subjective/Interval History
-
Date of Service: June 26, 2024
Objective Data
-
Labs:
Laboratory Results
06/26/24
05:14
WBC 5.3
Hgb 7.3 L
Hct 22.3 L
Plt Count 128 L
Sodium 139
Potassium 4.3
Chloride 107
Carbon Dioxide 25
BUN 37 H
Creatinine 1.5 H
Glucose 145 H
Calcium 8.9
Total Bilirubin 0.8
AST 24
ALT 20
Alkaline Phosphatase 100
Vital Signs:
Vital Signs
Temp Pulse Resp BP Pulse Ox
97.8 F 74 17 120/50 96
06/26/24 11:02 06/26/24 11:02 06/26/24 11:02 06/26/24 11:02 06/26/24 11:02
I&O
06/25/24 06/26/24 06/27/24
06:59 06:59 06:59
Intake Total 250 / 250 450 / 450
Output Total 1300 / 1300 700 / 700
Balance -1050 / -1050 -250 / -250
Review of Systems
-
History Source: Patient
All other systems: Reviewed and negative
Abdomen/GI: Reports Constipated
Physical Exam
-
General: No Apparent Distress
Respiratory: Clear to Auscultation
Cardiac: Regular Rhythm
GI: Soft, Nontender and Nondistended
Musculoskeletal: No Clubbing, No Cyanosis, Edema, Right Lower Extrem and Edema, Left Lower Extrem
Neuro: Awake, Alert, Oriented and AO x 3
Psych: Calm
--- NOTE | 2024-06-26 12:55 | PTCARENOTE ---
Pt c/o constipation, no BM documented since the . made aware, new order provided, see MAR.
--- NOTE | 2024-06-26 12:56 | W.HF.CON ---
Heart Failure
- LV Function
Left ventricular function study result: LV Ejection fraction >/= 50%
Ejection Fraction Percentage: 58
- ARNI
Patient already on ARNI: No
Heart Failure ARNI Not Indicated: LV Ejection Fraction >/= 40%
- ACEI/ARB
Patient already on ACEI/ARB: No
Heart Failure ACEI/ARB Not Indicated: LV Ejection Fraction > 40%
- Beta Mian
Patient already on Evidence Based Beta Mian: Yes
- Mineralocorticord Receptor Antagonist
Patient already on MRA: No
Heart Failure MRA Not Indicated: LV Ejection Fraction > 40%
- SGLT-2 Inhibitor
Patient already on SGLT-2 Inhibitor: No
Heart Failure SGLT-2 Inhibitor Contraindication: Patient Refusal
- NYHA CHF Classification
NYHA CHF Classification Level: Class III - Symptoms w/ min exertion, interferes w/ nml daily activity
- ACC/AHA Stage
ACC/AHA Stage: Stage C: Symptomatic Heart Failure
--- NOTE | 2024-06-26 13:29 | W.DCSUMMARY ---
Addendum entered and electronically signed by Orlando Landon MD 06/26/24 15:08:
#minimal bandemia
2/2 dexa as no signs of infection: no fever, no leukocytosis, no respiratory or urinary symptoms
Addendum entered and electronically signed by Orlando Ladnon MD 06/26/24 14:15:
#Cr elevation 2/2 furosemide- repeat BMP in 1 week
Original Note:
Discharge Summary
Discharge Data
Date of Admission: 06/24/24
Date of Discharge: 06/26/24
-
Pending Results: No
Hospital Course
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
outpatient was brought by his son with worsening ambulatory status, orthopnea and dyspnea on excretion with b/l LE swelling managed for CHF
Also significant RUQ pain with heterogeneity of the inferior tip of the liver measuring roughly 9.0 x 2.1 x 4.4 cm, hepatomegaly and mural mass of the probable proximal ascending colon. That was discussed with patients Oncologist and
patients son advised to call to their office for appt to discuss mgmt. Needs more potent stool regimen due to ongoing constipation. Cardiology switched to oral LAsix and patient recommended to be d/c home as per PT/OT. Son is in agreement. medically
stable to be d/c home
Palliative approach recommended
I have spent at least 38min reviewing chart, test results, communication with consultants and providing direct patient care
Patient was managed for:
#Acute on chronic HFrEF exacerbation
#Mild troponin elevation, most likely 2/2 CHF (non-ischemic myocardial injury as per cardiology)
#Bilateral pleural effusions
#RUQ pain
#Chronic Constipation, most likely iatrogenic 2/2 opioids
#heterogeneity of the inferior tip of the liver measuring roughly 9.0 x 2.1 x 4.4 cm,
#hepatomegaly
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
#Pancytopenia
#JEFFERY
#RML pulmonary nodule
#Prostate CA, metastatic with multiple bone mets
#Colonic mass
#Ambulatory deficiency
Discharge Plan
-
Patient Disposition: Home (Routine Discharge)
Discharge Diagnosis/Procedures: CHF
Diet: No added salt
Blood Work: weekly CBC with Hematology, BMP in 1 week with PCP
Instructions: *CBC Heart Failure Instructions
Referrals:
Rik Rios, [Active] - in less than 1 week (Call to schedule discussion on new abdominal findings)
Shukri Che MD [Family Provider] -
Wendy Schulz NP [Specified Professional Personl] - 07/02/24 2:00 pm
Prescriptions:
New
furosemide 40 mg Tablet
40 mg PO DAILY Qty: 30 0RF
aspirin 81 mg Tablet,Delayed Release (Dr/Ec)
81 mg PO DAILY Qty: 30 0RF
metoprolol succinate 25 mg Tablet Extended Release 24 Hr
25 mg PO DAILY Qty: 30 0RF
sennosides-docusate sodium 8.6-50 mg Tablet
1 tab PO BID Qty: 60 0RF
Continued
ferrous sulfate 325 mg (65 mg iron) Tablet
325 mg PO DAILY
oxycodone 15 mg tablet
15 mg PO Q5H
cyanocobalamin (vitamin B-12) 1,000 mcg Tablet
1,000 mcg PO DAILY
dexamethasone 2 mg Tablet
2 mg PO DAILY
folic acid 1 mg Tablet
1 mg PO DAILY
polyethylene glycol 3350 [HealthyLax] 17 gram powder in packet
17 g PO DAILYPRN PRN (Reason: constipation)
Discharge Orders:
Discharge Patient (As Directed); Ordered 06/26/24
Ordered By: Orlando Landon
Discharge Date and Time
Print Language: BELGIAN
[2024-06-26] MEDS: ROXICODONE PO (13:37)
--- NOTE | 2024-06-26 15:06 | CM ---
Addendum entered by Maya Agarwal 06/26/24 16:49:
attempted to meet x3 no person in room/or family
Original Note:
Attempted to meet with pt bedside on but pt not in room, no family in room either. CM will continue to follow for discharge planning needs.
--- NOTE | 2024-06-26 15:54 | W.PN.UPDATE ---
Update Note
Progress Note Update
as per radiologist:Small Bowel Series on Engel not thru small bowel at 4 hours. repeat abd XR at 8pm, no d/c. Son informed and in agreement
--- NOTE | 2024-06-26 15:57 | PN.CDI ---
Addendum entered and electronically signed by Orlando Landon MD 06/26/24 16:10:
still HFrEF as per your citation
Original Note:
CDI
- -
CDI:
Physician Documentation Request
Admit Date: 06/24/24 19:00
Dear Doctor,
Please review the following and provide your response in the progress notes.
Clinical Indicators:
06/25 ECHO: Left ventricle is mildly dilated. Left ventricular ejection fraction is 58% by
Glover's method.
Mild hypokinesis of the apex and mid anterolateral wall. Abnormal (paradoxical)
septal motion consistent with bundle branch block.
Stage II diastolic dysfunction suggestive of abnormal relaxation and increased
filling pressures....
Compared to the prior on 12/02/2023, systolic function has greatly improved
from 20 to 25% on the prior study to 58% on the current study. Small regional
wall motion abnormality is seen. Moderate mitral regurgitation has improved to
mild to moderate. Aortic valve findings are stable.
06/25 Cardiology: 'Ulcji-[id number] HFrEF => now HF improved EF'
06/26 Progress Note: ' Acute on chronic HFrEF exacerbation'
Due to potential conflicting documentation, please provide further specificity regarding the most likely type of CHF you are evaluating, treating or monitoring.
TYPE:
Systolic
Diastolic
Combined Systolic/Diastolic
Other
Use of terms such as suspected, likely, concern for, or probable (associated with a specific diagnosis that is being evaluated, monitored, or treated as if it exists) are acceptable and can be coded in the inpatient setting, when documented at the
time of discharge.
Thank you,
Dee Dee Courtney RN, BSN
CDI Specialist
[place] [facility]
Please use your independent medical judgment in providing your response.
[2024-06-26 16:11] VITALS: BP 124/99
--- NOTE | 2024-06-26 16:50 | CM ---
PCM called to patient son and per son he confirmed plan is for discharge home tomorrow. Patient previously admitted in Nov 2023 and discharged to [facility] at this time. Per son, he was discharged to home and returned to his prior independent level.
Patient and his live in a ranch style home with 2 steps to enter and a 1st floor living set up.
Patient was indepent with ADLs and Mobility using a cane. Patients aides with IADLs and med management, and their son visits daily to support.
Patient does have a Rolling walker and grab bars in the shower and around the toilet.
Patient continues to be seen by Palliative and was previously seen by [facility] for PT/OT. PCP angelica Che, [facility] [place]. Patient son was given CM number if needed for discharge planning needs.
Plan; home with follow up with Palliative care; watch for home VN needs.
[2024-06-26] MEDS: SENOKOT-S PO ×2 (21:20)
[2024-06-26 23:52] VITALS: BP 126/61
[2024-06-27] MEDS: ROXICODONE PO ×2 (04:40→18:07)
[2024-06-27 07:02] LABS: Hematocrit 22.6 % (39.0-52.0); Hemoglobin 7.6 g/dL (13.0-18.0); Mean Corp Hgb Conc. 33.6 g/dL (33.0-37.0); Mean Corpuscular Hgb 30.5 pg (27.0-31.0); Mean Corpuscular Volume 90.8 fL (80.0-94.0); Mean Platelet Volume 8.5 fL (7.4-10.4); Platelet Count 137 10^3/uL (130-400); Red Blood Cell Count 2.49 10^6/uL (4.70-6.10); Red Cell Dist. Width 20.1 % (11.5-14.5); White Blood Cell Count 6.2 10^3/uL (4.8-10.8)
[2024-06-27 07:28] VITALS: BP 135/62
[2024-06-27 07:30] LABS: Blood Urea Nitrogen 36 mg/dl (9-20); Calcium 8.5 mg/dl (8.4-10.2); Carbon Dioxide 21 mmol/L (22-30); Chloride 108 mmol/L (98-107); Estimated Creatinine Clearance 38 ml/min; Glucose 151 mg/dl (70-99); Potassium 4.1 mmol/L (3.5-5.1); Sodium 138 mmol/L (135-145); eGFR 48.95
[2024-06-27 07:41] LABS: Troponin I 0.055 ng/ml
[2024-06-27 07:56] LABS: Anisocytosis 1+; Band Neutrophils 4 % (0-3); Eosinophils 2 % (0-6); Hypochromasia Slight; Lymphocytes 8 % (20-51); Metamyelocytes 4 % (-); Monocytes 5 % (2-9); Normal RBC Morphology No; Platelets Checked Yes; Polychromasia Slight; Segmented Neutrophils 77 % (42-75)
[2024-06-27 07:57] LABS: Total Cells Counted 100
[2024-06-27] MEDS: MIRALAX 17 GRAMS PO ×3 (08:32→20:59)
[2024-06-27] MEDS: ASPIR LOW (ENTERIC COATED) 81 MG PO (08:32)
[2024-06-27] MEDS: ROXICODONE 15 MG PO (08:32)
[2024-06-27] MEDS: TOPROL XL 25 MG PO (08:32)
[2024-06-27] MEDS: FEOSOL 325 MG PO (08:35)
[2024-06-27] MEDS: LASIX 40 MG PO (08:35)
[2024-06-27] MEDS: DECADRON 2 MG PO (08:35)
[2024-06-27] MEDS: SENOKOT-S 1 TABLET PO ×3 (08:35→20:43)
[2024-06-27] MEDS: FLEET MINERAL OIL ENEMA 133 ML RECTAL (10:15)
[2024-06-27] MEDS: ROXICODONE 10 MG PO ×3 (10:15→23:42)
--- NOTE | 2024-06-27 11:43 | W.PN.HOSP.TC ---
Today's Communication/Plan
-
GenSx eval
Enema, laxatives, expect BM
decrease Oxycodone dose
NPO and hold Lasix meanwhile
Discussed with son in details
Assessment / Plan
Assessment / Plan
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
outpatient was brought by his son with worsening ambulatory status, orthopnea and dyspnea on excretion with b/l LE swelling managed for CHF
Also significant RUQ pain with heterogeneity of the inferior tip of the liver measuring roughly 9.0 x 2.1 x 4.4 cm, hepatomegaly and mural mass of the probable proximal ascending colon. That was discussed with patients Oncologist and
patients son advised to call to their office for appt to discuss mgmt. Needs more potent stool regimen due to ongoing constipation. Cardiology switched to oral LAsix and patient recommended to be d/c home as per PT/OT. Son is in agreement. Review of
SBFT images showed contrast reaching rectum.
Palliative approach recommended
A/P:
#Acute on chronic HFrEF exacerbation
#Mild troponin elevation, most likely 2/2 CHF (non-ischemic myocardial injury as per cardiology)
#Bilateral pleural effusions
Previous Echo with possibility of Takotsubo, moderate MR and
Not hypoxic, without current chest pain
XR with findings that favor pulmonary edema in current clinical context, no concern for infectious etiology
Lasix, daily weight, repeat Echo, follow I&O and electrolytes with kidney function
Cardio consult: daily lasix and outpatient follow up. BMP in 1 week upon D/C
EKG with 1st degree AV block, hypertrophy
#RUQ pain
#Chronic Constipation, most likely iatrogenic 2/2 opioids
#Concern for ileocecal obstruction on XR
#heterogeneity of the inferior tip of the liver measuring roughly 9.0 x 2.1 x 4.4 cm,
#hepatomegaly
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
NPO until GenSx assessment
Enema and laxatives
Discussed with Oncologist - son to schedule appt next week to discuss options for new findings
pain mgmt
SBFT, laxatives
US RUQ reasonable
LFT WNL, no fever or leukocytosis - no concern for cholecystitis or choledocholithiasis on CT
no hydronephrosis on CT
#Pancytopenia
#JEFFERY
no overt bleeding
cont iron
2/2 CA
Keep Hgb>7, plt>20k
CBC and transfuse as needed
1unit PRBC ordered in ED
#RML pulmonary nodule
#Prostate CA, metastatic with multiple bone mets
#Colonic mass
with palliative and non-invasive approach and patient with significantly limited life expectancy - son declined further workup at this time with colonoscopy
Palliative care upon d/c
cont Oxycodone, dexamethasone
#Mild Cr elevation 2/2 Lasix
stable
#Ambulatory deficiency
PT/OT
DVT ppx on SCDs
DNR/DNI after detailed conversation with son
I have spent at least 58min reviewing chart, test results, communication with consultants and providing direct patient care
Anticipated Discharge: 24 - 48 hours
Subjective/Interval History
-
Date of Service: June 27, 2024
Objective Data
-
Labs:
Laboratory Results
06/27/24
06:30
WBC 6.2
Hgb 7.6 L
Hct 22.6 L
Plt Count 137
Sodium 138
Potassium 4.1
Chloride 108 H
Carbon Dioxide 21 L
BUN 36 H
Creatinine 1.4 H
Glucose 151 H
Calcium 8.5
Vital Signs:
Vital Signs
Temp Pulse Resp BP Pulse Ox
97.7 F 76 17 135/62 98
06/27/24 07:28 06/27/24 08:32 06/27/24 07:28 06/27/24 08:32 06/27/24 07:28
I&O
06/26/24 06/27/24 06/28/24
06:59 06:59 06:59
Intake Total 450 / 450
Output Total 700 / 700 800 / 800
Balance -250 / -250 -800 / -800
Review of Systems
-
History Source: Patient
All other systems: Reviewed and negative
Abdomen/GI: Reports Abdominal Pain
Physical Exam
-
General: No Apparent Distress and Comfortable
Respiratory: Clear to Auscultation
Cardiac: Regular Rhythm
GI: Tender (RUQ and RLQ) and Distended
Musculoskeletal: No Clubbing, No Cyanosis, Edema, Right Lower Extrem and Edema, Left Lower Extrem
Skin: Warm
Neuro: Awake, Alert, Oriented and AO x 3
Psych: Calm
--- NOTE | 2024-06-27 13:54 | CON.GS ---
Addendum entered and electronically signed by Dedrick Lund MD 06/27/24 19:24:
Patient seen and examined.
Patient is a 82 yo M with a PMH of anemia, HFpEF with Takutsubo's CM, colon cancer s/p sigmoid resection, stage IV metastatic prostate cancer s/p XRT with diffuse bone mets on Xgeva (known to palliative care team) s/b chronic pain and on chronic
opioids with chronic constipation. He presents with abdominal discomfort and dark black stools. No nausea or vomiting. No fevers or chills. No BM in 5 days. Currently, he is asking when he can go home and denies any pain. He has home
palliative care nurses. His last colonoscopy was in 2014 with patent anastomosis and large mouthed diverticula.
Gen: NAD
Abd: soft, NT, distended, non-peritoneal, prior incisions well healed
Labs and CT scan imaging were reviewed.
Patient is a 88 yo M p/w abdominal pain and distension
Issues most likely related to constipation from old age, dehydration, chronic opioids and chemo, less likely a component of cancerous process, stricture, or adhesion. CT comments on a possible IC valve mass, this is not clear and limited by lack of
PO contrast. There is no significant small bowel dilation. 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
No role for surgical intervention. Recommend aggressive bowel regimen. Could consider bowel prep and colonoscopy to further evaluate and possible intraluminal mass; however, needs to be balanced with goals of care and unlikely to change
management. All questions answered.
-- No plans or role for surgery
-- Miralax, mag citrate, enemas
-- Consider GI consult for bowel prep and colonoscopy
-- Call with questions or concerns
Original Note:
Consultation
-
Date/Time Consultation Performed: 06/27/24 1315
Medical History
-
Chief Complaint: Constipation
History of Present Illness:
88 yo male with a h/o metastatic prostate cancer s/p XRT with diffuse bone mets on Xgeva (known to palliative care team), anemia, on chronic opioids with chronic constipation, HFrEF with Takutsubo's CM, colon cancer s/p sigmoid resection last
colonoscopy in 2014 with patent anastomosis and large mouthed diverticula in the ascending colon who presents with abdominal discomfort and dark stools. He denies pain today, but with mild to moderate diffuse tenderness one exam with distention. He
has not had a BM for 5 days. He denies nausea and vomiting. He denies anorexia.
Past Medical History
Past Medical History: Cancer (metastatic prostate cancer initially tx with XRT, colon cancer), CHF (HFrEF (Takutsubo CM)) and Other (dementia, hypercalcemia of malignancy, chronic constipation secondary to opioids, chronic anemia)
Past Surgical History: Appendectomy, Bowel Resection (open sigmoid colon resection for colon ca, last surveillance colonoscopy 2014), Orthopedic (left shoulder, right knee) and Tonsilectomy
Social History
Tobacco: Former Smoker
Living: With Family
Family History
Family History: Reviewed & Not Pertinent
Allergies / Home Medications
Allergy/AdvReac Type Severity Reaction Status Date / Time
lisinopril Allergy Unknown Verified 06/24/24 14:17
Sulfa (Sulfonamide Allergy Unknown Verified 06/24/24 14:17
Antibiotics)
�Medication �Instructions �Recorded �Confirmed �Type
ferrous sulfate 325 mg (65 mg 325 mg PO DAILY Supplement 12/19/23 06/24/24 History
iron) tablet
oxycodone 15 mg tablet 15 mg PO Q5H Pain 05/22/24 06/24/24 History
cyanocobalamin (vitamin B-12) 1,000 mcg PO DAILY Supplement 06/24/24 06/24/24 History
1,000 mcg tablet
dexamethasone 2 mg tablet 2 mg PO DAILY Anti-Inflammatory 06/24/24 06/24/24 History
folic acid 1 mg tablet 1 mg PO DAILY Supplement 06/24/24 06/24/24 History
polyethylene glycol 3350 17 gram 17 g PO DAILYPRN PRN constipation 06/24/24 06/24/24 History
oral powder packet (HealthyLax)
aspirin 81 mg tablet,delayed 81 mg PO DAILY #30 tabs 06/26/24 Rx
release
furosemide 40 mg tablet 40 mg PO DAILY #30 tabs 06/26/24 Rx
metoprolol succinate 25 mg 25 mg PO DAILY #30 tabs 06/26/24 Rx
tablet,extended release 24 hr
sennosides 8.6 mg-docusate sodium 1 tab PO BID #60 tabs 06/26/24 Rx
50 mg tablet
Review of Systems
-
History Source: Patient
All other systems: Negative unless noted
A 10 point review of systems was completed, and was negative except as per HPI.
Physical Exam
Vital Signs
Temp Pulse Resp BP Pulse Ox
97.7 F 76 17 135/62 98
06/27/24 07:28 06/27/24 08:32 06/27/24 07:28 06/27/24 08:32 06/27/24 07:28
06/26/24 06/27/24 06/28/24
06:59 06:59 06:59
Actual Weight 71.577 kg
Body Mass Index (BMI) 22.6
Lab Results
06/27/24 06:30
06/27/24 06:30
WBC 6.2 10^3/uL (4.8-10.8) 06/27/24 06:30
Hgb 7.6 g/dL (13.0-18.0) L 06/27/24 06:30
Hct 22.6 % (39.0-52.0) L 06/27/24 06:30
Plt Count 137 10^3/uL (130-400) 06/27/24 06:30
Abs Immat Gran (auto) 0.5 10^3/uL (0-0.05) H 06/24/24 14:22
Neutrophils % 72.3 % (42.2-75.2) 06/24/24 14:22
Physical Exam
General: Well Developed and Well Nourished
HEENT: Moist Mucous Membranes
Respiratory: Non Labored Respirations
GI: Soft, Tender (generalized mild to mod) and Distended
Skin: Warm
Neuro: Awake and Alert
Psych: Calm
Data Reviewed
-
Radiology: Image Personally Visualized and interpreted, Report Reviewed by me, Discussed with Physician and Discussed with Patient
CT Scan: Image Personally Visualized and interpreted, Report Reviewed by me, Discussed with Physician and Discussed with Patient
Labs: Labs Reviewed by me, Discussed with Physician, Discussed with Patient and Discussed with Family
Old Records: Reviewed
Assessment / Plan
-
88 yo male with h/o colon ca s/p sigmoid resection (last colonoscopy was 2014) and metastatic prostate cancer tx initially with XRT now on Xgeva (known to palliative care) who presented with abdominal pain with ongoing constipation (last BM was 06/22
according to nursing notes). CT imaging reviewed with ?new mass in the ascending colon near the ileocecal valve although limited study d/t lack of PO or IV contrast and significant colonic stool burden, ?metastatic implant in pelvis with third
spacing and mixed lytic and blastic osseous mets. SBFT study with barium done yesterday with delayed transit time but contrast has made it to the colon on follow up xray without significant small bowel distention present. Stool burden again noted on
xray's. Suspect constipation as the etiology of abd discomfort vs less likely an obstructing mass given overall imaging findings and lack of SB dilation. No leukocytosis. Stable chronic anemia.
--Continue bowel regimen, s/p enema today without results. Will give mag citrate x1 bottle
--Diet as per primary team
--Consider GI follow up for colonoscopy to further evaluate possible new ascending colon mass depending on pt/family wishes.
--XR in AM
--No surgical intervention recommended at this time
[2024-06-27] MEDS: CITROMA 300 ML PO (14:49)
[2024-06-27 15:11] VITALS: BP 106/39
[2024-06-27] MEDS: SENOKOT-S PO (20:41)
[2024-06-27 20:50] VITALS: BP 161/59
[2024-06-27 23:00] VITALS: BP 115/55
--- NOTE | 2024-06-28 04:43 | PTCARENOTE ---
Mr. Engel has successfully moved his bowels w/ multiple loose stools. Patient states relief.
[2024-06-28 05:38] LABS: Hematocrit 22.4 % (39.0-52.0); Hemoglobin 7.3 g/dL (13.0-18.0); Mean Corp Hgb Conc. 32.6 g/dL (33.0-37.0); Mean Corpuscular Hgb 30.3 pg (27.0-31.0); Mean Corpuscular Volume 92.9 fL (80.0-94.0); Mean Platelet Volume 8.8 fL (7.4-10.4); Platelet Count 135 10^3/uL (130-400); Red Blood Cell Count 2.41 10^6/uL (4.70-6.10); Red Cell Dist. Width 19.9 % (11.5-14.5); White Blood Cell Count 5.1 10^3/uL (4.8-10.8)
[2024-06-28] MEDS: ROXICODONE PO (05:46)
[2024-06-28 05:57] LABS: ALT (SGPT) 17 U/L (0-50); AST (SGOT) 22 U/L (17-59); Albumin 3.3 g/dl (3.5-5.0); Alkaline Phosphatase 95 U/L (38-126); Blood Urea Nitrogen 33 mg/dl (9-20); Calcium 8.4 mg/dl (8.4-10.2); Carbon Dioxide 24 mmol/L (22-30); Chloride 109 mmol/L (98-107); Estimated Creatinine Clearance 41 ml/min; Glucose 137 mg/dl (70-99); Magnesium 2.4 mg/dl (1.6-2.3); Potassium 4.1 mmol/L (3.5-5.1); Sodium 141 mmol/L (135-145); Total Bilirubin 0.7 mg/dl (0.2-1.3); Total Protein 5.2 g/dl (6.3-8.2)
[2024-06-28 06:00] VITALS: BMI 21.6
[2024-06-28 07:20] VITALS: BP 110/49
[2024-06-28] MEDS: MIRALAX 17 GRAMS PO (07:34)
[2024-06-28] MEDS: ASPIR LOW (ENTERIC COATED) 81 MG PO (07:34)
[2024-06-28] MEDS: SENOKOT-S PO (07:34)
[2024-06-28] MEDS: SENOKOT-S 1 TABLET PO (07:34)
[2024-06-28] MEDS: TOPROL XL 25 MG PO (07:34)
[2024-06-28] MEDS: FEOSOL 325 MG PO (07:34)
[2024-06-28] MEDS: DECADRON 2 MG PO (07:34)
[2024-06-28] MEDS: ROXICODONE 10 MG PO ×2 (09:00→14:04)
--- NOTE | 2024-06-28 11:13 | W.PN.HOSP.TC ---
Today's Communication/Plan
-
dc
Assessment / Plan
Assessment / Plan
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
outpatient was brought by his son with worsening ambulatory status, orthopnea and dyspnea on excretion with b/l LE swelling managed for CHF
Also significant RUQ pain with heterogeneity of the inferior tip of the liver measuring roughly 9.0 x 2.1 x 4.4 cm, hepatomegaly and mural mass of the probable proximal ascending colon. That was discussed with patients Oncologist and
patients son advised to call to their office for appt to discuss mgmt. Needs more potent stool regimen due to ongoing constipation. Cardiology switched to oral LAsix and patient recommended to be d/c home as per PT/OT. Son is in agreement. Review of
SBFT images showed contrast reaching rectum. Patient had bowel movements and decrease in pain
Recommended to be discharged on LAsix, increased bowel regimen and decreased oxycodone. Son in agreement. Possible colonoscopy and GI involvement were discussed for new findings of mural mass in acceding colon. Since previously patient was not a
candidate for his metastatic prostate CA treatment - discussed with son that most likely findings on colonoscopy will not change prognosis or management wether the new type of CA to be found or if metastasis from existent one, but procedure itself
will carry a risks of complications. With this information - son would like to hold off colnoscopy and have assessment by to make informed decision if he will need one. He requested discharge home. Medically stable for d/c home
Palliative approach to be continued upon d/c - son received new hospital bed
A/P:
#Acute on chronic HFrEF exacerbation
#Mild troponin elevation, most likely 2/2 CHF (non-ischemic myocardial injury as per cardiology)
#Bilateral pleural effusions
Previous Echo with possibility of Takotsubo, moderate MR and
Not hypoxic, without current chest pain
XR with findings that favor pulmonary edema in current clinical context, no concern for infectious etiology
Lasix, daily weight, repeat Echo, follow I&O and electrolytes with kidney function
Cardio consult: daily lasix and outpatient follow up. BMP in 1 week upon D/C
EKG with 1st degree AV block, hypertrophy
#RUQ pain
#Chronic Constipation, most likely iatrogenic 2/2 opioids, cannot exclude pSBO
#Concern for ileocecal obstruction on XR
#heterogeneity of the inferior tip of the liver measuring roughly 9.0 x 2.1 x 4.4 cm,
#hepatomegaly
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
NPO until GenSx assessment
Enema and laxatives
Discussed with Oncologist - son to schedule appt next week to discuss options for new findings
pain mgmt
SBFT showed eventual resolution, laxatives
US RUQ reasonable
LFT WNL, no fever or leukocytosis - no concern for cholecystitis or choledocholithiasis on CT
no hydronephrosis on CT
#Pancytopenia
#JEFFERY
no overt bleeding
cont iron
2/2 CA
Keep Hgb>7, plt>20k
CBC and transfuse as needed
1unit PRBC ordered in ED
#RML pulmonary nodule
#Prostate CA, metastatic with multiple bone mets
#Colonic mass
with palliative and non-invasive approach and patient with significantly limited life expectancy - son declined further workup at this time with colonoscopy
Palliative care upon d/c
cont Oxycodone, dexamethasone
#Mild Cr elevation 2/2 Lasix
stable
#Ambulatory deficiency
PT/OT
DVT ppx on SCDs
DNR/DNI after detailed conversation with son
I have spent at least 38min reviewing chart, test results, communication with consultants and providing direct patient care
Anticipated Discharge: Today
Subjective/Interval History
-
Date of Service: June 28, 2024
Objective Data
-
Labs:
Laboratory Results
06/28/24
04:14
WBC 5.1
Hgb 7.3 L
Hct 22.4 L
Plt Count 135
Sodium 141
Potassium 4.1
Chloride 109 H
Carbon Dioxide 24
BUN 33 H
Creatinine 1.3
Glucose 137 H
Calcium 8.4
Total Bilirubin 0.7
AST 22
ALT 17
Alkaline Phosphatase 95
Vital Signs:
Vital Signs
Temp Pulse Resp BP Pulse Ox
98.1 F 68 18 110/49 96
06/28/24 07:20 06/28/24 07:34 06/28/24 07:20 06/28/24 07:34 06/28/24 10:32
I&O
06/27/24 06/28/24 06/29/24
06:59 06:59 06:59
Output Total 800 / 800 210 / 210
Balance -800 / -800 -210 / -210
Review of Systems
-
History Source: Patient
All other systems: Reviewed and negative
Abdomen/GI: Reports Abdominal Pain
Physical Exam
-
General: No Apparent Distress
HEENT: Normocephalic
Respiratory: Clear to Auscultation
Cardiac: Regular Rhythm
GI: Soft, Nontender and Nondistended
Musculoskeletal: No Clubbing, No Cyanosis, Edema, Right Lower Extrem and Edema, Left Lower Extrem
Neuro: Awake, Alert, Oriented and AO x 3
Psych: Calm
--- NOTE | 2024-06-28 11:23 | W.DCSUMMARY ---
Discharge Summary
Discharge Data
Date of Admission: 06/24/24
Date of Discharge: 06/28/24
-
Pending Results: No
Hospital Course
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
outpatient was brought by his son with worsening ambulatory status, orthopnea and dyspnea on excretion with b/l LE swelling managed for CHF
Also significant RUQ pain with heterogeneity of the inferior tip of the liver measuring roughly 9.0 x 2.1 x 4.4 cm, hepatomegaly and mural mass of the probable proximal ascending colon. That was discussed with patients Oncologist and
patients son advised to call to their office for appt to discuss mgmt. Needs more potent stool regimen due to ongoing constipation. Cardiology switched to oral LAsix and patient recommended to be d/c home as per PT/OT. Son is in agreement. Review of
SBFT images showed contrast reaching rectum. Patient had bowel movements and decrease in pain
Recommended to be discharged on LAsix, increased bowel regimen and decreased oxycodone. Son in agreement. Possible colonoscopy and GI involvement were discussed for new findings of mural mass in acceding colon. Since previously patient was not a
candidate for his metastatic prostate CA treatment - discussed with son that most likely findings on colonoscopy will not change prognosis or management wether the new type of CA to be found or if metastasis from existent one, but procedure itself
will carry a risks of complications. With this information - son would like to hold off colnoscopy and have assessment by to make informed decision if he will need one. He requested discharge home. Medically stable for d/c home
Palliative approach to be continued upon d/c - son received new hospital bed
I have spent at least 38min reviewing chart, test results, communication with consultants and providing direct patient care
Patient was managed for:
#Acute on chronic HFrEF exacerbation
#Mild troponin elevation, most likely 2/2 CHF (non-ischemic myocardial injury as per cardiology)
#Bilateral pleural effusions
#RUQ pain
#Chronic Constipation, most likely iatrogenic 2/2 opioids, cannot exclude pSBO
#Concern for ileocecal obstruction on XR
#heterogeneity of the inferior tip of the liver measuring roughly 9.0 x 2.1 x 4.4 cm,
#hepatomegaly
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
#Pancytopenia
#JEFFERY
#RML pulmonary nodule
#Prostate CA, metastatic with multiple bone mets
#Colonic mass
#Mild Cr elevation 2/2 Lasix
#Ambulatory deficiency
Discharge Plan
-
Patient Disposition: Home (Routine Discharge)
Discharge Diagnosis/Procedures: CHF
Diet: No added salt
Blood Work: weekly CBC with Hematology, BMP in 1 week with PCP
Instructions: *CBC Heart Failure Instructions
Referrals:
Rik Rios DO [Active] - in less than 1 week (Call to schedule discussion on new abdominal findings)
Shukri Che MD [Family Provider] -
Wendy Schulz NP [Specified Professional Personl] - 07/02/24 2:00 pm
Genaro Wolfe MD [Active] - in two to three weeks (if decided for colonoscopy)
Prescriptions:
New
furosemide 40 mg Tablet
40 mg PO DAILY Qty: 30 0RF
aspirin 81 mg Tablet,Delayed Release (Dr/Ec)
81 mg PO DAILY Qty: 30 0RF
metoprolol succinate 25 mg Tablet Extended Release 24 Hr
25 mg PO DAILY Qty: 30 0RF
sennosides-docusate sodium 8.6-50 mg Tablet
1 tab PO BID Qty: 60 0RF
Continued
ferrous sulfate 325 mg (65 mg iron) Tablet
325 mg PO DAILY
oxycodone 15 mg tablet
15 mg PO Q5H
cyanocobalamin (vitamin B-12) 1,000 mcg Tablet
1,000 mcg PO DAILY
dexamethasone 2 mg Tablet
2 mg PO DAILY
folic acid 1 mg Tablet
1 mg PO DAILY
Changed
polyethylene glycol 3350 [HealthyLax] 17 gram powder in packet
17 g PO TIDPRN PRN (Reason: constipation) Qty: 0 0RF
Discharge Orders:
Discharge Patient (As Directed); Ordered 06/28/24
Ordered By: Orlando Landon
Discharge Date and Time
Print Language: [place]
[2024-06-28 11:34] LABS: % Basophils 0.2 % (0-2); % Eosinophils 1.2 % (0-6); % Immature Granulocytes 8.1 % (0-0.5); % Lymphocytes 8.7 % (20.5-51.1); % Monocytes 9.7 % (1.7-9.3); % Neutrophils 72.1 % (42.2-75.2); Absolute Eosinophils 0.1 10^3/uL (0-0.7); Absolute Immature Granulocytes 0.4 10^3/uL (0-0.05); Absolute Lymphocytes 0.4 10^3/uL (1.2-3.4); Absolute Monocytes 0.5 10^3/uL (0.1-0.6); Absolute Neutrophils 3.7 10^3/uL (1.4-6.5); Nucleated Red Blood Cells % 0 % (-)
--- NOTE | 2024-06-28 14:12 | CM ---
[facility] is cleared for discharge to home today. Pt was offered VN, but declined.
IMM reviewed and signed, copy given to pt; original in chart.
Pt's son will provide transport home at discharge.
Plan: Discharge to home with no identified needs.. Outpatient palliative care visit to be scheduled by pt/family.
[2024-06-28 14:57] VITALS: BP 114/50
[2024-06-29 19:36] LABS: CEA 15.2 ng/ml
== END 2024-06-28 15:00 | disposition home or self-care (01) | DRG 291 ==
LOC: 3 WEST ACU 19:00
PROVIDERS: Emergency Medicine; Internal Medicine Cardiovascular Disease; Physician Assistant; Registered Nurse; ADMITTING PHYSICIAN Internal Medicine; CONSULT PHYSICIAN Nurse Practitioner Gerontology; CONSULT PHYSICIAN Surgery; EMERGENCY PHYSICIAN Emergency Medicine; FAMILY PHYSICIAN Family Medicine; OTHER PHYSICIAN Internal Medicine Cardiovascular Disease
PROC: 30233N1 Transfusion of Nonautologous Red Blood Cells into Peripheral Vein, Percutaneous Approach (ICD-10-PCS; 2024-06-24)
DX: I13.0 Hypertensive heart and chronic kidney disease with heart failure and stage 1 through stage 4 chronic kidney disease, or unspecified chronic kidney disease (principal); I50.23 Acute on chronic systolic (congestive) heart failure; D61.818 Other pancytopenia; N17.9 Acute kidney failure, unspecified; C79.51 Secondary malignant neoplasm of bone; K56.600 Partial intestinal obstruction, unspecified as to cause; I5A Non-ischemic myocardial injury (non-traumatic); D63.8 Anemia in other chronic diseases classified elsewhere; D72.825 Bandemia; R16.0 Hepatomegaly, not elsewhere classified; N18.32 Chronic kidney disease, stage 3b; C61 Malignant neoplasm of prostate; F03.90 Unspecified dementia, unspecified severity, without behavioral disturbance, psychotic disturbance, mood disturbance, and anxiety; K59.03 Drug induced constipation; T40.2X5A Adverse effect of other opioids, initial encounter; I44.0 Atrioventricular block, first degree; R91.1 Solitary pulmonary nodule; E86.0 Dehydration; R19.09 Other intra-abdominal and pelvic swelling, mass and lump; E83.52 Hypercalcemia; I34.0 Nonrheumatic mitral (valve) insufficiency; I35.0 Nonrheumatic aortic (valve) stenosis; R26.2 Difficulty in walking, not elsewhere classified; D50.9 Iron deficiency anemia, unspecified; T50.1X5A Adverse effect of loop [high-ceiling] diuretics, initial encounter; Y92.9 Unspecified place or not applicable; Z66 Do not resuscitate; Z87.891 Personal history of nicotine dependence; Z88.8 Allergy status to other drugs, medicaments and biological substances; Z88.2 Allergy status to sulfonamides; Z91.199 Patient's noncompliance with other medical treatment and regimen due to unspecified reason; Z92.3 Personal history of irradiation; Z85.038 Personal history of other malignant neoplasm of large intestine; Z90.49 Acquired absence of other specified parts of digestive tract; Z79.891 Long term (current) use of opiate analgesic; Z79.82 Long term (current) use of aspirin
CPT/HCPCS: 71046; 74018; 74177; 74250; 76700; 80048; 80053; 82378; 83735; 83880; 84443; 84484; 85025; 86850; 86900; 86901; 86920; 93005; 93306; 96374; 97163; 97166; 99285; P9016; Q9967